=== PATIENT | male | born 1945 | race Caucasian/White ===

== ENCOUNTER 2023-04-19 11:02 | Outpatient (REF) | payer MEDICARE, OTHER, SELFPAY ==
[2023-04-19 14:11] LABS: Basophils Absolute Auto 0.1 X10*3/uL (0.0-0.2); Basophils Percent Auto 1.5 % (0-2); Eosinophils Absolute Auto 0.8 X10*3/uL (0.0-0.4); Eosinophils Percent Auto 12.6 % (0-4); Hematocrit 41.6 % (42.0-52.0); Hemoglobin 14.3 g/dl (14.0-18.0); Imm Gran Abs Auto 0.01 X10*3/uL (0.00-0.03); Imm Gran Pct Auto 0.2 % (0.0-0.4); Lymphocytes Absolute Auto 1.4 X10*3/uL (1.2-4.9); Lymphocytes Percent Auto 22.8 % (20-40); MANUAL DIFF FLAG NO; Mean Corpuscular HGB Conc 34.4 g/dl (31.0-36.0); Mean Corpuscular Hemoglobin 34.5 pg (27.0-33.0); Mean Corpuscular Volume 100.5 fL (80.0-98.0); Mean Platelet Volume 11.2 fL (9.4-12.4); Monocytes Absolute Auto 0.4 X10*3/uL (0.1-1.2); Monocytes Percent Auto 6.4 % (2-11); Neutrophils Absolute Auto 3.4 x10*3/uL (2.0-8.3); Neutrophils Percent Auto 56.5 % (45-73); Platelet Count 175 X10*3/uL (160-400); Red Blood Count 4.14 X10*6/uL (4.60-5.80); Red Cell Distribution Width 11.8 % (11.0-16.0); White Blood Count 6.1 X10*3/uL (4.8-10.8)
[2023-04-19 14:35] LABS: Appearance Urine Clear; Color Urine Dark Yellow; Glucose Urine UA Negative (Negative); Leukocyte Esterase Urine Negative (Negative); Nitrite Urine Negative (Negative); PH 6.5 (5.0-9.0); Specific Gravity - Urine >= 1.030 (1.005-1.025); UMIC TRIGGER UA YES; Urine Blood Negative (Negative); Urine Ketones Trace mg/dL (Negative); Urine Protein 30 (1+) mg/dL (Neg-Trace)
[2023-04-19 14:43] LABS: Bacteria Urine None Seen (None Seen); Hyaline Casts Urine 0-2 /LPF (0-2); RBC Urine 0-2 /HPF (0-2); Squamous Epithelial Cell Urine 0-2 /HPF (0-2); WBC Urine 0-5 /HPF (0-5)
[2023-04-19 14:45] LABS: Rheumatoid Factor < 13.0 IU/mL (<15.0)
[2023-04-19 14:48] LABS: Alanine Aminotransferase 15 U/L (0-40); Albumin Level 4.7 g/dL (3.5-5.0); Alkaline Phosphatase 50 U/L (39-117); Anion Gap 15 (12-20); Aspartate Amino Transferase 18 U/L (5-37); Bilirubin Total 0.5 mg/dL (0.0-1.0); Blood Urea Nitrogen 23 mg/dL (9-16); C Reactive Protein < 0.04 mg/dL (< or = 0.50); Calcium 10.1 mg/dL (8.4-10.2); Carbon Dioxide 24 mmol/L (22-29); Chloride 102 mmol/L (96-108); Estimated Glomerular Filt Rate 59; Gamma Glutamyl Transpeptidase 26 U/L (11-51); Glucose Random 101 mg/dL (60-115); Sodium 137 mmol/L (135-145); Total Protein 7.5 g/dL (6.5-8.0)
[2023-04-19 14:52] LABS: Erythrocyte Sedimentation Rate 7 MM/HR (0-15)
[2023-04-19 15:08] LABS: Protein/Creatinine Ratio, Ur 0.12 (<0.2); Total Protein Urine Random 31 mg/dL (<12)
[2023-04-20 04:05] LABS: HBc Num1 0.06 S/CO (0.00-0.79); Hepatitis A Antibody IgM 0.13 Index (0-0.79); Hepatitis B Core Antibody Nonreactive (Nonreactive); ~Hepatitis A Antibody IgM Nonreactive (Nonreactive)
[2023-04-20 04:29] LABS: HBS Num1 0.32 mIU/mL (0-7.99); HBsAGNum1 0.27 S/CO (0.00-0.99); Hepatitis B Surface Antigen Negative (Negative); ~HepC Num1 0.05 S/CO (0.00-0.79); ~Hepatitis B Surface Antibody NONREACTIVE (Nonreactive); ~Hepatitis C Antibody Nonreactive (Nonreactive)
[2023-04-20 13:44] LABS: Complement C3 145 mg/dL (82-185)
[2023-04-20 15:18] LABS: Cyclic Citrullinated Peptide <16 UNITS
[2023-04-20 18:43] LABS: Anti DNA DS Antibody <1 IU/mL; Antibody to SS-A Antigen >8.0 POS AI (<1.0 NEG); Antibody to SS-B Antigen <1.0 NEG AI (<1.0 NEG); SM/Ribonucleoprotein Ab <1.0 NEG AI (<1.0 NEG); Smith Protein <1.0 NEG AI (<1.0 NEG)
[2023-04-21 11:13] LABS: Prot Elec - Albumin 4.7 g/dL (3.8-4.8); Prot Elec - Alpha1 0.3 g/dL (0.2-0.3); Prot Elec - Beta 1 0.5 g/dL (0.4-0.6); Prot Elec - Beta 2 0.3 g/dL (0.2-0.5); Prot Elec - Gamma 0.6 g/dL (0.8-1.7); Prot Elec - Total Protein 7.4 g/dL (6.1-8.1)
[2023-04-22 08:34] LABS: TS Negative Control Passed; TS Panel A 0; TS Panel B 0; TS Positive Control Passed; TSpotTB Negative (Negative)
[2023-04-25 12:09] LABS: ANA Pattern 2 Nuclear, Homogeneous; ANA Titer 2 1:40 titer; Anti Nuclear Antibody Pattern Nuclear, Speckled; Anti Nuclear Antibody Screen POSITIVE (NEGATIVE)
[2023-04-25 12:39] LABS: IgA 168 mg/dL (70-320); IgG 589 mg/dL (600-1540); IgM 21 mg/dL (50-300)
[2023-04-26 15:33] LABS: DNAds, Crithidia Antibody Negative (Negative)
[2023-05-02 17:00] LABS: Centromere Protein A Ab <11 SI (<11); Centromere Protein B Ab <11 SI (<11); Fibrillarin Ab <11 SI (<11); PM SCL 100 Ab <11 SI (<11); PM SCL 75 Ab <11 SI (<11); RNA Polymerase III RP11 Ab <11 SI (<11); RNA Polymerase III RP155 Ab <11 SI (<11); SCL-70 Extractable Nuclear Ab <11 SI (<11); Th-To Ab <11 SI (<11); U1 SNRNP RNP 70KD <11 SI (<11); U1 SNRNP RNP A <11 SI (<11); U1 SNRNP RNP C <11 SI (<11)
== END 2023-04-19 11:03 | disposition home or self-care (01) ==
LOC: HO.LAB 11:02
PROVIDERS: Visit Provider Student in an Organized Health Care Education/Training Program
DX: M32.9 Systemic lupus erythematosus, unspecified (principal); M06.9 Rheumatoid arthritis, unspecified; M34.9 Systemic sclerosis, unspecified; R74.01 Elevation of levels of liver transaminase levels; Z79.899 Other long term (current) drug therapy; Z11.59 Encounter for screening for other viral diseases; Z11.7 Encounter for testing for latent tuberculosis infection; Z72.89 Other problems related to lifestyle
CPT/HCPCS: 36415; 80053; 81001; 82550; 82570; 82784; 82977; 84156; 84165; 84182; 85025; 85652; 86038; 86039; 86140; 86160; 86200; 86225; 86235; 86255; 86334; 86431; 86481; 86704; 86706; 86709; 86803; 87340

== ENCOUNTER 2023-04-19 11:02 | Outpatient (AMB) | payer MEDICARE, OTHER, SELFPAY ==
--- NOTE | 2023-04-19 11:43 | A.OFFVIS_ITS ---
Intake Vital Signs 04/19/23 11:56 Height 5 ft 10 in Weight 199 lb 1.239 oz BMI 28.6 BP 132/76 Blood Pressure Location Lt brachial Position Sitting Pulse 71 Pulse Source Pulse Oximeter Pulse Oximetry (%) 99 Oxygen Delivery Method Room Air Intake Visit Reasons: Lupus Intake Note: New patient presents today for Lupus consult. [place] Operator Required: No Accompanied by: Self / Same As Patient Allergies No Known Allergies Allergy (Verified 04/19/23 11:57) Medication List - Last Reconciled 04/19/23 by Anne Ritter MD duloxetine 20 mg PO DAILY hydroxychloroquine 200 mg PO BID losartan 100 mg PO DAILY HPI HPI Comments History of Present Illness Details This is a 77-year-old male who presents for evaluation of SLE. He stated that since he has been having episodes of rashes all over his body especially after sun exposure, fatigue, generalized pain and weakness. Eventually around 2018 he was evaluated by Dermatology and a skin biopsy confirmed discoid lupus erythematosus. He was started on hydroxychloroquine with significant improvement of his rashes. He was evaluated by Rheumatology and methotrexate was added in 2020, he was on it for about 9 months and it was discontinued due to GI upset. He continues on hydroxychloroquine 200 mg Twice daily. He states that he continues to have at least 1 or 2 days per week episodes of brain fog, generalized fatigue, pain in upper back, neck, shoulders, lower back. Whenever he does any work outside he gets a butterfly rash on his face. He denies any history of fevers. He states that his hands and feet are always cold. They do change color but he does not have to do anything about it to reverse it. Denies any history of DVT/PE. States that he has had GI symptoms for years and had significant workup by Gastroenterology. Including endoscopy and colonoscopy which were unremarkable per patient. He has intermittent heartburn. Occasionally takes omeprazole. Denies any dysphagia. He states that prednisone always does wonders for all his symptoms. States that his daughter was recently diagnosed with lupus and started on Plaquenil with dramatic improvement. He believes that his mother also had lupus as she also had photosensitivity and sun intolerance. [facility] Medical History Hypertension Surgical History H/O abdominoplasty S/P hernia repair Hx of tonsillectomy History of surgery Family History Daughter Lupus (systemic lupus erythematosus) Other Family history of lupus erythematosus Social History Household Members: Spouse Alcohol intake: current Alcohol intake frequency: holidays/special occasions only Patient Tobacco Use Status: Former Tobacco user Review of Systems Const Reports fatigue Eyes Reports blurry vision ENT Reports dizziness Resp Reports no additional complaints GI Reports bloating, Reports constipation, Reports early satiety and Reports heartburn Musc Reports arthralgias, Denies joint swelling, Reports muscle weakness and Reports stiffness Skin/Breast Reports unusual bruising Neuro Reports dizziness and Reports memory loss Psych Reports memory loss Endo Reports fatigue Physical Exam Vital Signs: Last Vital Signs Pulse 71 04/19/23 11:56 BP 132/76 04/19/23 11:56 Pulse Ox 99 04/19/23 11:56 Oxygen Delivery Method Room Air 04/19/23 11:56 BMI result Body Mass Index 28.6 Const General: cooperative, healthy appearing and comfortable Nutritional Appearance: overweight Orientation/consciousness: patient oriented x3 Limitations: no limitations HEENT Head: Yes normocephalic and Yes atraumatic Mouth: moist mucous membranes Resp Effort & Inspection: normal respiratory effort and able to speak in complete sentences Auscultation: clear to auscultation bilaterally Cardio Rate: regular rate Rhythm: regular rhythm GI Inspection: No distended Palpation (GI): Soft to palpation and nontender Skin General skin exam: no rashes or lesions noted Neuro General: patient oriented x3 Extrem Other: Mild purplish discoloration of hands, cool fingertips, consistent with Raynaud's No active synovitis No myofascial tender points No swollen joints Normal nailfold capillaroscopy Results Reviewed Results Reviewed: Previously diagnosed with cutaneous lupus erythematosus by skin biopsy in 2018 at [facility] in [place] Labs 04/2022? C4 22 normal? C3-130 normal? CBC unremarkable CMP unremarkable? ESR 11? CRP undetectable? CPK 44 Labs 01/2022? CPK 36? DsDNA negative C3 105 normal? C4 18 normal? CBC unremarkable ESR and CRP unremarkable Stopped oral methotrexate due to GI upset after taking it X 9 months in 05/2020 Assessment & Plan Assessment & Plan (1) Lupus: Comment: dx 2018 skin biopsy showing cutaneous lupus, fatigue, arthralgias HCQ approx 2019 effective for skin Code(s): M32.9 - Systemic lupus erythematosus, unspecified Plan: This is a 77-year-old male with SLE who presents as a new patient. Lupus was 1st diagnosed around 2018 after a skin biopsy confirmed discoid lupus. Patient was having other symptoms such as fatigue, generalized fatigue, brain fog. Rashes significantly improved on hydroxychloroquine. Methotrexate was added, patient took it for approximately 9 months and stopped in 05/2020 due to GI issues. His GI issues persistent after discontinuing methotrexate. Will repeat SLE activity labs. Continue hydroxychloroquine 200 mg Twice daily. Will consider injectable methotrexate. 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 Advised patient to attempt to retrieve initial office note and workup by Rheumatology Follow-up in 6-7 weeks Plan I spent 66 minutes reviewing patient's chart, reviewing records from [facility] Rheumatology, evaluating patient, ordering diagnostic workup, counseling patient and documenting in the chart Orders: Orders Complete Blood Count Auto Diff Today M32.9 - Systemic lupus erythematosus, unspecified C Reactive Protein Today M32.9 - Systemic lupus erythematosus, unspecified Hepatitis A,B,C Profile Today Z11.59 - Encounter for screening for other viral diseases Protein Electrophoresis, Serum Today M32.9 - Systemic lupus erythematosus, unspecified T Spot TB Today Z11.7 - Encounter for testing for latent tuberculosis infection Anti DNA DS Antibody Today M32.9 - Systemic lupus erythematosus, unspecified Protein Creatinine Ratio, Ur Today M32.9 - Systemic lupus erythematosus, unspecified Sjogren's Antibodies Today M32.9 - Systemic lupus erythematosus, unspecified UA w Microscopic Today M32.9 - Systemic lupus erythematosus, unspecified Rheumatoid Factor Today M06.9 - Rheumatoid arthritis, unspecified Cyclic Citrullinated Peptide Today M06.9 - Rheumatoid arthritis, unspecified Comprehensive Met. Panel Today M32.9 - Systemic lupus erythematosus, unspecified Erythrocyte Sedimentation Rate Today M32.9 - Systemic lupus erythematosus, unspecified Immunofixation Pnl, Serum Today M32.9 - Systemic lupus erythematosus, unspecified CHARLEEN Reflex Titer and Pattern Today M32.9 - Systemic lupus erythematosus, unspecified Anti Extractable Nuclear Ag Today M32.9 - Systemic lupus erythematosus, unspecified Complement C3 Today M32.9 - Systemic lupus erythematosus, unspecified Complement C4 Today M32.9 - Systemic lupus erythematosus, unspecified DNA Double Stranded-Crithidia Today M32.9 - Systemic lupus erythematosus, unspe cified Scleroderma 12 Panel Today M34.9 - Systemic sclerosis, unspecified Creatine Kinase Total Today R74.01 - Elevation of levels of liver transaminase levels Gamma Glutamyl Transpeptidase Today R74.01 - Elevation of levels of liver transaminase levels Coding Level of Care Code New Pt Level 5 (70193) Diagnoses Lupus M32.9
[2023-04-19 11:56] VITALS: BP 132/76; PULSE 71; O2SAT 99; BMI 28.6
== END 2023-04-19 13:16 | disposition home or self-care (01) ==
PROVIDERS: Visit Provider Student in an Organized Health Care Education/Training Program
DX: M32.9 Systemic lupus erythematosus, unspecified (principal)
CPT/HCPCS: 99205

== ENCOUNTER 2023-05-19 13:00 | Outpatient (AMB) | payer MEDICARE, OTHER, SELFPAY ==
--- NOTE | 2023-05-19 13:09 | A.OFFVIS_ITS ---
Intake Vital Signs 05/19/23 13:15 Height 5 ft 10 in Weight 200 lb 9.93 oz BMI 28.8 BP 122/76 Blood Pressure Location Rt brachial Position Sitting Pulse 44 L Pulse Source Pulse Oximeter Pulse Oximetry (%) 94 Oxygen Delivery Method Room Air Intake Visit Reasons: SLE Intake Note: Patient last seen 04/19/23 presents today for follow up and test results. Public Address Technician Required: No Accompanied by: Self / Same As Patient Allergies No Known Allergies Allergy (Verified 05/19/23 13:26) Medication List - Last Reconciled 05/19/23 by Anne Ritter MD duloxetine 20 mg PO DAILY hydroxychloroquine 200 mg PO BID losartan 100 mg PO DAILY HPI HPI Comments History of Present Illness Details 77-year-old male with lupus returns for follow-up after completion of his diagnostic workup. Continues to have flare-ups of generalized fatigue, butterfly rash, he also states that he gets intermittent muscle cramping, spasm of his quadriceps and calves, usually precipitated by activity or a flare. Continues to have the same GI symptoms. Initial history: This is a 77-year-old male who presents for evaluation of SLE. He stated that since he has been having episodes of rashes all over his body especially after sun exposure, fatigue, generalized pain and weakness. Eventually around 2018 he was evaluated by Dermatology and a skin biopsy confirmed discoid lupus erythematosus. He was started on hydroxychloroquine with significant improvement of his rashes. He was evaluated by Rheumatology and methotrexate was added in 2020, he was on it for about 9 months and it was discontinued due to GI upset. He continues on hydroxychloroquine 200 mg Twice daily. He states that he continues to have at least 1 or 2 days per week episodes of brain fog, generalized fatigue, pain in upper back, neck, shoulders, lower back. Whenever he does any work outside he gets a butterfly rash on his face. He denies any history of fevers. He states that his hands and feet are always cold. They do change color but he does not have to do anything about it to reverse it. Denies any history of DVT/PE. States that he has had GI symptoms for years and had significant workup by Gastroenterology. Including endoscopy and colonoscopy which were unremarkable per patient. He has intermittent heartburn. Occasionally takes omeprazole. Denies any dysphagia. He states that prednisone always does wonders for all his symptoms. States that his daughter was recently diagnosed with lupus and started on Plaquenil with dramatic improvement. He believes that his mother also had lupus as she also had photosensitivity and sun intolerance. [facility] Medical History Hypertension Surgical History H/O abdominoplasty S/P hernia repair Hx of tonsillectomy History of surgery Family History Daughter Lupus (systemic lupus erythematosus) Other Family history of lupus erythematosus Social History Household Members: Spouse Alcohol intake: current Alcohol intake frequency: holidays/special occasions only Patient Tobacco Use Status: Former Tobacco user Review of Systems Const Reports fatigue ENT Reports dizziness Resp Reports no additional complaints GI Reports bloating, Reports constipation, Reports early satiety and Reports heartburn Musc Reports arthralgias, Denies joint swelling, Reports muscle weakness and Reports stiffness Skin/Breast Reports rash and Reports unusual bruising Neuro Reports dizziness and Reports memory loss Psych Reports memory loss Endo Reports fatigue Physical Exam Vital Signs: Last Vital Signs Pulse 44 L 05/19/23 13:15 BP 122/76 05/19/23 13:15 Pulse Ox 94 05/19/23 13:15 Oxygen Delivery Method Room Air 05/19/23 13:15 BMI result Body Mass Index 28.8 Const General: cooperative, healthy appearing and comfortable Nutritional Appearance: overweight Orientation/consciousness: patient oriented x3 Limitations: no limitations HEENT Head: Yes normocephalic and Yes atraumatic Mouth: moist mucous membranes Resp Effort & Inspection: normal respiratory effort and able to speak in complete sentences Auscultation: clear to auscultation bilaterally Cardio Rate: regular rate Rhythm: regular rhythm GI Inspection: No distended Palpation (GI): Soft to palpation and nontender Skin Other: Mild erythema of left cheek General skin exam: no rashes or lesions noted Neuro General: patient oriented x3 Extrem Other: Mild purplish discoloration of hands, cool fingertips, consistent with Raynaud's No active synovitis No myofascial tender points No swollen joints Normal nailfold capillaroscopy Results Reviewed Results Reviewed: Previously diagnosed with cutaneous lupus erythematosus by skin biopsy in 2018 at [facility] in [place] Labs 04/2022? C4 22 normal? C3-130 normal? CBC unremarkable CMP unremarkable? ESR 11? CRP undetectable? CPK 44 Labs 01/2022? CPK 36? DsDNA negative C3 105 normal? C4 18 normal? CBC unremarkable ESR and CRP unremarkable Stopped oral methotrexate due to GI upset after taking it X 9 months in 05/2020 Assessment & Plan Assessment & Plan (1) Lupus: Comment: dx 2018 skin biopsy showing cutaneous lupus, fatigue, arthralgias +CHARLEEN+++SSa +DsDNA HCQ approx 2019 effective for skin Stopped oral methotrexate due to GI upset after taking it X 9 months in 05/2020 Code(s): M32.9 - Systemic lupus erythematosus, unspecified Plan: This is a 77-year-old male with SLE who presents for follow-up. Patient continues to have flare-ups of skin rashes, generalized fatigue, body aches. He has not had any significant organ dysfunction related to lupus. Methotrexate was tried in the past and patient believes that he was symptomatically better, it was discontinued due to GI symptoms, the GI symptoms did not improve despite discontinuing methotrexate. Discussed risks and benefits of methotrexate, we opted to switch to subcutaneous methotrexate. Start methotrexate 15 mg weekly plus folic acid 2 mg day Continue with hydroxychloroquine 200 mg Twice daily Labs before next visit in 10 weeks (2) Muscle spasm: Code(s): M62.838 - Other muscle spasm Plan: Flexeril as needed (3) alf methotrexate user: Code(s): Z79.631 - alf (current) use of antimetabolite agent Plan: Monitor safety labs Plan I spent 25 minutes reviewing patient's chart, reviewing records from [facility] Rheumatology, evaluating patient, ordering diagnostic workup, counseling patient and documenting in the chart Orders: Orders Anti DNA DS Antibody 10 Weeks Z79.631 - alf (current) use of antimetabolite agent C Reactive Protein 10 Weeks Z79.631 - alf (current) use of antimetabolite agent Comprehensive Met. Panel 10 Weeks Z79.631 - equipment operator intermodal yard (current) use of antimetabolite agent Complement C3 10 Weeks Z79.631 - equipment operator intermodal yard (current) use of antimetabolite agent Complement C4 10 Weeks Z79.631 - equipment operator intermodal yard (current) use of antimetabolite agent Erythrocyte Sedimentation Rate 10 Weeks Z79.631 - equipment operator intermodal yard (current) use of antimetabolite agent Complete Blood Count Auto Diff 10 Weeks Z79.631 - alf (current) use of antimetabolite agent Medications: New cyclobenzaprine orally; 1-2 tabs nightly as needed for muscle spasm 15 tabs 1RF muscle spasm methotrexate sodium (PF) 15 mg (0.6 mL) subcut QWEEK 4 mL 2RF folic acid 2 mg (2 x 1 mg) PO DAILY 60 tabs 2RF Coding Level of Care Code Est Pt Level 4 (79429) Diagnoses Lupus M32.9 Muscle spasm M62.838 alf methotrexate user [id number]
[2023-05-19 13:15] VITALS: BP 122/76; PULSE 44; O2SAT 94; BMI 28.8
== END 2023-05-19 13:37 | disposition home or self-care (01) ==
PROVIDERS: PCP Internal Medicine; Visit Provider Student in an Organized Health Care Education/Training Program
DX: M32.9 Systemic lupus erythematosus, unspecified (principal); Z79.631 Long term (current) use of antimetabolite agent
CPT/HCPCS: 99214

== ENCOUNTER → 2023-05-19 13:00 | Outpatient (BNVA) | payer MEDICARE, OTHER, SELFPAY | PROVIDERS: Visit Provider Student in an Organized Health Care Education/Training Program | DX: M32.9 Systemic lupus erythematosus, unspecified (principal); Z79.631 Long term (current) use of antimetabolite agent | CPT/HCPCS: 99212 ==

== ENCOUNTER 2023-07-30 10:17 | Emergency (ER) | payer MEDICARE, OTHER, SELFPAY ==
[2023-07-30] VITALS (9 sets, daily range): BP systolic 120–188; BP diastolic 60–77; PULSE 80–95; RESP 13–22; TEMP 36.4–36.8; O2SAT 97–98; BMI 25.6
--- NOTE | ~2023-07-30 | CT_ITS ---
EXAMINATION: CT HEAD WITHOUT CONTRAST CT ANGIOGRAM HEAD CT ANGIOGRAM NECK CLINICAL INFORMATION: Reason for Exam Foggy, history lupus COMPARISON: None. TECHNIQUE: Initial noncontrast lockstitch front maker imaging of the head and neck was performed. Noncontrast head CT was also performed. Test bolus sequences followed by intravenous administration 85 mL of Omnipaque 350. Helical imaging was performed in the axial plane from the aortic arch to the skull vertex. Delayed postcontrast imaging of the head was also performed. The data was processed at the cardiovascular technologist's workstation for generation of MIP sequences. Angled MIPs and volume rendered reformatted images were also generated at an offline 3D workstation. Stenoses are assessed in accordance with Terrazas et al. Quantification of Carotid Stenosis on CT Angiography. AJR 2006. 27(1):13-19. [address] CT examination was performed using dose optimization techniques as appropriate, variously including the following: *Automated exposure control *Adjustment of mA and/or kV according to patient size (this includes techniques or standardized protocols for targeted exams where dose is matched to indication/reason for exam; i.e. extremities or head) *Use of iterative reconstruction technique DLP: 2270 mGy-cm FINDINGS: CT HEAD: There is no evidence of acute intracranial hemorrhage. No mass-effect or ventricular shift is noted. No acute, territorial loss of dotson-white differentiation. Generalized cerebral volume loss with associated ventricular and sulcal prominence. Periventricular and subcortical white matter hypodensity is nonspecific but likely represents chronic microvascular ischemic change. No abnormal intracranial enhancement is visualized. No depressed calvarial fracture. Trace scattered paranasal sinus polypoid mucosal thickening. The mastoid air cells are essentially clear. Bilateral intraocular lens replacement. Intracranial atherosclerotic calcification is noted. CTA HEAD: Anterior circulation: Right internal carotid artery: Atherosclerosis without flow-limiting stenosis Right middle cerebral artery: No hemodynamically significant stenosis. Right anterior cerebral artery: No hemodynamically significant stenosis. Left internal carotid artery: Atherosclerosis without flow-limiting stenosis. Left middle cerebral artery: No hemodynamically significant stenosis. Left anterior cerebral artery: Hypoplastic A1 segment. Posterior circulation: Right vertebral artery: No hemodynamically significant stenosis. Left vertebral artery: No hemodynamically significant stenosis. Basilar artery: No hemodynamically significant stenosis. Right posterior cerebral artery: No hemodynamically significant stenosis. Left posterior cerebral artery: No hemodynamically significant stenosis. No high flow vascular malformation or significant aneurysmal dilatation is visualized. The left transverse and sigmoid sinus are likely congenitally small in caliber. CTA NECK: Aortic arch: Normal anatomy. Right common carotid artery: No hemodynamically significant stenosis. Right proximal internal carotid artery: Calcified and noncalcified atherosclerotic plaque with less than 50% luminal narrowing. Right mid/distal internal carotid artery: No hemodynamically significant stenosis. Left common carotid artery: No hemodynamically significant stenosis. Left proximal internal carotid artery: Calcified and noncalcified atherosclerosis with less than 50% narrowing. Left mid/distal internal carotid artery: No hemodynamically significant stenosis. Right vertebral artery: No hemodynamically significant stenosis. Left vertebral artery: Dominant. Patent. CT NECK: Mild apical emphysematous changes. Mildly prominent mediastinal lymph nodes are indeterminate and may be reactive. Multilevel degenerative changes of the cervical spine. CT/CT angio head neck IMPRESSION: CT HEAD: No acute intracranial hemorrhage or territorial loss of dotson-white differentiation. CTA NECK: No hemodynamically significant stenosis. CTA HEAD: No proximal vessel occlusion or high-grade stenosis.
--- NOTE | 2023-07-30 10:21 | ECG_ITS ---
Test Reason : DIZZYNESS Blood Pressure : / mmHG Vent. Rate : 085 BPM Atrial Rate : 085 BPM P-R Int : 174 ms QRS Dur : 104 ms QT Int : 392 ms P-R-T Axes : 048 -38 066 degrees QTc Int : 466 ms Sinus rhythm with marked sinus arrhythmia Left axis deviation Abnormal ECG When compared with ECG of 17-MAY-2002 15:24, QT has lengthened Referred By: Perri Covarrubias Electronically Signed By:DREA HU MD
[2023-07-30 10:51] LABS: MANUAL DIFF FLAG NO
[2023-07-30 10:55] LABS: Basophils Absolute Auto 0.1 X10*3/uL (0.0-0.2); Basophils Percent Auto 1.1 % (0-2); Eosinophils Percent Auto 18.2 % (0-4); Hematocrit 37.9 % (42.0-52.0); Hemoglobin 13.2 g/dl (14.0-18.0); Imm Gran Abs Auto 0.01 X10*3/uL (0.00-0.03); Imm Gran Pct Auto 0.2 % (0.0-0.4); Lymphocytes Absolute Auto 0.9 X10*3/uL (1.2-4.9); Lymphocytes Percent Auto 17.3 % (20-40); Mean Corpuscular HGB Conc 34.8 g/dl (31.0-36.0); Mean Corpuscular Hemoglobin 36.5 pg (27.0-33.0); Mean Corpuscular Volume 104.7 fL (80.0-98.0); Mean Platelet Volume 10.7 fL (9.4-12.4); Monocytes Absolute Auto 0.4 X10*3/uL (0.1-1.2); Monocytes Percent Auto 6.9 % (2-11); Neutrophils Percent Auto 56.3 % (45-73); Platelet Count 159 X10*3/uL (160-400); Red Blood Count 3.62 X10*6/uL (4.60-5.80); Red Cell Distribution Width 13.5 % (11.0-16.0); White Blood Count 5.4 X10*3/uL (4.8-10.8)
[2023-07-30 11:12] LABS: Alanine Aminotransferase 23 U/L (0-40); Albumin Level 4.3 g/dL (3.5-5.0); Alkaline Phosphatase 45 U/L (39-117); Anion Gap 16 (12-20); Aspartate Amino Transferase 24 U/L (5-37); Bilirubin Total 0.5 mg/dL (0.0-1.0); Blood Urea Nitrogen 19 mg/dL (9-16); Calcium 9.6 mg/dL (8.4-10.2); Carbon Dioxide 23 mmol/L (22-29); Chloride 104 mmol/L (96-108); Creatinine Clr Calc Pharmacy 68.5; Estimated Glomerular Filt Rate > 60; Glucose Random 98 mg/dL (60-115); Potassium 4.4 mmol/L (3.3-5.1); Sodium 139 mmol/L (135-145); Total Protein 6.8 g/dL (6.5-8.0)
[2023-07-30 11:19] LABS: Troponin-I High Sensitivity 3.9 ng/L (<3.5-35.0)
[2023-07-30 11:26] LABS: Appearance Urine Clear; Color Urine Dark Yellow; Glucose Urine UA Negative (Negative); Leukocyte Esterase Urine Negative (Negative); Nitrite Urine Negative (Negative); Specific Gravity - Urine >= 1.030 (1.005-1.025); UMIC TRIGGER UACC YES; Urine Blood Negative (Negative); Urine Ketones Trace mg/dL (Negative); Urine Protein 30 (1+) mg/dL (Neg-Trace)
[2023-07-30 11:31] LABS: Bacteria Urine None Seen (None Seen); RBC Urine 0-2 /HPF (0-2); Squamous Epithelial Cell Urine 0-2 /HPF (0-2); WBC Urine 0-5 /HPF (0-5)
[2023-07-30 12:25] LABS: Troponin-I High Sensitivity 3.9 ng/L (<3.5-35.0)
--- NOTE | 2023-07-30 12:45 | ED.SYNCOPE ---
HPI - Syncope General Chief Complaint: Syncope Stated Complaint: NEAR SYNCOPE, CC OF FOGGINESS PER EMS Time Seen by Provider: 07/30/23 10:20 Source: patient and family Mode of arrival: EMS History of Present Illness HPI narrative: 77-year-old male with history of lupus who arrives via EMS from [place] where he states that he was walking up to the front of the [employer]az[employer]ism and felt foggy in the head but denies any cool/clammy skin feeling, denies any shortness of breath or palpitations states he has had some epigastric tightness , states that this happened 1 other time within the past week and denies any recent changes in medications or new medications. Patient last saw his physician in June. Related Data Home Medications ?Medication ?Instructions ?Recorded ?Confirmed duloxetine 20 mg capsule,delayed 20 mg PO DAILY 04/19/23 release hydroxychloroquine 200 mg tablet 200 mg PO BID 04/19/23 losartan 100 mg tablet 100 mg PO DAILY 04/19/23 Previous Rx's ?Medication ?Instructions ?Recorded cyclobenzaprine 5 mg tablet See Rx Instructions PO .COMPLEX 05/19/23 muscle spasm #15 tabs folic acid 1 mg tablet 2 mg (2 x 1 mg) PO DAILY #60 tabs 05/19/23 insulin syringe-needle U-100 1 mL #100 ea 05/24/23 27 gauge x 1/2 (BD Insulin Syringe) methotrexate sodium (PF) 25 mg/mL 15 mg (0.6 mL) subcut QWEEK #4 mL 06/05/23 injection solution Allergies Allergy/AdvReac Type Severity Reaction Status Date / Time No Known Allergies Allergy Verified 07/30/23 10:26 Review of Systems Review of Systems: Pertinent positives and negatives as stated in HPI PMFSH Past Medical History Source: nursing notes reviewed Medical History Hypertension Surgical History H/O abdominoplasty S/P hernia repair Hx of tonsillectomy History of surgery Family History Family History Daughter Lupus (systemic lupus erythematosus) Other Family history of lupus erythematosus Social History Social History Household Members: Spouse Alcohol intake: current Alcohol intake frequency: a few times a week Alcohol type: wine Patient Tobacco Use Status: Former Tobacco user Smoked in Last 30 Days: No Use of substances other than those prescribed or required for medical reasons: No Advance Directives: Yes Advance Directives Information Provided: No Advance Directives on File: No Do you have a plan to hurt others: No Plan Physical Exam Vital Signs: Vital Signs: Last Vital Signs Temp 97.6 F 07/30/23 14:57 Pulse 95 07/30/23 15:05 Resp 22 H 07/30/23 14:57 BP 148/72 H 07/30/23 15:05 Pulse Ox 97 07/30/23 14:57 O2 Del Method Room Air 07/30/23 14:57 BMI result Body Mass Index 25.6 VITAL SIGNS: Reviewed. GENERAL: Well developed, well nourished, in no acute distress. HEAD: Normocephalic/atraumatic EYES: PERRLA, EOMI EARS: Ext canals without abnormality NOSE: Nares patent bilateral OROPHARYNX: no oral lesions noted, posterior pharynx clear NECK: Supple, no adenopathy LUNGS: Normal breath sounds. No adventitious sounds or accessory muscle use. SpO2<97> CARDIOVASCULAR: Regular rate and rhythm without noted murmurs ABDOMEN: Soft, non-tender, non-distended with bowel sounds. MUSCULOSKELETAL: No tenderness, deformities, or effusions noted on gross inspection. EXTREMITIES: No cyanosis, clubbing or edema. SKIN: Inspection of the skin reveals no rashes NEUROLOGIC: Alert and oriented x 4. Strength and sensation to light touch were grossly intact x 4, no facial asymmetry, no pronator drift, cranial nerves 2-12 are grossly intact. Medications Administered Discontinued Medications Generic Name Dose Route Start Last Admin Trade Name Freq PRN Reason Stop Dose Admin Sodium Chloride 500 mls @ 999 mls/hr 07/30/23 13:30 07/30/23 14:14 Ns IV 07/30/23 14:00 Infused .Q31M VIVI Infusion Iohexol 85 ml 07/30/23 13:53 07/30/23 13:53 Iohexol 350 Mg/Ml 100 Ml Infus..Btl IV 07/30/23 13:54 85 ml ONCE ONE Administration Medical Decision Making Medical Decision Making MDM Narrative: 77-year-old male with history and clinical presentation, DDX: Still feels foggy and provided collateral information stating that he was noted to be diaphoretic but unsure about skin temperature and patient denied any associated nausea, no chest pain/palpitations but does describe epigastric tightness, no acute changes on EKG noted but orthostatics noted to be mildly positive from sitting to standing. I reviewed all investigations and hematologic indices are negative for leukocytosis or left shift, patient has persistent macrocytic RBCs with stable hemoglobin level and mild thrombocytopenia. Chemistry indices negative for JOSE E/electrolyte or liver enzyme derangements and serial troponins are flat. Urinalysis negative for UTI or hematuria. CT angio head and neck without acute findings. Patient received 500 cc of IV fluid is otherwise stable for discharge and further evaluation by his primary care doctor in the outpatient setting. My interpretation is that patient experienced a vasovagal near syncopal episode. Differential Diagnosis Differential Diagnoses: The differential diagnosis associated with the presentation includes Please see the discussion above Admission/Observation Consideration of admission/observation: Escalation of care including admission/observation considered Please see the discussion above Lab Data MDM Lab Attestation statement: I reviewed the patient's lab results. Please see the discussion above 07/30/23 10:45 07/30/23 10:46 Labs: Lab Results 07/30/23 07/30/23 07/30/23 Range/Units 10:45 10:46 11:20 WBC 5.4 (4.8-10.8) X10*3/uL RBC 3.62 L (4.60-5.80) X10*6/uL Hgb 13.2 L (14.0-18.0) g/dl Hct 37.9 L (42.0-52.0) % MCV 104.7 H (80.0-98.0) fL MCH 36.5 H (27.0-33.0) pg MCHC 34.8 (31.0-36.0) g/dl RDW 13.5 (11.0-16.0) % Plt Count 159 L (160-400) X10*3/uL MPV 10.7 (9.4-12.4) fL Immature Gran % (Auto) 0.2 (0.0-0.4) % Neut % (Auto) 56.3 (45-73) % Lymph % (Auto) 17.3 L (20-40) % [place] % (Auto) 6.9 (2-11) % Eos % (Auto) 18.2 H (0-4) % Baso % (Auto) 1.1 (0-2) % Lymph # (Auto) 0.9 L (1.2-4.9) X10*3/uL [place] # (Auto) 0.4 (0.1-1.2) X10*3/uL Eos # (Auto) 1.0 H (0.0-0.4) X10*3/uL Baso # (Auto) 0.1 (0.0-0.2) X10*3/uL Abs Immat Gran (auto) 0.01 (0.00-0.03) X10*3/uL Absolute Neuts (auto) 3.0 (2.0-8.3) x10*3/uL Absolute Nucleated RBC 0.000 (0.0-0.012) X10*3/uL Nucleated RBC % (auto) 0.0 (0.0-0.2) /100WBC Sodium 139 (135-145) mmol/L Potassium 4.4 (3.3-5.1) mmol/L Chloride 104 (96-108) mmol/L Carbon Dioxide 23 (22-29) mmol/L Anion Gap 16 (12-20) BUN 19 H (9-16) mg/dL Creatinine 0.99 (0.5-1.4) mg/dL Estim Creat Clear Calc 68.5 Estimated GFR > 60 Random Glucose 98 (60-115) mg/dL Calcium 9.6 (8.4-10.2) mg/dL Total Bilirubin 0.5 (0.0-1.0) mg/dL AST 24 (5-37) U/L ALT 23 (0-40) U/L Alkaline Phosphatase 45 (39-117) U/L Troponin I High Sens 3.9 (<3.5-35.0) ng/L Total Protein 6.8 (6.5-8.0) g/dL Albumin 4.3 (3.5-5.0) g/dL Urine Color Dark Yellow Urine Appearance Clear Urine pH 7.0 (5.0-9.0) Ur Specific [place] >= 1.030 H (1.005-1.025) Urine Protein 30 (1+) H (Neg-Trace) mg/dL Urine Glucose (UA) Negative (Negative) mg/dL Urine Ketones Trace (Negative) mg/dL Urine Blood Negative (Negative) Urine Nitrite Negative (Negative) Ur Leukocyte Esterase Negative (Negative) Urine RBC 0-2 (0-2) /HPF Urine WBC 0-5 (0-5) /HPF Ur Squamous Epith Cells 0-2 (0-2) /HPF Urine Bacteria None Seen (None Seen) Hyaline Casts 3-5 (0-2) /LPF 07/30/23 Range/Units 12:00 WBC (4.8-10.8) X10*3/uL RBC (4.60-5.80) X10*6/uL Hgb (14.0-18.0) g/dl Hct (42.0-52.0) % MCV (80.0-98.0) fL MCH (27.0-33.0) pg MCHC (31.0-36.0) g/dl RDW (11.0-16.0) % Plt Count (160-400) X10*3/uL MPV (9.4-12.4) fL Immature Gran % (Auto) (0.0-0.4) % Neut % (Auto) (45-73) % Lymph % (Auto) (20-40) % [place] % (Auto) (2-11) % Eos % (Auto) (0-4) % Baso % (Auto) (0-2) % Lymph # (Auto) (1.2-4.9) X10*3/uL [place] # (Auto) (0.1-1.2) X10*3/uL Eos # (Auto) (0.0-0.4) X10*3/uL Baso # (Auto) (0.0-0.2) X10*3/uL Abs Immat Gran (auto) (0.00-0.03) X10*3/uL Absolute Neuts (auto) (2.0-8.3) x10*3/uL Absolute Nucleated RBC (0.0-0.012) X10*3/uL Nucleated RBC % (auto) (0.0-0.2) /100WBC Sodium (135-145) mmol/L Potassium (3.3-5.1) mmol/L Chloride (96-108) mmol/L Carbon Dioxide (22-29) mmol/L Anion Gap (12-20) BUN (9-16) mg/dL Creatinine (0.5-1.4) mg/dL Estim Creat Clear Calc Estimated GFR Random Glucose (60-115) mg/dL Calcium (8.4-10.2) mg/dL Total Bilirubin (0.0-1.0) mg/dL AST (5-37) U/L ALT (0-40) U/L Alkaline Phosphatase (39-117) U/L Troponin I High Sens 3.9 (<3.5-35.0) ng/L Total Protein (6.5-8.0) g/dL Albumin (3.5-5.0) g/dL Urine Color Urine Appearance Urine pH (5.0-9.0) Ur Specific [place] (1.005-1.025) Urine Protein (Neg-Trace) mg/dL Urine Glucose (UA) (Negative) mg/dL Urine Ketones (Negative) mg/dL Urine Blood (Negative) Urine Nitrite (Negative) Ur Leukocyte Esterase (Negative) Urine RBC (0-2) /HPF Urine WBC (0-5) /HPF Ur Squamous Epith Cells (0-2) /HPF Urine Bacteria (None Seen) Hyaline Casts (0-2) /LPF Independent Interpretation I performed an independent interpretation of an: EKG Interpretation: Sinus rhythm, HR-85, no STEMI, VT/QRS/QTC is within normal limits. Radiology Impression Discussion of test interpretation with radiology: I have reviewed the radiologist's reading. Radiologist Impression: Please see the discussion above External Record Review External record reviewed: Outpatient record and Prior outpatient labs Chronic Conditions SLE Critical Care Time Critical Care Time Critical Care Time: Yes Total Critical Care Time: 45 Attestation: I personally attest to this time spent taking care of the patient. Discharge Plan Discharge Clinical Impression: Vasovagal near-syncope Patient Disposition: Still a Patient Instructions: Near Syncope (ED) Additional Instructions: 1. Resume all home medications as prescribed. 2. Follow-up with primary care doctor as scheduled. Continue to drink plenty of fluids and return to the emergency room if you experience any worsening of symptoms. Prescriptions: No Action (DME) insulin syringe-needle U-100 [BD Insulin Syringe] 1 mL 27 gauge x 1/2 syringe See Rx Instructions .Route Qty: 100 0RF Rx Instructions: use once weekly with methotrexate methotrexate sodium (PF) 25 mg/mL solution 15 mg subcut QWEEK Qty: 4 2RF folic acid 1 mg tablet 2 mg PO DAILY Qty: 60 2RF cyclobenzaprine 5 mg tablet See Rx Instructions PO .COMPLEX Qty: 15 1RF Rx Instructions: orally; 1-2 tabs nightly as needed for muscle spasm duloxetine 20 mg capsule,delayed release(DR/EC) 20 mg PO DAILY losartan 100 mg tablet 100 mg PO DAILY hydroxychloroquine 200 mg tablet 200 mg PO BID Referrals: Gisell Lassiter MD [Primary Care Provider] - Print Language: [place]
[2023-07-30] MEDS: 0.9 % Sodium Chloride 500 ML 999 ML IV (13:40)
[2023-07-30] MEDS: iohexoL 350 MG/ML 100 ML INFUS..BTL 85 ML IV (13:53)
== END 2023-07-30 16:46 | disposition home or self-care (01) ==
PROVIDERS: Emergency Provider Student in an Organized Health Care Education/Training Program; PCP Internal Medicine
DX: R55 Syncope and collapse (principal); R42 Dizziness and giddiness; R94.31 Abnormal electrocardiogram [ECG] [EKG]; M54.2 Cervicalgia; Z79.899 Other long term (current) drug therapy
CPT/HCPCS: 36415; 70496; 70498; 80053; 81001; 84484; 85025; 93005; 96360; 99284; 99285; Q9967

== ENCOUNTER → 2023-07-30 10:21 | Outpatient (BNV) | payer MEDICARE, OTHER, SELFPAY | PROVIDERS: Emergency Provider Student in an Organized Health Care Education/Training Program; PCP Internal Medicine; Visit Provider Internal Medicine Cardiovascular Disease | DX: I49.9 Cardiac arrhythmia, unspecified (principal) | CPT/HCPCS: 93010 ==

== ENCOUNTER 2023-08-07 08:47 | Outpatient (AMB) | payer MEDICARE, OTHER, SELFPAY ==
--- NOTE | 2023-08-07 08:52 | MHC.OFFVIS ---
Vital Signs 08/07/23 09:02 Height 6 ft Weight 201 lb 15.095 oz BMI 27.4 BP 124/70 Blood Pressure Location Rt brachial Position Sitting Pulse 91 Pulse Source Pulse Oximeter Pulse Oximetry (%) 99 Oxygen Delivery Method Room Air Intake Visit Reasons: SLE Intake Note: Patient last seen 05/19/23 presents today for follow up and test results. Reports he was seen in our ED a couple weeks ago for abdominal/diaphragm pain Operations Liaison Required: No Accompanied by: Self / Same As Patient Allergies No Known Allergies Allergy (Verified 08/07/23 09:01) Medication List - Last Reconciled 08/07/23 by Anne Ritter MD cyclobenzaprine orally; 1-2 tabs nightly as needed for muscle spasm duloxetine 20 mg PO DAILY folic acid 2 mg (2 x 1 mg) PO DAILY hydroxychloroquine 200 mg PO BID insulin syringe-needle U-100 (BD Insulin Syringe) use once weekly with methotrexate leucovorin calcium 5 mg PO QWEEK losartan 100 mg PO DAILY methotrexate sodium (PF) 20 mg (0.8 mL) subcut QWEEK HPI Comments Details: 77-year-old male with lupus returns for follow-up after completion of his diagnostic workup. He has been on methotrexate for roughly 2 months now. States that methotrexate takes about a day to work and he has noticed improved brain fog, improved severity and improved generalized fatigue for 2-3 days then it fades away 1 or 2 days before the following dose. He can not attribute any side effects related to methotrexate. A week ago he was in [employer] and he had a spasm in his diaphragm and he was sent to the emergency room. States that he has had those symptoms before. He does not believe they are related to methotrexate. Initial history: This is a 77-year-old male who presents for evaluation of SLE. He stated that since he has been having episodes of rashes all over his body especially after sun exposure, fatigue, generalized pain and weakness. Eventually around 2018 he was evaluated by Dermatology and a skin biopsy confirmed discoid lupus erythematosus. He was started on hydroxychloroquine with significant improvement of his rashes. He was evaluated by Rheumatology and methotrexate was added in 2020, he was on it for about 9 months and it was discontinued due to GI upset. He continues on hydroxychloroquine 200 mg Twice daily. He states that he continues to have at least 1 or 2 days per week episodes of brain fog, generalized fatigue, pain in upper back, neck, shoulders, lower back. Whenever he does any work outside he gets a butterfly rash on his face. He denies any history of fevers. He states that his hands and feet are always cold. They do change color but he does not have to do anything about it to reverse it. Denies any history of DVT/PE. States that he has had GI symptoms for years and had significant workup by Gastroenterology. Including endoscopy and colonoscopy which were unremarkable per patient. He has intermittent heartburn. Occasionally takes omeprazole. Denies any dysphagia. He states that prednisone always does wonders for all his symptoms. States that his daughter was recently diagnosed with lupus and started on Plaquenil with dramatic improvement. He believes that his mother also had lupus as she also had photosensitivity and sun intolerance. [facility] Medical History Hypertension Surgical History H/O abdominoplasty S/P hernia repair Hx of tonsillectomy History of surgery Family History Daughter Lupus (systemic lupus erythematosus) Other Family history of lupus erythematosus Social History Household Members: Spouse Alcohol intake: current Alcohol intake frequency: a few times a week Alcohol type: wine Patient Tobacco Use Status: Former Tobacco user Review of Systems Const Reports fatigue Resp Reports no additional complaints GI Reports bloating, Reports constipation, Reports early satiety and Reports heartburn Musc Reports arthralgias, Denies joint swelling, Reports muscle weakness and Reports stiffness Skin/Breast Reports rash Neuro Reports memory loss Psych Reports memory loss Endo Reports fatigue Physical Exam Vital Signs: Last Vital Signs Pulse 91 08/07/23 09:02 BP 124/70 08/07/23 09:02 Pulse Ox 99 08/07/23 09:02 Oxygen Delivery Method Room Air 08/07/23 09:02 BMI result Body Mass Index 27.4 Const General: cooperative, healthy appearing and comfortable Nutritional Appearance: overweight Orientation/consciousness: patient oriented x3 Limitations: no limitations HEENT Head: Yes normocephalic and Yes atraumatic Mouth: moist mucous membranes Resp Effort & Inspection: normal respiratory effort and able to speak in complete sentences Auscultation: clear to auscultation bilaterally Cardio Rate: regular rate Rhythm: regular rhythm GI Inspection: No distended Palpation (GI): Soft to palpation and nontender Skin General skin exam: no rashes or lesions noted Neuro General: patient oriented x3 Extrem Other: Mild purplish discoloration of hands, cool fingertips, consistent with Raynaud's No active synovitis No myofascial tender points No swollen joints Normal nailfold capillaroscopy Results Reviewed Results Reviewed: Previously diagnosed with cutaneous lupus erythematosus by skin biopsy in 2018 at [facility] in [place] Labs 04/2022? C4 22 normal? C3-130 normal? CBC unremarkable CMP unremarkable? ESR 11? CRP undetectable? CPK 44 Labs 01/2022? CPK 36? DsDNA negative C3 105 normal? C4 18 normal? CBC unremarkable ESR and CRP unremarkable Stopped oral methotrexate due to GI upset after taking it X 9 months in 05/2020 Assessment & Plan Assessment & Plan (1) Lupus: Comment: dx 2018 skin biopsy showing cutaneous lupus, fatigue, arthralgias +CHARLEEN+++SSa +DsDNA HCQ approx 2019 effective for skin Stopped oral methotrexate due to GI upset after taking it X 9 months in 05/2020 SQ MTX 15 mg 05/2023 Code(s): M32.9 - Systemic lupus erythematosus, unspecified Category: Medical Plan: This is a 77-year-old male with SLE who presents for follow-up. Subcu methotrexate 15 mg weekly started 2 months ago with improved brain fog, fatigue and skin rashes but methotrexate works for approximately 4-5 days. Patient has not had any side effects that can be attributed to methotrexate. 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 Category: Medical Plan: Monitor safety labs Plan I spent 24 minutes reviewing patient's chart, evaluating patient, ordering diagnostic workup, counseling patient and documenting in the chart Orders: Orders Complement C3 3 Months M32.9 - Systemic lupus erythematosus, unspecified, Z79.631 - long-term (current) use of antimetabolite agent Complement C4 3 Months M32.9 - Systemic lupus erythematosus, unspecified, Z79.631 - long-term (current) use of antimetabolite agent Erythrocyte Sedimentation Rate 3 Months M32.9 - Systemic lupus erythematosus, unspecified, 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 UA w Microscopic 3 Months M32.9 - Systemic lupus erythematosus, unspecified, Z79.631 - long-term (current) use of antimetabolite agent Complete Blood Count Auto Diff 3 Months M32.9 - Systemic lupus erythematosus, unspecified, 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
[2023-08-07 09:02] VITALS: BP 124/70; PULSE 91; O2SAT 99; BMI 27.4
== END 2023-08-07 09:16 | disposition home or self-care (01) ==
PROVIDERS: PCP Internal Medicine; Visit Provider Student in an Organized Health Care Education/Training Program
DX: M32.9 Systemic lupus erythematosus, unspecified (principal); Z79.631 Long term (current) use of antimetabolite agent
CPT/HCPCS: 99214

== ENCOUNTER → 2023-08-07 08:47 | Outpatient (BNVA) | payer MEDICARE, OTHER, SELFPAY | PROVIDERS: PCP Internal Medicine; Visit Provider Student in an Organized Health Care Education/Training Program | DX: M32.9 Systemic lupus erythematosus, unspecified (principal); Z79.631 Long term (current) use of antimetabolite agent | CPT/HCPCS: 99212 ==

== ENCOUNTER 2023-10-31 14:06 | Outpatient (REF) | payer MEDICARE, OTHER, SELFPAY ==
[2023-10-31 14:40] LABS: MANUAL DIFF FLAG NO
[2023-10-31 15:11] LABS: Basophils Absolute Auto 0.1 X10*3/uL (0.0-0.2); Basophils Percent Auto 0.8 % (0-2); Eosinophils Absolute Auto 0.6 X10*3/uL (0.0-0.4); Hematocrit 36.5 % (42.0-52.0); Hemoglobin 12.6 g/dl (14.0-18.0); Imm Gran Abs Auto 0.03 X10*3/uL (0.00-0.03); Imm Gran Pct Auto 0.5 % (0.0-0.4); Lymphocytes Absolute Auto 1.2 X10*3/uL (1.2-4.9); Lymphocytes Percent Auto 20.1 % (20-40); Mean Corpuscular HGB Conc 34.5 g/dl (31.0-36.0); Mean Corpuscular Hemoglobin 36.5 pg (27.0-33.0); Mean Corpuscular Volume 105.8 fL (80.0-98.0); Mean Platelet Volume 10.8 fL (9.4-12.4); Monocytes Absolute Auto 0.7 X10*3/uL (0.1-1.2); Monocytes Percent Auto 11.1 % (2-11); NRBC Pct Auto 0.3 /100WBC (0.0-0.2); Neutrophils Absolute Auto 3.6 x10*3/uL (2.0-8.3); Neutrophils Percent Auto 58.5 % (45-73); Platelet Count 182 X10*3/uL (160-400); Red Blood Count 3.45 X10*6/uL (4.60-5.80); Red Cell Distribution Width 13.7 % (11.0-16.0); White Blood Count 6.1 X10*3/uL (4.8-10.8)
[2023-10-31 15:29] LABS: Alanine Aminotransferase 15 U/L (0-40); Alkaline Phosphatase 52 U/L (39-117); Anion Gap 11 (12-20); Aspartate Amino Transferase 19 U/L (5-37); Bilirubin Total 0.3 mg/dL (0.0-1.0); Blood Urea Nitrogen 28 mg/dL (9-16); Calcium 9.7 mg/dL (8.4-10.2); Carbon Dioxide 23 mmol/L (22-29); Chloride 107 mmol/L (96-108); Estimated Glomerular Filt Rate > 60; Glucose Random 110 mg/dL (60-115); Potassium 4.3 mmol/L (3.3-5.1); Sodium 137 mmol/L (135-145); Total Protein 6.2 g/dL (6.5-8.0)
[2023-10-31 15:49] LABS: Erythrocyte Sedimentation Rate 11 MM/HR (0-15)
[2023-10-31 16:22] LABS: Appearance Urine Clear; Color Urine Dark Yellow; Glucose Urine UA Negative (Negative); Leukocyte Esterase Urine Negative (Negative); Nitrite Urine Negative (Negative); Specific Gravity - Urine >= 1.030 (1.005-1.025); Urine Blood Negative (Negative); Urine Ketones Trace mg/dL (Negative); Urine Protein Trace mg/dL (Neg-Trace)
[2023-10-31 16:25] LABS: Bacteria Urine None Seen (None Seen); Hyaline Casts Urine 0-2 /LPF (0-2); RBC Urine 0-2 /HPF (0-2); Squamous Epithelial Cell Urine 0-2 /HPF (0-2); WBC Urine 0-5 /HPF (0-5)
[2023-10-31 17:16] LABS: Protein/Creatinine Ratio, Ur 0.05 (<0.2); Total Protein Urine Random 12 mg/dL (<12)
[2023-11-02 07:19] LABS: Anti DNA DS Antibody <1 IU/mL
[2023-11-02 11:02] LABS: Complement C3 130 mg/dL (82-185)
== END 2023-10-31 14:07 | disposition home or self-care (01) ==
LOC: HO.LAB 14:06
PROVIDERS: PCP Family Medicine; Visit Provider Student in an Organized Health Care Education/Training Program
DX: M32.9 Systemic lupus erythematosus, unspecified (principal); Z79.631 Long term (current) use of antimetabolite agent
CPT/HCPCS: 36415; 80053; 81001; 82570; 84156; 85025; 85652; 86140; 86160; 86225

== ENCOUNTER 2023-11-01 09:19 | Outpatient (AMB) | payer MEDICARE, OTHER, SELFPAY ==
[2023-11-01 09:23] VITALS: BP 120/68; PULSE 77; O2SAT 100; BMI 27.1
--- NOTE | 2023-11-01 09:23 | A.OFFVIS_ITS ---
Vital Signs 11/01/23 09:23 Height 6 ft Weight 200 lb 2.876 oz BMI 27.1 BP 120/68 Blood Pressure Location Rt brachial Position Sitting Pulse 77 Pulse Source Pulse Oximeter Pulse Oximetry (%) 100 Oxygen Delivery Method Room Air Intake Visit Reasons: SLE/CM Intake Note: Patient presents today with SLE follow up and labs Allergies No Known Allergies Allergy (Verified 11/01/23 09:28) Medication List - Last Reconciled 11/01/23 by Anne Ritter MD cyclobenzaprine orally; 1-2 tabs nightly as needed for muscle spasm duloxetine 20 mg PO DAILY folic acid 2 mg (2 x 1 mg) PO DAILY hydroxychloroquine 200 mg PO BID insulin syringe-needle U-100 (BD Insulin Syringe) use once weekly with methotrexate leucovorin calcium 5 mg PO QWEEK losartan 100 mg PO DAILY methotrexate sodium (PF) 20 mg (0.8 mL) subcut QWEEK HPI Comments Details: 77-year-old male with lupus returns for follow-up he remains on methotrexate 20 mg weekly plus folic acid 2 mg daily and Leucovorin 5 mg weekly. On interviewing patient. He states that certain things have improved including his brain fog, his fatigue, he continues to have significant low back pain with standing, some pain in the back of his thighs with walking as well as neck pain , blurry vision and discomfort with turning his neck sideways. states that his abdominal symptoms have improved. He has a rash today but it is from poison genaro Initial history: This is a 77-year-old male who presents for evaluation of SLE. He stated that since he has been having episodes of rashes all over his body especially after sun exposure, fatigue, generalized pain and weakness. Eventually around 2018 he was evaluated by Dermatology and a skin biopsy confirmed discoid lupus erythematosus. He was started on hydroxychloroquine with significant improvement of his rashes. He was evaluated by Rheumatology and methotrexate was added in 2020, he was on it for about 9 months and it was discontinued due to GI upset. He continues on hydroxychloroquine 200 mg Twice daily. He states that he continues to have at least 1 or 2 days per week episodes of brain fog, generalized fatigue, pain in upper back, neck, shoulders, lower back. Whenever he does any work outside he gets a butterfly rash on his face. He denies any history of fevers. He states that his hands and feet are always cold. They do change color but he does not have to do anything about it to reverse it. Denies any history of DVT/PE. States that he has had GI symptoms for years and had significant workup by Gastroenterology. Including endoscopy and colonoscopy which were unremarkable per patient. He has intermittent heartburn. Occasionally takes omeprazole. Denies any dysphagia. He states that prednisone always does wonders for all his symptoms. States that his daughter was recently diagnosed with lupus and started on Plaquenil with dramatic improvement. He believes that his mother also had lupus as she also had photosensitivity and sun intolerance. [facility] Medical History Hypertension Surgical History H/O abdominoplasty S/P hernia repair Hx of tonsillectomy History of surgery Family History Daughter Lupus (systemic lupus erythematosus) Other Family history of lupus erythematosus Social History Household Members: Spouse Alcohol intake: current Alcohol intake frequency: a few times a week Alcohol type: wine Patient Tobacco Use Status: Former Tobacco user Review of Systems Const Reports fatigue Resp Reports no additional complaints Musc Reports back pain and Reports radiating pain into limb Skin/Breast Reports rash Neuro Reports memory loss Psych Reports memory loss Endo Reports fatigue Physical Exam Vital Signs: Last Vital Signs Pulse 77 11/01/23 09:23 BP 120/68 11/01/23 09:23 Pulse Ox 100 11/01/23 09:23 Oxygen Delivery Method Room Air 11/01/23 09:23 BMI result Body Mass Index 27.1 Const General: cooperative, healthy appearing and comfortable Nutritional Appearance: overweight Orientation/consciousness: patient oriented x3 Limitations: no limitations HEENT Head: Yes normocephalic and Yes atraumatic Mouth: moist mucous membranes Resp Effort & Inspection: normal respiratory effort and able to speak in complete sentences Auscultation: clear to auscultation bilaterally Cardio Rate: regular rate Rhythm: regular rhythm GI Inspection: No distended Palpation (GI): Soft to palpation and nontender Skin Other: Contact dermatitis like rash on left forearm and neck Neuro General: patient oriented x3 Extrem Other: Mild purplish discoloration of hands, cool fingertips, consistent with Raynaud's No active synovitis No myofascial tender points No swollen joints Normal nailfold capillaroscopy Results Reviewed Results Reviewed: Previously diagnosed with cutaneous lupus erythematosus by skin biopsy in 2018 at [facility] in [place] Labs 04/2022? C4 22 normal? C3-130 normal? CBC unremarkable CMP unremarkable? ESR 11? CRP undetectable? CPK 44 Labs 01/2022? CPK 36? DsDNA negative C3 105 normal? C4 18 normal? CBC unremarkable ESR and CRP unremarkable Stopped oral methotrexate due to GI upset after taking it X 9 months in 05/2020 Assessment & Plan Assessment & Plan (1) Lupus: Comment: dx 2018 skin biopsy showing cutaneous lupus, fatigue, arthralgias +CHARLEEN+++SSa +DsDNA HCQ approx 2019 effective for skin Stopped oral methotrexate due to GI upset after taking it X 9 months in 05/2020 SQ MTX 05/2023 Code(s): M32.9 - Systemic lupus erythematosus, unspecified Category: Medical Plan: This is a 77-year-old male with SLE who presents for follow-up. On methotrexate 20 mg subcutaneously weekly with improved brain fog, fatigue and skin rashes. Per , his GI symptoms have improved Patient has not had any side effects that can be attributed to methotrexate. Patient however continues to have very low threshold for fatigue, continues to have malar rash with activity as well as brain fog. Today we discussed potentially adding Saphnelo. Patient and will think about it His musculoskeletal complaints are likely degenerative and mechanical in nature Continue with methotrexate 20 mg subcutaneously weekly Continue Leucovorin 5 mg weekly the day after methotrexate for macrocytosis Continue folic acid 2 mg daily Continue with hydroxychloroquine 200 mg Twice daily Labs before next visit in 4 months (2) penitentiary methotrexate user: Code(s): Z79.631 - penitentiary (current) use of antimetabolite agent Category: Medical Plan: Monitor safety labs (3) Radiculopathy, lumbar region: Code(s): M54.16 - Radiculopathy, lumbar region Category: Medical Plan: Referred to pain management Plan I spent 24 minutes reviewing patient's chart, evaluating patient, ordering diagnostic workup, counseling patient and documenting in the chart Orders: Referrals Pain Management Referral M54.16 - Radiculopathy, lumbar region Medications: Refilled methotrexate sodium (PF) 20 mg (0.8 mL) subcut QWEEK 4 mL 3RF folic acid 2 mg (2 x 1 mg) PO DAILY 180 tabs 0RF insulin syringe-needle U-100 (BD Insulin Syringe) use once weekly with methotrexate 100 ea 0RF leucovorin calcium 5 mg PO QWEEK 12 tabs 0RF Coding Level of Care Code Est Pt Level 4 (30344) Diagnoses Lupus M32.9 penitentiary methotrexate user Z79.631 Radiculopathy, lumbar region M54.16
== END 2023-11-01 09:51 | disposition home or self-care (01) ==
PROVIDERS: PCP Internal Medicine; Visit Provider Student in an Organized Health Care Education/Training Program
DX: M32.9 Systemic lupus erythematosus, unspecified (principal); Z79.631 Long term (current) use of antimetabolite agent; M54.16 Radiculopathy, lumbar region
CPT/HCPCS: 99214

== ENCOUNTER → 2023-11-01 09:19 | Outpatient (BNVA) | payer MEDICARE, OTHER, SELFPAY | PROVIDERS: PCP Internal Medicine; Visit Provider Student in an Organized Health Care Education/Training Program | DX: M32.9 Systemic lupus erythematosus, unspecified (principal); M54.16 Radiculopathy, lumbar region; R53.83 Other fatigue; Z79.631 Long term (current) use of antimetabolite agent | CPT/HCPCS: 99212 ==

== ENCOUNTER 2023-11-14 10:30 | Outpatient (AMB) | payer MEDICARE, OTHER, SELFPAY ==
[2023-11-14 10:33] VITALS: BP 156/83; PULSE 90; O2SAT 97; BMI 26.9
--- NOTE | 2023-11-14 10:33 | A.OFFVIS_ITS ---
Vital Signs 3 11/14/23 10:33 Height 6 ft Weight 198 lb BMI 26.9 BP 156/83 H Blood Pressure Location Lt brachial Position Sitting Pulse 90 Pulse Source Pulse Oximeter Pulse Oximetry (%) 97 Oxygen Delivery Method Room Air Intake Visit Reasons: Lumbar Radiculopathy Allergies No Known Allergies Allergy (Verified 11/14/23 10:35) Medication List - Last Reconciled 11/14/23 by Martha Du cyclobenzaprine orally; 1-2 tabs nightly as needed for muscle spasm duloxetine 20 mg PO DAILY folic acid 2 mg (2 x 1 mg) PO DAILY hydroxychloroquine 200 mg PO BID insulin syringe-needle U-100 (BD Insulin Syringe) use once weekly with methotrexate insulin syringe-needle U-100 (BD Insulin Syringe Ultra-Fine) Use once weekly with methotrexate leucovorin calcium 5 mg PO QWEEK losartan 100 mg PO DAILY methotrexate sodium (PF) 20 mg (0.8 mL) subcut QWEEK HPI Comments Details: Dandy is a very pleasant 77-year-old male who presents to the office today for evaluation management of his chronic lower back pain Patient has been suffering with this pain for approximately years. He denies inciting injury, fall, trauma, accident Endorses midline lower back pain without radiation down either lower extremity. Pain is worse with moving, twisting. Patient completed physical therapy and has been doing extensive home exercise program without improvement of his symptoms. No improvement with duloxetine or Flexeril. Does find some relief with heat though it is short-lived. Pain today is rated as a 2/10, constant Patient had recent x-ray, results as per below. Denies red flag symptoms including new loss of bowel, bladder or saddle anesthesia. In terms of muscle damage condition is described as stabbing, tiring, piercing, dull, sore, hurting, heavy, aching Pain is negatively impacting patient's enjoyment of life, normal function, ability to perform activities of daily living, recreational activities Denies implantable devices, pacemaker defibrillator Patient denies current use of blood thinners. Denies tobacco, nicotine, illicit substance use. Endorses social alcohol use [facility] Medical History Hypertension Surgical History H/O abdominoplasty S/P hernia repair Hx of tonsillectomy History of surgery Family History Daughter Lupus (systemic lupus erythematosus) Other Family history of lupus erythematosus Social History Household Members: Spouse Alcohol intake: current Alcohol intake frequency: a few times a week Alcohol type: wine Patient Tobacco Use Status: Former Tobacco user Review of Systems Const All systems reviewed & are unremarkable except as noted in HPI and below Physical Exam Vital Signs: Last Vital Signs Pulse 90 11/14/23 10:33 BP 156/83 H 11/14/23 10:33 Pulse Ox 97 11/14/23 10:33 Oxygen Delivery Method Room Air 11/14/23 10:33 BMI result Body Mass Index 26.9 General: awake, alert, oriented. Answers questions appropriately. Fully engaged in examination. Skin: warm, dry, intact HEENT: Normocephalic. Hearing intact. Cardiac: External chest normal in appearance. Respiratory: No cough, audible wheezing or stridor. Abdomen: without gross distension. MS: No obvious swelling or deformities. Able to stand on bilateral tiptoes and bilateral heels.? Able to transition from sit to stand unassisted. Ambulates with bilaterally normal heel strike and toe off SLR negative bilaterally Facet loading positive bilaterally Minimally tender over midline lumbar vertebrae and lumbar paraspinal muscles Nontender over bilateral PSIS Bilateral lower extremity strength 5/5 Lumbar range of motion intact Neurological: Oriented to person, place, time and situation. Thought process intact. No gait abnormalities appreciated. Psychiatric: Appropriate mood and affect. Good judgment and insight. Results Reviewed Results Reviewed: 09/06/2022 Assessment & Plan Assessment & Plan (1) Lumbar spondylosis: Code(s): M47.816 - Spondylosis without myelopathy or radiculopathy, lumbar region Category: Medical Plan Dandy is a very pleasant 77-year-old male who presented to the office today for evaluation and management of his chronic lower back pain History, physical exam and provocative testing consistent with lumbar spondylosis Patient has exhausted conservative therapy including PT, home exercise program, nonsteroidal anti-inflammatory medications, heat, ice and muscle relaxers all without improvement of his symptoms Discussed at length with patient his diagnosis and treatment options including diagnostic interventional testing, epidural steroid injections, peripheral nerve stimulation with Sprint, RFA and more permanent neuromodulation. Will schedule for fluoroscopy guided bilateral diagnostic L3, L4 DR L5 medial branch blocks with local anesthetic. Informational pamphlets provided. All questions and concerns have been answered and patient agrees with the plan. Follow up after injections and sooner if needed. Coding Level of Care Code New Pt Level 4 (40237) Diagnoses Lumbar spondylosis M47.816
== END 2023-11-14 11:09 | disposition home or self-care (01) ==
PROVIDERS: PCP Internal Medicine; Referring Provider Student in an Organized Health Care Education/Training Program; Visit Provider Registered Nurse Emergency
DX: M47.816 Spondylosis without myelopathy or radiculopathy, lumbar region (principal)
CPT/HCPCS: 99204

== ENCOUNTER → 2023-11-14 10:30 | Outpatient (BNVA) | payer MEDICARE, OTHER, SELFPAY | PROVIDERS: PCP Internal Medicine; Referring Provider Student in an Organized Health Care Education/Training Program; Visit Provider Registered Nurse Emergency | DX: M47.816 Spondylosis without myelopathy or radiculopathy, lumbar region (principal) | CPT/HCPCS: 99202 ==

== ENCOUNTER 2023-12-11 13:58 | Outpatient (AMB) | payer MEDICARE, OTHER, SELFPAY ==
--- NOTE | 2023-12-11 14:02 | MHC.OFFVIS ---
Vital Signs 12/11/23 14:07 Height 6 ft Weight 160 lb 7.944 oz BMI 21.8 BP 118/58 L Blood Pressure Location Lt brachial Position Sitting Pulse 69 Pulse Source Pulse Oximeter Pulse Oximetry (%) 100 Oxygen Delivery Method Room Air Intake Visit Reasons: SLE Intake Note: Patient is here for follow up on lupus, still in pain after prednisone. Accompanied by: Spouse Allergies No Known Allergies Allergy (Verified 12/11/23 14:09) Medication List - Last Reconciled 12/11/23 by Anne Ritter MD cyclobenzaprine orally; 1-2 tabs nightly as needed for muscle spasm duloxetine 20 mg PO DAILY folic acid 2 mg (2 x 1 mg) PO DAILY hydroxychloroquine 200 mg PO BID insulin syringe-needle U-100 (BD Insulin Syringe) use once weekly with methotrexate insulin syringe-needle U-100 (BD Insulin Syringe Ultra-Fine) Use once weekly with methotrexate leucovorin calcium 5 mg PO QWEEK losartan 100 mg PO DAILY methotrexate sodium (PF) 15 mg (0.6 mL) subcut QWEEK naproxen sodium (Aleve) 220 mg PO BID PRN HPI Comments Details: 78-year-old male with lupus returns for follow-up he remains on methotrexate 20 mg weekly plus folic acid 2 mg daily and Leucovorin 5 mg weekly. Over the last month he has been slightly worse. Has been having more back pain, pain in his buttocks, the outside of his hips. He has significant back pain and weakness after standing up do dishes for a few minutes. Gets rashes on his face after being in the sun for some time. I had prescribed him a prednisone taper it did not help much. Initial history: This is a 77-year-old male who presents for evaluation of SLE. He stated that since he has been having episodes of rashes all over his body especially after sun exposure, fatigue, generalized pain and weakness. Eventually around 2018 he was evaluated by Dermatology and a skin biopsy confirmed discoid lupus erythematosus. He was started on hydroxychloroquine with significant improvement of his rashes. He was evaluated by Rheumatology and methotrexate was added in 2020, he was on it for about 9 months and it was discontinued due to GI upset. He continues on hydroxychloroquine 200 mg Twice daily. He states that he continues to have at least 1 or 2 days per week episodes of brain fog, generalized fatigue, pain in upper back, neck, shoulders, lower back. Whenever he does any work outside he gets a butterfly rash on his face. He denies any history of fevers. He states that his hands and feet are always cold. They do change color but he does not have to do anything about it to reverse it. Denies any history of DVT/PE. States that he has had GI symptoms for years and had significant workup by Gastroenterology. Including endoscopy and colonoscopy which were unremarkable per patient. He has intermittent heartburn. Occasionally takes omeprazole. Denies any dysphagia. He states that prednisone always does wonders for all his symptoms. States that his daughter was recently diagnosed with lupus and started on Plaquenil with dramatic improvement. He believes that his mother also had lupus as she also had photosensitivity and sun intolerance. [facility] Medical History Hypertension Surgical History H/O abdominoplasty S/P hernia repair Hx of tonsillectomy History of surgery Family History Daughter Lupus (systemic lupus erythematosus) Other Family history of lupus erythematosus Social History Household Members: Spouse Alcohol intake: current Alcohol intake frequency: a few times a week Alcohol type: wine Patient Tobacco Use Status: Former Tobacco user Review of Systems Const Reports fatigue Resp Reports no additional complaints Musc Reports back pain and Reports radiating pain into limb Skin/Breast Reports rash Neuro Reports memory loss Psych Reports memory loss Endo Reports fatigue Physical Exam Vital Signs: Last Vital Signs Pulse 69 12/11/23 14:07 BP 118/58 L 12/11/23 14:07 Pulse Ox 100 12/11/23 14:07 Oxygen Delivery Method Room Air 12/11/23 14:07 BMI result Body Mass Index 21.8 Const General: cooperative, healthy appearing and comfortable Nutritional Appearance: overweight Orientation/consciousness: patient oriented x3 Limitations: no limitations HEENT Head: Yes normocephalic and Yes atraumatic Mouth: moist mucous membranes Resp Effort & Inspection: normal respiratory effort and able to speak in complete sentences Auscultation: clear to auscultation bilaterally Cardio Rhythm: abnormal rhythm GI Inspection: No distended Palpation (GI): Soft to palpation and nontender Skin Other: Contact dermatitis like rash on left forearm and neck Neuro General: patient oriented x3 Extrem Other: Mild purplish discoloration of hands, cool fingertips, consistent with Raynaud's No active synovitis No myofascial tender points No swollen joints Normal nailfold capillaroscopy SLEDAI = 10 (8 points for lupus headaches & 2 points for rash) Results Reviewed Results Reviewed: Previously diagnosed with cutaneous lupus erythematosus by skin biopsy in 2018 at [facility] in [place] Labs 04/2022? C4 22 normal? C3-130 normal? CBC unremarkable CMP unremarkable? ESR 11? CRP undetectable? CPK 44 Labs 01/2022? CPK 36? DsDNA negative C3 105 normal? C4 18 normal? CBC unremarkable ESR and CRP unremarkable Stopped oral methotrexate due to GI upset after taking it X 9 months in 05/2020 Assessment & Plan Assessment & Plan (1) Lupus: Comment: dx 2018 skin biopsy showing cutaneous lupus, fatigue, arthralgias +CHARLEEN+++SSa +DsDNA HCQ approx 2019 effective for skin Stopped oral methotrexate due to GI upset after taking it X 9 months in 05/2020 SQ MTX 05/2023 Code(s): M32.9 - Systemic lupus erythematosus, unspecified Category: Medical Plan: This is a 78-year-old male with SLE who presents for follow-up. On methotrexate 20 mg subcutaneously weekly. He is also on hydroxychloroquine 200 mg Twice daily. He continues to have headaches, skin rashes, diffuse joint pain, brain fog. Feels weak and queasy the day after he takes methotrexate. His SLE remains active. We will need to advance DMARDs. Discussed risks and benefits of Saphnelo. Patient agreed to proceed. Will start prior authorization for Saphnelo. 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 Category: Medical Plan: Monitor safety labs (3) Radiculopathy, lumbar region: Code(s): M54.16 - Radiculopathy, lumbar region Category: Medical Plan: Was evaluated by pain management and injection was suggested, patient has not been scheduled yet however (4) Abnormal heart rhythm: Code(s): I49.9 - Cardiac arrhythmia, unspecified Category: Medical Qualifiers: Arrhythmia type: unspecified cardiac arrhythmia Qualified Code(s): I49.9 - Cardiac arrhythmia, unspecified Plan: Check an EKG Plan I spent 34 minutes reviewing patient's chart, evaluating patient, ordering diagnostic workup, counseling patient and documenting in the chart Orders: Orders ECG 12 lead EKG Today I49.9 - Cardiac arrhythmia, unspecified Medications: Changed From methotrexate sodium (PF) 20 mg (0.8 mL) subcut QWEEK 4 mL 3RF To methotrexate sodium (PF) 15 mg (0.6 mL) subcut QWEEK 4 mL 3RF Coding Level of Care Code Est Pt Level 5 (87414) Diagnoses Lupus M32.9 group home methotrexate user Z79.631 Radiculopathy, lumbar region M54.16 Cardiac arrhythmia, unspecified cardiac arrhythmia type I49.9 Arrhythmia type: unspecified cardiac arrhythmia
[2023-12-11 14:07] VITALS: BP 118/58; PULSE 69; O2SAT 100; BMI 21.8
== END 2023-12-11 14:47 | disposition home or self-care (01) ==
PROVIDERS: PCP Internal Medicine; Visit Provider Student in an Organized Health Care Education/Training Program
DX: M32.9 Systemic lupus erythematosus, unspecified (principal); Z79.631 Long term (current) use of antimetabolite agent; M54.16 Radiculopathy, lumbar region; I49.9 Cardiac arrhythmia, unspecified
CPT/HCPCS: 99214

== ENCOUNTER → 2023-12-11 13:58 | Outpatient (REF) | payer MEDICARE, OTHER, SELFPAY ==
--- NOTE | 2023-12-11 15:03 | ECG_ITS ---
Test Reason : CARDIAC AARHYTHMIA Blood Pressure : / mmHG Vent. Rate : 089 BPM Atrial Rate : 089 BPM P-R Int : 146 ms QRS Dur : 098 ms QT Int : 364 ms P-R-T Axes : 062 -39 064 degrees QTc Int : 442 ms Sinus rhythm with marked sinus arrhythmia Left axis deviation Abnormal ECG When compared with ECG of 30-JUL-2023 10:30, No significant change was found Referred By: Anne Ritter Electronically Signed By:WEN DRAKE
== END ==
LOC: HO.CARD 13:58
PROVIDERS: PCP Internal Medicine; Visit Provider Student in an Organized Health Care Education/Training Program
DX: I49.9 Cardiac arrhythmia, unspecified (principal)
CPT/HCPCS: 93005; 99212

== ENCOUNTER 2024-02-13 06:13 | Outpatient (REF) | payer MEDICARE, OTHER, SELFPAY | END 2024-02-13 06:14 | disposition home or self-care (01) | LOC: CF 06:13 | PROVIDERS: Visit Provider Anesthesiology | DX: M47.816 Spondylosis without myelopathy or radiculopathy, lumbar region (principal) | CPT/HCPCS: 64493; 64494; J2003; J2795; Q9967 ==

== ENCOUNTER 2024-02-13 10:36 | Outpatient (AMB) | payer MEDICARE, OTHER, SELFPAY ==
--- NOTE | 2024-02-13 10:43 | A.OFFVIS_ITS ---
Vital Signs 02/13/24 11:49 02/13/24 11:50 02/13/24 11:52 Height 6 ft 6 ft Weight 160 lb 160 lb BMI 21.7 21.7 BP 146/88 H 170/95 H 150/70 H Blood Pressure Location Lt brachial Lt brachial Lt brachial Position Sitting Sitting Sitting Respiration 16 16 Pulse 81 82 Pulse Source Pulse Oximeter Pulse Oximeter Pulse Oximetry (%) 100 98 Oxygen Delivery Method Room Air Room Air Comment pre-op post-op Intake Visit Reasons: BILATERAL DIAGNOSTIC L3, L4, DRL5 MBB Allergies No Known Allergies Allergy (Verified 02/13/24 11:52) PFSH Medical History Hypertension Surgical History H/O abdominoplasty S/P hernia repair Hx of tonsillectomy History of surgery Family History Daughter Lupus (systemic lupus erythematosus) Other Family history of lupus erythematosus Social History Household Members: Spouse Alcohol intake: current Alcohol intake frequency: a few times a week Alcohol type: wine Patient Tobacco Use Status: Former Tobacco user Physical Exam Vital Signs: Last Vital Signs Pulse 82 02/13/24 11:50 Resp 16 02/13/24 11:50 BP 150/70 H 02/13/24 11:52 Pulse Ox 98 02/13/24 11:50 Oxygen Delivery Method Room Air 02/13/24 11:50 BMI result Body Mass Index 21.7 Assessment & Plan Assessment & Plan (1) Lumbar spondylosis: Code(s): M47.816 - Spondylosis without myelopathy or radiculopathy, lumbar region Category: Medical Plan Diagnostic medial branch block L3,L4 dorsal ramus L5 bilateral.? ? ?Informed consent was explained to the patient. All questions were explained and? answered.? The patient was taken inside the operating room where he was positioned prone on the operating table. Time-out was performed delineating correct site, side, the nature of the procedure, patient's allergy, . All operating room staff was participating in OR time-out procedure. ? ? The lower back was prepped with ChloraPrep and draped with sterile towels.? C- arm was brought over the operating field and sq picture of L4-, L5 vertebra and S1 AREA were delineated on the screen.? Point of interest were delineated as confluence of superior articular process of L4 and L5 vertebra bilaterally with corresponding transverse processes as well as confluence of the sacral alae bilaterally with superior articular process of S1.? The projection of the point of interest to the skin were injected with the small amount of local anesthetic lidocaine 2% mixed with ropivacaine 0.5% 1-1 approcimately 1 cc.? After that 22 gauge 3.5 inch spinal needle was driven sequentially to the points of interest in tunnel vision fashion. After needles gently contacted the bone at the point of interests the needle was injected with small amount of the contrast.? The injection of the contrast did not demonstrate any intravascular or intrathecal spread of the contrast.? After that injection of the? ropivacaine 0.5%-1cc was performed at each needle location.??after that the needles were removed and Bandaids were applied. ? Upon completion of the injections? needle was? removed and sterile Band-Aids were applied.? The patient tolerated procedure very well. Orders: Orders FL guidance in treatment room Today M47.816 - Spondylosis without myelopathy or radiculopathy, lumbar region Coding Level of Care Code Procedure Only Diagnoses Lumbar spondylosis M47.816
[2024-02-13 11:49] VITALS: BP 146/88; PULSE 81; RESP 16; O2SAT 100; BMI 21.7
[2024-02-13 11:50] VITALS: BP 170/95; PULSE 82; RESP 16; O2SAT 98; BMI 21.7
[2024-02-13 11:52] VITALS: BP 150/70
== END 2024-02-13 11:42 | disposition home or self-care (01) ==
LOC: HO.PMCPRC 10:36
PROVIDERS: PCP Internal Medicine; Visit Provider Anesthesiology
DX: M47.816 Spondylosis without myelopathy or radiculopathy, lumbar region (principal)
CPT/HCPCS: 64493; 64494

== ENCOUNTER 2024-02-21 11:19 | Outpatient (AMB) | payer MEDICARE, OTHER, SELFPAY ==
--- NOTE | 2024-02-21 11:45 | A.OFFVIS_ITS ---
Vital Signs 02/21/24 11:51 Height 6 ft Weight 195 lb BMI 26.4 BP 144/86 H Blood Pressure Location Lt brachial Position Sitting Pulse 94 Pulse Source Pulse Oximeter Pulse Oximetry (%) 98 Oxygen Delivery Method Room Air Intake Visit Reasons: BILATERAL DIAGNOSTIC L3, L4, DRL5 MBB Intake Note: Pain today 0/10 Cdl Driver Required: No Accompanied by: Self / Same As Patient Allergies No Known Allergies Allergy (Verified 02/13/24 11:52) HPI Comments Details: Patient presents back to the office today for follow-up, 1 week status post bilateral diagnostic L3-L4 DR L5 medial branch blocks with local anesthetic Initially patient stated that he found no relief in the hours after the injection, however he reports no pain to the area of the injections. Now he endorses pain at bottom of thoracic, upper lumbar area. This is worse with bending, standing with a forward flexed position and doing overhead work with his arms. He has also recently started a new injectable medication with rheumatology for his SLE. States he has been feeling significant improvement since starting this medication. He is due for his next dose in a couple weeks. He is hoping that this will improve his overall pain. Prior: Dandy is a very pleasant 77-year-old male who presents to the office today for evaluation management of his chronic lower back pain Patient has been suffering with this pain for approximately years. He denies inciting injury, fall, trauma, accident Endorses midline lower back pain without radiation down either lower extremity. Pain is worse with moving, twisting. Patient completed physical therapy and has been doing extensive home exercise program without improvement of his symptoms. No improvement with duloxetine or Flexeril. Does find some relief with heat though it is short-lived. Pain today is rated as a 2/10, constant Patient had recent x-ray, results as per below. Denies red flag symptoms including new loss of bowel, bladder or saddle anesthesia. In terms of muscle damage condition is described as stabbing, tiring, piercing, dull, sore, hurting, heavy, aching Pain is negatively impacting patient's enjoyment of life, normal function, ability to perform activities of daily living, recreational activities Denies implantable devices, pacemaker defibrillator Patient denies current use of blood thinners. Denies tobacco, nicotine, illicit substance use. Endorses social alcohol use [facility] Medical History Hypertension Surgical History H/O abdominoplasty S/P hernia repair Hx of tonsillectomy History of surgery Family History Daughter Lupus (systemic lupus erythematosus) Other Family history of lupus erythematosus Social History Household Members: Spouse Alcohol intake: current Alcohol intake frequency: a few times a week Alcohol type: wine Patient Tobacco Use Status: Former Tobacco user Review of Systems Const All systems reviewed & are unremarkable except as noted in HPI and below Physical Exam Vital Signs: Last Vital Signs Pulse 94 02/21/24 11:51 BP 144/86 H 02/21/24 11:51 Pulse Ox 98 02/21/24 11:51 Oxygen Delivery Method Room Air 02/21/24 11:51 BMI result Body Mass Index 26.4 General: awake, alert, oriented. Answers questions appropriately. Fully engaged in examination. Skin: warm, dry, intact HEENT: Normocephalic. Hearing intact. Cardiac: External chest normal in appearance. Respiratory: No cough, audible wheezing or stridor. Abdomen: without gross distension. MS: No obvious swelling or deformities. Neurological: Oriented to person, place, time and situation. Thought process intact. No gait abnormalities appreciated. Psychiatric: Appropriate mood and affect. Good judgment and insight. Assessment & Plan Assessment & Plan (1) Lumbar spondylosis: Code(s): M47.816 - Spondylosis without myelopathy or radiculopathy, lumbar region Category: Medical (2) Radiculopathy, lumbar region: Code(s): M54.16 - Radiculopathy, lumbar region Category: Medical Plan Patient presents back to the office today for follow-up, 1 week status post bilateral diagnostic L3-L4 DR L5 medial branch blocks Patient's pain is now above the area of the injections. He reports no pain to the lower lumbar area. Continue with plan for next Saphelo injection at the end of the month. New prescription for methocarbamol 500 mg p.o. 3 times daily as needed. Patient advised on cautions for use All questions and concerns were answered, patient agrees with the plan. Follow- up in the office in 1 month, sooner if needed . Medications: New methocarbamol No driving while taking this medication. Do no take with alcohol or other SLEEVER Depressants 500 mg PO TID PRN 90 tabs 1RF muscle spasm Discontinued cyclobenzaprine Discontinued Reason: Doctor's Order orally; 1-2 tabs nightly as needed for muscle spasm 15 tabs 1RF muscle spasm Coding Level of Care Code Est Pt Level 3 (23068) Complex EM visit Add On G2211 Diagnoses Lumbar spondylosis M47.816 Radiculopathy, lumbar region M54.16
[2024-02-21 11:51] VITALS: BP 144/86; PULSE 94; O2SAT 98; BMI 26.4
== END 2024-02-21 12:21 | disposition home or self-care (01) ==
PROVIDERS: PCP Internal Medicine; Visit Provider Registered Nurse Emergency
DX: M47.816 Spondylosis without myelopathy or radiculopathy, lumbar region (principal); M54.16 Radiculopathy, lumbar region
CPT/HCPCS: 99213; G2211

== ENCOUNTER → 2024-02-21 11:19 | Outpatient (BNVA) | payer MEDICARE, OTHER, SELFPAY | PROVIDERS: PCP Internal Medicine; Visit Provider Registered Nurse Emergency | DX: M47.816 Spondylosis without myelopathy or radiculopathy, lumbar region (principal); M54.16 Radiculopathy, lumbar region | CPT/HCPCS: 99212 ==

== ENCOUNTER 2024-03-04 10:17 | Outpatient (AMB) | payer MEDICARE, OTHER, SELFPAY ==
--- NOTE | 2024-03-04 10:22 | A.OFFVIS_ITS ---
Vital Signs 03/04/24 10:25 Height 6 ft Weight 200 lb 13.458 oz BMI 27.2 BP 142/84 H Blood Pressure Location Rt brachial Position Sitting Pulse 48 L Pulse Source Pulse Oximeter Pulse Oximetry (%) 98 Oxygen Delivery Method Room Air Intake Visit Reasons: SLE Intake Note: Patient presents for SLE. Allergies No Known Allergies Allergy (Verified 03/04/24 10:25) Medication List - Last Reconciled 03/04/24 by Anne Ritter MD dextromethorphan-guaifenesin 30-600 mg Take 1 tablet once weekly with methotrexate and another tablet the following day duloxetine 20 mg PO DAILY folic acid 2 mg (2 x 1 mg) PO DAILY hydroxychloroquine 200 mg PO BID insulin syringe-needle U-100 (BD Insulin Syringe) use once weekly with methotrexate insulin syringe-needle U-100 (BD Insulin Syringe Ultra-Fine) Use once weekly with methotrexate leucovorin calcium 10 mg (2 x 5 mg) PO QWEEK losartan 100 mg PO DAILY methocarbamol 500 mg PO TID PRN methotrexate sodium (PF) 12.5 mg (0.5 mL) subcut QWEEK naproxen sodium (Aleve) 220 mg PO BID PRN HPI Comments Details: 78-year-old male with lupus returns for follow-up he remains on methotrexate 15 mg weekly plus folic acid 2 mg daily and Leucovorin 5 mg weekly. He started the Saphnelo infusions. He received 2 infusions so far. He believes that his brain fog and fatigue have improved. He continues to have episodes of brain fog, generally triggered by cognitive activity but overall feels better. Has not had any side effects related to Saphnelo Initial history: This is a 77-year-old male who presents for evaluation of SLE. He stated that since he has been having episodes of rashes all over his body especially after sun exposure, fatigue, generalized pain and weakness. Eventually around 2018 he was evaluated by Dermatology and a skin biopsy confirmed discoid lupus erythematosus. He was started on hydroxychloroquine with significant improvement of his rashes. He was evaluated by Rheumatology and methotrexate was added in 2020, he was on it for about 9 months and it was discontinued due to GI upset. He continues on hydroxychloroquine 200 mg Twice daily. He states that he continues to have at least 1 or 2 days per week episodes of brain fog, generalized fatigue, pain in upper back, neck, shoulders, lower back. Whenever he does any work outside he gets a butterfly rash on his face. He denies any history of fevers. He states that his hands and feet are always cold. They do change color but he does not have to do anything about it to reverse it. Denies any history of DVT/PE. States that he has had GI symptoms for years and had significant workup by Gastroenterology. Including endoscopy and colonoscopy which were unremarkable per patient. He has intermittent heartburn. Occ asionally takes omeprazole. Denies any dysphagia. He states that prednisone always does wonders for all his symptoms. States that his daughter was recently diagnosed with lupus and started on Plaquenil with dramatic improvement. He believes that his mother also had lupus as she also had photosensitivity and sun intolerance. [facility] Medical History Hypertension Surgical History H/O abdominoplasty S/P hernia repair Hx of tonsillectomy History of surgery Family History Daughter Lupus (systemic lupus erythematosus) Other Family history of lupus erythematosus Social History Household Members: Spouse Alcohol intake: current Alcohol intake frequency: a few times a week Alcohol type: wine Patient Tobacco Use Status: Former Tobacco user Review of Systems Const Reports fatigue Musc Reports radiating pain into limb Endo Reports fatigue Physical Exam Vital Signs: Last Vital Signs Pulse 48 L 03/04/24 10:25 BP 142/84 H 03/04/24 10:25 Pulse Ox 98 03/04/24 10:25 Oxygen Delivery Method Room Air 03/04/24 10:25 BMI result Body Mass Index 27.2 Const General: cooperative, healthy appearing and comfortable Nutritional Appearance: overweight Orientation/consciousness: patient oriented x3 Limitations: no limitations HEENT Head: Yes normocephalic and Yes atraumatic Mouth: moist mucous membranes Resp Effort & Inspection: normal respiratory effort and able to speak in complete sentences Auscultation: clear to auscultation bilaterally GI Inspection: No distended Palpation (GI): Soft to palpation and nontender Neuro General: patient oriented x3 Extrem Other: Mild purplish discoloration of hands, cool fingertips, consistent with Raynaud's No active synovitis No myofascial tender points No swollen joints Normal nailfold capillaroscopy Assessment & Plan Assessment & Plan (1) Lupus: Comment: dx 2018 skin biopsy showing cutaneous lupus, fatigue, arthralgias +CHARLEEN+++SSa +DsDNA HCQ approx 2019 effective for skin Stopped oral methotrexate due to GI upset after taking it X 9 months in 05/2020 SQ MTX 05/2023 Code(s): M32.9 - Systemic lupus erythematosus, unspecified Category: Medical Plan: This is a 78-year-old male with SLE who presents for follow-up. On methotrexate 15 mg subcutaneously weekly & hydroxychloroquine 200 mg Twice daily. He started Saphnelo infusions. He received 2 infusions so far. Feels significant improvement especially in terms of fatigue and brain fog. Continue with Saphnelo infusions. Advised patient to continue for a total of 6 infusions and reassess Mild anemia with macrocytosis, Reduce methotrexate to 12.5 mg subcutaneously weekly Increase leucovorin to 10 mg weekly mg weekly the day after methotrexate Continue folic acid 2 mg daily Continue with hydroxychloroquine 200 mg Twice daily Labs before next visit in 4 months (2) group home methotrexate user: Code(s): Z79.631 - group home (current) use of antimetabolite agent Category: Medical Plan: Monitor safety labs Plan I spent 25 minutes reviewing patient's chart, evaluating patient, ordering diagnostic workup, counseling patient and documenting in the chart Orders: Orders Anti DNA DS Antibody 4 Months M32.9 - Systemic lupus erythematosus, unspecified, Z79.631 - technician terminal and repeater (current) use of antimetabolite agent C Reactive Protein 4 Months M32.9 - Systemic lupus erythematosus, unspecified, Z79.631 - group home (current) use of antimetabolite agent Protein Creatinine Ratio, Ur 4 Months M32.9 - Systemic lupus erythematosus, unspecified, Z79.631 - technician terminal and repeater (current) use of antimetabolite agent UA w Microscopic 4 Months M32.9 - Systemic lupus erythematosus, unspecified, Z79.631 - technician terminal and repeater (current) use of antimetabolite agent Complement C3 4 Months M32.9 - Systemic lupus erythematosus, unspecified, Z79.631 - technician terminal and repeater (current) use of antimetabolite agent Complement C4 4 Months M32.9 - Systemic lupus erythematosus, unspecified, Z79.631 - group home (current) use of antimetabolite agent Erythrocyte Sedimentation Rate 4 Months M32.9 - Systemic lupus erythematosus, unspecified, Z79.631 - group home (current) use of antimetabolite agent Complete Blood Count Auto Diff 4 Months M32.9 - Systemic lupus erythematosus, unspecified, Z79.631 - group home (current) use of antimetabolite agent Comprehensive Met. Panel 4 Months M32.9 - Systemic lupus erythematosus, unspecified, Z79.631 - group home (current) use of antimetabolite agent Medications: New hydroxychloroquine 200 mg PO BID 180 tabs 1RF Changed From leucovorin calcium 5 mg PO QWEEK 12 tabs 0RF To leucovorin calcium take the day after methotrexate 10 mg (2 x 5 mg) PO QWEEK 24 tabs 0RF From methotrexate sodium (PF) 15 mg (0.6 mL) subcut QWEEK 4 mL 3RF To methotrexate sodium (PF) 12.5 mg (0.5 mL) subcut QWEEK 4 mL 3RF Coding Level of Care Code Est Pt Level 4 (95367) Diagnoses Lupus M32.9 technician terminal and repeater methotrexate user Z79.631
[2024-03-04 10:25] VITALS: BP 142/84; PULSE 48; O2SAT 98; BMI 27.2
== END 2024-03-04 11:00 | disposition home or self-care (01) ==
PROVIDERS: PCP Internal Medicine; Visit Provider Student in an Organized Health Care Education/Training Program
DX: M32.9 Systemic lupus erythematosus, unspecified (principal); Z79.631 Long term (current) use of antimetabolite agent
CPT/HCPCS: 99214

== ENCOUNTER → 2024-03-04 10:17 | Outpatient (BNVA) | payer MEDICARE, OTHER, SELFPAY | PROVIDERS: PCP Internal Medicine; Visit Provider Student in an Organized Health Care Education/Training Program | DX: M32.9 Systemic lupus erythematosus, unspecified (principal); Z79.631 Long term (current) use of antimetabolite agent | CPT/HCPCS: 99212 ==

== ENCOUNTER 2024-06-17 14:35 | Outpatient (REF) | payer MEDICARE, OTHER, SELFPAY ==
[2024-06-17 15:03] LABS: MANUAL DIFF FLAG NO
[2024-06-17 15:25] LABS: Basophils Absolute Auto 0.1 X10*3/uL (0.0-0.2); Basophils Percent Auto 1.5 % (0-2); Eosinophils Absolute Auto 0.7 X10*3/uL (0.0-0.4); Eosinophils Percent Auto 13.5 % (0-4); Hematocrit 36.9 % (42.0-52.0); Hemoglobin 12.7 g/dl (14.0-18.0); Imm Gran Abs Auto 0.01 X10*3/uL (0.00-0.03); Imm Gran Pct Auto 0.2 % (0.0-0.4); Lymphocytes Absolute Auto 1.5 X10*3/uL (1.2-4.9); Lymphocytes Percent Auto 30.4 % (20-40); Mean Corpuscular HGB Conc 34.4 g/dl (31.0-36.0); Mean Corpuscular Hemoglobin 36.1 pg (27.0-33.0); Mean Corpuscular Volume 104.8 fL (80.0-98.0); Mean Platelet Volume 9.9 fL (9.4-12.4); Monocytes Absolute Auto 0.6 X10*3/uL (0.1-1.2); Monocytes Percent Auto 11.5 % (2-11); Neutrophils Absolute Auto 2.1 x10*3/uL (2.0-8.3); Neutrophils Percent Auto 42.9 % (45-73); Platelet Count 209 X10*3/uL (160-400); Red Blood Count 3.52 X10*6/uL (4.60-5.80); White Blood Count 4.8 X10*3/uL (4.8-10.8)
[2024-06-17 15:49] LABS: Appearance Urine Clear; Color Urine Yellow; Glucose Urine UA Negative (Negative); Leukocyte Esterase Urine Negative (Negative); Nitrite Urine Negative (Negative); Urine Blood Negative (Negative); Urine Ketones Trace mg/dL (Negative); Urine Protein Negative (Neg-Trace)
[2024-06-17 15:53] LABS: Bacteria Urine None Seen (None Seen); Hyaline Casts Urine 0-2 /LPF (0-2); RBC Urine 0-2 /HPF (0-2); Squamous Epithelial Cell Urine 0-2 /HPF (0-2); WBC Urine 0-5 /HPF (0-5)
[2024-06-17 16:05] LABS: Erythrocyte Sedimentation Rate 7 MM/HR (0-15)
--- OUTSIDE RECORDS SUMMARY | 2024-06-17 16:30 | XMS_ITS | Continuity of Care Document ---
Author Organization [facility], , [facility], OFFICE Address [address] [place] [address] [place] [address] Care Team Providers Care Airplane Pilot Name Role Phone GEORGIANA LU Urologist KAT LIANG Inking Machine Tender BRIAN COELHO Senior Mechanical Development Engineer [facility] Printing Assistant [phone] [facility] Inking Machine Tender [facility] PAIN MANAGEMENT Pain Management KECIA ALVARADO Primary Care Provider Assessment Encounter Date Assessment Date Assessment LastModified by Organization Details LastModified Time 06/14/2024 06/14/2024 Attestation: Greater than 30 minutes was dedicated to the preparation of this clinical note, including review of medical records, patient interaction, and analysis of relevant data After a discussion of treatment options, which included consideration of best practices and patient preferences, the following treatment plan and objectives were adopted Case reviewed w/ supervising Dr Lemus. [email or web address] Not available 06/14/2024 15:15:11 Plan of Treatment Reminders Order Date Submit Date Provider Last Modified By Organization Details Last Modified Time Details Appointments None recorded. Lab None recorded. Referral None recorded. Procedures None recorded. Surgeries None recorded. Imaging None recorded. Medication Orders triamcinolo ne acetonide 0.5 % topical ointment 2024 025 [id number], [address] [facility], [place], [address], 14:00:35 Patient TargetsNo targets recorded. Patient InstructionsNo instructions recorded. Reason for Referral None Reported. Problems Name Problem SNOMED Code Status Onset Date Resolution Date Notes Provider Name and Address Organization Details Recorded Time Mixed hyperlipi demia 108111267 Completed 200712/16/2014 [place], [address], [facility] 6 12:43:41 Atopic dermatiti s 23113900 Completed 12/16/2014 [place], [address], [facility] 6 12:43:41 Candidias is of skin and nails Completed 05/07/2014 [place], [address], [facility] 6 12:43:41 Hyperplas ia of prostate 807865624 Completed 05/07/2014 Kiara Cobos MD [facility] [place], [address], [facility] 6 12:43:41 Ingrowing nail 128955153 Completed 02/06/2013 Kiara Cobos MD [address] [place] [address] [place], [address], [facility] 6 12:43:41 Anemia 708028766 Completed 200705/07/2014 Kiara Cobos MD [address] [place], [place] [address], [address], [facility] 6 12:43:41 Benign essential hypertens ion 3159883 Active 2007 Kiara Cobos MD [address] [place] [address] [place], [address], [facility] 6 12:43:41 Diverticu losis of colon without diverticu litis 063627285 Completed 200612/16/2014 Kiara Cobos MD [address] [place] [address] [place], [address], [facility] 6 12:43:41 Benign prostatic hyperplas ia 053870221 Completed 200705/07/2014 [place], [address], [facility] 6 12:43:41 Psoriasis 7951345 Completed 201707/07/2020 Gisell brown MD [address] [place] [address] [place], [address], [facility] 1 12:04:13 Gluten sensitivi ty 063327904 Completed 201907/07/2020 Gisell brown MD [address] [place], [place] [address], [address], [facility] 1 12:03:46 ECG: sinus arrhythmi a 435066330 Completed 201906/03/2019 Chino Bishop MD [address] [place], [place] [address], [address], [facility] 0 14:16:49 Multiple atrial premature complexes 241437647 Active 2019 Chino Bishop MD [address] [place], [place] [address], [address], [facility] 0 14:16:44 Lupus erythemat osus 966880270 Active 2019 Chino Bishop MD [address] [place], [place] [address], [address], [facility] 0 14:49:25 History of malignant neoplasm of prostate 787782431 Active 2020 Gisell brown MD [address] [place] [address] [place], [address], [facility] 1 12:08:09 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 Procedures Surgical History Date Name Laterality Status Provider Name and Address Organization Details Recorded Time 10/12/19 24 Medicare Wellness Visit completed NilmariLUCY [place] [facility] 10/10/2023 08:12:29 10/12/19 24 Cardiovascular disease risk reduction counseling completed Carlene LUCY Anderson [place] [facility] 10/10/2023 08:12:40 10/12/19 24 prevention-annual alcohol misuse screening completed Carlene LUCY Anderson MA [facility] 10/10/2023 08:12:41 10/11/19 23 Medicare Wellness Visit completed Carlene LUCY Anderson [facility] 10/06/2022 16:22:23 10/11/19 23 Cardiovascular disease risk reduction counseling completed Carlene LUCY Anderson MA [facility] 10/06/2022 16:22:54 10/11/19 23 prevention-annual alcohol misuse screening completed Carlene LUCY Anderson [facility] 10/06/2022 16:22:57 08/10/19 22 Medicare Wellness Visit completed Carlene LUCY Anderson [facility] 08/09/2021 07:49:24 08/10/19 22 Alcohol use screening completed Carlene LUCY Anderson [facility] 08/09/2021 07:49:24 08/10/19 22 Cardiovascular disease risk reduction counseling completed Carlene LUCY Anderson [facility] 08/09/2021 07:49:24 02/26/20 21 colonoscopy completed [place], [address], [facility] 03/01/2021 12:57:18 07/08/19 21 Medicare Wellness Visit completed Telma Villar MA [facility] 06/29/2020 16:05:10 07/08/19 21 prevention-cardiov ascular risk reduction counseling completed Telma Villar MA [facility] 06/29/2020 16:05:10 07/08/19 21 prevention-annual alcohol misuse screening completed Telma Villar MA [facility] 06/29/2020 16:05:10 07/08/19 21 Advanced Care Planning completed [place], [address], [facility] 07/07/2020 11:53:43 06/03/19 20 Medicare Wellness Visit completed Belkis Mendez LPN [facility] 06/03/2019 13:48:44 06/03/19 20 prevention-cardiov ascular risk reduction counseling completed Belkis Mendez LPN [facility] 06/03/2019 13:48:44 06/03/19 20 prevention-annual alcohol misuse screening completed Belkis Mendez ELECTRICAL TECHNOLOGY INSTRUCTOR [facility] 06/03/2019 13:48:44 05/31/19 19 Medicare Wellness Visit completed Belkis Mendez LPN [facility] 05/30/2018 10:27:16 05/23/19 18 Medicare Wellness Visit completed Belkis Mendez ELECTRICAL TECHNOLOGY INSTRUCTOR [facility] 05/22/2017 13:44:47 05/08/19 18 Oly - Colonoscopy completed Jeffrey Aldridge [address] [place] [address], [address], [facility] 05/08/2017 11:36:34 03/06/20 17 Suture/staple Removal completed Chino Bishop MD [address] [place] [address], [address], [facility] 03/06/2017 15:56:42 01/19/20 17 Physical Activity Counselling completed Chitra Cowan [address] [place] [address], [address], [facility] 01/18/2017 19:24:47 01/19/20 17 80113: PT Eval Low Complexity completed Chitra Cowan [address] [place] [address], [address], [facility] 01/18/2017 19:24:47 12/08/19 17 Refraction completed Nadeem Blanchard [facility] 12/07/2016 09:10:56 05/19/19 17 Medicare Wellness Visit completed Belkis Mendez ELECTRICAL TECHNOLOGY INSTRUCTOR [facility] 05/18/2016 09:12:11 05/15/19 16 Medicare Wellness Visit completed Belkis Mendez LPN [facility] 05/15/2015 11:06:32 05/07/19 15 Medicare Wellness Visit completed Mariana Jason [facility] 05/07/2014 09:24:19 05/06/19 15 Oly - Colonoscopy completed Jeffrey Aldridge [address] [place], [address], [facility] 05/06/2014 13:09:21 04/30/19 14 Medicare Wellness Visit completed Katina Win MA [facility] 04/30/2013 10:43:22 04/26/19 13 Medicare Wellness Visit completed Wanda Faustin CMA [facility] 04/26/2012 10:58:01 06/07/19 09 Toenail Avulsion completed Silvestre Patel PA-C [address] [place], [address], [facility] 06/06/2008 10:06:19 Imaging Results None recorded. Procedure Notes None recorded. Medical Equipment None Reported. Allergies Allergen ID Allergen Name Allergen Category Reaction Reaction Severity Criticality Documentation Date Start Date Code Code System Note Provider Name and Address Organization Details Recorded Time [id number] amlodipin e medicatio n other moderate Not available 11/07/2018 85908 RxNorm Chino Bishop MD [address] [facility], [place], [address], [facility] 9 11:18:43 Medications Name Sig Start Date Stop Date Status Note LastModified by Organization Details LastModified Time losartan 50 mg tablet TAKE 1 TABLET BY MOUTH EVERY DAY 02/07 completed Not Available Not Available Not Available methocarb pilo 500 mg tablet PLEASE SEE ATTACHED FOR DETAILED DIRECTIO NS active Not Available Not Available No t Available prednison e 10 mg tablet TAKE 3 TABS DAILY 5 DAYS, 2 TABS DAILY FOR 5 DAYS, 1 TAB DAILY FOR 5 DAYS THEN STOP 06/14 completed Not Available Not Available Not Available azithromy trish 250 mg tablet TWO TABLETS BY MOUTH TODAY, THEN ONE TABLET BY MOUTH EVERY DAY AFTER TODAY UNTIL DONE 05/10 completed Not Available Not Available Not Available atenolol 100 mg tablet Take 1 tablet every day by oral route. 04/19 completed 150 daily Not Available Not Available Not Available hydrochlo rothiazid e 50 mg tablet TAKE 1 TABLET BY MOUTH EVERY DAY active Not Available Not Available No t Available hydrocodo ne 5 mg-acetam inophen 325 mg tablet TAKE 1 TABLET BY MOUTH EVERY 4 TO 6 HOURS IF PAIN, MAY CAUSE DROWSINE SS 10/10 completed Not Available Not Available Not Available senna 8.6 mg tablet TAKE 1 OR 2 TABLETS BY MOUTH AT BEDTIME NEEDED 30 03/09 completed Not Available Not Available Not Available lisinopri l 20 mg tablet TAKE 1 TABLET BY MOUTH EVERY DAY active Not Available Not Available No t Available clobetaso l 0.05 % topical cream APPLY A THIN LAYER TO THE AFFECTED AREA(S) BY TOPICAL ROUTE 2 TIMES PER DAY 11/10 completed Not Available Not Available Not Available triamcino lone acetonide 0.5 % topical ointment APPLY A THIN LAYER TO THE AFFECTED AREA(S) BY TOPICAL ROUTE 2 TIMES PER DAY 2024 active Not Available Not Available Not Avai lable acetamino phen 300 mg-codein e 30 mg tablet TAKE 1 TABLET BY MOUTH EVERY 6 HOURS NEEDED FOR PAIN WILL CAUSE DROWSINE SS 10/10 completed Not Available Not Available Not Available chlorthal idone 25 mg tablet TAKE 1 TABLET BY MOUTH EVERY DAY active Not Available Not Available No t Available amlodipin e 5 mg tablet TAKE 1 TABLET BY MOUTH EVERY DAY IN THE MORNING 11/07 completed 08/02/18 not taking Not Available Not Available Not Available triamcino lone acetonide 0.1 % topical cream APPLY TWICE DAILY TO ECZEMA UP TO 2 WEEKS/MO NTH NEEDED. 07/17 completed Not Available Not Available Not Available amoxicill in 500 mg tablet TAKE 1 TABLET BY MOUTH 3 TIMES A DAY UNTIL FINISHED 03/09 completed Not Available Not Available Not Available ketorolac 0.5 % eye drops 06/02 completed Not Available Not Available Not Available Aleve 220 mg tablet Take 1 tablet every 12 hours by oral route. active Not Available Not Available No t Available BD Tuberculi n Syringe 1 mL 27 x 1/2 USE ONCE WEEKLY WITH METHOTRE XATE active Not Available Not Available No t Available oxycodone -acetamin ophen 5 mg-325 mg tablet TAKE 1 TABLET EVERY 6 HOURS NEEDED FOR PAIN WILL CAUSE DROWSINE SS active Not Available Not Available No t Available amoxicill in 875 mg tablet TAKE 1 TABLET BY MOUTH TWICE A DAY UNTIL FINISHED 07/24 /2024 completed Not Available Not Available Not Available nifedipin e ER 60 mg tablet,ex tended release 24 hr TAKE 1 TABLET BY MOUTH EVERY DAY 2008 active Not Available Not Available Not Avai lable methotrex ate sodium 2.5 mg tablet TAKE 4 TABLETS BY MOUTH ONCE WEEKLY ON THE SAME DAY EACH WEEK 07/07 completed Not Available Not Available Not Available dicyclomi ne 20 mg tablet TAKE 1 TABLET BY MOUTH EVERY DAY NEEDED FOR LOWER ABDOMINA L CRAMPS 10/10 completed Not Available Not Available Not Available dexametha sone 1 mg tablet Take 3 tablets every day by oral route for 10 days. 03/01 completed Not Available Not Available Not Available meclizine 25 mg tablet Take 1 tablet 3 times a day by oral route for 10 days. 01/04 completed Not Available Not Available Not Available cephalexi n 500 mg capsule 07/17 completed Not Available Not Available Not Available triamcino lone acetonide 0.1 % topical ointment 06/02 completed Not Available Not Available Not Available clotrimaz ole-betam ethasone 1 %-0.05 % topical cream PLEASE SEE ATTACHED FOR DETAILED DIRECTIO NS active Not Available Not Available No t Available lisinopri l 10 mg tablet Take 1 tablet every day by oral route. 2012 active Last PHA 04/26 Not Available Not Available Not Available hyoscyami ne 0.125 mg sublingua l tablet PLEASE SEE ATTACHED FOR DETAILED DIRECTIO NS 10/11 completed Not Available Not Available Not Available losartan 25 mg tablet TAKE 1 TABLET BY MOUTH EVERY DAY 12/17 completed Not Available Not Available Not Available hydrochlo rothiazid e 12.5 mg capsule TAKE ONE CAPSULE BY MOUTH EVERY DAY 11/10 completed LAST PHA 05/15/15 Not Available Not Available Not Available nystatin- triamcino lone 100,000 unit/g-0. 1 % topical cream 03/09 completed PRN Not Available Not Available Not Available dexametha sone 0.75 mg tablet Take 3 tablets every day by oral route in the morning for 7 days. 11/10 completed Not Available Not Available Not Available betametha sone dipropion ate 0.05 % topical cream 07/17 completed Not Available Not Available Not Available omeprazol e 20 mg capsule,d elayed release TAKE 1 CAPSULE BY MOUTH EVERY DAY 12/08 completed Not Available Not Available Not Available leucovori n calcium 5 mg tablet TAKE 2 TABLETS BY MOUTH ONCE WEEKLY AFTER TAKING METHOTRE XATE active Not Available Not Available No t Available folic acid 1 mg tablet TAKE 2 TABLETS BY MOUTH EVERY DAY active Not Available Not Available No t Available hydrochlo rothiazid e 25 mg tablet TAKE 1 TABLET BY MOUTH EVERY DAY 07/07 completed Not Available Not Available Not Available hydroxych loroquine 200 mg tablet TAKE 1 TABLET BY MOUTH TWICE A DAY active Not Available Not Available No t Available megestrol 20 mg tablet ONce daily. 06/02 completed 11/22/18 not currentl y using but may need again when/if Lupron restarts Not Available Not Available Not Available lisinopri l 40 mg tablet TAKE 1 TABLET BY MOUTH EVERY DAY active Not Available Not Available No t Available losartan 100 mg tablet TAKE 1 TABLET BY MOUTH EVERY DAY active Not Available Not Available No t Available atenolol 50 mg tablet Take 1 tablet every day by oral route. 04/19 completed 3 tablets daily Not Available Not Available Not Available amoxicill in 875 mg-potass ium clavulana te 125 mg tablet 1 TABLET TWICE A DAY UNTIL FINISHED 05/10 completed Not Available Not Available Not Available valsartan 160 mg tablet TAKE 1 TABLET BY MOUTH EVERY DAY 08/09 completed Not Available Not Available Not Available TobraDex 0.3 %-0.1 % eye drops,karol pension Instill 1 drop into affected eye(s) by ophthalm ic route every 6 hours 05/26 completed Not Available Not Available Not Available methotrex ate sodium (PF) 25 mg/mL injection solution 12.5 MG (0.5 ML) SUBCUTAN EOUSLY EVERY WEEK active Not Available Not Available No t Available cyclobenz aprine 5 mg tablet TAKE 1-2 TABLETS BY MOUTH NIGHTLY NEEDED FOR MUSCLE SPASMS active Not Available Not Available No t Available oxymetazo line 0.05 % nasal spray [place] 2 sprays twice a day by intranas al route for 7 days. 11/10 completed Not Available Not Available Not Available Lupron Depot 22.5 mg (3 month) intramusc ular syringe kit 06/02 completed 11/22/18 on hold Not Available Not Available Not Available duloxetin e 20 mg capsule,d elayed release TAKE 1 CAPSULE BY MOUTH EVERY DAY active Not Available Not Available No t Available [employer] Allergy 25 mg tablet TK 1/2 T PO EVERY 6 HOURS NEEDED FOR SYMPTOMS 07/17 completed Not Available Not Available Not Available fluocinon mayelin 0.1 % topical cream APPLY A THIN LAYER TO THE AFFECTED AREA(S) BY TOPICAL ROUTE ONCE DAILY 2014 active Not Available Not Available Not Avai lable magnesium daily 11/07 completed Not Available Not Available Not Available acetamino phen 500 mg, 2 tabs 3 x day 10/11 completed Not Available Not Available Not Available methotrex ate 20 mg weekly per Rheum 10/10 completed Not Available Not Available Not Available Vitamin D OTC Daily 11/07 completed Not Available Not Available Not Available Zoladex 05/22 completed Not Available Not Available Not Available multivita min 1 daily active Not Available Not Available Not Available BD Insulin Syringe Ultra-Fin e 1 mL 30 gauge x 1/2 USE ONCE WEEKLY WITH METHOTRE XATE active Not Available Not Available No t Available GaviLyte- G 236 gram-22.7 4 gram-6.74 gram-5.86 gram oral solution 07/17 completed Not Available Not Available Not Available Probiotic daily 06/02 completed PRN Not Available Not Available Not Available Lupron Depot (6 Month) 05/22 completed Not Available Not Available Not Available Saphnelo active Not Available Not Avai lable Not Available Paxlovid 300 mg (150 mg x 2)-100 mg tablets in a dose pack TAKE 3 TABLETS TWICE A DAY X 5 DAYS 02/06 completed Not Available Not Available Not Available Vitals Date Recorded Body height Body mass index (BMI) Body weight Heart rate Oxygen saturation Oxygen saturation in Arterial blood by Pulse oximetry Body temperature Systolic blood pressure Diastolic blood pressure Systolic blood pressure Diastolic blood pressure Provider Name and Address Organization Details Last Updated DateTime 5 174.63 cm 30.3 kg/m2 54500.8 4 g 86 /min 99 % 99 % 97.5 [degF] 130 mm[Hg] 88 mm[Hg] 158 mm[Hg] 98 mm[Hg] Kim Montano MA [facility] 5 13:40:29 Social History Question Answer Notes LastModified by Organizat ion Details LastModified Time Tobacco Smoking Status Former Smoker quit '95 after 20 yrs 1ppd, cigar rarely; [facility]09[facility] 11:54:55 Do You Have An Advance Directive? Yes Information not available 10/12/2023 What Is Your Level Of Alcohol Consumption? Occasional A Glass Wine 3-4x/week. No Hx Abuse. [email or web address] Information not available 08/09/2021 Do You Wear A Helmet When Biking? No Information not available 02/03/2015 What Is Your Level Of Caffeine Consumption? Moderate 2 Cups Coffee Daily [email or web address] Information not available 08/09/2021 How Much Tobacco Do You Chew? None [email or web address] Information not available 12/16/2014 Are You Currently Employed? No Information not available 08/09/2021 What Type Of Diet Are You Following? REGULAR Information not available 02/03/2015 Which Illicit Or Recreational Drugs Have You Used? None [email or web address] Information not available 08/09/2021 Do You Or Have You Ever Used E-cigarettes Or Vape? Never Used Electronic Cigarettes [email or web address] Information not available 08/09/2021 Education Post Graduate [employer] In[employer]io n not available 10/12/2023 What Is The Highest Grade Or Level Of School You Have Completed Or The Highest Degree You Have Received? 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 Information not available 07/07/2020 Have There Been Any Changes To Your Family Or Social Situation? No [email or web address] Information not available 08/09/2021 When Did You Quit Smoking? 16+yearssince lastcigarette Information not available 12/16/2014 How Many Days In The Past Year Have You Had A Heavy Drinking Consumption (4+ Female, 5+ Male)? 1 07/07/20 JI [email or web address] Information not available 04/26/2012 Are There Any Guns Present In Your Home? No [email or web address] Information not available 08/09/2021 Do You Use Insect Repellent Routinely? Yes [email or web address] Information not available 08/09/2021 Live Alone Or With Others? With Others Information not available 12/16/2014 Patient Has Health Care Proxy Signed And In Chart Yes [email or web address] Information not available 10/11/2022 CCM Consent Discussion 05/30/2018 Information not available 05/30/2018 Marital Status Informatio n not available 05/07/2014 Mosquito Repellent Used Routinely Yes Information not available 02/03/2015 What Was The Date Of Your Most Recent Tobacco Screening? 03/09/2023 [email or web address] Information not available 03/09/2023 How Many Children Do You Have? 1 Daughter In [place] [email or web address] Information not available 08/09/2021 What Is Your Current Pack Years? -packyear s Information not available 12/16/2014 What Is Your Relationship Status? Female Spouse Information not available 08/09/2021 Do You Use Your Seat Belt Or Car Seat Routinely? Yes [email or web address] Information not available 08/09/2021 Seat Belts Used Routinely Yes Information not available 02/03/2015 Are You Sexually Active? Yes Information not available 05/07/2014 Smoke Alarm In Home Yes Information not available 02/03/2015 Do You Have Smoke And Carbon Monoxide Detectors In Your Home? Yes [email or web address] Information not available 08/09/2021 Are You Passively Exposed To Smoke? No [email or web address] Information not available 08/09/2021 Do You Or Have You Ever Used Smokeless Tobacco? Never Used Smokeless Tobacco [email or web address] Information not available 08/09/2021 How Much Tobacco Do You Smoke? No [email or web address] Information not available 08/09/2021 General Stress Level Low Information not available 02/03/2015 Do You Use Any Illicit Or Recreational Drugs? No [email or web address] Information not available 08/09/2021 Do You Use Sunscreen Routinely? Yes Information not available 02/03/2015 Sex: Male Functional Status Question Answer Note LastModified by Organizat ion Details LastModified Time What is your exercise level? Moderate treadmill, stretching routine, upper body weights, core exercises. 5 days a week. also yard work. Information not available 08/09/2021 Mental Status None recorded. Family History Relationship Description Onset Age of this Age Resolved Age Notes LastModified by Organization Details LastModified Time Father Coronary arterioscler osis 76 [email or web address] Not available 06/19 11:44:13 Mother Malignant tumor of breast 72 [email or web address] Not available 06/19 11:44:25 Mother Disorder of thyroid gland [email or web address] Not available 06/19 11:48:27 Medical History No medical history recorded. Immunizations Vaccine Type Date Status Note Provider Nam e and Address Organization Details Recorded Time Influenza, split virus, trivalent, preservative 1 completed Not Available [facility] 04/06/2019 02:18:30 pneumococcal polysaccharide PPV23 1 completed Not Available [facility] 04/06/2019 02:14:54 Influenza, split virus, trivalent, preservative 1 completed Not Available [facility] 04/06/2019 02:29:24 Tdap 8 completed Not Available [facility] 02/02/2011 05:21:55 Influenza, split virus, trivalent, PF 2 completed Not Available [facility] 04/06/2019 02:29:56 Influenza, split virus, trivalent, PF 3 completed Not Available [facility] 04/06/2019 02:26:42 Influenza, high-dose, trivalent, PF 5 completed Not Available [facility] 04/06/2019 02:34:15 Pneumococcal conjugate PCV 13 5 completed Not Available [facility] 04/06/2019 02:34:59 Influenza, high-dose, trivalent, PF 6 completed Not Available [facility] 04/06/2019 02:21:08 Influenza, high-dose, trivalent, PF 7 completed Not Available [facility] 04/06/2019 02:22:01 Hep A-Hep B 5 completed Angela Grewal LPN null, [facility] 10/28/2014 10:57:12 Hep A-Hep B 5 completed Angela Grewal LPN null, [facility] 10/28/2014 10:57:12 typhoid, unspecified formulation 5 completed Angela Grewal LPN null, [facility] 10/28/2014 10:57:12 Td (adult), 2 Lf tetanus toxoid, preservative free, adsorbed 8 completed Not Available [facility] 04/06/2019 02:34:17 Influenza, high-dose, trivalent, PF 8 completed Not Available [facility] 04/06/2019 02:23:31 Influenza, high-dose, trivalent, PF 9 completed Not Available [facility] 04/06/2019 02:24:03 Influenza, high-dose, quadrivalent, PF 0 completed Aydee Carvalho RN null, [facility] 12/26/2019 09:08:25 Influenza, high-dose, quadrivalent, PF 2 completed Anuradha Jain CMA null, [facility] 01/06/2022 10:20:11 COVID-19, mRNA, LNP-S, PF, 30 mcg/0.3 mL dose 1 [facility] 11:27:00 COVID-19, mRNA, LNP-S, PF, 30 mcg/0.3 mL dose 1 completed Telma Villar MA null, [facility] 07/07/2020 11:27:36 zoster recombinant 1 [facility] 10:00:50 zoster recombinant 2 [facility] 11:58:12 COVID-19, mRNA, LNP-S, PF, 100 mcg/0.5mL dose or 50 mcg/0.25mL dose 1 completed Nilmari, RMA Anderson null, [facility] 08/09/2021 11:58:38 Influenza, split virus, quadrivalent, preservative 1 completed Gisell Lassiter. [address] [place] [address], [phone], [facility] 08/09/2021 12:32:57 COVID-19, mRNA, LNP-S, PF, 100 mcg/0.5mL dose or 50 mcg/0.25mL dose 2 completed Nilmari, RMA Anderson null, [facility] 02/03/2022 15:57:36 Influenza, high-dose, quadrivalent, PF 3 completed Nilmari, RMA Anderson null, [facility] 03/09/2023 08:27:43 COVID-19, mRNA, LNP-S, bivalent, PF, 50 mcg/0.5 mL or 25mcg/0.25 mL dose 2 completed Nilmari, RMA Anderson null, [facility] 03/09/2023 08:28:07 COVID-19, mRNA, LNP-S, PF, 50 mcg/0.5 mL 3 completed Nilmari, RMA Anderson null, [facility] 03/09/2023 08:28:24 Past Encounters Encounter ID Performer Location Encounter Start Date Encounter Closed Date Diagnosis/Indication Diagnosis SNOMED-CT Code Diagnosis ICD10 Code Diagnosis Note [id number] FRANCISCO STOUT DNP , [facility], OFFICE [address] [place] [id number] 06/14/2024 13:31:09 06/14/2024 15:51:41 Localized eruption of skin 967314892 R21 Patients presents for evaluation of rash consistent with: Lupus. DDx fungal rash, sunburn. Treated with: topical steroids. Follow up if rash is not improving or with other concerns. Consider use of PO steroids or more potent topical steroids I have contacted pt's rheumatolo gy practice ([facility] rheumatolo gy) and made them aware of patient's current signs and symptoms alongside the planned treatment. They plan on seeing him next week. Copy of today's encounter note will be faxed over. 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 Managed with methotrexa te 15 mg sub cut weekly, hydroxychl oroquine 200 mg BID and Saphnelo infusions. Rash possibly connected to lupus dx, will treat with topical steroid as above. No increased fatigue, low-grade fever, worsening joint pain and or swelling at this time which is reassuring . Consider systemic steroids in setting of worsening s/s Health Concerns Section Related Observation LastModified by Organization Detai ls LastModified Time None Recorded Concern Status LastModified by Organization Details LastModified Time None Recorded Payers Encounter Date Sequence Insurance Name Policy Number Policy Navas Covered Member ID Navas Member ID Guarantor Name 06/14/2024 1 MEDICARE B-[place]: [employer] Dandy Carcamo [id number] Dandy Carcamo 06/14/2024 2 [facility] - [facility] [id number] Dandy Carcamo [id number] Dandy Carcamo Notes Date Note Type Note Provider Name and Address Organization Details Recorded Time 06/14/2024 text/html 78 year old male with hx of lupus now with a rash on the back of his neckRash developed a day or two ago, reports he has not had a flare in over a yearRash was more pronounced yesterday. It is described as itchy and stingy, and is less bumpy today. No excessive sweating or recent sun exposure.He is currently on methotrexate 15 mg sub cut weekly, folic acid, Saphnelo (once a month infusion, pt reports he has completed six doses), and hydroxychloroquine 200 mg BID.No current joint pain, arthralgias, or systemic symptoms.Followed by [facility] rheumatology. Reports his established rheum provider has left the practice and now he is waiting an appointment with a new provider FRANCISCO STOUT DNP [address] [place] [address], [phone], [facility] 06/14/2024 15:21:55
--- OUTSIDE RECORDS SUMMARY | 2024-06-17 16:31 | XMS_ITS | Data Portability ---
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 [email or web address] Not available 03/09/2023 11:49:37 10/12/2023 10/12/2023 We completed your Medicare Wellness exam today. This was an opportunity to assess your overall well being including your ability to care for yourself, your mobility, memory, mental health, as well as your safety. With advancing age, it is important to assign someone in your life as your Health Care Proxy (HCP). This person should know what is important to you and what your wishes are for medical procedures if you cannot communicate your wishes yourself (severe illness, unconsciousness) . We discussed having a completed Health Care Proxy form today. This is in place. Vision and Hearing are senses that are critically important as we age. When impaired, they can contribute to memory loss, falls, and make it harder to drive, talk to family and friends, and engage in the world. Please get your vision checked yearly and your hearing checked when you start to notice hearing loss. We discussed approaches to lowering your risk of heart disease and stroke . Your blood pressure is at goal. Your cholesterol is at goal. We discussed cancer screening you may need as well as vaccines to prevent infections. Colon Cancer : Your risk of colon cancer is higher than average due to personal history of colon polyps. Due for colorectal screening:not needed due to age. If you are not planning to have a colonoscopy please screen with stool cards yearly. Prostate Cancer : PSA testing for ages 55-69 risks and benefits discussed check yearly with hx of cancer. Influenza Vaccine : Flu shot yearly. Tetanus Vaccine : Every 10 years. Due: 2027. The following vaccines are available from your pharmacy: Pneumonia Vaccine : PCV20/13: once after age 65. Shingles Vaccine : 2 shots after age 50. Covid Vaccine : Make sure you have received the most up to date covid vaccine. Your personal health goal for the year is: Continue with regular exercise, follow a healthy diet,. modest weight loss. [email or web address] Not available 10/12/2023 09:26:09 05/10/2024 05/10/2024 We reviewed your chronic medical conditions and updated your plan for management. Please review instructions below. We have discussed your personal goals and discussed how to reach your goals. Please reach out to us via the Portal or phone if you have questions about your chronic conditions or if you or your caregivers require assistance in meeting your goals. Please visit our website [email or web address] for more patient resources. As part of your care plan, we will help coordinate your ongoing medical needs, arrange for durable medical equipment, renew prescriptions and necessary prior authorizations, facilitate getting referrals and collaborating with specialist, referrals for VNA services. [email or web address] Not available 05/10/2024 14:16:50 06/14/2024 06/14/2024 Attestation: Greater than 30 minutes [...] Modified Time Details Appointments None recorded. Lab PSA, serum or plasma - start early January 20242023 024 [facility], [address] [place], [address], 4 14:08:10 PSA, serum or plasma - start early January 20242023 025 [facility], [address] [place], [address], 4 14:08:10 Referral pelvic floor therapy referral 2022 023 [email or web address] [facility], [address] , [place], [address], 3 12:47:33 rheumatolo gist referral - Pt's Nicole (on Hippa) called Referrals Dept @ [facility] she stated she spoke to Dr Ritter about seeing her Dandy for 2nd opinion. 2022 023 [facility], [address] [place] [address] Dr Carrie [facility] [address], [place], [address], 4 12:54:24 Procedures None recorded. Surgeries None recorded. Imaging None recorded. Medication Orders triamcinol one acetonide 0.5 % topical ointment 2024 025 [id number], [address] [place], [address], 5 14:00:35 clotrimazo le-betamet hasone 1 %-0.05 % topical cream 2024 025 [id number], [address] [place], [address], 5 17:05:39 azithromyc in 250 mg tablet 2023 025 [id number], [address] [place], [address], 5 16:38:24 Patient TargetsNo targets recorded. 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 Referring Physician: [facility], Encounter Date: 03/09/2023 Pelvic Floor Therapy Referra l for Abnormal defecation Referring Physician: Gisell Lassiter [facility], Encounter Date: 03/09/2023 Results Created Date Observation Date Name Description Value Unit Range Abnormal Flag Note LastModifiedBy Organization Detail LastModifiedTime 08/01/19 24 08/01/2023 CBC WBC 6.19 K/??L 4.23-9 .07 Not Available [address], [address], 08/01/2023 12:15:05 08/01/19 24 08/01/2023 CBC RBC 3.59 M/??L 4.63-6 .08 low Not Available [address], [address], 08/01/2023 12:15:05 08/01/19 24 08/01/2023 CBC HGB 12.9 g/dL 13.7-1 7.5 low Not Available [address], [address], 08/01/2023 12:15:05 08/01/19 24 08/01/2023 CBC HCT 37.7 % 40.1-5 1.0 low Not Available [address], [address], 08/01/2023 12:15:05 08/01/19 24 08/01/2023 CBC MCV 105.0 fL 79.0-9 2.2 high Not Available [address], [address], 08/01/2023 12:15:05 08/01/19 24 08/01/2023 CBC MCH 35.9 pg 25.7-3 2.2 high Not Available [address], [address], 08/01/2023 12:15:05 08/01/19 24 08/01/2023 CBC MCHC 34.2 g/dL 32.3-3 6.5 Not Available [address], [address], 08/01/2023 12:15:05 08/01/19 24 08/01/2023 CBC plt 215 K/??L 163-33 7 Not Available [address], [address], 08/01/2023 12:15:05 08/01/19 24 08/01/2023 CBC MPV 10.7 fL 9.4-12 .4 Not Available [address], [address], 08/01/2023 12:15:05 08/01/19 24 08/01/2023 CBC neut% 62.4 % 34.0-6 7.9 Not Available [address], [address], 08/01/2023 12:15:05 08/01/19 24 08/01/2023 CBC neut# 3.87 1.78-5 .38 Not Available [address], [address], 08/01/2023 12:15:05 08/01/19 24 08/01/2023 CBC lymph % 18.1 % 21.8-5 3.1 low Not Available [address], [address], 08/01/2023 12:15:05 08/01/19 24 08/01/2023 CBC lymph # 1.12 K/??L 1.32-3 .57 low Not Available [address], [address], 08/01/2023 12:15:05 08/01/19 24 08/01/2023 CBC mono% 6.0 % 5.3-12 .2 Not Available [address], [address], 08/01/2023 12:15:05 08/01/19 24 08/01/2023 CBC mono# 0.37 0.30-0 .82 Not Available [address], [address], 08/01/2023 12:15:05 08/01/19 24 08/01/2023 CBC eo% 12.0 % 0.8-7. 0 high Not Available [address], [address], 08/01/2023 12:15:05 08/01/19 24 08/01/2023 CBC eo# 0.74 0.04-0 .54 high Not Available [address], [address], 08/01/2023 12:15:05 08/01/19 24 08/01/2023 CBC baso% 1.3 % 0.2-1. 2 high Not Available [address], [address], 08/01/2023 12:15:05 08/01/19 24 08/01/2023 CBC baso# 0.08 0.00-0 .08 Not Available [address], [address], 08/01/2023 12:15:05 08/01/19 24 08/01/2023 CBC RDW-CV 13.2 % 11.6-1 4.4 Not Available [address], [address], 08/01/2023 12:15:05 08/01/19 24 08/01/2023 CBC Ig% 0.200 % 0.000- 1.500 Ig % >0.5 Indic ates possi ble Left Shift Not Available [address], [address], 08/01/2023 12:15:05 08/01/19 24 08/01/2023 CBC Ig# 0.010 0.000- 0.093 Not Available [address], [address], 08/01/2023 12:15:05 08/01/19 24 08/01/2023 CBC NRBC% 0.0 % 0.0-0. 2 Not Available [address], [address], 08/01/2023 12:15:05 08/01/19 24 08/01/2023 CBC NRBC# 0.000 0.000- 0.012 Not Available [address], [address], 08/01/2023 12:15:05 08/01/19 24 08/01/2023 ESR sed rate 10.0 0.0-20 .0 Not Available [address], [address], 08/01/2023 14:39:49 08/01/19 24 08/02/2023 COMP. METAB OLIC PANEL glucose 109 mg/dL 70-100 high Not Available [address], [address], 08/02/2023 11:55:30 08/01/19 24 08/02/2023 COMP. METAB OLIC PANEL BUN 19 mg/dL 7-18 high Not Available [address], [address], 08/02/2023 11:55:30 08/01/19 24 08/02/2023 COMP. METAB OLIC PANEL creatinine 1.2 mg/dL 0.8-1. 3 Not Available [address], [address], 08/02/2023 11:55:30 08/01/19 24 08/02/2023 COMP. METAB OLIC PANEL B/C 15.8 ratio Not Available [address], [address], 08/02/2023 11:55:30 08/01/19 24 08/02/2023 COMP. METAB OLIC PANEL GFR >=60ML /MIN mL/mi n normal >=60m L/min - Joyce l or midly reduc ed <60mL /min- Decre ased kidne y funct ion <15mL /min - Kidne y failu re [facility] calcu lates estim ated Glome rular Filtr ation Rate (eGFR ) using the Chron ic Kidne y Disea se Epide miolo gy Colla borat ion (CKD- EPI) Equat ion (Chung r et. al 2020) as recom giuliana d by the Natio nal Kidne y Found ation . eGFR is based on age, serum creat inine , and sex. CKD-E PI does not calcu late eGFR by race, does not apply to child joseph (age <18 years ), and shoul d not be used in pregn daija. Not Available [address], [address], 08/02/2023 11:55:30 08/01/19 24 08/02/2023 COMP. METAB OLIC PANEL sodium 139 mmol/ L 136-14 5 Not Available [address], [address], 08/02/2023 11:55:30 08/01/19 24 08/02/2023 COMP. METAB OLIC PANEL potassium 5.1 mmol/ L 3.5-5. 1 Not Available [address], [address], 08/02/2023 11:55:30 08/01/19 24 08/02/2023 COMP. METAB OLIC PANEL chloride 102 mmol/ L 96-107 Not Available [address], [address], 08/02/2023 11:55:30 08/01/19 24 08/02/2023 COMP. METAB OLIC PANEL anion gap 12.0 5.0-15 .0 Not Available [address], [address], 08/02/2023 11:55:30 08/01/19 24 08/02/2023 COMP. METAB OLIC PANEL CO2 25 mmol/ L 21-32 Not Available [address], [address], 08/02/2023 11:55:30 08/01/19 24 08/02/2023 COMP. METAB OLIC PANEL calcium 9.2 mg/dL 8.5-10 .3 Not Available [address], [address], 08/02/2023 11:55:30 08/01/19 24 08/02/2023 COMP. METAB OLIC PANEL total protein 6.6 g/dL 6.4-8. 2 Not Available [address], [address], 08/02/2023 11:55:30 08/01/19 24 08/02/2023 COMP. METAB OLIC PANEL albumin 3.8 g/dL 3.4-5. 0 Not Available [address], [address], 08/02/2023 11:55:30 08/01/19 24 08/02/2023 COMP. METAB OLIC PANEL globulin 2.8 g/dL Not Available [address], [address], 08/02/2023 11:55:30 08/01/19 24 08/02/2023 COMP. METAB OLIC PANEL A/G 1.4 ratio 0.8-2. 0 Not Available [address], [address], 08/02/2023 11:55:30 08/01/19 24 08/02/2023 COMP. METAB OLIC PANEL total bilirubin 0.40 mg/dL 0.00-1 .00 Not Available [address], [address], 08/02/2023 11:55:30 08/01/19 24 08/02/2023 COMP. METAB OLIC PANEL AST 21 U/L 0-37 Not Available [address], [address], 08/02/2023 11:55:30 08/01/19 24 08/02/2023 COMP. METAB OLIC PANEL ALT 29 U/L 6-63 Not Available [address], [address], 08/02/2023 11:55:30 08/01/19 24 08/02/2023 COMP. METAB OLIC PANEL alk. phos. 56 U/L 50-136 Not Available [address], [address], 08/02/2023 11:55:30 08/01/19 24 08/02/2023 COMPL EMENT C3 complement C3 126 mg/dL 90-207 Not Available [address], [address], 08/02/2023 11:55:32 08/01/19 24 08/02/2023 COMPL EMENT C4 complement C4 18.1 mg/dL 17.4-5 2.2 Not Available [address], [address], 08/02/2023 11:55:33 08/01/19 24 08/02/2023 C-SEBASTIEN CTIVE PROTE IN (RCRP ) C-reactive protein (rcrp) 0.6 mg/dL 0.5-9. 0 Not Available [address], [address], 08/02/2023 12:27:50 08/01/19 24 08/03/2023 DNA (DS) ANTIB JAMAL DNA (ds) antibody <1 IU/mL normal IU/mL Inter preta tion < or = 4 Negat neha 5-9 Indet ermin ate > or = 10 Posit neha Not Available [facility] [address], [place], [address], 08/03/2023 08:13:10 10/06/19 24 10/10/2023 LIPID PANEL cholesterol 166 mg/dL <200 mg/dl Giles able 200-2 39 mg/dl Borde rline High >240 mg/dl High Not Available [address], [address], 10/10/2023 14:22:22 10/06/19 24 10/10/2023 LIPID PANEL triglyceride s 122 mg/dL <150 mg/dL Joyce l 150-1 99 mg/dL Borde rline High 200-4 99 mg/dL High >500 mg/dL Very High Not Available [address], [address], 10/10/2023 14:22:22 10/06/19 24 10/10/2023 LIPID PANEL direct HDL 69 mg/dL <40 mg/dl - Major Risk for CHD >60 mg/dl - Negat neha Risk for CHD Not Available [address], [address], 10/10/2023 14:22:22 10/06/19 24 10/10/2023 LDL - CALCU LATED LDL - calculated 72.6 RISK CATEG ORY LDL GOAL _ CHD or CHD Risk Equiv alent s <100 mg/dl (10-y ear risk >20%) 2+ Risk Facto rs <130 mg/dl (10-y ear risk <= 20%) 0-1 Risk Facto r??? <160 mg/dl ??? Almos t all peopl e with 0-1 risk facto r have a 10 year risk <10%, thus 10 year risk asses ment in peopl e with 0-1 risk facto r is not chastity eldridge. Not Available [address], [address], 10/10/2023 14:22:23 11/17/19 24 11/17/2023 PSA PSA <0.05 NG/mL 0.00-4 .00 < Verif ied by godwin frazier elan sis,d gc. Not Available [address], [address], 11/17/2023 14:08:10 11/17/19 24 11/17/2023 BASIC METAB OLIC PANEL glucose 86 mg/dL 70-100 Not Available [address], [address], 11/17/2023 15:00:51 11/17/19 24 11/17/2023 BASIC METAB OLIC PANEL BUN 26 mg/dL 7-18 high Not Available [address], [address], 11/17/2023 15:00:51 11/17/19 24 11/17/2023 BASIC METAB OLIC PANEL creatinine 1.0 mg/dL 0.8-1. 3 Not Available [address], [address], 11/17/2023 15:00:51 11/17/19 24 11/17/2023 BASIC METAB OLIC PANEL B/C 26.0 ratio Not Available [address], [address], 11/17/2023 15:00:51 11/17/19 24 11/17/2023 BASIC METAB OLIC PANEL GFR >=60ML /MIN mL/mi n normal >=60m L/min - Joyce l or midly reduc ed <60mL /min- Decre ased kidne y funct ion <15mL /min - Kidne y failu re [facility] calcu lates estim ated Glome rular Filtr ation Rate (eGFR ) using the Chron ic Kidne y Disea se Epide miolo gy Colla borat ion (CKD- EPI) Equat ion (Chung skelton et. al 2020) as recom giuliana d by the Natio nal Kidne y Found ation . eGFR is based on age, serum creat inine , and sex. CKD-E PI does not calcu late eGFR by race, does not apply to child joseph (age <18 years ), and shoul d not be used in pregn daija. Not Available [address], [address], 11/17/2023 15:00:51 11/17/19 24 11/17/2023 BASIC METAB OLIC PANEL sodium 142 mmol/ L 136-14 5 Not Available [address], [address], 11/17/2023 15:00:51 11/17/19 24 11/17/2023 BASIC METAB OLIC PANEL potassium 4.9 mmol/ L 3.5-5. 1 Not Available [address], [address], 11/17/2023 15:00:51 11/17/19 24 11/17/2023 BASIC METAB OLIC PANEL chloride 105 mmol/ L 96-107 Not Available [address], [address], 11/17/2023 15:00:51 11/17/19 24 11/17/2023 BASIC METAB OLIC PANEL anion gap 10.6 5.0-15 .0 Not Available [address], [address], 11/17/2023 15:00:51 11/17/19 24 11/17/2023 BASIC METAB OLIC PANEL CO2 26 mmol/ L 21-32 Not Available [address], [address], 11/17/2023 15:00:51 11/17/19 24 11/17/2023 BASIC METAB OLIC PANEL calcium 8.6 mg/dL 8.5-10 .3 Not Available [address], [address], 11/17/2023 15:00:51 02/28/20 24 02/28/2024 CBC WBC 7.30 K/??L 4.23-9 .07 Not Available [address], [address], 02/28/2024 12:19:10 02/28/20 24 02/28/2024 CBC RBC 3.57 M/??L 4.63-6 .08 low Not Available [address], [address], 02/28/2024 12:19:10 02/28/20 24 02/28/2024 CBC HGB 12.7 g/dL 13.7-1 7.5 low Not Available [address], [address], 02/28/2024 12:19:10 02/28/20 24 02/28/2024 CBC HCT 37.5 % 40.1-5 1.0 low Not Available [address], [address], 02/28/2024 12:19:10 02/28/20 24 02/28/2024 CBC MCV 105.0 fL 79.0-9 2.2 high Not Available [address], [address], 02/28/2024 12:19:10 02/28/20 24 02/28/2024 CBC MCH 35.6 pg 25.7-3 2.2 high Not Available [address], [address], 02/28/2024 12:19:10 02/28/20 24 02/28/2024 CBC MCHC 33.9 g/dL 32.3-3 6.5 Not Available [address], [address], 02/28/2024 12:19:10 02/28/20 24 02/28/2024 CBC plt 210 K/??L 163-33 7 Not Available [address], [address], 02/28/2024 12:19:10 02/28/20 24 02/28/2024 CBC MPV 11.3 fL 9.4-12 .4 Not Available [address], [address], 02/28/2024 12:19:10 02/28/20 24 02/28/2024 CBC neut% 61.7 % 34.0-6 7.9 Not Available [address], [address], 02/28/2024 12:19:10 02/28/20 24 02/28/2024 CBC neut# 4.50 1.78-5 .38 Not Available [address], [address], 02/28/2024 12:19:10 02/28/20 24 02/28/2024 CBC lymph % 23.7 % 21.8-5 3.1 Not Available [address], [address], 02/28/2024 12:19:10 02/28/20 24 02/28/2024 CBC lymph # 1.73 K/??L 1.32-3 .57 Not Available [address], [address], 02/28/2024 12:19:10 02/28/20 24 02/28/2024 CBC mono% 8.9 % 5.3-12 .2 Not Available [address], [address], 02/28/2024 12:19:10 02/28/20 24 02/28/2024 CBC mono# 0.65 0.30-0 .82 Not Available [address], [address], 02/28/2024 12:19:10 02/28/20 24 02/28/2024 CBC eo% 4.5 % 0.8-7. 0 Not Available [address], [address], 02/28/2024 12:19:10 02/28/20 24 02/28/2024 CBC eo# 0.33 0.04-0 .54 Not Available [address], [address], 02/28/2024 12:19:10 02/28/20 24 02/28/2024 CBC baso% 0.8 % 0.2-1. 2 Not Available [address], [address], 02/28/2024 12:19:10 02/28/20 24 02/28/2024 CBC baso# 0.06 0.00-0 .08 Not Available [address], [address], 02/28/2024 12:19:10 02/28/20 24 02/28/2024 CBC RDW-CV 12.8 % 11.6-1 4.4 Not Available [address], [address], 02/28/2024 12:19:10 02/28/20 24 02/28/2024 CBC Ig% 0.400 % 0.000- 1.500 Ig % >0.5 Indic ates possi ble Left Shift Not Available [address], [address], 02/28/2024 12:19:10 02/28/20 24 02/28/2024 CBC Ig# 0.030 0.000- 0.093 Not Available [address], [address], 02/28/2024 12:19:10 02/28/20 24 02/28/2024 CBC NRBC% 0.0 % 0.0-0. 2 Not Available [address], [address], 02/28/2024 12:19:10 02/28/20 24 02/28/2024 CBC NRBC# 0.000 0.000- 0.012 Not Available [address], [address], 02/28/2024 12:19:10 02/28/20 24 02/28/2024 ESR sed rate 8.0 0.0-20 .0 Not Available [address], [address], 02/28/2024 15:02:44 02/28/20 24 02/28/2024 URINA LYSIS color YELLOW yellow Not Available [address], [address], 02/28/2024 15:22:30 02/28/20 24 02/28/2024 URINA LYSIS clarity CLEAR clear Not Available [address], [address], 02/28/2024 15:22:30 02/28/20 24 02/28/2024 URINA LYSIS glucose NEGATI VE negati ve Not Available [address], [address], 02/28/2024 15:22:30 02/28/20 24 02/28/2024 URINA LYSIS bilirubin NEGATI VE negati ve Not Available [address], [address], 02/28/2024 15:22:30 02/28/20 24 02/28/2024 URINA LYSIS ketones NEGATI VE negati ve Not Available [address], [address], 02/28/2024 15:22:30 02/28/20 24 02/28/2024 URINA LYSIS specific gravity 1.020 1.001- 1.035 Not Available [address], [address], 02/28/2024 15:22:30 02/28/20 24 02/28/2024 URINA LYSIS pH 6.0 5.0-8. 0 Not Available [address], [address], 02/28/2024 15:22:30 02/28/20 24 02/28/2024 URINA LYSIS protein NEGATI VE negati ve Not Available [address], [address], 02/28/2024 15:22:30 02/28/20 24 02/28/2024 URINA LYSIS urobilinogen 0.2 E.U./D L <1.0 Not Available [address], [address], 02/28/2024 15:22:30 02/28/20 24 02/28/2024 URINA LYSIS nitrates NEGATI VE negati ve Not Available [address], [address], 02/28/2024 15:22:30 02/28/20 24 02/28/2024 URINA LYSIS blood NEGATI VE negati ve Not Available [address], [address], 02/28/2024 15:22:30 02/28/20 24 02/28/2024 URINA LYSIS leukocytes NEGATI VE negati ve Not Available [address], [address], 02/28/2024 15:22:30 02/28/20 24 02/28/2024 URINE , MICRO SCOPI C WBC 0-2 hpf 0-4/hp f Not Available [address], [address], 02/28/2024 15:32:50 02/28/20 24 02/28/2024 URINE , MICRO SCOPI C RBC 0-2 hpf 0-2/hp f Not Available [address], [address], 02/28/2024 15:32:50 02/28/20 24 02/28/2024 URINE , MICRO SCOPI C bacteria NONE SEEN none seen Not Available [address], [address], 02/28/2024 15:32:50 02/28/20 24 02/28/2024 URINE , MICRO SCOPI C yeast NONE SEEN none seen Not Available [address], [address], 02/28/2024 15:32:50 02/28/20 24 02/28/2024 URINE , MICRO SCOPI C squamous epithelial cells 2 hpf 0-5 Not Available [address], [address], 02/28/2024 15:32:50 02/28/20 24 02/28/2024 URINE , MICRO SCOPI C mucous NONE SEEN none seen Not Available [address], [address], 02/28/2024 15:32:50 02/28/20 24 02/29/2024 COMP. METAB OLIC PANEL glucose 88 mg/dL 70-100 Not Available [address], [address], 02/29/2024 12:17:16 02/28/20 24 02/29/2024 COMP. METAB OLIC PANEL BUN 25 mg/dL 7-18 high Not Available [address], [address], 02/29/2024 12:17:16 02/28/20 24 02/29/2024 COMP. METAB OLIC PANEL creatinine 1.1 mg/dL 0.8-1. 3 Not Available [address], [address], 02/29/2024 12:17:16 02/28/20 24 02/29/2024 COMP. METAB OLIC PANEL B/C 22.7 ratio Not Available [address], [address], 02/29/2024 12:17:16 02/28/20 24 02/29/2024 COMP. METAB OLIC PANEL GFR >=60ML /MIN mL/mi n normal >=60m L/min - Joyce l or midly reduc ed <60mL /min- Decre ased kidne y funct ion <15mL /min - Kidne y failu re [facility] calcu lates estim ated Glome rular Filtr ation Rate (eGFR ) using the Chron ic Kidne y Disea se Epide miolo gy Colla borat ion (CKD- EPI) Equat ion (Chung skelton et. al 2020) as recom giuliana d by the Natio nal Kidne y Found ation . eGFR is based on age, serum creat inine , and sex. CKD-E PI does not calcu late eGFR by race, does not apply to child joseph (age <18 years ), and shoul d not be used in pregn daija. Not Available [address], [address], 02/29/2024 12:17:16 02/28/20 24 02/29/2024 COMP. METAB OLIC PANEL sodium 144 mmol/ L 136-14 5 Not Available [address], [address], 02/29/2024 12:17:16 02/28/20 24 02/29/2024 COMP. METAB OLIC PANEL potassium 4.4 mmol/ L 3.5-5. 1 Not Available [address], [address], 02/29/2024 12:17:16 02/28/20 24 02/29/2024 COMP. METAB OLIC PANEL chloride 104 mmol/ L 96-107 Not Available [address], [address], 02/29/2024 12:17:16 02/28/20 24 02/29/2024 COMP. METAB OLIC PANEL anion gap 12.6 5.0-15 .0 Not Available [address], [address], 02/29/2024 12:17:16 02/28/20 24 02/29/2024 COMP. METAB OLIC PANEL CO2 27 mmol/ L 21-32 Not Available [address], [address], 02/29/2024 12:17:16 02/28/20 24 02/29/2024 COMP. METAB OLIC PANEL calcium 9.7 mg/dL 8.5-10 .3 Not Available [address], [id number], 02/29/2024 12:17:16 02/28/20 24 02/29/2024 COMP. METAB OLIC PANEL total protein 6.7 g/dL 6.4-8. 2 Not Available [address], [id number], 02/29/2024 12:17:16 02/28/20 24 02/29/2024 COMP. METAB OLIC PANEL albumin 3.9 g/dL 3.4-5. 0 Not Available [address], [id number], 02/29/2024 12:17:16 02/28/20 24 02/29/2024 COMP. METAB OLIC PANEL globulin 2.8 g/dL Not Available [address], [id number], 02/29/2024 12:17:16 02/28/20 24 02/29/2024 COMP. METAB OLIC PANEL A/G 1.4 ratio 0.8-2. 0 Not Available [address], [address], 02/29/2024 12:17:16 02/28/20 24 02/29/2024 COMP. METAB OLIC PANEL total bilirubin 0.60 mg/dL 0.00-1 .00 Not Available [address], [address], 02/29/2024 12:17:16 02/28/20 24 02/29/2024 COMP. METAB OLIC PANEL AST 17 U/L 0-37 Not Available [address], [address], 02/29/2024 12:17:16 02/28/20 24 02/29/2024 COMP. METAB OLIC PANEL ALT 22 U/L 6-63 Not Available [address], [address], 02/29/2024 12:17:16 02/28/20 24 02/29/2024 COMP. METAB OLIC PANEL alk. phos. 39 U/L 50-136 low Not Available [address], [address], 02/29/2024 12:17:16 02/28/20 24 02/29/2024 COMPL EMENT C3 complement C3 121 mg/dL 90-207 Not Available [address], [address], 02/29/2024 12:17:17 02/28/20 24 02/29/2024 COMPL EMENT C4 complement C4 18.9 mg/dL 17.4-5 2.2 Not Available [address], [address], 02/29/2024 12:17:17 02/28/20 24 02/29/2024 C-SEBASTIEN CTIVE PROTE IN (RCRP ) C-reactive protein (rcrp) <0.5 mg/dL 0.5-9. 0 < Verif ied by repea t - SUJATA Not Available [address], [address], 02/29/2024 12:38:40 02/28/20 24 02/29/2024 PROTE IN, TOTAL W/CRE AT, RANDO M URINE creatinine, random urine 233 mg/dL 20-320 normal Not Available [facility] [address], [place], [address], 02/29/2024 18:47:55 02/28/20 24 02/29/2024 PROTE IN, TOTAL W/CRE AT, RANDO M URINE protein/crea tinine ratio 64 mg/g_ creat 25-148 normal Not Available [facility] [address] [place] [address], [place], [address], 02/29/2024 18:47:55 02/28/20 24 02/29/2024 PROTE IN, TOTAL W/CRE AT, RANDO M URINE protein/crea tinine ratio 0.064 mg/mg _crea t 0.025- 0.148 normal Not Available [facility] [address] [place] [address], [place], [address], 02/29/2024 18:47:55 02/28/20 24 02/29/2024 PROTE IN, TOTAL W/CRE AT, RANDO M URINE protein, total, random ur 15 mg/dL 5-25 normal Not Available [address], [place], [address], 02/29/2024 18:47:55 02/28/20 24 03/04/2024 DNA (DS) ANTIB JAMAL, CRITH IDIA, IFA W/REF L DNA Ab (ds) crithidia,if a NEGATI VE negati ve Not Available [facility] [address] [place] [address], [place], [address], 03/04/2024 15:12:25 07/30/19 24 07/30/2023 CT, head, w/o contr ast No observ ation record ed. [facility] [address], [place], [address], 08/02/2023 09:06:01 Result Notes None recorded. Problems Name Problem SNOMED Code Status Onset Date Resolution Date Notes Provider Name and Address Organization Details Recorded Time Mixed hyperlipi demia 173852762 Completed 200712/16/2014 [place], [address], [facility] 6 12:43:41 Atopic dermatiti s 46853456 Completed 12/16/2014 [place], [address], [facility] 6 12:43:41 Candidias is of skin and nails Completed 05/07/2014 [place], [address], [facility] 6 12:43:41 Hyperplas ia of prostate 292705220 Completed 05/07/2014 [place], [address], [facility] 6 12:43:41 Ingrowing nail 267077145 Completed 02/06/2013 [place], [address], [facility] 6 12:43:41 Anemia 685833921 Completed 200705/07/2014 [place], [address], [facility] 6 12:43:41 Benign essential hypertens ion 2461184 Active 2007 [place], [address], [facility] 6 12:43:41 Diverticu losis of colon without diverticu litis 436342288 Completed 200612/16/2014 [place], [address], [facility] 6 12:43:41 Benign prostatic hyperplas ia 695336835 Completed 200705/07/2014 Kiara Cobos MD [address] [place], [place] [address], [address], [facility] 6 12:43:41 Psoriasis 1585291 Completed 201707/07/2020 Gisell brown MD [facility] [place], [address], [facility] 1 12:04:13 Gluten sensitivi ty 586647835 Completed 201907/07/2020 Gisell brown MD [facility] [place], [address], [facility] 1 12:03:46 ECG: sinus arrhythmi a 960919452 Completed 201906/03/2019 Chino Bishop MD [facility] [place], [address], [facility] 0 14:16:49 Multiple atrial premature complexes 409884619 Active 2019 Chino Bishop MD [address] [place], [place] [address], [address], [facility] 0 14:16:44 Lupus erythemat osus 700846487 Active 2019 Chino Bishop MD [facility] [place], [address], [facility] 0 14:49:25 History of malignant neoplasm of prostate 219632258 Active 2020 Gisell brown MD [facility] [place], [address], [facility] 1 12:08:09 Mild neurocogn itive disorder 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 Procedures Surgical History Date Name Laterality Status Provider Name and Address Organization Details Recorded Time 10/12/19 Medicare Wellness Visit completed LUCY Concepcion Anderson [facility] 10/10/2023 08:12:29 10/12/19 Cardiovascular disease risk reduction counseling completed LUCY Concepcion [facility] 10/10/2023 08:12:40 10/12/19 prevention-annual alcohol misuse screening completed LUCY Concepcion [facility] 10/10/2023 08:12:41 10/11/19 Medicare Wellness Visit completed LUCY Concepcion Anderson [facility] 10/06/2022 16:22:23 10/11/19 23 Cardiovascular disease risk reduction counseling completed LUCY Concepcion Anderson [facility] 10/06/2022 16:22:54 10/11/19 23 prevention-annual alcohol misuse screening completed LUCY Concepcion Andreson [facility] 10/06/2022 16:22:57 08/10/19 Medicare Wellness Visit completed LUCY Concepcion Anderson [facility] 08/09/2021 07:49:24 08/10/19 22 Alcohol use screening completed Carlene CHRISTIANOYara Justin [facility] 08/09/2021 07:49:24 08/10/19 22 Cardiovascular disease risk reduction counseling completed LUCY Concepcion Anderson [facility] 08/09/2021 07:49:24 02/26/20 21 colonoscopy completed Gisell Nobles MD [address] [place] [address], [address], [facility] 03/01/2021 12:57:18 07/08/19 21 Medicare Wellness Visit completed Telma Villar MA [facility] 06/29/2020 16:05:10 07/08/19 21 prevention-cardiov ascular risk reduction counseling completed Telma Villar MA [facility] 06/29/2020 16:05:10 07/08/19 21 prevention-annual alcohol misuse screening completed Telma Villar MA [facility] 06/29/2020 16:05:10 07/08/19 21 Advanced Care Planning completed Gisell Nobles MD [address] [place] [address], [address], [facility] 07/07/2020 11:53:43 06/03/19 20 Medicare Wellness Visit completed Belkis Mendez LPN [facility] 06/03/2019 13:48:44 06/03/19 20 prevention-cardiov ascular risk reduction counseling completed Belkis Mendez LPN [facility] 06/03/2019 13:48:44 06/03/19 20 prevention-annual alcohol misuse screening completed Belkis Mendez LPN [facility] 06/03/2019 13:48:44 05/31/19 19 Medicare Wellness Visit completed Belkis Mendez LPN [facility] 05/30/2018 10:27:16 05/23/19 18 Medicare Wellness Visit completed Belkis Mendez LPN [facility] 05/22/2017 13:44:47 05/08/19 18 Oly - Colonoscopy completed Jeffrey Aldridge [address] [place] [address], [address], [facility] 05/08/2017 11:36:34 03/06/20 17 Suture/staple Removal completed Chino Bishop MD [address] [place] [address], [address], [facility] 03/06/2017 15:56:42 01/19/20 17 Physical Activity Counselling completed Chitra Cowan [address] [place] [address], [address], [facility] 01/18/2017 19:24:47 01/19/20 17 42802: PT Eval Low Complexity completed Chitra Cowan [address] [place] [address], [address], [facility] 01/18/2017 19:24:47 12/08/19 17 Refraction completed Nadeem Blanchard [facility] 12/07/2016 09:10:56 05/19/19 17 Medicare Wellness Visit completed Belkis Mendez LPN [facility] 05/18/2016 09:12:11 02/26/20 16 Medicare Wellness Visit completed Belkis Mendez LPN [facility] 05/15/2015 11:06:32 05/07/19 15 Medicare Wellness Visit completed Mariana Jason [facility] 05/07/2014 09:24:19 05/06/19 15 Oly - Colonoscopy completed Jeffrey Aldridge [address] [place], [address], [facility] 05/06/2014 13:09:21 04/30/19 14 Medicare Wellness Visit completed Katina Win [facility] 04/30/2013 10:43:22 04/26/19 13 Medicare Wellness Visit completed Wanda Faustin [facility] 04/26/2012 10:58:01 06/07/19 09 Toenail Avulsion completed Silvestre Patel PA-C [address] [place], [address], [facility] 06/06/2008 10:06:19 Imaging Results Imaging Date Name Status LastModified by Organiz ation Details LastModified Time 07/30/2023 CT, head, w/o contrast completed [facility] [address], [place], [address], 08/02/2023 09:06:01 Procedure Notes None recorded. Medical Equipment None Reported. Allergies Allergen ID Allergen Name Allergen Category Reaction Reaction Severity Criticality Documentation Date Start Date Code Code System Note Provider Name and Address Organization Details Recorded Time 885429 amlodipin e medicatio n other moderate Not available 11/07/2018 47876 RxNorm Chino Bishop MD [address] [facility] [place], [address], [facility] 9 11:18:43 Medications Name Sig Start Date [...] BY MOUTH TWICE A DAY UNTIL FINISHED 10/10 completed Not Available Not Available Not [...] Available oxymetazo line 0.05 % nasal spray [place] 2 sprays twice a day by intranas [...] saturation in Arterial blood by Pulse oximetry Systolic blood pressure Diastolic blood pressure Provider Name and Address Organization Details Last Updated DateTime 3 174.63 cm 30.6 kg/m2 93296.0 3 g 98 /min 100 % 100 % 140 mm[Hg] 100 mm[Hg] LUCY Concepcion [facility] 3 11:11:31 Date Recorded Body height Body mass index (BMI) Body weight Oxygen saturation Oxygen saturation in Arterial blood by Pulse oximetry Heart rate Systolic blood pressure Diastolic blood pressure Provider Name and Address Organization Details Last Updated DateTime 4 174.63 cm 30.2 kg/m2 02541.9 5 g 96 % 96 % 92 /min 126 mm[Hg] 78 mm[Hg] Anuradha Jain [facility] 4 09:01:33 Date Recorded Body height Body mass index (BMI) Body weight Heart rate Oxygen saturation Oxygen saturation in Arterial blood by Pulse oximetry Systolic blood pressure Diastolic blood pressure Provider Name and Address Organization Details Last Updated DateTime 4 174.63 cm 30.1 kg/m2 80419.4 6 g 77 /min 100 % 100 % 124 mm[Hg] 76 mm[Hg] Anuradha Jain [facility] 4 11:15:55 Date Recorded Body height Body mass index (BMI) Body weight Oxygen saturation Oxygen saturation in Arterial blood by Pulse oximetry Heart rate Systolic blood pressure Diastolic blood pressure Provider Name and Address Organization Details Last Updated DateTime 5 174.63 cm 30.2 kg/m2 62498.2 5 g 99 % 99 % 95 /min 122 mm[Hg] 78 mm[Hg] Lanre ortiz [facility] 5 16:41:12 Date Recorded Body height Body mass index (BMI) Body weight Heart rate Oxygen saturation Oxygen saturation in Arterial blood by Pulse oximetry Body temperature Systolic blood pressure Diastolic blood pressure Systolic blood pressure Diastolic blood pressure Provider Name and Address Organization Details Last Updated DateTime 5 174.63 cm 30.3 kg/m2 99116.8 4 g 86 /min 99 % 99 % 97.5 [degF] 130 mm[Hg] 88 mm[Hg] 158 mm[Hg] 98 mm[Hg] Kim Montano MA [facility] 5 13:40:29 Date Recorded Systolic blood pressure Diastolic blood pressure Provider Name and Address Organization Details Last Updated DateTime 03/27/2023 126 mm[Hg] 79 mm[Hg] LUCY Concepcion [facility] 03/27/2023 11:46:55 Social History Question Answer Notes LastModified by Organizat ion Details LastModified Time Tobacco Smoking Status Former Smoker quit '95 after 20 yrs 1ppd, cigar rarely; LUCY Concepcion [facility] 08/09/2021 11:54:55 Do You Have An Advance Directive? Yes Information not available 10/12/2023 What Is Your Level Of Alcohol Consumption? Occasional A Glass Wine 3-4x/week. No Hx Abuse. [email or web address] Information not available 08/09/2021 Do You Wear A Helmet When Biking? No Information not available 02/03/2015 What Is Your Level Of Caffeine Consumption? Moderate 2 Cups Coffee Daily [email or web address] Information not available 08/09/2021 How Much Tobacco Do You Chew? None [email or web address] Information not available 12/16/2014 Are You Currently Employed? No Information not available 08/09/2021 What Type Of Diet Are You Following? REGULAR Information not available 02/03/2015 Which Illicit Or Recreational Drugs Have You Used? None Information not available 08/09/2021 Do You Or Have You Ever Used E-cigarettes Or Vape? Never Used Electronic Cigarettes [email or web address] Information not available 08/09/2021 Education Post Graduate [employer] [facility] Informatio n not available 10/12/2023 What Is The Highest Grade Or Level Of School You Have Completed Or The Highest Degree You Have Received? 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 [employer] [facility] Information not available 07/07/2020 Have There Been Any Changes To Your Family Or Social Situation? No [email or web address] Information not available 08/09/2021 When Did You Quit Smoking? 16+yearssince krystal Information not available 12/16/2014 How Many Days In The Past Year Have You Had A Heavy Drinking Consumption (4+ Female, 5+ Male)? 1 07/07/20 JI [email or web address] Information not available 04/26/2012 Are There Any Guns Present In Your Home? No [email or web address] Information not available 08/09/2021 Do You Use Insect Repellent Routinely? Yes [email or web address] Information not available 08/09/2021 Live Alone Or With Others? With Others Information not available 12/16/2014 Patient Has Health Care Proxy Signed And In Chart Yes [email or web address] Information not available 10/11/2022 CCM Consent Discussion 05/30/2018 [email or web address] Information not available 05/30/2018 Marital Status Informatio n not available 05/07/2014 Mosquito Repellent Used Routinely Yes Information not available 02/03/2015 What Was The Date Of Your Most Recent Tobacco Screening? 03/09/2023 [email or web address] Information not available 03/09/2023 How Many Children Do You Have? 1 [place] [facility] Information not available 08/09/2021 What Is Your Current Pack Years? 20-29packyear s Information not available 12/16/2014 What Is Your Relationship Status? Female Spouse [facility] Information not available 08/09/2021 Do You Use Your Seat Belt Or Car Seat Routinely? Yes [email or web address] Information not available 08/09/2021 Seat Belts Used Routinely Yes Information not available 02/03/2015 Are You Sexually Active? Yes Information not available 05/07/2014 Smoke Alarm In Home Yes Information not available 02/03/2015 Do You Have Smoke And Carbon Monoxide Detectors In Your Home? Yes Information not available 08/09/2021 Are You Passively Exposed To Smoke? No [email or web address] Information not available 08/09/2021 Do You Or Have You Ever Used Smokeless Tobacco? Never Used Smokeless Tobacco Information not available 08/09/2021 How Much Tobacco Do You Smoke? No [email or web address] Information not available 08/09/2021 General Stress Level Low Information not available 02/03/2015 Do You Use Any Illicit Or Recreational Drugs? No Information not available 08/09/2021 Do You Use [...] virus, trivalent, preservative 1 completed Not Available [facility] 04/06/2019 02:18:30 pneumococcal polysaccharide PPV23 1 completed Not Available [facility] 04/06/2019 02:14:54 Influenza, split virus, trivalent, preservative 1 completed Not Available [facility] 04/06/2019 02:29:24 Tdap 8 completed Not Available [facility] 02/02/2011 05:21:55 Influenza, split virus, trivalent, PF 2 completed Not Available [facility] 04/06/2019 02:29:56 Influenza, split virus, trivalent, PF 3 completed Not Available [facility] 04/06/2019 02:26:42 Influenza, high-dose, trivalent, PF 5 completed Not Available [facility] 04/06/2019 02:34:15 Pneumococcal conjugate PCV 13 5 completed Not Available [facility] 04/06/2019 02:34:59 Influenza, high-dose, trivalent, PF 6 completed Not Available [facility] 04/06/2019 02:21:08 Influenza, high-dose, trivalent, PF 7 completed Not Available [facility] 04/06/2019 02:22:01 Hep A-Hep B 5 completed Angela Grewal LPN null, [facility] 10/28/2014 10:57:12 Hep A-Hep B 5 completed TODD Josue, [facility] 10/28/2014 10:57:12 typhoid, unspecified formulation 5 completed TODD Josue, [facility] 10/28/2014 10:57:12 Td (adult), 2 Lf tetanus toxoid, preservative free, adsorbed 8 completed Not Available [facility] 04/06/2019 02:34:17 Influenza, high-dose, trivalent, PF 8 completed Not Available [facility] 04/06/2019 02:23:31 Influenza, high-dose, trivalent, PF 9 completed Not Available [facility] 04/06/2019 02:24:03 Influenza, high-dose, quadrivalent, PF 0 completed Aydee Carvalho RN null, [facility] 12/26/2019 09:08:25 Influenza, high-dose, quadrivalent, PF 2 completed Anuradha Jain CMA null, [facility] 01/06/2022 10:20:11 COVID-19, mRNA, LNP-S, PF, 30 mcg/0.3 mL dose 1 completed Telma Villar MA [facility] 07/07/2020 11:27:00 COVID-19, mRNA, LNP-S, PF, 30 mcg/0.3 mL dose 1 completed [facility] 11:27:36 zoster recombinant 1 completed Yoon Green MA null, [facility] 03/30/2021 10:00:50 zoster recombinant 2 completed Nilmari, RMA Anderson null, [facility] 08/09/2021 11:58:12 COVID-19, mRNA, LNP-S, PF, 100 mcg/0.5mL dose or 50 mcg/0.25mL dose 1 completed Nilmari, RMA Anderson null, [facility] 08/09/2021 11:58:38 Influenza, split virus, quadrivalent, preservative 1 completed Gisell Lassiter. [address] [place] [address], [address], [facility] 08/09/2021 12:32:57 COVID-19, mRNA, LNP-S, PF, 100 mcg/0.5mL dose or 50 mcg/0.25mL dose 2 completed Nilmari, RMA Anderson null, [facility] 02/03/2022 15:57:36 Influenza, high-dose, quadrivalent, PF 3 completed Nilmari, RMA Anderson null, [facility] 03/09/2023 08:27:43 COVID-19, mRNA, LNP-S, bivalent, PF, 50 mcg/0.5 mL or 25mcg/0.25 mL dose 2 completed Nilmari, RMA Anderson null, [facility] 03/09/2023 08:28:07 COVID-19, mRNA, LNP-S, PF, 50 mcg/0.5 mL 3 completed Nilmari, RMA Anderson null, [facility] 03/09/2023 08:28:24 Past Encounters Encounter ID Performer Location Encounter Start Date Encounter Closed Date Diagnosis/Indication Diagnosis SNOMED-CT Code Diagnosis ICD10 Code Diagnosis Note [id number] [facility], [address] [address] 03/16/2007 08:58:46 03/21/2007 11:16:05 [id number] [facility], OFFICE [address] [place] [place] [address] 07/09/2007 08:56:16 04/09/2008 02:02:29 [id number] [facility] [address] [place] [address] 09/04/2007 15:42:40 09/04/2007 15:42:47 [id number] , [facility], OFFICE [address] [place] [place] [address] 09/11/2007 10:45:51 04/09/2008 02:02:29 [id number] , [facility], OFFICE [address] [place] [address] [place] [address] 06/06/2008 09:13:40 06/09/2008 08:32:15 [id number] MICHAEL Ontiveros, [facility], OFFICE [address] [place] [address] [place] [address] 09/18/2008 07:59:52 09/23/2008 08:23:57 [id number] LAN [facility], OFFICE [address] [place] [address] [place] [address] 10/08/2008 15:13:31 10/09/2008 08:16:00 [id number] LAN [facility], [place] [place] [address] 04/15/2009 09:18:37 04/15/2009 15:26:06 [id number] MICHAEL Ontiveros, [facility], OFFICE [address] [place] [address] [place] [address] 06/11/2009 08:46:44 06/11/2009 09:37:38 [id number] LAN [facility], OFFICE [address] [place] [address] DR [place], [place] [address] 12/09/2009 15:46:25 12/09/2009 17:14:34 [id number] FP, [facility], [place] [address] 02/15/2010 16:10:54 02/16/2010 10:10:06 [id number] FP, [facility], [place] [address] 04/08/2010 14:20:29 04/09/2010 09:00:24 [id number] , [facility], OFFICE [address] [place] [address] [place] [address] 02/04/2011 15:36:00 02/04/2011 16:07:00 [id number] Radiology , [facility] [address] [place] [address] 06/09/2011 09:01:10 06/10/2011 12:05:05 [id number] [facility] OFFICE [address] [place] [address] [place] [address] 08/05/2011 10:25:01 08/05/2011 10:44:[id number] [place] [address] [place] [address] 10/07/2011 10:23:33 10/07/2011 10:45:33 [id number] [facility]. KACY MONTENEGRO [facility] [address] [place] [address] [place] [address] 03/09/2012 11:03:40 03/09/2012 11:27:46 [id number] Khoa Siddiqui III, MD [address] [place] [address] [place] [address] 04/06/2012 10:19:23 04/06/2012 10:35:48 [id number] Khoa Siddiqui III, MD [address] [place] [address] [place] [address] 04/26/2012 10:53:54 04/26/2012 11:20:40 [id number] Jerrica Glaser LPN [address] [place] [address] [place] [address] 1 10/11/2012 10:23:49 10/11/2012 10:47:08 [id number] [facility]. KACY MONTENEGRO [address] [place] [address] [address] [place] [address] 11/29/2012 09:01:06 11/29/2012 10:27:00 Influenza vaccine needed [id number] 047 [id number] VIOLETA Terry, [facility] [address] [place] [address] [place] [address] 01/22/2013 08:54:13 01/22/2013 09:13:34 Benign essential hypertension 4883109 Blood pressure at goal. CONTINUE CURRENT MEDS Varicella vaccination 74068982 [id number] VIOLETA Lagunas, [facility] [address] [place] [address] [place] [address] 04/30/2013 10:35:26 04/30/2013 10:57:14 Adult health examination [id number] see Risk Assessment and Lifestyle Change Counseling section above Counseling [id number] Essential hypertension 35188376 Primary ma lignant neoplasm of prostate 76411435 S/P surgery and IMRT [id number] Katina Win MA , [facility], OFFICE [address] [place] [address] 11/05/2013 07:56:44 11/05/2013 08:08:27 Mixed hyperlipidemia 374303030 Cholestero l is at goal Continue to work on diet and exercise as discussed Benign ess ential hypertension 4584593 Blood pressure at goal [id number] Maggi Post , [facility], OFFICE [address] [place] [address] [place] [address] 12/31/2013 09:30:22 01/01/2014 08:25:11 Pain in scrotum 29898063 REAASSURE NO PATHOLOGY DETECTED. [id number] Khoa Siddiqui III, MD [facility], [facility] [address] [place] [address] 05/06/2014 10:29:00 05/06/2014 13:36:15 [id number] Mariana Jason [facility], OFFICE [address] [place] [address] [place] [address] 05/07/2014 09:17:55 05/07/2014 09:46:49 Benign essential hypertension 5302038 Blood pressure at goal Adult heal th examination [id number] see Risk Assessment and Lifestyle Change Counseling section above Counseling [id number] Neoplasm of prostate 758730890 PSA low on every 6 months hormone therapy [id number] Zara Lee MA , [facility], OFFICE [address] [place] [address] 12/16/2014 10:21:10 12/16/2014 11:00:53 Primary malignant neoplasm of prostate 01698088 followed by uro Benign ess ential hypertension [id number] Mildly elev. Though ok at home 130/80. Just finished exercise today. Atopic dermatitis 07154795 dishydroti c eczema. trial high potency steroid Influenza vaccine needed [id number] 106 Active or passive immunization 436888060 Lifestyle [id number] [id number] Robin Lemus MD , [facility], OFFICE [address] [place] [address] 02/03/2015 08:20:24 02/03/2015 09:26:10 Atopic dermatitis 68440934 L20.9 partually responded to a low potency steroidal cream, will try high potency Papular eruption 9839017 01 R21 on his arms, upper chest suspect infecion (MRSA?) [id number] Kiara Cobos MD , [facility], OFFICE [address] [place] [address] 1 02/17/2015 13:50:45 02/17/2015 14:17:41 Atopic dermatitis 89648676 L20.9 much better on his all areas of eruption, cont clobetazol , counseled about this kind of dermatitis and preventati ve measures for the future [id number] Romana Brown , [facility], OFFICE [address] [place] [address] 1 05/15/2015 10:50:45 05/15/2015 11:29:49 Adult health examination 031585789 Z00.00 see Risk Assessment and Lifestyle Change Counseling section above Counseling 652375838 Z71 .9 Primary ma lignant neoplasm of prostate 35144070 C61 [id number] Chino Bishop MD , [facility], OFFICE [address] [place] [address] 1 05/20/2015 13:42:43 05/20/2015 14:01:07 Conjunctivitis 8790971 H10.9 Otitis media 38510383 H6 6.954 [id number] Chino Bishop MD , [facility], OFFICE [address] [place] [address] 1 05/27/2015 15:41:05 05/27/2015 16:19:16 Acute upper respiratory infection 34437402 J06.9 Educated patient that URI is a viral illness of the upper airways. It is not bacterial and does not benefit from antibiotic s. Average duration of URI is 7-10 days but in a recent trial, treatment at 7-10 days of illness with antibiotic s, intranasal steroids, or placebo did not alter natural history at 3 weeks. Recommende d symptomati c treatments including NSAIDS, semi-uprig ht sleep position, antihistam erwin at HS, limited course of nasal sympathomi metics and/or cough syrups, and nasal saline rinses with soft squeeze bottle or Neti pot. Return for fevers > 101 for 3 days, worsening sinus pain, or failure to resolve in 2-4 weeks. Eustachian tube disorder 15600182 H69.93 Impacted cerumen 3456372 6 H61.21 [id number] Belkis Mendez LPN , [facility], OFFICE [address] [place] [address] 1 11/11/2015 07:59:15 11/11/2015 08:41:09 Benign essential hypertension 9098278 I10 Blood pressure at goal Blood pressure Vertigo 740762844 R42 Cardiac arrhythmia 08666 7007 I49.9 [id number] Chino Bishop MD , [facility], OFFICE [address] [place] [address] 1 01/21/2016 13:52:10 01/21/2016 14:18:38 Active or passive immunization 166718770 Z23 Primary ma lignant neoplasm of prostate 47783812 C61 Benign ess ential hypertension 3519138 I10 Pre-surger y evaluation 343251606 Z01.420 [id number] Chino Bishop MD , [facility], OFFICE [address] [place] [address] [place] [address] 1 05/18/2016 09:09:03 05/18/2016 09:39:51 Adult health examination 595511518 Z00.00 see Risk Assessment and Lifestyle Change Counseling section above Counseling 827818546 Z71 .9 Benign ess ential hypertension 3601787 I10 Blood pressure at goal Blood pressure NOT at goal. Primary ma lignant neoplasm of prostate 40878565 C61 [id number] Mily Brizuela, OD [facility], [facility] [address] [facility] [address] [place] [address] 12/07/2016 08:54:22 12/07/2016 09:44:41 Astigmatism 31405900 H52.223 Presbyopia 69386284 H52. 4 Bilateral cataracts 9572 2004 H26.9 Hypermetropia 59019852 H 52.03 [id number] Chino Bishop MD , [facility], OFFICE [address] [place] [address] 1 12/22/2016 09:04:24 12/22/2016 09:29:02 Active or passive immunization 933860379 Z23 Benign par oxysmal positional vertigo 201591183 H81.12 [id number] Chino Bishop MD , [facility], OFFICE [address] [place] [address] 1 01/04/2017 07:53:05 01/04/2017 08:16:30 Benign paroxysmal positional vertigo 488231460 H81.12 [id number] [facility], [address] [place] [address] 01/18/2017 16:49:12 01/18/2017 20:24:35 Benign paroxysmal positional vertigo 429454960 H81.11 [id number] Chitra Cowan [facility], [address] [place] [address] 01/26/2017 10:45:33 01/28/2017 14:37:34 Benign paroxysmal positional vertigo 742953783 H81.11 [id number] Chino Bishop MD , [facility], OFFICE [address] [place] [address] 1 03/01/2017 15:23:05 03/01/2017 16:33:38 Tachycardia 2750584 R00.0 Benign ess ential hypertension 6768629 I10 Blood pressure at goal Blood pressure NOT at goal. Primary ma lignant neoplasm of prostate 32492683 C61 [id number] Chino Bishop MD , [facility], OFFICE [address] [place] [address] 03/06/2017 15:24:11 03/06/2017 15:56:14 Scalp laceration 396289382 S01.01XD Benign ess ential hypertension 2323802 I10 Blood pressure NOT at goal. Primary ma lignant neoplasm of prostate 96780759 C61 [id number] Chino Bishop MD , [facility], OFFICE [address] [place] [address] 1 04/12/2017 09:58:59 04/12/2017 10:49:58 Screening for malignant neoplasm of colon 413573240 Z12.11 Referral for a DIRECT booked colonoscop y. This patient is a healthy ASA Class 1 or 2 patient (only mild systemic disease), or a STABLE, well controlled insulin dependent diabetic. They do not have serious cardiac disease ie AK/angiopl asty within 1 year, symptomati c CHF; renal failure with CKD 4 or 5; take Coumadin, Plavix, Aggrenox, etc. Benign ess ential hypertension 7102271 I10 Blood pressure NOT at goal. [id number] Chino Bishop MD , [facility], OFFICE [address] [place] [address] 1 04/19/2017 11:49:17 04/19/2017 12:24:39 Benign essential hypertension 9996711 I10 Blood pressure NOT at goal. [id number] Jeffrey Aldridge [facility], [facility] [address] [place] [address] 05/08/2017 10:26:03 05/08/2017 12:37:20 [id number] Chino Bishop MD , [facility], OFFICE [address] [place] [address] [place] [address] 1 05/17/2017 10:16:16 05/17/2017 11:02:45 Benign essential hypertension 4792869 I10 Blood pressure NOT at goal. Dizziness 142092604 R42 [id number] Chino Bishop MD , [facility], OFFICE [address] [place] [address] [place] [address] 1 05/22/2017 13:31:43 05/22/2017 14:49:54 Adult health examination 657653469 Z00.00 see Risk Assessment and Lifestyle Change Counseling section above Counseling 888261090 Z71 .9 Depression screening 171 937640 Z13.89 depression screening tool administer ed, entered into emr, scored and discussed, time greater than 7.5 minutes Tachycardia 6655151 R00. 0 Abdominal mass 709087927 R19.00 [id number] Jerrica Glaser LPN , [facility], OFFICE [address] [place] [address] [place] [address] 1 05/23/2017 14:35:39 05/23/2017 14:52:56 Tachycardia 1539818 R00.0 [id number] Chino Bishop MD , [facility], OFFICE [address] [place] [address] [place] [address] 1 05/31/2017 16:07:33 05/31/2017 16:38:56 Benign essential hypertension 5767507 I10 Blood pressure NOT at goal. [id number] Chino Bishop MD , [facility], OFFICE [address] [place] [address] [address] [place] [address] 06/14/2017 16:19:58 06/14/2017 16:45:48 Pre-surgery evaluation 703621997 Z01.818 Benign ess ential hypertension 6187994 I10 Blood pressure NOT at goal. [id number] Chino Bishop MD , [facility], OFFICE [address] [place] [address] 1 07/17/2017 13:22:24 07/20/2017 12:16:03 Benign essential hypertension 2653256 I10 Blood pressureat goal. Primary ma lignant neoplasm of prostate 16556264 C61 [id number] Chino Bishop MD , [facility], OFFICE [address] [place] [address] 1 10/05/2017 10:41:42 10/05/2017 11:11:28 Active or passive immunization 643355452 Z23 Dizziness and giddiness 223448469 R42 [id number] Chino Bishop MD , [facility], OFFICE [address] [place] [address] [place] [address] 1 11/22/2017 09:53:26 11/22/2017 11:22:25 Benign essential hypertension 6189776 I10 Blood pressure NOT at goal. Primary ma lignant neoplasm of prostate 11391363 C61 [id number] Chino Bishop MD , [facility], OFFICE [address] [place] [address] [place] [address] 1 02/28/2018 09:45:47 02/28/2018 10:22:37 Active or passive immunization 243049325 Z23 Benign ess ential hypertension 7694686 I10 Blood pressure NOT at goal. Primary ma lignant neoplasm of prostate 81661887 C61 [id number] Chino Bishop MD , [facility], OFFICE [address] [place] [address] 1 03/28/2018 10:11:27 03/28/2018 10:32:07 Benign essential hypertension 2507970 I10 Blood pressure NOT at goal. Ingrowing toenail 177308 009 L60.0 [id number] Brian Martínez DPM Podiatry, [facility] [address] [place] [address] 04/16/2018 14:19:50 04/16/2018 15:52:23 Ingrowing toenail 130636384 L60.0 [id number] Chino Bishop MD , [facility], OFFICE [address] [place] [address] 1 05/30/2018 10:22:39 05/30/2018 11:04:13 Adult health examination 363365506 Z00.00 see Risk Assessment and Lifestyle Change Counseling section above Counseling 772143301 Z71 .9 Depression screening 171 752794 Z13.89 depression screening tool administer ed, entered into emr, scored and discussed, time greater than 7.5 minutes Benign ess ential hypertension 4109702 I10 Blood pressure NOT at goal. [id number] aMlly Velasco D.O. , [facility], OFFICE [address] [place] [address] 1 07/17/2018 11:40:37 07/17/2018 12:19:04 Screening for disorder 691859433 Z11.59 Right uppe r quadrant pain 262569485 R10.11 right abdominal pain and back pain- is beginning to improv on it's own.?if pulled muscle. will r/o GB dysfuction or kidney stone with abd u/sfairly benign exam, no s/s of shingles(d oes have resolving diffuse drug rash) [id number] Mally Velasco D.O. , [facility], OFFICE [address] [place] [address] 1 07/23/2018 11:37:09 07/23/2018 12:41:38 Diarrhea 18893949 R19.7 already following a fairly gluten free diet- has celiacprev CRP was 60- unclear if from rash or from GI process? Eruption c aused by drug 03667744 L27.0 ? if celiac. 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 Primary ma lignant neoplasm of prostate 21414027 C61 Psoriasis 2434882 L40.9 [id number] Chino Bishop MD , [facility], OFFICE [address] [place] [address] 1 11/22/2018 10:49:21 11/22/2018 11:23:04 Benign essential hypertension 4188344 I10 Blood pressure NOT at goal. [id number] Blessing Deng LPN , [facility], OFFICE [address] [place] [address] 1 01/22/2019 14:26:55 01/22/2019 14:57:54 Active or passive immunization 261299756 Z23 [id number] Chino Bishop MD , [facility], OFFICE [address] [place] [address] 1 06/03/2019 13:45:05 06/03/2019 14:16:56 Adult health examination 335079238 Z00.00 see Risk Assessment and Lifestyle Change Counseling section above Counseling 660852194 Z71 .9 including cardiovasc ular risk reduction counseling Depression screening 171 358124 Z13.89 depression screening tool administer ed, entered into emr, scored and discussed, time greater than 7.5 minutes Screening for alcohol abuse 729041467 Z13.39 Essential hypertension 21888107 I10 [id number] Chino Bishop MD , [facility], OFFICE [address] [place] [address] 1 12/09/2019 14:05:57 12/11/2019 15:06:02 Essential hypertension 79592918 I10 Lupus erythematosus 2008 89982 L93.0 [id number] Aydee Caravlho RN , [facility], OFFICE [address] [place] [address] 1 12/26/2019 09:05:10 01/01/2020 16:10:55 Active or passive immunization 610838956 Z23 [id number] Gisell Lassiter . , [facility], OFFICE [address] [place] [address] 1 07/07/2020 11:19:13 07/07/2020 12:22:25 Adult health examination 949676699 Z00.00 USPSTF guidelines reviewed and discussed with patient. colonoscop y 2017, redo 5 Y. to inquire from [facility] about Shingrix vaccine. Has health care proxy in place, to mail us a copy of it. Counseling 751296557 Z71 .9 including cardiovasc ular risk reduction counseling , LDl below 100, at 68, no statin or asa indicated. Depression screening 171 013112 Z13.31 depression screening tool administer ed, entered into emr, scored and discussed, time greater than 7.5 minutes, negative screen. Screening for alcohol abuse 824935586 Z13.39 negative screen. Advance di rective discussed with patient 269397481 Z71.[address], to send us copy. Essential hypertension 25171639 I10 untreated since BP went very low with HCTZ so taken off BP med. June 02 it was 100/62 at rheumatolo gy office. He will monitor his BP at home and send us his BP numbers. Lupus erythematosus 2008 69295 L93.0 on plaquenil, sees rhuematolo gist. Multiple a trial premature complexes 488288036 I49.1 denies palpitatio ns, very active, no cardiac sx. History of malignant neoplasm of prostate 500840432 Z85.46 He stopped Lupron injections and PSA remains untraceabl e. Follows up with urology on a regular basis. In remission currently. [id number] Belkis Mendez LPN , [facility], OFFICE [address] [place] [address] [place] [address] 1 02/04/2021 14:31:23 02/04/2021 20:31:57 [id number] Belkis Mendez LPN , [facility], OFFICE [address] [place] [address] [place] [address] 1 02/19/2021 09:41:21 02/19/2021 09:54:25 [id number] Alicia Lindsey RN , [facility], OFFICE [address] [place] [address] [place] [address] 1 02/22/2021 13:56:18 02/23/2021 05:42:26 [id number] Fanta Perera LPN , [facility], OFFICE [address] [place] [address] [place] [address] 1 03/02/2021 13:58:35 03/04/2021 07:18:01 [id number] Brian Martínez DPM Podiatry, [facility] [address] [facility] [place] [address] 06/14/2021 11:57:05 06/16/2021 12:54:29 Ingrowing toenail 439161869 L60.0 [id number] Gisell Lassiter . , [facility], OFFICE [address] [place] [address] 1 08/09/2021 11:48:24 08/09/2021 12:49:00 Adult health examination 875277885 Z00.00 USPSTF guidelines reviewed and discussed with patient. colonoscop y 2020, redo 5 Y.health care proxy form given to fill out.Vaccin ations UTD. Counseling 064867186 Z71 .9 including cardiovasc ular risk reduction counseling , LDL 70s without statin, no asa or statin indicated. Depression screening 171 099431 Z13.31 depression screening tool administer ed, entered into emr, scored and discussed, time greater than 7.5 minutes, negative screening. Screening for alcohol abuse 859105955 Z13.39 negative screen. Essential hypertension 85780417 I10 BP at target, when it goes up with lupus flare he takes extra losartan. Lupus erythematosus 2008 80718 L93.0 on plaquenil, sees rhuematolo gist. Multiple a trial premature complexes 386130603 I49.1 denies palpitatio ns, very active, no cardiac sx. History of malignant neoplasm of prostate 188365252 Z85.46 He stopped Lupron injections and PSA remains untraceabl e. No longer follows up with urology on a regular basis. In remission currently. Last PSA 02-03-21. needs yearly PSA. 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 no med changes indicated [id number] JUNE BRANNON COTTRELL DNP , [facility], OFFICE [address] [place] [address] 11/05/2021 14:51:13 2021 12:39:42 Eruption 710034660 R21 rupture vesicles to b/l hands and right side of torso/groi n following [employer] 1-2 weeks ago-improv ing- all lesions scabbed over, no active lesions to culture-dawn s lupus with skin manifestat ions, has f/u with Rheum coming up- ? no URI symptoms prior to rash onset- advised if he should develop new lesions to notify PCP so viral culture can be obtained-s anaid partner x 50 years but discussed RPR testing today Benign ess ential hypertension 1623875 I10 BP not at goal [id number] Gisell Lassiter . 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 They seem to be drying up in response to topical steroid that he is using but he gets new ones. He is leaving for a [employer] in 10 days. I am giving him an 8 day taper of prednisone hoping to stop this cycle of immune hyperactiv ity and new lesions. Call with any concerns. [id number] Robin Lemus MD , [facility], OFFICE [address] [place] [address] 12/17/2021 15:31:24 01/19/2022 09:11:23 COVID-19 293913483 U07.1 qualifies for paxlovid based on age 76 and lupus (even thogu is inactive)h e should take it , just based on the Dx of lupuscours e of covid, reviewedPo ss SE's discussed5 days isolation, 5 masked [id number] Anuradha Jain CMA , [facility], OFFICE [address] [place] [address] 1 01/06/2022 10:13:43 01/11/2022 14:16:05 Active or passive immunization 857342220 Z23 [id number] Gisell Lassiter . MD [place], [facility], OFFICE [address] [place] [address] 1 02/07/2022 10:37:07 02/07/2022 12:13:15 Essential hypertension 19264793 I10 BP not at target, will increase losartan to 100 mg daily. will get home BP numbers next week. Mild neuro cognitive disorder 329345704 G31.84 not affecting daily function and is improving, was related to lupus flare. Lupus erythematosus 2008 12372 L93.0 on plaquenil, sees rhuematolo gist. Multiple a trial premature complexes 042541546 I49.1 denies palpitatio ns, very active, no cardiac sx. History of malignant neoplasm of prostate 809540851 Z85.46 PSA remains untraceabl e. No longer follows up with urology on a regular basis. In remission currently. needs yearly PSA. [id number] Gisell Pearson MD , [facility], OFFICE [address] [place] [address] 10/10/2022 11:19:43 10/10/2022 14:00:21 Adult health examination 369055203 Z00.00 USPSTF guidelines reviewed and discussed with patient. colonoscop y 2020, redo 5 Y.health care proxy form given to fill out.Vaccin ations UTD.CV counseling done. Depression screening 171 219104 Z13.31 depression screening tool administer ed, negative Screening for alcohol abuse 955486163 Z13.39 Alcohol use screening tool administer ed, negative Screening for malignant neoplasm of prostate 234852543 Z12.5 PSA testing for ages 55-69 risks and benefits discussed {{patient declines testing te st ordered*}} . Mild neuro cognitive disorder 195360847 G31.84 not affecting daily function and is improving, was related to lupus flare. Benign ess ential hypertension 4084301 I10 has been at target, elevated today, he will check his bP at home daily, low salt diet, our staff with contact him in a couple of weeks to get BP records. Lupus erythematosus 2008 79580 L93.0 on plaquenil, sees rhuematolo gist. having some brain fog currently. Multiple a trial premature complexes 249203535 I49.1 denies palpitatio ns, very active, no cardiac sx. History of malignant neoplasm of prostate 309046735 Z85.46 PSA remains untraceabl e. No longer follows up with urology on a regular basis. In remission currently. needs yearly PSA. [id number] Gisell Lassiter . , [facility], OFFICE [address] [place] [address] 1 03/09/2023 10:54:54 03/09/2023 12:12:33 Mild neurocognitive disorder 689630604 G31.84 brain fog related to lupus flare and affects him being able to read a book for example. Benign ess ential hypertension 3536997 I10 has been at target, elevated today, he will check his bP at home daily, low salt diet, our staff with contact him in a couple of weeks to get BP records. Lupus erythematosus 2008 64580 L93.0 on plaquenil, sees rhuematolo gist. having more sx, wants to see another rheumatolo gist. states did better on MTX, also frustrated with back pain. Multiple a trial premature complexes 865950140 I49.1 denies palpitatio ns, very active, no cardiac sx. History of malignant neoplasm of prostate 811562453 Z85.46 PSA remains untraceabl e. No longer follows up with urology on a regular basis. In remission currently. needs yearly PSA. Abnormal defecation 1799 63042 R19.8 he has loose stools but pushing it out is difficult for him, he has tried various things, fiber, senna and it caused incontinen ce, will refer to pelvic floor therapy. [id number] Gisell Lassiter . , [facility], OFFICE [address] [place] [address] [place] [address] 10/12/2023 08:51:44 10/12/2023 13:01:47 Lupus erythematosus 312708394 L93.0 on plaquenil and injectable MTX .sees rheumatolo gist, Dr. Anne Ritter in [place]. They check labs frequently . Multiple a trial premature complexes 551767693 I49.1 denies palpitatio ns, very active, no cardiac sx. Benign ess ential hypertension 4691279 I10 at target below 130/80. continue same. History of malignant neoplasm of prostate 790005429 Z85.46 PSA remains untraceabl e. No longer follows up with urology on a regular basis. In remission currently. NEEDS YEARLY PSA. due January 2024. Mild neuro cognitive disorder 205091359 G31.84 brain fog related to lupus flare and improved with MTX. Adult heal th examination 300222643 Z00.00 USPSTF guidelines reviewed and discussed with patient. colonoscop y 2020, no further screening. health care proxy form inn place.Vacc inations UTD.PSA yearly with prostate ca hx. Depression screening 171 518371 Z13.31 depression screening tool administer ed, negative Screening for alcohol abuse 454405539 Z13.39 Alcohol use screening tool administer ed, negative [id number] Robin Lemus MD , [facility], OFFICE [address] [place] [address] 12/01/2023 10:49:49 12/11/2023 12:50:40 Acute sinusitis 49391222 J01.90 normal examdiagno sis by hx Lupus erythematosus 2008 99848 L93.0 already on pred for a flare (brain fog) [id number] Robin Lemus MD , [facility], OFFICE [address] [place] [address] 1 05/10/2024 16:21:34 05/20/2024 09:36:51 Genitocrural intertrigo 171050586 L30.4 usual rashtx discussed Lupus erythematosus 2008 19363 L93.0 already on pred for a flare (brain fog)hydrox ychloroqui neMTXpredn isonesaphn eio injections per [facility] rheumatolo gy DR Ritter or Edi ROSAS in past stable dx based on sunsensiti ve rash biopsied Mild neuro cognitive disorder 945400433 G31.84 Multiple a trial premature complexes [id number] I49.1 History of malignant neoplasm of prostate [id number] Z85.46 Benign ess ential hypertension [id number] I10 [id number] FRANCISCO STOUT DNP , [facility] [place], OFFICE [address] [place] [phone] 06/14/2024 13:31:09 06/14/2024 15:51:41 Localized eruption of skin [id number] R21 Patients presents for evaluation of rash consistent with: Lupus. DDx fungal rash, sunburn. Treated with: topical steroids. Follow up if rash is not improving or with other concerns. Consider use of PO steroids or more potent topical steroids I have contacted pt's rheumatolo gy practice ([facility]) and made them aware of patient's current signs and symptoms alongside the planned treatment. They plan on seeing him next week. Copy of today's encounter note will be faxed over. 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 Managed with methotrexa te 15 mg [...] by Organization Details LastModified Time None Recorded Advance Directives Directive Y: Payers Encounter Date Sequence Insurance Name Policy Number Policy Navas Covered Member ID Navas Member ID Guarantor Name 03/09/2023 1 [place]ARE [place]: [employer] Dandy P Pueschel [id number] Dandy P Pueschel 03/09/2023 2 [facility] [id number] Dandy P Pueschel [id number] Dandy P Pueschel 10/12/2023 1 MED[place]ARE [place]: [employer] Dandy P Pueschel [id number] Dandy P Pueschel 10/12/2023 2 [facility] [id number] Dandy P Pueschel [id number] Dandy P Pueschel 12/01/2023 1 MED[place]: [employer] Dandy P Pueschel [id number] Dandy P Pueschel 12/01/2023 2 [facility] [id number] Dandy P Pueschel [id number] Dandy P Pueschel 05/10/2024 1 MEDICARE [place]: [employer] Dandy P Pueschel [id number] Dandy Cintron Pueschel 05/10/2024 2 [facility] [id number] Dandy Cintron Pueschel [id number] Dandy Cintron Pueschel 06/14/2024 1 MEDICARE B-[place]: [facility] Dandy Cintron Pulashonchel [id number] Dandy Cintron Pueschel 06/14/2024 2 [facility] [id number] Dandy Cintron Pueschel [id number] Dandy Cintron Pueschel Notes Date Note Type Note Provider Name and Address Organization Details Recorded Time 3 text/html Patient, with history of hypertension, lupus, history of PACs, mild cognitive disorder, and history of prostate cancer presents for follow up.His , Radha is with him. Has lupus brain fog and was once a wee.. States it is becoming more persistent. Constitutional; no feverENT; no DAWN, no dizzinessCardiac; no CP, no MALONE, no palpitations, no orthopneaPulmonary; no shortness of breath, no cough, no wheezingsUrinary; No hematuria, no dysuria GI, no abdominal pain, but gets lower abdomen pain when trying to push out soft stools, states he gags and sweats and is in the bathroom for a couple of hours trying to push things out through a constricted area . [facility] gave him senna but that caused fecal incontinence. Colonoscopy [id number] and endoscopy was normal. Taking dicyclomine and hyoscyamine, some times both, hyoscyamine helps with cramps. Musculoskeletal; no myalgia, no joint pain, on plaquenil. 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 States has muscle aches, back and lower back hurt.Saw [facility] and they sent him to PT. States when he turns to look over his shoulder he gets double vision. He cannot walk long or stand for long due to pain. He took Tylenol 3 x day, did not help much. Not taking Aleve. states he was on MTX before but when he developed his colon issues he was taken off it. States did better on MTX. Gisell Shoushtari. MD [address] [place] [address], [phone], [facility] 03/09/2023 11:49:52 4 text/html Risk Assessment and Lifestyle Change Counseling (Medicare)Reported bypatient.Coronary Artery Disease Risk Assessment:Family History of Coronary Artery Disease; No personal history of diabetes; No history of peripheral vascular disease, AAA, or carotid disease; No personal history of coronary artery disease Breast Cancer Risk Assessment:Family history of breast cancer one first degree relative; No history of breast cancer or dcis Lung Cancer Risk Assessment:Has used cigarettes less than 30 pack years;Former smoker quit more than 15 years ago Fracture Risk Assessment:No unexplained fracture; balance is normal Cognitive/Behavioral Risk Assessment:No personal history of mental illness; No family history of mental illness; Do you or anyone else have concerns about your memory? no; BMI reviewed obese ; Reviewed depression screening less than 7.5 minutes; no cognitive impairment. Safety Risk Assessment:Has grab bars in bathroom;No rails on steps; No falls; No evidence of abuse/neglect; Do you feel safe in your current relationship?YES; Have you ever been a victim of physical/emotional/sexual abuse?NO Functional Status:Patient does not have trouble hearing the television or radio when others do not.; Patient does not have to strain or struggle to hear/understand conversations; Patient does not need help with preparing meals, transportation, shopping, taking medicine, managing finances, or other activities of daily living.; Patient does not have visual loss that interferes with daily activities; Does not live alone; Patient was not unsteady and did not take longer than 30 seconds during the timed get up and go test.; Patient reports no falls in the past 6 months. Diet:Counseled about appropriate portion size; Counseled about eating a diet low in trans and saturated fats and high in fiber, fruits and vegetables Exercise counseling:Discussed the importance of daily physical activity; Discussed the importance of weight bearing exercise Safety:Counseled about protecting skin from the sun and lowering the risk of skin cancer; Counseled about home safety including use of smoke detectors, CO detectors, keeping home water temperature less than 120; Counseled about use of seat belts; Counseled about fall risk from throw rugs and the need for hand rails on steps and in bathSocial DeterminantsReported bypatient.Living situationsteady place to live Living situation...do you have problems with the following:none of the above In the past 12 months, have you worried your food would run out before you had money to buy more?never true Within the past 12 months, the food just didn't last and you didn't have money to get more.never true Has lack of transportation kept you from medical appointments, meetings, work, etc?no In the past 12 months has the [employer], gas, [employer] or [employer] threatened to shut off services?no How hard is it for you to pay the very basics like food, house, medical care and housing?not hard at allVMG HypertensionReported bypatient.Context:No ischemic heart disease; No kidney disease; No history of CVA; No congestive heart failure; No history of transient ischemic attacks; No peripheral vascular disease; No history of diabetes Self Care:Using home BP monitor weekly home BPs range 120-130/80-85 Associated Symptoms:No chest pain; No shortness of breath; No edema; No fatigue; No palpitations; No decline in exercise capacity Patient, with history of hypertension, lupus, history of PACs, and history of prostate cancer presents for wellness exam. Recent labs LDL 72.6, cr 1.2, GFR >60.Has mild anemia with lupus.States was having lupus flare up with mental fog, much better since MTX added. Constitutional; no feverENT; no DAWN, no dizzinessCardiac; no CP, no MALONE, no palpitations, no orthopneaPulmonary; no shortness of breath, no cough, no wheezingGI; no abdominal pain, No N/V, no bloody stoolsUrinary; No hematuria, no dysuriaMusculoskeletal; no myalgia, joint pain is better, on plaquenil and MTX. 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 Gisell Lassiter. [address] [place] [address], [phone], [facility] 10/12/2023 09:32:44 5 text/html 78 year old male with hx [...] joint pain, arthralgias, or systemic symptoms.Followed by [facility]. Reports his established rheum provider has left the practice and now he is waiting an appointment with a new provider FRANCISCO STOUT DNP [address] [place] [address], [phone], [facility] 06/14/2024 15:21:55
[2024-06-17 16:35] LABS: Creatinine Urine 107.62 mg/dL; Total Protein Urine Random < 7 mg/dL (<12)
[2024-06-17 17:24] LABS: Alanine Aminotransferase 21 U/L (0-40); Albumin Level 4.1 g/dL (3.5-5.0); Alkaline Phosphatase 46 U/L (39-117); Anion Gap 12 (12-20); Aspartate Amino Transferase 22 U/L (5-37); Bilirubin Total 0.4 mg/dL (0.0-1.0); Blood Urea Nitrogen 24 mg/dL (9-16); C Reactive Protein < 0.04 mg/dL (< or = 0.50); Calcium 9.5 mg/dL (8.4-10.2); Carbon Dioxide 27 mmol/L (22-29); Chloride 104 mmol/L (96-108); Estimated Glomerular Filt Rate > 60; Glucose Random 93 mg/dL (60-115); Potassium 4.5 mmol/L (3.3-5.1); Sodium 138 mmol/L (135-145); Total Protein 6.5 g/dL (6.5-8.0)
[2024-06-19 13:53] LABS: Anti DNA DS Antibody <1 IU/mL
[2024-06-19 21:02] LABS: Complement C3 151 mg/dL (82-185)
[2024-06-21 19:09] LABS: DNAds, Crithidia Antibody Negative (Negative)
== END 2024-06-17 14:36 | disposition home or self-care (01) ==
LOC: HO.LAB 14:35
PROVIDERS: Visit Provider Student in an Organized Health Care Education/Training Program
DX: M32.9 Systemic lupus erythematosus, unspecified (principal); Z79.631 Long term (current) use of antimetabolite agent
CPT/HCPCS: 36415; 80053; 81001; 82570; 84156; 85025; 85652; 86140; 86160; 86225; 86255

== ENCOUNTER 2024-06-18 14:36 | Outpatient (REF) | payer MEDICARE, OTHER, SELFPAY ==
--- NOTE | ~2024-06-18 | XR_ITS ---
CLINICAL HISTORY: M32.9 - Systemic lupus erythematosus, unspecified Radiographs of the right shoulder, 3 views Comparison: None Findings: No fracture or dislocation. Normal acromiohumeral interval. No degenerative change. Bone mineralization is decreased. No soft tissue swelling. Impression: No acute findings or degenerative change. This document has been electronically signed by: Nicki Slater MD on 06/19/2024 21:10:10
--- NOTE | ~2024-06-18 | XR_ITS ---
CLINICAL HISTORY: M32.9 - Systemic lupus erythematosus, unspecified Radiographs of the thoracic spine, 3 views Comparison: None Findings: Mild kyphosis. No acute fracture. Minimal multilevel vertebral body height loss, chronic/degenerative. There is moderate multilevel intervertebral disc space narrowing with mild endplate osteophytosis. The soft tissues are normal. Impression: No acute findings. [id number] degenerative change. This document has been electronically signed by: Nicki Slater MD on 06/19/2024 21:08:54
--- NOTE | ~2024-06-18 | XR_ITS ---
CLINICAL HISTORY: M32.9 - Systemic lupus erythematosus, unspecified Radiographs of the lumbar spine, 5 views, 6 images Comparison: None Findings: 4 mm anterolisthesis of L4 on L5, degenerative. No fracture. Decreased bone mineralization. The vertebral body heights and intervertebral disc spaces are preserved. No endplate osteophytosis or sclerosis. Mild lower lumbar facet hypertrophy. Vascular calcifications. Impression: No acute findings. Mild degenerative change. This document has been electronically signed by: Nicki Slater MD on 06/19/2024 21:09:58
--- NOTE | ~2024-06-18 | XR_ITS ---
CLINICAL HISTORY: M32.9 - Systemic lupus erythematosus, unspecified Radiographs of the left shoulder, 3 views Comparison: None Findings: No fracture or dislocation. Normal acromiohumeral interval. No degenerative change. Bone mineralization is decreased. No soft tissue swelling. Impression: No acute findings or degenerative change. This document has been electronically signed by: Nicki Slater MD on 06/19/2024 21:09:40
--- NOTE | ~2024-06-18 | XR_ITS ---
CLINICAL HISTORY: M32.9 - Systemic lupus erythematosus, unspecified Radiographs of the sacroiliac joints, 3 views Comparison: None Findings: No fracture or dislocation. No joint space narrowing, osteophytosis, sclerosis or erosions of the sacroiliac joints. Bone mineralization is decreased. No soft tissue swelling. Impression: No acute findings. Normal sacroiliac joints. This document has been electronically signed by: Nicki Slater MD on 06/19/2024 21:09:16
--- NOTE | ~2024-06-18 | XR_ITS ---
CLINICAL HISTORY: M32.9 - Systemic lupus erythematosus, unspecified Radiographs of the right knee, 4 views Comparison: None Findings: There is no fracture or dislocation. Mild medial tibiofemoral compartment joint space narrowing. No osteophytosis. Bone mineralization is decreased. Trace joint effusion. No soft tissue swelling. Vascular calcifications. Impression: Trace joint effusion. Mild degenerative change. Radiographs of the left knee, 4 views Comparison: None Findings: There is no fracture or dislocation. Mild medial tibiofemoral compartment joint space narrowing. Trace patellofemoral compartment osteophytosis. Bone mineralization is decreased. No joint effusion. No soft tissue swelling. Vascular calcifications. Impression: No acute findings. Mild degenerative change. This document has been electronically signed by: Nicki Slater MD on 06/19/2024 21:13:28
== END 2024-06-18 14:37 | disposition home or self-care (01) ==
LOC: HO.XRAY 14:36
PROVIDERS: Visit Provider Student in an Organized Health Care Education/Training Program
DX: M32.9 Systemic lupus erythematosus, unspecified (principal); M15.9 Polyosteoarthritis, unspecified; Z51.81 Encounter for therapeutic drug level monitoring; Z79.69 Long term (current) use of other immunomodulators and immunosuppressants
CPT/HCPCS: 72072; 72110; 72202; 73030; 73562; 99212

== ENCOUNTER 2024-06-18 14:36 | Outpatient (AMB) | payer MEDICARE, OTHER, SELFPAY ==
--- NOTE | 2024-06-18 14:43 | A.OFFVIS_ITS ---
Vital Signs 06/18/24 14:50 Height 5 ft 10 in Weight 202 lb 2.622 oz BMI 29.0 BP 130/72 Blood Pressure Location Lt brachial Pulse 73 Pulse Source Pulse Oximeter Pulse Oximetry (%) 96 Oxygen Delivery Method Room Air Intake Visit Reasons: rash on neck/ per MD req urgent appt Intake Note: Patient presents today for rash on neck/per MD required urgent appointment. Allergies No Known Allergies Allergy (Verified 06/18/24 14:48) Medication List - Last Reconciled 06/18/24 by Nanette Bergman MD anifrolumab-fnia (Saphnelo) 300 mg IV Q4W dextromethorphan-guaifenesin 30-600 mg Take 1 tablet once weekly with methotrexate and another tablet the following day duloxetine 20 mg PO DAILY folic acid 2 mg (2 x 1 mg) PO DAILY hydroxychloroquine 200 mg PO BID insulin syringe-needle U-100 (BD Insulin Syringe) use once weekly with methotrexate insulin syringe-needle U-100 (BD Insulin Syringe Ultra-Fine) Use once weekly with methotrexate leucovorin calcium 10 mg (2 x 5 mg) PO QWEEK losartan 100 mg PO DAILY methocarbamol 500 mg PO TID PRN methotrexate sodium (PF) 12.5 mg (0.5 mL) subcut QWEEK naproxen sodium (Aleve) 220 mg PO BID PRN HPI Comments Details: Patient is a 78-year-old male with hypertension, and systemic lupus erythematosus here today for urgent visit Interval History: Patient last seen 03/04/[address] Ritter. At that time he was on methotrexate 15 mg weekly and folic acid 2 mg daily as well as leucovorin 5 mg weekly. He had started saphenelo infusions and in reported improvement in his fatigue and brain fog. He had macrocytosis with anemia on his last blood check and so his methotrexate was reduced and is leucovorin was increased Today he is here for an urgent visit for rash to his neck. He saw his primary and was given triamcinolone topical for this with improvement. Also complains of methotrexate flu as well as GI symptoms related to the methotrexate about 1-2 days after taking it Also complains of muscle spasms involving his back and his knees after use or prolonged walking Rheumatologic History: dx 2018 skin biopsy showing cutaneous lupus, fatigue, arthralgias +CHARLEEN+++SSa +DsDNA HCQ approx 2019 effective for skin Stopped oral methotrexate due to GI upset after taking it X 9 months in 05/2020 SQ MTX 05/2023 Saphnelo infusions added 11/2023 Initial history: This is a 77-year-old male who presents for evaluation of SLE. He stated that since he has been having episodes of rashes all over his body especially after sun exposure, fatigue, generalized pain and weakness. Eventually around 2018 he was evaluated by Dermatology and a skin biopsy confirmed discoid lupus erythematosus. He was started on hydroxychloroquine with significant improvement of his rashes. He was evaluated by Rheumatology and methotrexate was added in 2020, he was on it for about 9 months and it was discontinued due to GI upset. He continues on hydroxychloroquine 200 mg Twice daily. He states that he continues to have at least 1 or 2 days per week episodes of brain fog, generalized fatigue, pain in upper back, neck, shoulders, lower back. Whenever he does any work outside he gets a butterfly rash on his face. He denies any history of fevers. He states that his hands and feet are always cold. They do change color but he does not have to do anything about it to reverse it. Denies any history of DVT/PE. States that he has had GI symptoms for years and had significant workup by Gastroenterology. Including endoscopy and colonoscopy which were unremarkable per patient. He has intermittent heartburn. Occasionally takes omeprazole. Denies any dysphagia. He states that prednisone always does wonders for all his symptoms. States that his daughter was recently diagnosed with lupus and started on Plaquenil with dramatic improvement. He believes that his mother also had lupus as she also had photosensitivity and sun intolerance. Current Rheumatology Medication(s): Saphnelo 300mg IV every 4 weeks Methotrextae 12.5mg SC weekly Folic acid 2mg daily Leucovorin 10mg weekly HCQ 200mg bid PFSH Medical History Hypertension Surgical History H/O abdominoplasty S/P hernia repair Hx of tonsillectomy History of surgery Family History Daughter Lupus (systemic lupus erythematosus) Other Family history of lupus erythematosus Social History Household Members: Spouse Alcohol intake: current Alcohol intake frequency: a few times a week Alcohol type: wine Patient Tobacco Use Status: Former Tobacco user Review of Systems Const Details: Review of Systems Constitutional: Denies fever, chills, weight loss ENT: Denies vision changes, eye pain or eye redness, dental caries, dry mouth GI: Denies nausea, vomiting, diarrhea, abdominal pain, change in BM Pulm: Denies SOB, MALONE, hemoptysis, wheezing Cards: Denies chest pain, palpitations Skin: Denies nail changes, photosensitivity, MED SPECIALIST: Denies headaches, weakness, paresthesias, recurrent falls MSK: as per HPI All other systems reviewed and are unremarkable except noted above Physical Exam Vital Signs: Last Vital Signs Pulse 73 06/18/24 14:50 BP 130/72 06/18/24 14:50 Pulse Ox 96 06/18/24 14:50 Oxygen Delivery Method Room Air 06/18/24 14:50 BMI result Body Mass Index 29.0 Vital signs reviewed Physical Examination CONSTITUITIONAL Patient alert and cooperative. Well appearing and in no apparent painful distr ess HEENT Conjunctiva and sclera clear. ?Pupils equal round and reactive to light. ?No lymphadenopathy. ? CHEST/RESPIRATORY SYSTEM Normal respiratory effort and able to speak in complete sentences. ?Clear to auscultation bilaterally. ?No crackles, rales, rhonchi, wheezes heard. CARDIAC SYSTEM Regular rate and rhythm. ?S1 and S2 heard no murmurs. 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 No deformities noted. ?No synovitis noted to the MCPs, PIPs or DIPs. ?No tenderness to palpation of these joints. Wrists: ?Full range of motion at the wrists without pain. ?No tenderness to palpation or synovitis noted to the wrists. Elbows: Full range of motion without pain. No tenderness, weakness, swelling, increased warmth or erythema. Shoulders: Full range of motion without pain. No tenderness, weakness, swelling, increased warmth or erythema. Hips: Full range of motion without pain. Hip bursa: No tenderness to palpation Knees: ?Full range of motion. ?No tenderness, swelling, increased warmth or erythema.?No effusion or crepitations Ankles: Full range of motion. ?No tenderness, swelling, increased warmth or erythema.? Feet: ?Negative squeeze test. ?No tenderness to palpation or swelling of the MTPs. Tender points:?No tenderness to palpation of the bilateral trapezius, supraspinatus, greater trochanters, anterior costochondral junctions, bilateral gluteal areas, bilateral suboccipital muscle insertions SKIN Resolving erythematous rash involving the entire neck including upper chest and upper back Results Reviewed Results Reviewed: Laboratory Tests 06/17/24 15:00 WBC 4.8 RBC 3.52 L Hgb 12.7 L Hct 36.9 L Plt Count 209 ESR 7 Sodium 138 Potassium 4.5 Chloride 104 Carbon Dioxide 27 BUN 24 H Creatinine 1.01 AST 22 ALT 21 Alkaline Phosphatase 46 C-Reactive Protein < 0.04 Total Protein 6.5 Laboratory Tests 10/31/23 06/17/24 14:38 15:00 Double Strand DNA Ab <1 Pending Anti-ds DNA Titer (Crith) Pending Anti-ds DNA (Crithidia) Pending Complement C3 130 Pending Complement C4 20 Pending CHARLEEN 1:80 SSA >5 Laboratory Tests 04/19/23 13:15 Hepatitis A IgM Ab Nonreactive Hep Bs Antigen Negative Hep Bs Antibody NONREACTIVE Hep B Core Total Ab Nonreactive Hepatitis C Ab (EIA) Nonreactive TB Test (T-Spot) Com Negative Assessment & Plan Assessment & Plan (1) Lupus: Comment: dx 2018 skin biopsy showing cutaneous lupus, fatigue, arthralgias +CHARLEEN+++SSa +DsDNA HCQ approx 2019 effective for skin Stopped oral methotrexate due to GI upset after taking it X 9 months in 05/2020 SQ MTX 05/2023. Still complain about methotrexate flu and so was discontinued Code(s): M32.9 - Systemic lupus erythematosus, unspecified Category: Medical Plan: #Lupus Patient is a 78 y.o. male with lupus here today for follow up. Had a rash on his neck and received triamcinolone topical for this with improvement Also complaining of back and knee pain which sounds mechanical in nature and associated muscle spasms. Will check XRs Otherwise lab work looks good. Need to follow up on complement and dsDNA. Had complaints about methotrexate flu and GI upset. We will change to leflunomide Plan - Stop methotrexate - Stop folic acid - Stop leucovorin - Start leflunomide 10mg daily - Continue saphnelo infusions 300mg every 4 weeks - Continue plaquenil 200mg bid - Continue topical tacrolimus - Check XR knees, T spine/L spine and shoulders - Tylenol 500 mg 2 tablets twice a day - Follow up C3, C4, dsDNA - RTC 3 months - Labs before visit: CBC, CMP, ESR, CRP, C3, C4, dsDNA, UA, UPC (2) Encounter for monitoring leflunomide therapy: Code(s): Z51.81 - Encounter for therapeutic drug level monitoring; Z79.69 - terminal superintendent (current) use of other immunomodulators and immunosuppressants Plan: #Long-term leflunomide Discussed with patient the benefits and risks of leflunomide for managing the rheumatic condition Benefits include: - Reduced pain, maintenance of remission and reduction of flares Risks include: - GI upset especially diarrhea, skin rash, cytopenias, hepatotoxicity, weight loss, neuropathy Leflunomide is highly teratogenic. ?Has a very long half-life. ?Needs cholestyramine washout if there is desire for Initiation: ?CBC, BMP, LFTs, hepatitis-B and C serologies every 2-4 weeks for 3 months Monitoring: ?CBC, BMP, LFTs, hepatitis B and C serologies (3) Encounter for monitoring of hydroxychloroquine therapy: Code(s): Z51.81 - Encounter for therapeutic drug level monitoring; Z79.899 - Other prison (current) drug therapy Plan: #Long-term Use of Hydroxychloroquine Discussed with patient the risks and benefits of hydroxychloroquine in managing the rheumatic condition Benefits include: - Reduced pain, reduce mortality, maintenance of remission and reduction of flares Risks include: - GI upset, skin hyperpigmentation, retinal toxicity (especially after more than 5 years of use), myopathy Advised yearly ophthalmology visits (4) detention (current) use of immunosuppressive biologic: Code(s): Z79.620 - terminal superintendent (current) use of immunosuppressive biologic Plan: #Long-term use Anifrolumab Discussed with patient the risks and benefits of hydroxychloroquine in managing the rheumatic condition Benefits include: - Reduced pain, reduce mortality, maintenance of remission and reduction of flares Risks include: - Increased susceptibility to serious infections particularly viral infections like herpes zoster (shingles), respiratory tract infections and infusion related reactions Plan I spent 42 minutes reviewing the record and labs, taking a history, examining the patient, discussing the treatment plan, ordering diagnostic work up and documenting in the medical record Orders: Orders XR thoracic spine 3V Today M15.9 - Polyosteoarthritis, unspecified, M32.9 - Systemic lupus erythematosus, unspecified XR sacroiliac joint min 3V Today M15.9 - Polyosteoarthritis, unspecified, M32.9 - Systemic lupus erythematosus, unspecified XR knee LT 3V Today M15.9 - Polyosteoarthritis, unspecified, M32.9 - Systemic lupus erythematosus, unspecified XR shoulder LT min 2V Today M15.9 - Polyosteoarthritis, unspecified, M32.9 - Systemic lupus erythematosus, unspecified Anti DNA DS Antibody 3 Months M32.9 - Systemic lupus erythematosus, unspecified Hepatitis A,B,C Profile 3 Months M32.9 - Systemic lupus erythematosus, unspecified XR lumbar spine 4V min Today M15.9 - Polyosteoarthritis, unspecified, M32.9 - Systemic lupus erythematosus, unspecified XR shoulder RT min 2V Today M15.9 - Polyosteoarthritis, unspecified, M32.9 - Systemic lupus erythematosus, unspecified Complement C3 3 Months M32.9 - Systemic lupus erythematosus, unspecified Complement C4 3 Months M32.9 - Systemic lupus erythematosus, unspecified Complete Blood Count Auto Diff 3 Months M32.9 - Systemic lupus erythematosus, unspecified Comprehensive Met. Panel 3 Months M32.9 - Systemic lupus erythematosus, unspecified C Reactive Protein 3 Months M32.9 - Systemic lupus erythematosus, unspecified Erythrocyte Sedimentation Rate 3 Months M32.9 - Systemic lupus erythematosus, unspecified UA w Microscopic 3 Months M32.9 - Systemic lupus erythematosus, unspecified Protein Creatinine Ratio, Ur 3 Months M32.9 - Systemic lupus erythematosus, unspecified T Spot TB 3 Months M32.9 - Systemic lupus erythematosus, unspecified Medications: New leflunomide 10 mg PO DAILY 90 tabs 1RF M32.9 - Systemic lupus erythematosus, unspecified Discontinued leucovorin calcium Discontinued Reason: Doctor's Order 10 mg (2 x 5 mg) PO QWEEK 24 tabs 0RF M32.9 - Systemic lupus erythematosus, unspecified, Z79.631 - terminal superintendent (current) use of antimetabolite agent methotrexate sodium (PF) Discontinued Reason: Doctor's Order 12.5 mg (0.5 mL) subcut QWEEK 4 mL 3RF folic acid Discontinued Reason: Doctor's Order 2 mg (2 x 1 mg) PO DAILY 180 tabs 0RF M32.9 - Systemic lupus erythematosus, unspecified Coding Level of Care Code Est Pt Level 5 (01097) Complex EM visit Add On G2211 Diagnoses Lupus M32.9 Encounter for monitoring leflunomide therapy Z51.81; Z79.69 Encounter for monitoring of hydroxychloroquine therapy Z51.81; Z79.899 terminal superintendent (current) use of immunosuppressive biologic Z79.620
[2024-06-18 14:50] VITALS: BP 130/72; PULSE 73; O2SAT 96; BMI 29.0
--- OUTSIDE RECORDS SUMMARY | 2024-06-18 17:29 | XMS_ITS | Data Portability ---
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 [email or web address] Not [...] meeting your goals. Please visit our website [employer] for more patient resources. As part of your care plan, we will help coordinate your ongoing medical needs, arrange for durable medical equipment, renew prescriptions and necessary prior authorizations, facilitate getting referrals and collaborating with specialist, referrals for VNA services. Not available 05/10/2024 14:16:50 06/14/2024 06/14/2024 Attestation: [...] plasma - start early January 20242023 024 [facility], [address] [place], [address], 4 14:08:10 PSA, serum or plasma - start early January 20242023 025 [facility], [address] [place], [address], 4 14:08:10 Referral pelvic floor therapy referral 2022 023 [email or web address] [facility], [address] , [place], [address], 3 12:47:33 rheumatolo gist referral - Pt's Nicole (on Hippa) called Referrals Dept @ [facility] she stated she spoke to Dr Ritter about seeing her Dandy for 2nd opinion. 2022 023 [facility], [address] [place] [address] Dr [facility] [address], [place], [address], 4 12:54:24 Procedures None recorded. Surgeries None recorded. Imaging None recorded. Medication Orders triamcinol one acetonide 0.5 % topical ointment 2024 025 [id number], [address] [place], [address], 5 14:00:35 clotrimazo le-betamet hasone 1 %-0.05 % topical cream 2024 025 [id number], [address] [place], [address], 5 17:05:39 azithromyc in 250 mg tablet 2023 025 [id number], [address] [place], [address], 5 16:38:24 Patient TargetsNo targets recorded. 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 Referring Physician: [facility], Encounter Date: 03/09/2023 Pelvic Floor Therapy Referra l for Abnormal defecation Referring Physician: Gisell Lass[facility], Encounter Date: 03/09/2023 Results Created Date Observation Date Name Description Value Unit Range Abnormal Flag Note LastModifiedBy Organization Detail LastModifiedTime 08/01/19 24 08/01/2023 CBC WBC 6.19 K/??L 4.23-9 .07 Not Available [address], [address], 08/01/2023 12:15:05 08/01/19 24 08/01/2023 CBC RBC 3.59 M/??L 4.63-6 .08 low Not Available [address], [address], 08/01/2023 12:15:05 08/01/19 24 08/01/2023 CBC HGB 12.9 g/dL 13.7-1 7.5 low Not Available [address], [address], 08/01/2023 12:15:05 08/01/19 24 08/01/2023 CBC HCT 37.7 % 40.1-5 1.0 low Not Available [address], [address], 08/01/2023 12:15:05 08/01/19 24 08/01/2023 CBC MCV 105.0 fL 79.0-9 2.2 high Not Available [address], [address], 08/01/2023 12:15:05 08/01/19 24 08/01/2023 CBC MCH 35.9 pg 25.7-3 2.2 high Not Available [address], [address], 08/01/2023 12:15:05 08/01/19 24 08/01/2023 CBC MCHC 34.2 g/dL 32.3-3 6.5 Not Available [address], [address], 08/01/2023 12:15:05 08/01/19 24 08/01/2023 CBC plt 215 K/??L 163-33 7 Not Available [address], [address], 08/01/2023 12:15:05 08/01/19 24 08/01/2023 CBC MPV 10.7 fL 9.4-12 .4 Not Available [address], [address], 08/01/2023 12:15:05 08/01/19 24 08/01/2023 CBC neut% 62.4 % 34.0-6 7.9 Not Available [address], [address], 08/01/2023 12:15:05 08/01/19 24 08/01/2023 CBC neut# 3.87 1.78-5 .38 Not Available [address], [address], 08/01/2023 12:15:05 08/01/19 24 08/01/2023 CBC lymph % 18.1 % 21.8-5 3.1 low Not Available [address], [address], 08/01/2023 12:15:05 08/01/19 24 08/01/2023 CBC lymph # 1.12 K/??L 1.32-3 .57 low Not Available [address], [address], 08/01/2023 12:15:05 08/01/19 24 08/01/2023 CBC mono% 6.0 % 5.3-12 .2 Not Available [address], [address], 08/01/2023 12:15:05 08/01/19 24 08/01/2023 CBC mono# 0.37 0.30-0 .82 Not Available [address], [address], 08/01/2023 12:15:05 08/01/19 24 08/01/2023 CBC eo% 12.0 % 0.8-7. 0 high Not Available [address], [address], 08/01/2023 12:15:05 08/01/19 24 08/01/2023 CBC eo# 0.74 0.04-0 .54 high Not Available [address], [address], 08/01/2023 12:15:05 08/01/19 24 08/01/2023 CBC baso% 1.3 % 0.2-1. 2 high Not Available [address], [address], 08/01/2023 12:15:05 08/01/19 24 08/01/2023 CBC baso# 0.08 0.00-0 .08 Not Available [address], [address], 08/01/2023 12:15:05 08/01/19 24 08/01/2023 CBC RDW-CV 13.2 % 11.6-1 4.4 Not Available [address], [address], 08/01/2023 12:15:05 08/01/19 24 08/01/2023 CBC Ig% 0.200 % 0.000- 1.500 Ig % >0.5 Indic ates possi ble Left Shift Not Available [address], [address], 08/01/2023 12:15:05 08/01/19 24 08/01/2023 CBC Ig# 0.010 0.000- 0.093 Not Available [address], [address], 08/01/2023 12:15:05 08/01/19 24 08/01/2023 CBC NRBC% 0.0 % 0.0-0. 2 Not Available [address], [address], 08/01/2023 12:15:05 08/01/19 24 08/01/2023 CBC NRBC# 0.000 0.000- 0.012 Not Available [address], [address], 08/01/2023 12:15:05 08/01/19 24 08/01/2023 ESR sed rate 10.0 0.0-20 .0 Not Available [address], [address], 08/01/2023 14:39:49 08/01/19 24 08/02/2023 COMP. METAB OLIC PANEL glucose 109 mg/dL 70-100 high Not Available [address], [address], 08/02/2023 11:55:30 08/01/19 24 08/02/2023 COMP. METAB OLIC PANEL BUN 19 mg/dL 7-18 high Not Available [address], [address], 08/02/2023 11:55:30 08/01/19 24 08/02/2023 COMP. METAB OLIC PANEL creatinine 1.2 mg/dL 0.8-1. 3 Not Available [address], [address], 08/02/2023 11:55:30 08/01/19 24 08/02/2023 COMP. METAB OLIC PANEL B/C 15.8 ratio Not Available [address], [address], 08/02/2023 11:55:30 08/01/19 24 08/02/2023 COMP. METAB [...] be used in pregn daija. Not Available [address], [address], 08/02/2023 11:55:30 08/01/19 24 08/02/2023 COMP. METAB OLIC PANEL sodium 139 mmol/ L 136-14 5 Not Available [address], [address], 08/02/2023 11:55:30 08/01/19 24 08/02/2023 COMP. METAB OLIC PANEL potassium 5.1 mmol/ L 3.5-5. 1 Not Available [address], [address], 08/02/2023 11:55:30 08/01/19 24 08/02/2023 COMP. METAB OLIC PANEL chloride 102 mmol/ L 96-107 Not Available [address], [address], 08/02/2023 11:55:30 08/01/19 24 08/02/2023 COMP. METAB OLIC PANEL anion gap 12.0 5.0-15 .0 Not Available [address], [address], 08/02/2023 11:55:30 08/01/19 24 08/02/2023 COMP. METAB OLIC PANEL CO2 25 mmol/ L 21-32 Not Available [address], [address], 08/02/2023 11:55:30 08/01/19 24 08/02/2023 COMP. METAB OLIC PANEL calcium 9.2 mg/dL 8.5-10 .3 Not Available [address], [address], 08/02/2023 11:55:30 08/01/19 24 08/02/2023 COMP. METAB OLIC PANEL total protein 6.6 g/dL 6.4-8. 2 Not Available [address], [address], 08/02/2023 11:55:30 08/01/19 24 08/02/2023 COMP. METAB OLIC PANEL albumin 3.8 g/dL 3.4-5. 0 Not Available [address], [address], 08/02/2023 11:55:30 08/01/19 24 08/02/2023 COMP. METAB OLIC PANEL globulin 2.8 g/dL Not Available [address], [address], 08/02/2023 11:55:30 08/01/19 24 08/02/2023 COMP. METAB OLIC PANEL A/G 1.4 ratio 0.8-2. 0 Not Available [address], [address], 08/02/2023 11:55:30 08/01/19 24 08/02/2023 COMP. METAB OLIC PANEL total bilirubin 0.40 mg/dL 0.00-1 .00 Not Available [address], [address], 08/02/2023 11:55:30 08/01/19 24 08/02/2023 COMP. METAB OLIC PANEL AST 21 U/L 0-37 Not Available [address], [address], 08/02/2023 11:55:30 08/01/19 24 08/02/2023 COMP. METAB OLIC PANEL ALT 29 U/L 6-63 Not Available [address], [address], 08/02/2023 11:55:30 08/01/19 24 08/02/2023 COMP. METAB OLIC PANEL alk. phos. 56 U/L 50-136 Not Available [address], [address], 08/02/2023 11:55:30 08/01/19 24 08/02/2023 COMPL EMENT C3 complement C3 126 mg/dL 90-207 Not Available [address], [address], 08/02/2023 11:55:32 08/01/19 24 08/02/2023 COMPL EMENT C4 complement C4 18.1 mg/dL 17.4-5 2.2 Not Available [address], [address], 08/02/2023 11:55:33 08/01/19 24 08/02/2023 C-SEBASTIEN CTIVE PROTE IN (RCRP ) C-reactive protein (rcrp) 0.6 mg/dL 0.5-9. 0 Not Available [address], [address], 08/02/2023 12:27:50 08/01/19 24 08/03/2023 DNA (DS) ANTIB JAMAL DNA (ds) antibody <1 IU/mL normal IU/mL Inter preta tion < or = 4 Negat neha 5-9 Indet ermin ate > or = 10 Posit neha Not Available [facility] [address], [place], [address], 08/03/2023 08:13:10 10/06/19 24 10/10/2023 LIPID PANEL cholesterol 166 mg/dL <200 mg/dl Giles able 200-2 39 mg/dl Borde rline High >240 mg/dl High Not Available [address], [address], 10/10/2023 14:22:22 10/06/19 24 10/10/2023 LIPID PANEL triglyceride s 122 mg/dL <150 mg/dL Joyce l 150-1 99 mg/dL Borde rline High 200-4 99 mg/dL High >500 mg/dL Very High Not Available [address], [address], 10/10/2023 14:22:22 10/06/19 24 10/10/2023 LIPID PANEL direct HDL 69 mg/dL <40 mg/dl - Major Risk for CHD >60 mg/dl - Negat neha Risk for CHD Not Available [address], [address], 10/10/2023 14:22:22 10/06/19 24 10/10/2023 LDL - [...] r is not chastity eldridge. Not Available [address], [address], 10/10/2023 14:22:23 11/17/19 24 11/17/2023 PSA PSA <0.05 NG/mL 0.00-4 .00 < Verif ied by godwin frazier elan sis,d gc. Not Available [address], [address], 11/17/2023 14:08:10 11/17/19 24 11/17/2023 BASIC METAB OLIC PANEL glucose 86 mg/dL 70-100 Not Available [address], [address], 11/17/2023 15:00:51 11/17/19 24 11/17/2023 BASIC METAB OLIC PANEL BUN 26 mg/dL 7-18 high Not Available [address], [address], 11/17/2023 15:00:51 11/17/19 24 11/17/2023 BASIC METAB OLIC PANEL creatinine 1.0 mg/dL 0.8-1. 3 Not Available [address], [address], 11/17/2023 15:00:51 11/17/19 24 11/17/2023 BASIC METAB OLIC PANEL B/C 26.0 ratio Not Available [address], [address], 11/17/2023 15:00:51 11/17/19 24 11/17/2023 BASIC METAB [...] be used in pregn daija. Not Available [address], [address], 11/17/2023 15:00:51 11/17/19 24 11/17/2023 BASIC METAB OLIC PANEL sodium 142 mmol/ L 136-14 5 Not Available [address], [address], 11/17/2023 15:00:51 11/17/19 24 11/17/2023 BASIC METAB OLIC PANEL potassium 4.9 mmol/ L 3.5-5. 1 Not Available [address], [address], 11/17/2023 15:00:51 11/17/19 24 11/17/2023 BASIC METAB OLIC PANEL chloride 105 mmol/ L 96-107 Not Available [address], [address], 11/17/2023 15:00:51 11/17/19 24 11/17/2023 BASIC METAB OLIC PANEL anion gap 10.6 5.0-15 .0 Not Available [address], [address], 11/17/2023 15:00:51 11/17/19 24 11/17/2023 BASIC METAB OLIC PANEL CO2 26 mmol/ L 21-32 Not Available [address], [address], 11/17/2023 15:00:51 11/17/19 24 11/17/2023 BASIC METAB OLIC PANEL calcium 8.6 mg/dL 8.5-10 .3 Not Available [address], [address], 11/17/2023 15:00:51 02/28/20 24 02/28/2024 CBC WBC 7.30 K/??L 4.23-9 .07 Not Available [address], [address], 02/28/2024 12:19:10 02/28/20 24 02/28/2024 CBC RBC 3.57 M/??L 4.63-6 .08 low Not Available [address], [address], 02/28/2024 12:19:10 02/28/20 24 02/28/2024 CBC HGB 12.7 g/dL 13.7-1 7.5 low Not Available [address], [address], 02/28/2024 12:19:10 02/28/20 24 02/28/2024 CBC HCT 37.5 % 40.1-5 1.0 low Not Available [address], [address], 02/28/2024 12:19:10 02/28/20 24 02/28/2024 CBC MCV 105.0 fL 79.0-9 2.2 high Not Available [address], [address], 02/28/2024 12:19:10 02/28/20 24 02/28/2024 CBC MCH 35.6 pg 25.7-3 2.2 high Not Available [address], [address], 02/28/2024 12:19:10 02/28/20 24 02/28/2024 CBC MCHC 33.9 g/dL 32.3-3 6.5 Not Available [address], [address], 02/28/2024 12:19:10 02/28/20 24 02/28/2024 CBC plt 210 K/??L 163-33 7 Not Available [address], [address], 02/28/2024 12:19:10 02/28/20 24 02/28/2024 CBC MPV 11.3 fL 9.4-12 .4 Not Available [address], [address], 02/28/2024 12:19:10 02/28/20 24 02/28/2024 CBC neut% 61.7 % 34.0-6 7.9 Not Available [address], [address], 02/28/2024 12:19:10 02/28/20 24 02/28/2024 CBC neut# 4.50 1.78-5 .38 Not Available [address], [address], 02/28/2024 12:19:10 02/28/20 24 02/28/2024 CBC lymph % 23.7 % 21.8-5 3.1 Not Available [address], [address], 02/28/2024 12:19:10 02/28/20 24 02/28/2024 CBC lymph # 1.73 K/??L 1.32-3 .57 Not Available [address], [address], 02/28/2024 12:19:10 02/28/20 24 02/28/2024 CBC mono% 8.9 % 5.3-12 .2 Not Available [address], [address], 02/28/2024 12:19:10 02/28/20 24 02/28/2024 CBC mono# 0.65 0.30-0 .82 Not Available [address], [address], 02/28/2024 12:19:10 02/28/20 24 02/28/2024 CBC eo% 4.5 % 0.8-7. 0 Not Available [address], [address], 02/28/2024 12:19:10 02/28/20 24 02/28/2024 CBC eo# 0.33 0.04-0 .54 Not Available [address], [address], 02/28/2024 12:19:10 02/28/20 24 02/28/2024 CBC baso% 0.8 % 0.2-1. 2 Not Available [address], [address], 02/28/2024 12:19:10 02/28/20 24 02/28/2024 CBC baso# 0.06 0.00-0 .08 Not Available [address], [address], 02/28/2024 12:19:10 02/28/20 24 02/28/2024 CBC RDW-CV 12.8 % 11.6-1 4.4 Not Available [address], [address], 02/28/2024 12:19:10 02/28/20 24 02/28/2024 CBC Ig% 0.400 % 0.000- 1.500 Ig % >0.5 Indic ates possi ble Left Shift Not Available [address], [address], 02/28/2024 12:19:10 02/28/20 24 02/28/2024 CBC Ig# 0.030 0.000- 0.093 Not Available [address], [address], 02/28/2024 12:19:10 02/28/20 24 02/28/2024 CBC NRBC% 0.0 % 0.0-0. 2 Not Available [address], [address], 02/28/2024 12:19:10 02/28/20 24 02/28/2024 CBC NRBC# 0.000 0.000- 0.012 Not Available [address], [address], 02/28/2024 12:19:10 02/28/20 24 02/28/2024 ESR sed rate 8.0 0.0-20 .0 Not Available [address], [address], 02/28/2024 15:02:44 02/28/20 24 02/28/2024 URINA LYSIS color YELLOW yellow Not Available [address], [address], 02/28/2024 15:22:30 02/28/20 24 02/28/2024 URINA LYSIS clarity CLEAR clear Not Available [address], [address], 02/28/2024 15:22:30 02/28/20 24 02/28/2024 URINA LYSIS glucose NEGATI VE negati ve Not Available [address], [address], 02/28/2024 15:22:30 02/28/20 24 02/28/2024 URINA LYSIS bilirubin NEGATI VE negati ve Not Available [address], [address], 02/28/2024 15:22:30 02/28/20 24 02/28/2024 URINA LYSIS ketones NEGATI VE negati ve Not Available [address], [address], 02/28/2024 15:22:30 02/28/20 24 02/28/2024 URINA LYSIS specific gravity 1.020 1.001- 1.035 Not Available [address], [address], 02/28/2024 15:22:30 02/28/20 24 02/28/2024 URINA LYSIS pH 6.0 5.0-8. 0 Not Available [address], [address], 02/28/2024 15:22:30 02/28/20 24 02/28/2024 URINA LYSIS protein NEGATI VE negati ve Not Available [address], [address], 02/28/2024 15:22:30 02/28/20 24 02/28/2024 URINA LYSIS urobilinogen 0.2 E.U./D L <1.0 Not Available [address], [address], 02/28/2024 15:22:30 02/28/20 24 02/28/2024 URINA LYSIS nitrates NEGATI VE negati ve Not Available [address], [address], 02/28/2024 15:22:30 02/28/20 24 02/28/2024 URINA LYSIS blood NEGATI VE negati ve Not Available [address], [address], 02/28/2024 15:22:30 02/28/20 24 02/28/2024 URINA LYSIS leukocytes NEGATI VE negati ve Not Available [address], [address], 02/28/2024 15:22:30 02/28/20 24 02/28/2024 URINE , MICRO SCOPI C WBC 0-2 hpf 0-4/hp f Not Available [address], [address], 02/28/2024 15:32:50 02/28/20 24 02/28/2024 URINE , MICRO SCOPI C RBC 0-2 hpf 0-2/hp f Not Available [address], [address], 02/28/2024 15:32:50 02/28/20 24 02/28/2024 URINE , MICRO SCOPI C bacteria NONE SEEN none seen Not Available [address], [address], 02/28/2024 15:32:50 02/28/20 24 02/28/2024 URINE , MICRO SCOPI C yeast NONE SEEN none seen Not Available [address], [address], 02/28/2024 15:32:50 02/28/20 24 02/28/2024 URINE , MICRO SCOPI C squamous epithelial cells 2 hpf 0-5 Not Available [address], [address], 02/28/2024 15:32:50 02/28/20 24 02/28/2024 URINE , MICRO SCOPI C mucous NONE SEEN none seen Not Available [address], [address], 02/28/2024 15:32:50 02/28/20 24 02/29/2024 COMP. METAB OLIC PANEL glucose 88 mg/dL 70-100 Not Available [address], [address], 02/29/2024 12:17:16 02/28/20 24 02/29/2024 COMP. METAB OLIC PANEL BUN 25 mg/dL 7-18 high Not Available [address], [address], 02/29/2024 12:17:16 02/28/20 24 02/29/2024 COMP. METAB OLIC PANEL creatinine 1.1 mg/dL 0.8-1. 3 Not Available [address], [address], 02/29/2024 12:17:16 02/28/20 24 02/29/2024 COMP. METAB OLIC PANEL B/C 22.7 ratio Not Available [address], [address], 02/29/2024 12:17:16 02/28/20 24 02/29/2024 COMP. METAB [...] be used in pregn daija. Not Available [address], [address], 02/29/2024 12:17:16 02/28/20 24 02/29/2024 COMP. METAB OLIC PANEL sodium 144 mmol/ L 136-14 5 Not Available [address], [address], 02/29/2024 12:17:16 02/28/20 24 02/29/2024 COMP. METAB OLIC PANEL potassium 4.4 mmol/ L 3.5-5. 1 Not Available [address], [address], 02/29/2024 12:17:16 02/28/20 24 02/29/2024 COMP. METAB OLIC PANEL chloride 104 mmol/ L 96-107 Not Available [address], [address], 02/29/2024 12:17:16 02/28/20 24 02/29/2024 COMP. METAB OLIC PANEL anion gap 12.6 5.0-15 .0 Not Available [address], [address], 02/29/2024 12:17:16 02/28/20 24 02/29/2024 COMP. METAB OLIC PANEL CO2 27 mmol/ L 21-32 Not Available [address], [address], 02/29/2024 12:17:16 02/28/20 24 02/29/2024 COMP. METAB OLIC PANEL calcium 9.7 mg/dL 8.5-10 .3 Not Available [address], [address], 02/29/2024 12:17:16 02/28/20 24 02/29/2024 COMP. METAB OLIC PANEL total protein 6.7 g/dL 6.4-8. 2 Not Available [address], [address], 02/29/2024 12:17:16 02/28/20 24 02/29/2024 COMP. METAB OLIC PANEL albumin 3.9 g/dL 3.4-5. 0 Not Available [address], [address], 02/29/2024 12:17:16 02/28/20 24 02/29/2024 COMP. METAB OLIC PANEL globulin 2.8 g/dL Not Available [address], [address], 02/29/2024 12:17:16 02/28/20 24 02/29/2024 COMP. METAB OLIC PANEL A/G 1.4 ratio 0.8-2. 0 Not Available [address], [address], 02/29/2024 12:17:16 02/28/20 24 02/29/2024 COMP. METAB OLIC PANEL total bilirubin 0.60 mg/dL 0.00-1 .00 Not Available [address], [address], 02/29/2024 12:17:16 02/28/20 24 02/29/2024 COMP. METAB OLIC PANEL AST 17 U/L 0-37 Not Available [address], [address], 02/29/2024 12:17:16 02/28/20 24 02/29/2024 COMP. METAB OLIC PANEL ALT 22 U/L 6-63 Not Available [address], [address], 02/29/2024 12:17:16 02/28/20 24 02/29/2024 COMP. METAB OLIC PANEL alk. phos. 39 U/L 50-136 low Not Available [address], [address], 02/29/2024 12:17:16 02/28/20 24 02/29/2024 COMPL EMENT C3 complement C3 121 mg/dL 90-207 Not Available [address], [address], 02/29/2024 12:17:17 02/28/20 24 02/29/2024 COMPL EMENT C4 complement C4 18.9 mg/dL 17.4-5 2.2 Not Available [address], [address], 02/29/2024 12:17:17 02/28/20 24 02/29/2024 C-SEBASTIEN CTIVE PROTE IN (RCRP ) C-reactive protein (rcrp) <0.5 mg/dL 0.5-9. 0 < Verif ied by repea t - SUJATA Not Available [address], [address], 02/29/2024 12:38:40 02/28/20 24 02/29/2024 PROTE IN, TOTAL W/CRE AT, RANDO M URINE creatinine, random urine 233 mg/dL 20-320 normal Not Available [facility] [address], [place], [address], 02/29/2024 18:47:55 02/28/20 24 02/29/2024 PROTE IN, TOTAL W/CRE AT, RANDO M URINE protein/crea tinine ratio 64 mg/g_ creat 25-148 normal Not Available [facility] [address] [place] [address], [place], [address], 02/29/2024 18:47:55 02/28/20 24 02/29/2024 PROTE IN, TOTAL W/CRE AT, RANDO M URINE protein/crea tinine ratio 0.064 mg/mg _crea t 0.025- 0.148 normal Not Available [facility] [address] [place] [address], [place], [address], 02/29/2024 18:47:55 02/28/20 24 02/29/2024 PROTE IN, TOTAL W/CRE AT, RANDO M URINE protein, total, random ur 15 mg/dL 5-25 normal Not Available [address], [place], [address], 02/29/2024 18:47:55 02/28/20 24 03/04/2024 DNA (DS) ANTIB JAMAL, CRITH IDIA, IFA W/REF L DNA Ab (ds) crithidia,if a NEGATI VE negati ve Not Available [facility] [address] [place] [address], [place], [address], 03/04/2024 15:12:25 07/30/19 24 07/30/2023 CT, head, w/o contr ast No observ ation record ed. [facility] [address], [place], [address], 08/02/2023 09:06:01 Result Notes None recorded. Problems Name Problem SNOMED Code Status Onset Date Resolution Date Notes Provider Name and Address Organization Details Recorded Time Mixed hyperlipi demia 546722493 Completed 200712/16/2014 [place], [address], [facility] 6 12:43:41 Atopic dermatiti s 77839996 Completed 12/16/2014 [place], [address], [facility] 12:43:41 Candidias is of skin and nails Completed 05/07/2014 [place], [address], [facility] 6 12:43:41 Hyperplas ia of prostate 563598154 Completed 05/07/2014 [place], [address], [facility] 6 12:43:41 Ingrowing nail 872843306 Completed 02/06/2013 [place], [address], [facility] 6 12:43:41 Anemia 098670281 Completed 200705/07/2014 [place], [address], [facility] 6 12:43:41 Benign essential hypertens ion 4977380 Active 2007 [place], [address], [facility] 6 12:43:41 Diverticu losis of colon without diverticu litis 078414453 Completed 200612/16/2014 [place], [address], [facility] 6 12:43:41 Benign prostatic hyperplas ia 827346068 Completed 200705/07/2014 Kiara Cobos MD [address] [place], [place] [address], [address], [facility] 6 12:43:41 Psoriasis 9758578 Completed 201707/07/2020 Gisell brown MD [facility] [place], [address], [facility] 1 12:04:13 Gluten sensitivi ty 326966522 Completed 201907/07/2020 Gisell brown MD [facility] [place], [address], [facility] 1 12:03:46 ECG: sinus arrhythmi a 066922748 Completed 201906/03/2019 Chino Bishop MD [facility] [place], [address], [facility] 0 14:16:49 Multiple atrial premature complexes 151038116 Active 2019 Chino Bishop MD [address] [place], [place] [address], [address], [facility] 0 14:16:44 Lupus erythemat osus 357632718 Active 2019 Chino Bishop MD [facility] [place], [address], [facility] 0 14:49:25 History of malignant neoplasm of prostate 514797766 Active 2020 Gisell brown MD [facility] [place], [address], [facility] 1 12:08:09 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 Procedures Surgical History Date Name Laterality Status Provider Name and Address Organization Details Recorded Time 10/12/19 Medicare Wellness Visit completed LUCY Concepcion [facility] 10/10/2023 08:12:29 10/12/19 Cardiovascular disease risk reduction counseling completed LUCY [facility] 10/10/2023 08:12:40 10/12/19 prevention-annual alcohol misuse screening completed LUCY [facility] 10/10/2023 08:12:41 10/11/19 Medicare Wellness Visit completed LUCY Concepcion Anderson [facility] 10/06/2022 16:22:23 10/11/19 23 Cardiovascular disease risk reduction counseling completed LUCY Concepcion Anderson [facility] 10/06/2022 16:22:54 10/11/19 23 prevention-annual alcohol misuse screening completed LUCY Concepcion Anderson [facility] 10/06/2022 16:22:57 08/10/19 Medicare Wellness Visit completed LUCY Concepcion Anderson [facility] 08/09/2021 07:49:24 08/10/19 22 Alcohol use screening completed Carlene CHRISTIANOYara Justin [facility] 08/09/2021 07:49:24 08/10/19 22 Cardiovascular disease risk reduction counseling completed LUCY Concepcion [facility] 08/09/2021 07:49:24 02/26/20 21 colonoscopy completed Gisell Nobles MD [address] [place] [address], [phone], [facility] 03/01/2021 12:57:18 07/08/19 21 Medicare Wellness Visit completed Telma Villar MA [facility] 06/29/2020 16:05:10 07/08/19 21 prevention-cardiov ascular risk reduction counseling completed Telma Villar MA [facility] 06/29/2020 16:05:10 07/08/19 21 prevention-annual alcohol misuse screening completed Telma Villar MA [facility] 06/29/2020 16:05:10 07/08/19 21 Advanced Care Planning completed Gisell Nobles MD [address] [place] [address], [phone], [facility] 07/07/2020 11:53:43 06/03/19 20 Medicare Wellness Visit completed Belkis Mendez LPN [facility] 06/03/2019 13:48:44 06/03/19 20 prevention-cardiov ascular risk reduction counseling completed Belkis Mendez LPN [facility] 06/03/2019 13:48:44 06/03/19 20 prevention-annual alcohol misuse screening completed Belkis Mendez LPN [facility] 06/03/2019 13:48:44 05/31/19 19 Medicare Wellness Visit completed Belkis Mendez LPN [facility] 05/30/2018 10:27:16 05/23/19 18 Medicare Wellness Visit completed Belkis Mendez LPN [facility] 05/22/2017 13:44:47 05/08/19 18 Oly - Colonoscopy completed Jeffrey Aldridge [address] [place] [address], [phone], [facility] 05/08/2017 11:36:34 03/06/20 17 Suture/staple Removal completed Chino Bishop MD [address] [place] [address], [phone], [facility] 03/06/2017 15:56:42 01/19/20 17 Physical Activity Counselling completed Chitra Cowan [address] [place] [address], [address], [facility] 01/18/2017 19:24:47 01/19/20 17 85153: PT Eval Low Complexity completed Chitra Cowan [address] [place] [address], [phone], [facility] 01/18/2017 19:24:47 12/08/19 17 Refraction completed Nadeem Blanchard [facility] 12/07/2016 09:10:56 05/19/19 17 Medicare Wellness Visit completed Belkis Mendez LPN [facility] 05/18/2016 09:12:11 02/26/20 16 Medicare Wellness Visit completed Belkis Mendez LPN [facility] 05/15/2015 11:06:32 05/07/19 15 Medicare Wellness Visit completed Mariana Jason [facility] 05/07/2014 09:24:19 05/06/19 15 Oly - Colonoscopy completed Jeffrey Aldridge [address] [place], [address], [facility] 05/06/2014 13:09:21 04/30/19 14 Medicare Wellness Visit completed Katina Win [facility] 04/30/2013 10:43:22 04/26/19 13 Medicare Wellness Visit completed Wanda Faustin [facility] 04/26/2012 10:58:01 06/07/19 09 Toenail Avulsion completed Silvestre Patel PA-C [address] [place], [address], [facility] 06/06/2008 10:06:19 Imaging Results Imaging Date Name Status LastModified by Organiz ation Details LastModified Time 07/30/2023 CT, head, w/o contrast completed [facility] [address] [facility], [place], [address], 08/02/2023 09:06:01 Procedure Notes None recorded. Medical Equipment None Reported. Allergies Allergen ID Allergen Name Allergen Category Reaction Reaction Severity Criticality Documentation Date Start Date Code Code System Note Provider Name and Address Organization Details Recorded Time 156220 amlodipin e medicatio n other moderate Not available 11/07/2018 88794 RxNorm Chino Bishop MD [address] [facility], [facility] [place], [address], [facility] 9 11:18:43 Medications Name Sig Start Date [...] Available oxymetazo line 0.05 % nasal spray [place] 2 sprays twice a day by intranas [...] Updated DateTime 3 174.63 cm 30.6 kg/m2 07980.0 3 g 98 /min 100 % 100 % 140 mm[Hg] 100 mm[Hg] LUCY [facility] 3 11:11:31 Date Recorded Body height Body mass index (BMI) Body weight Oxygen saturation Oxygen saturation in Arterial blood by Pulse oximetry Heart rate Systolic blood pressure Diastolic blood pressure Provider Name and Address Organization Details Last Updated DateTime 4 174.63 cm 30.2 kg/m2 05485.9 5 g 96 % 96 % 92 /min 126 mm[Hg] 78 mm[Hg] Anuradha Jain [facility] 4 09:01:33 Date Recorded Body height Body mass index (BMI) Body weight Heart rate Oxygen saturation Oxygen saturation in Arterial blood by Pulse oximetry Systolic blood pressure Diastolic blood pressure Provider Name and Address Organization Details Last Updated DateTime 4 174.63 cm 30.1 kg/m2 64967.4 6 g 77 /min 100 % 100 % 124 mm[Hg] 76 mm[Hg] Anuradha Jain [facility] 4 11:15:55 Date Recorded Body height Body mass index (BMI) Body weight Oxygen saturation Oxygen saturation in Arterial blood by Pulse oximetry Heart rate Systolic blood pressure Diastolic blood pressure Provider Name and Address Organization Details Last Updated DateTime 5 174.63 cm 30.2 kg/m2 22089.2 5 g 99 % 99 % 95 /min 122 mm[Hg] 78 mm[Hg] Lanre ortiz [facility] 5 16:41:12 Date Recorded Body height Body mass index (BMI) Body weight Heart rate Oxygen saturation Oxygen saturation in Arterial blood by Pulse oximetry Body temperature Systolic blood pressure Diastolic blood pressure Systolic blood pressure Diastolic blood pressure Provider Name and Address Organization Details Last Updated DateTime 5 174.63 cm 30.3 kg/m2 57373.8 4 g 86 /min 99 % 99 % 97.5 [degF] 130 mm[Hg] 88 mm[Hg] 158 mm[Hg] 98 mm[Hg] Kim Montano MA [facility] 5 13:40:29 Date Recorded Systolic blood pressure Diastolic blood pressure Provider Name and Address Organization Details Last Updated DateTime 03/27/2023 126 mm[Hg] 79 mm[Hg] LUCY [facility] 03/27/2023 11:46:55 Social History Question Answer Notes LastModified by Organizat ion Details LastModified Time Tobacco Smoking Status Former Smoker quit '95 after 20 yrs 1ppd, cigar rarely; LUCY [facility] 08/09/2021 11:54:55 Do You Have An Advance Directive? Yes Information not available 10/12/2023 What Is Your Level Of Alcohol Consumption? Occasional A Glass Wine 3-4x/week. No Hx Abuse. [email or web address] Information not available 08/09/2021 Do You Wear A Helmet When Biking? No Information not available 02/03/2015 What Is Your Level Of Caffeine Consumption? Moderate 2 Cups Coffee Daily [email or web address] Information not available 08/09/2021 How Much Tobacco Do You Chew? None [email or web address] Information not available 12/16/2014 Are You Currently Employed? No Information not available 08/09/2021 What Type Of Diet Are You Following? REGULAR Information not available 02/03/2015 Which Illicit Or Recreational Drugs Have You Used? None [email or web address] Information not available 08/09/2021 Do You Or Have You Ever Used E-cigarettes Or Vape? Never Used Electronic Cigarettes [email or web address] Information not available 08/09/2021 Education Post Graduate [employer] Informatio n not available 10/12/2023 What Is The Highest Grade Or Level Of School You Have Completed Or The Highest Degree You Have Received? 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 [employer] Information not available 07/07/2020 Have There Been Any Changes To Your Family Or Social Situation? No [email or web address] Information not available 08/09/2021 When Did You Quit Smoking? 16+yearssince krystal Information not available 12/16/2014 How Many Days In The Past Year Have You Had A Heavy Drinking Consumption (4+ Female, 5+ Male)? 1 07/07/20 JI [email or web address] Information not available 04/26/2012 Are There Any Guns Present In Your Home? No [email or web address] Information not available 08/09/2021 Do You Use Insect Repellent Routinely? Yes [email or web address] Information not available 08/09/2021 Live Alone Or With Others? With Others Information not available 12/16/2014 Patient Has Health Care Proxy Signed And In Chart Yes [email or web address] Information not available 10/11/2022 CCM Consent Discussion 05/30/2018 [email or web address] Information not available 05/30/2018 Marital Status Informatio n not available 05/07/2014 Mosquito Repellent Used Routinely Yes Information not available 02/03/2015 What Was The Date Of Your Most Recent Tobacco Screening? 03/09/2023 Information not available 03/09/2023 How Many Children Do You Have? 1 Daughter In [place] [email or web address] Information not available 08/09/2021 What Is Your Current Pack Years? 20-29packyear s Information not available 12/16/2014 What Is Your Relationship Status? Female Spouse [employer] Information not available 08/09/2021 Do You Use Your Seat Belt Or Car Seat Routinely? Yes [email or web address] Information not available 08/09/2021 Seat Belts Used Routinely Yes Information not available 02/03/2015 Are You Sexually Active? Yes Information not available 05/07/2014 Smoke Alarm In Home Yes Information not available 02/03/2015 Do You Have Smoke And Carbon Monoxide Detectors In Your Home? Yes [email or web address] Information not available 08/09/2021 Are You Passively Exposed To Smoke? No [email or web address] Information not available 08/09/2021 Do You Or Have You Ever Used Smokeless Tobacco? Never Used Smokeless Tobacco Information not available 08/09/2021 How Much Tobacco Do You Smoke? No [email or web address] Information not available 08/09/2021 General Stress Level Low Information not available 02/03/2015 Do You Use Any Illicit Or Recreational Drugs? No [email or web address] Information not available 08/09/2021 Do You Use [...] virus, trivalent, preservative 1 completed Not Available [facility] 04/06/2019 02:18:30 pneumococcal polysaccharide PPV23 1 completed Not Available [facility] 04/06/2019 02:14:54 Influenza, split virus, trivalent, preservative 1 completed Not Available [facility] 04/06/2019 02:29:24 Tdap 8 completed Not Available [facility] 02/02/2011 05:21:55 Influenza, split virus, trivalent, PF 2 completed Not Available [facility] 04/06/2019 02:29:56 Influenza, split virus, trivalent, PF 3 completed Not Available [facility] 04/06/2019 02:26:42 Influenza, high-dose, trivalent, PF 5 completed Not Available [facility] 04/06/2019 02:34:15 Pneumococcal conjugate PCV 13 5 completed Not Available [facility] 04/06/2019 02:34:59 Influenza, high-dose, trivalent, PF 6 completed Not Available [facility] 04/06/2019 02:21:08 Influenza, high-dose, trivalent, PF 7 completed Not Available [facility] 04/06/2019 02:22:01 Hep A-Hep B 5 completed Angela Grewal LPN null, [facility] 10/28/2014 10:57:12 Hep A-Hep B 5 completed TODD Josue, [facility] 10/28/2014 10:57:12 typhoid, unspecified formulation 5 completed TODD Josue, [facility] 10/28/2014 10:57:12 Td (adult), 2 Lf tetanus toxoid, preservative free, adsorbed 8 completed Not Available [facility] 04/06/2019 02:34:17 Influenza, high-dose, trivalent, PF 8 completed Not Available [facility] 04/06/2019 02:23:31 Influenza, high-dose, trivalent, PF 9 completed Not Available [facility] 04/06/2019 02:24:03 Influenza, high-dose, quadrivalent, PF 0 completed Aydee Carvalho RN null, [facility] 12/26/2019 09:08:25 Influenza, high-dose, quadrivalent, PF 2 completed Anuradha Jain CMA null, [facility] 01/06/2022 10:20:11 COVID-19, mRNA, LNP-S, PF, 30 mcg/0.3 mL dose 1 completed Telma Villar MA [facility] 07/07/2020 11:27:00 COVID-19, mRNA, LNP-S, PF, 30 mcg/0.3 mL dose 1 [facility] 11:27:36 zoster recombinant 1 completed Yoon Green MA null, [facility] 03/30/2021 10:00:50 zoster recombinant 2 completed Nilmari, RMA Anderson null, [facility] 08/09/2021 11:58:12 COVID-19, mRNA, LNP-S, PF, 100 mcg/0.5mL dose or 50 mcg/0.25mL dose 1 completed Nilmari, RMA Anderson null, [facility] 08/09/2021 11:58:38 Influenza, split virus, quadrivalent, preservative 1 completed Gisell Lassiter. [address] [place] [address], [phone], [facility] 08/09/2021 12:32:57 COVID-19, mRNA, LNP-S, PF, 100 mcg/0.5mL dose or 50 mcg/0.25mL dose 2 completed Nilmari, RMA Anderson null, [facility] 02/03/2022 15:57:36 Influenza, high-dose, quadrivalent, PF 3 completed Nilmari, RMA Anderson null, [facility] 03/09/2023 08:27:43 COVID-19, mRNA, LNP-S, bivalent, PF, 50 mcg/0.5 mL or 25mcg/0.25 mL dose 2 completed Nilmari, RMA Anderson null, [facility] 03/09/2023 08:28:07 COVID-19, mRNA, LNP-S, PF, 50 mcg/0.5 mL 3 completed Nilmari, RMA Anderson null, [facility] 03/09/2023 08:28:24 Past Encounters Encounter ID Performer Location Encounter Start Date Encounter Closed Date Diagnosis/Indication Diagnosis SNOMED-CT Code Diagnosis ICD10 Code Diagnosis Note [id number] [facility], [address] [address] 03/16/2007 08:58:46 03/21/2007 11:16:[id number] [facility], OFFICE [address] [place] [place] [address] 07/09/2007 08:56:16 04/09/2008 02:02:29 [id number] [facility] [address] [place] [address] 09/04/2007 15:42:40 09/04/2007 15:42:47 [id number] , [facility], OFFICE [address] [place] [address] [place] [address] 09/11/2007 10:45:51 04/09/2008 02:02:29 [id number] , [facility], OFFICE [address] [place] [address] [place] [address] 06/06/2008 09:13:40 06/09/2008 08:32:15 [id number] MICHAEL Ontiveros, [facility], OFFICE [address] [place] [address] [address] [place] [address] 09/18/2008 07:59:52 09/23/2008 08:23:57 [id number] LAN [facility], OFFICE [address] [place] [address] [address] [place] [address] 10/08/2008 15:13:31 10/09/2008 08:16:00 [id number] LAN [facility], [place] [address] [place] [address] 04/15/2009 09:18:37 04/15/2009 15:26:06 [id number] MICHAEL Ontiveros, [facility], OFFICE [address] [place] [address] [place] [address] 06/11/2009 08:46:44 06/11/2009 09:37:38 [id number] LAN [facility], OFFICE [address] [place] [address] DR [place], [place] [address] 12/09/2009 15:46:25 12/09/2009 17:14:34 [id number] FP, [facility], [place] [address] 02/15/2010 16:10:54 02/16/2010 10:10:06 [id number] FP, [facility], [place] [address] 04/08/2010 14:20:29 04/09/2010 09:00:24 [id number] , [facility], OFFICE [address] [place] [address] [place] [address] 02/04/2011 15:36:00 02/04/2011 16:07:00 [id number] Radiology , [facility] [address] [place] [address] 06/09/2011 09:01:10 06/10/2011 12:05:05 [id number] [facility] OFFICE [address] [place] [address] [place] [address] 08/05/2011 10:25:01 08/05/2011 10:44:[id number] [place] [address] [place] [address] 10/07/2011 10:23:33 10/07/2011 10:45:33 [id number] [facility]. KACY MONTENEGRO [facility] OFFICE [address] [place] [address] [place] [id number] 03/09/2012 11:03:40 03/09/2012 11:27:46 [id number] Khoa Siddiqui III, MD [address] [place] [address] [place] [address] 04/06/2012 10:19:23 04/06/2012 10:35:48 [id number] Khoa Siddiqui III, MD [address] [place] [address] [place] [address] 04/26/2012 10:53:54 04/26/2012 11:20:40 [id number] Jerrica Glaser LPN [address] [place] [address] [place] [address] 10/11/2012 10:23:49 10/11/2012 10:47:08 [id number] [facility]. KACY MONTENEGRO [address] [place] [address] [place] [address] 11/29/2012 09:01:06 11/29/2012 10:27:00 Influenza vaccine needed [id number] VIOLETA Terry, [facility] OFFICE [address] [place] [address] [place] [address] 01/22/2013 08:54:13 01/22/2013 09:13:34 Benign essential hypertension 4081097 Blood pressure at goal. CONTINUE CURRENT MEDS Varicella vaccination 25689955 [id number] VIOLETA Lagunas, [facility] OFFICE [address] [place] [address] [place] [address] 04/30/2013 10:35:26 04/30/2013 10:57:14 Adult health examination [id number] see Risk Assessment and Lifestyle Change Counseling section above Counseling [id number] Essential hypertension 48670025 Primary ma lignant neoplasm of prostate 37689598 S/P surgery and IMRT [id number] Katina Win MA , [facility], OFFICE [address] [place] [address] [place] [address] 11/05/2013 07:56:44 11/05/2013 08:08:27 Mixed hyperlipidemia 730580900 Cholestero l is at goal Continue to work on diet and exercise as discussed Benign ess ential hypertension 9306785 Blood pressure at goal [id number] Maggi Post , [facility], OFFICE [address] [place] [address] [place] [address] 12/31/2013 09:30:22 01/01/2014 08:25:11 Pain in scrotum 00731640 REAASSURE NO PATHOLOGY DETECTED. [id number] Khoa Siddiqui III, MD [facility], [facility] [address] [place] [id number] 05/06/2014 10:29:00 05/06/2014 13:36:[id number] [facility], OFFICE [address] [place] [address] [place] [address] 05/07/2014 09:17:55 05/07/2014 09:46:49 Benign essential hypertension 2732975 Blood pressure at goal Adult heal th examination [id number] see Risk Assessment and Lifestyle Change Counseling section above Counseling [id number] Neoplasm of prostate 520932896 PSA low on every 6 months hormone therapy [id number] Zara Lee MA , [facility], OFFICE [address] [place] [address] [place] [address] 12/16/2014 10:21:10 12/16/2014 11:00:53 Primary malignant neoplasm of prostate 91171282 followed by uro Benign ess ential hypertension 8178406 Mildly elev. Though ok at home 130/80. Just finished exercise today. Atopic dermatitis 42409732 dishydroti c eczema. trial high potency steroid Influenza vaccine needed 6615707160 106 Active or passive immunization 722142647 Lifestyle 791463071 [id number] Robin Lemus MD , [facility], OFFICE [address] [place] [place] [address] 02/03/2015 08:20:24 02/03/2015 09:26:10 Atopic dermatitis 40473305 L20.9 partually responded to a low potency steroidal cream, will try high potency Papular eruption 1378386 01 R21 on his arms, upper chest suspect infecion (MRSA?) [id number] Kiara Cobos MD , [facility], OFFICE [address] [place] [place] [address] 02/17/2015 13:50:45 02/17/2015 14:17:41 Atopic dermatitis 86434885 L20.9 much better on his all areas of eruption, cont clobetazol , counseled about this kind of dermatitis and preventati ve measures for the future [id number] Romana Brown , [facility], OFFICE [address] [place] [place] [address] 05/15/2015 10:50:45 05/15/2015 11:29:49 Adult health examination 996928883 Z00.00 see Risk Assessment and Lifestyle Change Counseling section above Counseling 795408413 Z71 .9 Primary ma lignant neoplasm of prostate 21383866 C61 [id number] Chino Bishop MD , [facility], OFFICE [address] [place] [address] [place] [address] 05/20/2015 13:42:43 05/20/2015 14:01:07 Conjunctivitis 9734234 H10.9 Otitis media 85465171 H6 6.249 [id number] Chino Bishop MD , [facility], OFFICE [address] [place] [place] [address] 05/27/2015 15:41:05 05/27/2015 16:19:16 Acute upper respiratory infection 54871770 J06.9 Educated patient that URI is a [...] resolve in 2-4 weeks. Eustachian tube disorder 37144619 H69.93 Impacted cerumen 6330900 6 H61.21 [id number] Belkis Mendez LPN , [facility], OFFICE [address] [place] [address] [place] [address] 11/11/2015 07:59:15 11/11/2015 08:41:09 Benign essential hypertension 6017155 I10 Blood pressure at goal Blood pressure Vertigo 825638869 R42 Cardiac arrhythmia 66221 7007 I49.9 [id number] Chino Bishop MD , [facility], OFFICE [address] [place] [address] [place] [address] 01/21/2016 13:52:10 01/21/2016 14:18:38 Active or passive immunization 024746848 Z23 Primary ma lignant neoplasm of prostate 74127317 C61 Benign ess ential hypertension 9248739 I10 Pre-surger y evaluation 266723559 Z01.505 [id number] Chino Bishop MD , [facility], OFFICE [address] [place] [address] [place] [address] 05/18/2016 09:09:03 05/18/2016 09:39:51 Adult health examination 107184084 Z00.00 see Risk Assessment and Lifestyle Change Counseling section above Counseling 496724370 Z71 .9 Benign ess ential hypertension 7441434 I10 Blood pressure at goal Blood pressure NOT at goal. Primary ma lignant neoplasm of prostate 86728628 C61 [id number] Mily Brizuela, OD [facility], [facility] [address] [facility] [place] [address] 12/07/2016 08:54:22 12/07/2016 09:44:41 Astigmatism 76024394 H52.223 Presbyopia 52033224 H52. 4 Bilateral cataracts 9572 2004 H26.9 Hypermetropia 46591417 H 52.03 [id number] Chino Bishop MD , [facility], OFFICE [address] [place] [address] [place] [address] 12/22/2016 09:04:24 12/22/2016 09:29:02 Active or passive immunization 239529512 Z23 Benign par oxysmal positional vertigo 874530040 H81.12 [id number] Chino Bishop MD , [facility], OFFICE [address] [place] [address] [place] [address] 01/04/2017 07:53:05 01/04/2017 08:16:30 Benign paroxysmal positional vertigo 453237179 H81.12 [id number] [facility], [address] [place] [address] 01/18/2017 16:49:12 01/18/2017 20:24:35 Benign paroxysmal positional vertigo 124034180 H81.11 [id number] Chitra Cowan Physical [facility], [address] [place] [address] 01/26/2017 10:45:33 01/28/2017 14:37:34 Benign paroxysmal positional vertigo 388779884 H81.11 [id number] Chino Bishop MD , [facility], OFFICE [address] [place] [address] 03/01/2017 15:23:05 03/01/2017 16:33:38 Tachycardia 1200612 R00.0 Benign ess ential hypertension 2152870 I10 Blood pressure at goal Blood pressure NOT at goal. Primary ma lignant neoplasm of prostate 81095961 C61 [id number] Chino Bishop MD , [facility], OFFICE [address] [place] [address] [place] [address] 03/06/2017 15:24:11 03/06/2017 15:56:14 Scalp laceration 237886882 S01.01XD Benign ess ential hypertension 7682424 I10 Blood pressure NOT at goal. Primary ma lignant neoplasm of prostate 81143653 C61 [id number] Chino Bishop MD , [facility], OFFICE [address] [place] [place] [address] 04/12/2017 09:58:59 04/12/2017 10:49:58 Screening for malignant neoplasm of colon 233872226 Z12.11 Referral for a DIRECT booked colonoscop y. This patient is a healthy ASA Class 1 or 2 patient (only mild systemic disease), or a STABLE, well controlled insulin dependent diabetic. They do not have serious cardiac disease ie CO/angiopl asty within 1 year, symptomati c CHF; renal failure with CKD 4 or 5; take Coumadin, Plavix, Aggrenox, etc. Benign ess ential hypertension 0126322 I10 Blood pressure NOT at goal. [id number] Chino Bishop MD , [facility], OFFICE [address] [address] [place] [address] 1 04/19/2017 11:49:17 04/19/2017 12:24:39 Benign essential hypertension 7747137 I10 Blood pressure NOT at goal. [id number] Jeffrey Aldridge [facility], [facility] [address] [place] [address] 1 05/08/2017 10:26:03 05/08/2017 12:37:20 [id number] Chino Bishop MD , [facility], OFFICE [address] [place] [address] [address] [place] [address] 1 05/17/2017 10:16:16 05/17/2017 11:02:45 Benign essential hypertension 3401484 I10 Blood pressure NOT at goal. Dizziness 913878201 R42 [id number] Chino Bishop MD , [facility], OFFICE [address] [place] [address] [address] [place] [address] 1 05/22/2017 13:31:43 05/22/2017 14:49:54 Adult health examination 935967340 Z00.00 see Risk Assessment and Lifestyle Change Counseling section above Counseling 762846785 Z71 .9 Depression screening 171 054361 Z13.89 depression screening tool administer ed, entered into emr, scored and discussed, time greater than 7.5 minutes Tachycardia 4818348 R00. 0 Abdominal mass 649968085 R19.00 [id number] Jerrica Glaser LPN , [facility], OFFICE [address] [place] [address] [place] [address] 1 05/23/2017 14:35:39 05/23/2017 14:52:56 Tachycardia 4382376 R00.0 [id number] Chino Bishop MD , [facility], OFFICE [address] [place] [address] Y[place]VIOLE[place] [address] 1 05/31/2017 16:07:33 05/31/2017 16:38:56 Benign essential hypertension 9618269 I10 Blood pressure NOT at goal. [id number] Chino Bishop MD , [facility], OFFICE [address] [place] [address] DR [place]OSTEGUI VIOLETA [address] 1 06/14/2017 16:19:58 06/14/2017 16:45:48 Pre-surgery evaluation 850664061 Z01.818 Benign ess ential hypertension 3686906 I10 Blood pressure NOT at goal. [id number] Chino Bishop MD , [facility], OFFICE [address] [place] [address] [place] [address] 1 07/17/2017 13:22:24 07/20/2017 12:16:03 Benign essential hypertension 9571148 I10 Blood pressureat goal. Primary ma lignant neoplasm of prostate 71622008 C61 [id number] Chino Bishop MD , [facility], OFFICE [address] [place] [address] [place] [address] 1 10/05/2017 10:41:42 10/05/2017 11:11:28 Active or passive immunization 196817012 Z23 Dizziness and giddiness 151075469 R42 [id number] Chino Bishop MD , [facility], OFFICE [address] [place] [address] [place] [address] 1 11/22/2017 09:53:26 11/22/2017 11:22:25 Benign essential hypertension 4619506 I10 Blood pressure NOT at goal. Primary ma lignant neoplasm of prostate 11089235 C61 [id number] Chino Bishop MD , [facility], OFFICE [address] [place] [address] [place] [address] 1 02/28/2018 09:45:47 02/28/2018 10:22:37 Active or passive immunization 350704732 Z23 Benign ess ential hypertension 4347211 I10 Blood pressure NOT at goal. Primary ma lignant neoplasm of prostate 19858194 C61 [id number] Chino Bishop MD , [facility], OFFICE [address] [place] [address] 1 03/28/2018 10:11:27 03/28/2018 10:32:07 Benign essential hypertension 0707513 I10 Blood pressure NOT at goal. Ingrowing toenail 383424 009 L60.0 [id number] Brian Martínez DPM Podiatry, [facility] [address] [place] [address] 1 04/16/2018 14:19:50 04/16/2018 15:52:23 Ingrowing toenail 320289432 L60.0 [id number] Chino Bishop MD , [facility], OFFICE [address] [place] [place] [address] 1 05/30/2018 10:22:39 05/30/2018 11:04:13 Adult health examination 478919047 Z00.00 see Risk Assessment and Lifestyle Change Counseling section above Counseling 720295227 Z71 .9 Depression screening 171 384542 Z13.89 depression screening tool administer ed, entered into emr, scored and discussed, time greater than 7.5 minutes Benign ess ential hypertension 1176631 I10 Blood pressure NOT at goal. [id number] Mally Velasco D.O. , [facility], OFFICE [address] [place] [address] [place] [address] 1 07/17/2018 11:40:37 07/17/2018 12:19:04 Screening for disorder 731718275 Z11.59 Right uppe r quadrant pain 115378517 R10.11 right abdominal pain and back pain- is beginning to improv on it's own.?if pulled muscle. will r/o GB dysfuction or kidney stone with abd u/sfairly benign exam, no s/s of shingles(d oes have resolving diffuse drug rash) [id number] Mally Velasco D.O. , [facility], OFFICE [address] [place] [address] [place] [address] 1 07/23/2018 11:37:09 07/23/2018 12:41:38 Diarrhea 55604282 R19.7 already following a fairly gluten free diet- has celiacprev CRP was 60- unclear if from rash or from GI process? Eruption c aused by drug 25376048 L27.0 ? if celiac. 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 Primary ma lignant neoplasm of prostate 40765026 C61 Psoriasis 6510266 L40.9 [id number] Chino Bishop MD , [facility], OFFICE [address] [place] [address] [place] [address] 1 11/22/2018 10:49:21 11/22/2018 11:23:04 Benign essential hypertension 4362305 I10 Blood pressure NOT at goal. [id number] Blessing Deng LPN , [facility], OFFICE [address] [place] [address] [place] [address] 1 01/22/2019 14:26:55 01/22/2019 14:57:54 Active or passive immunization 915174703 Z23 [id number] Chino Bishop MD , [facility], OFFICE [address] [place] [address] [place] [address] 1 06/03/2019 13:45:05 06/03/2019 14:16:56 Adult health examination 615976473 Z00.00 see Risk Assessment and Lifestyle Change Counseling section above Counseling 888576843 Z71 .9 including cardiovasc ular risk reduction counseling Depression screening 171 498654 Z13.89 depression screening tool administer ed, entered into emr, scored and discussed, time greater than 7.5 minutes Screening for alcohol abuse 905997713 Z13.39 Essential hypertension 55486314 I10 [id number] Chino Bishop MD , [facility], OFFICE [address] [place] [address] [place] [address] 1 12/09/2019 14:05:57 12/11/2019 15:06:02 Essential hypertension 34183547 I10 Lupus erythematosus 2008 25908 L93.0 [id number] Aydee Carvalho RN , [facility], OFFICE [address] [place] [address] [place] [address] 1 12/26/2019 09:05:10 01/01/2020 16:10:55 Active or passive immunization 081024601 Z23 [id number] Gisell Lassiter . , [facility], OFFICE [address] [place] [address] [place] [address] 1 07/07/2020 11:19:13 07/07/2020 12:22:25 Adult health examination 422075510 Z00.00 USPSTF guidelines reviewed and discussed with patient. colonoscop y 2017, redo 5 Y. to inquire from [facility] about Shingrix vaccine. Has health care proxy in place, to mail us a copy of it. Counseling 949515039 Z71 .9 including cardiovasc ular risk reduction counseling , LDl below 100, at 68, no statin or asa indicated. Depression screening 171 748930 Z13.31 depression screening tool administer ed, entered into emr, scored and discussed, time greater than 7.5 minutes, negative screen. Screening for alcohol abuse 244785878 Z13.39 negative screen. Advance di rective discussed with patient 273400240 Z71.[address], to send us copy. Essential hypertension 68364742 I10 untreated since BP went very low with HCTZ so taken off BP med. June 02 it was 100/62 at rheumatolo gy office. He will monitor his BP at home and send us his BP numbers. Lupus erythematosus 2008 03739 L93.0 on plaquenil, sees rhuematolo gist. Multiple a trial premature complexes 491664377 I49.1 denies palpitatio ns, very active, no cardiac sx. History of malignant neoplasm of prostate 117882500 Z85.46 He stopped Lupron injections and PSA remains untraceabl e. Follows up with urology on a regular basis. In remission currently. [id number] Belkis Mendez LPN , [facility], OFFICE [address] [place] [address] [place] [address] 1 02/04/2021 14:31:23 02/04/2021 20:31:57 [id number] Belkis Mendez LPN , [facility], OFFICE [address] [place] [address] [place] [address] 1 02/19/2021 09:41:21 02/19/2021 09:54:25 [id number] Alicia Lindsey RN , [facility], OFFICE [address] [place] [address] [place] [address] 1 02/22/2021 13:56:18 02/23/2021 05:42:26 [id number] Fanta Perera LPN , [facility], OFFICE [address] [place] [address] [place] [address] 1 03/02/2021 13:58:35 03/04/2021 07:18:01 [id number] Brian Martínez DPM Podiatry, [facility] 31 [facility] [place]ui [address] 1 06/14/2021 11:57:05 06/16/2021 12:54:29 Ingrowing toenail 169639582 L60.0 [id number] Gisell Lassiter . , [facility], OFFICE [address] [place] [address] [place] [address] 1 08/09/2021 11:48:24 08/09/2021 12:49:00 Adult health examination 492935980 Z00.00 USPSTF guidelines reviewed and discussed with patient. colonoscop y 2020, redo 5 Y.health care proxy form given to fill out.Vaccin ations UTD. Counseling 726980891 Z71 .9 including cardiovasc ular risk reduction counseling , LDL 70s without statin, no asa or statin indicated. Depression screening 171 370566 Z13.31 depression screening tool administer ed, entered into emr, scored and discussed, time greater than 7.5 minutes, negative screening. Screening for alcohol abuse 387042199 Z13.39 negative screen. Essential hypertension 67379208 I10 BP at target, when it goes up with lupus flare he takes extra losartan. Lupus erythematosus 2008 99672 L93.0 on plaquenil, sees rhuematolo gist. Multiple a trial premature complexes 379274360 I49.1 denies palpitatio ns, very active, no cardiac sx. History of malignant neoplasm of prostate 501168003 Z85.46 He stopped Lupron injections and PSA remains untraceabl e. No longer follows up with urology on a regular basis. In remission currently. Last PSA 02-03-21. needs yearly PSA. 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 no med changes indicated [id number] JUNE BRANNON COTTRELL DNP , [facility], OFFICE [address] [place] [address] [place] [address] 1 11/05/2021 14:51:13 2021 12:39:42 Eruption 279594648 R21 rupture vesicles to b/l hands and [...] RPR testing today Benign ess ential hypertension 5856280 I10 BP not at goal [id number] Gisell Lassiter . 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 They seem to be drying up in response to topical steroid that he is using but he gets new ones. He is leaving for a [employer] in 10 days. I am giving him an 8 day taper of prednisone hoping to stop this cycle of immune hyperactiv ity and new lesions. Call with any concerns. [id number] Robin Lemus MD , [facility], OFFICE [address] [place] [address] [place] [address] 1 12/17/2021 15:31:24 01/19/2022 09:11:23 COVID-19 540687382 U07.1 qualifies for paxlovid based on age 76 and lupus (even thogu is inactive)h e should take it , just based on the Dx of lupuscours e of covid, reviewedPo ss SE's discussed5 days isolation, 5 masked [id number] Anuradha Jain CMA , [facility], OFFICE [address] [place] [address] [place] [address] 1 01/06/2022 10:13:43 01/11/2022 14:16:05 Active or passive immunization 536182542 Z23 [id number] Gisell Lassiter . MD [place], [facility], OFFICE [address] [place] [address] [place] [address] 1 02/07/2022 10:37:07 02/07/2022 12:13:15 Essential hypertension 01632560 I10 BP not at target, will increase losartan to 100 mg daily. will get home BP numbers next week. Mild neuro cognitive disorder 500966238 G31.84 not affecting daily function and is improving, was related to lupus flare. Lupus erythematosus 2008 95167 L93.0 on plaquenil, sees rhuematolo gist. Multiple a trial premature complexes 665870302 I49.1 denies palpitatio ns, very active, no cardiac sx. History of malignant neoplasm of prostate 642828362 Z85.46 PSA remains untraceabl e. No longer follows up with urology on a regular basis. In remission currently. needs yearly PSA. [id number] Gisell Pearson MD , [facility], OFFICE [address] [place] [address] 1 10/10/2022 11:19:43 10/10/2022 14:00:21 Adult health examination 274841134 Z00.00 USPSTF guidelines reviewed and discussed with patient. colonoscop y 2020, redo 5 Y.health care proxy form given to fill out.Vaccin ations UTD.CV counseling done. Depression screening 171 647179 Z13.31 depression screening tool administer ed, negative Screening for alcohol abuse 578172477 Z13.39 Alcohol use screening tool administer ed, negative Screening for malignant neoplasm of prostate 801316933 Z12.5 PSA testing for ages 55-69 risks and benefits discussed {{patient declines testing te st ordered*}} . Mild neuro cognitive disorder 421774463 G31.84 not affecting daily function and is improving, was related to lupus flare. Benign ess ential hypertension 2528822 I10 has been at target, elevated today, he will check his bP at home daily, low salt diet, our staff with contact him in a couple of weeks to get BP records. Lupus erythematosus 2008 08555 L93.0 on plaquenil, sees rhuematolo gist. having some brain fog currently. Multiple a trial premature complexes 131078327 I49.1 denies palpitatio ns, very active, no cardiac sx. History of malignant neoplasm of prostate 932758179 Z85.46 PSA remains untraceabl e. No longer follows up with urology on a regular basis. In remission currently. needs yearly PSA. [id number] Gisell Lassiter . , [facility], OFFICE [address] [place] [place] [address] 1 03/09/2023 10:54:54 03/09/2023 12:12:33 Mild neurocognitive disorder 367791925 G31.84 brain fog related to lupus flare and affects him being able to read a book for example. Benign ess ential hypertension 9682578 I10 has been at target, elevated today, he will check his bP at home daily, low salt diet, our staff with contact him in a couple of weeks to get BP records. Lupus erythematosus 2008 91240 L93.0 on plaquenil, sees rhuematolo gist. having more sx, wants to see another rheumatolo gist. states did better on MTX, also frustrated with back pain. Multiple a trial premature complexes 664330825 I49.1 denies palpitatio ns, very active, no cardiac sx. History of malignant neoplasm of prostate 310107756 Z85.46 PSA remains untraceabl e. No longer follows up with urology on a regular basis. In remission currently. needs yearly PSA. Abnormal defecation 1799 77797 R19.8 he has loose stools but pushing it out is difficult for him, he has tried various things, fiber, senna and it caused incontinen ce, will refer to pelvic floor therapy. [id number] Gisell Lassiter . , [facility], OFFICE [address] [place] [address] [place] [address] 1 10/12/2023 08:51:44 10/12/2023 13:01:47 Lupus erythematosus 585644061 L93.0 on plaquenil and injectable MTX .sees rheumatolo gist, Dr. Anne Ritter in [place]. They check labs frequently . Multiple a trial premature complexes 430709266 I49.1 denies palpitatio ns, very active, no cardiac sx. Benign ess ential hypertension 3763313 I10 at target below 130/80. continue same. History of malignant neoplasm of prostate 366119112 Z85.46 PSA remains untraceabl e. No longer follows up with urology on a regular basis. In remission currently. NEEDS YEARLY PSA. due January 2024. Mild neuro cognitive disorder 484264762 G31.84 brain fog related to lupus flare and improved with MTX. Adult heal th examination 854541982 Z00.00 USPSTF guidelines reviewed and discussed with patient. colonoscop y 2020, no further screening. health care proxy form inn place.Vacc inations UTD.PSA yearly with prostate ca hx. Depression screening 171 969755 Z13.31 depression screening tool administer ed, negative Screening for alcohol abuse 804872771 Z13.39 Alcohol use screening tool administer ed, negative [id number] Robin Lemus MD , [facility], OFFICE [address] [address] [place] [address] 1 12/01/2023 10:49:49 12/11/2023 12:50:40 Acute sinusitis 51121140 J01.90 normal examdiagno sis by hx Lupus erythematosus 2008 10371 L93.0 already on pred for a flare (brain fog) [id number] Robin Lemus MD , [facility], OFFICE [address] [place] [address] [place] [address] 1 05/10/2024 16:21:34 05/20/2024 09:36:51 Genitocrural intertrigo 075238357 L30.4 usual rashtx discussed Lupus erythematosus 2008 90327 L93.0 already on pred for a flare (brain fog)hydrox ychloroqui neMTXpredn isonesaphn eio injections per [facility] rheumatolo gy DR Ritter or Edi ROSAS in past stable dx based on sunsensiti ve rash biopsied Mild neuro cognitive disorder 372884105 G31.84 Multiple a trial premature complexes 555448918 I49.1 History of malignant neoplasm of prostate 903937212 Z85.46 Benign ess ential hypertension 4078577 I10 [id number] FRANCISCO STOUT DNP , [facility], OFFICE [address] [place] [address] [place] [address] 1 06/14/2024 13:31:09 06/14/2024 15:51:41 Localized eruption of skin 431403496 R21 Patients presents for evaluation of rash consistent with: Lupus. DDx fungal rash, sunburn. Treated with: topical steroids. Follow up if rash is not improving or with other concerns. Consider use of PO steroids or more potent topical steroids I have contacted pt's rheumatolo gy practice ([facility] rheumat[facility]) and made them aware of patient's current signs and symptoms alongside the planned treatment. They plan on seeing him next week. Copy of today's encounter note will be faxed over. 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 Managed with methotrexa te 15 [...] B-[place]: [employer] Dandy P Pueschel [id number] [id number] Dandy P Pueschel 03/09/2023 2 [facility] [id number] Dandy P Pueschel [id number] Dandy P Pueschel 10/12/2023 1 MEDICARE [place]: [employer] Dandy P Pueschel [id number] [id number] Dandy P Pueschel 10/12/2023 2 [facility] [id number] Dandy P Pueschel [id number] Dandy P Pueschel 12/01/2023 1 MEDICARE B-[place]: [employer] Dandy P Pueschel [id number] [id number] Dandy P Pueschel 12/01/2023 2 [facility] [id number] Dandy P Pueschel [id number] Dandy P Pueschel 05/10/2024 1 MEDICARE B-[place]: [employer] Dandy P Pueschel [id number] E79 Dandy Cintron Pueschel 05/10/2024 2 [facility] [id number] Dandy Cintron Pueschel [id number] Dandy Cintron Pueschel 06/14/2024 1 MEDICARE [place]: [facility] Dandy Cintron Pulashonchel [id number] E79 Dandy Cintron Pueschel 06/14/2024 2 [facility] [id number] Dandy Cintron Pueschel [id number] Dandy Cintron Pueschel Notes Date Note [...] things out through a constricted area . [facility] gave him senna but that caused fecal incontinence. Colonoscopy 2462659 and endoscopy was normal. Taking dicyclomine and hyoscyamine, some times both, hyoscyamine helps with cramps. Musculoskeletal; no myalgia, no joint pain, on plaquenil. Duloxetine was added by transmission calibration engineer. States has muscle aches, back and lower [...] did better on MTX. Gisell Shoushtari. MD [address] [place] [address], [phone], [facility] 03/09/2023 11:49:52 4 text/html Risk Assessment and [...] In the past 12 months has the [employer], [employer], [employer] or [employer] threatened to shut off services?no How hard [...] plaquenil and MTX. Duloxetine was added by transmission calibration engineer. Gisell Lassiter. [address] [place] [address], [phone], [facility] 10/12/2023 09:32:44 5 text/html 78 year old [...] joint pain, arthralgias, or systemic symptoms.Followed by [facility] rheumatology. Reports his established rheum provider has left the practice and now he is waiting an appointment with a new provider FRANCISCO STOUT DNP [address] [place] [address], [phone], [facility] 06/14/2024 15:21:55
--- OUTSIDE RECORDS SUMMARY | 2024-06-18 17:29 | XMS_ITS | Continuity of Care Document ---
Author Organization [facility], , [facility] [place] Address [address] [place] [address] [place] [address] Care Team Providers Care Patent Lawyer Name Role Phone GEORGIANA LU Urologist KAT LIANG Porcelain Mixer BRIAN COELHO Swimming Pool Attendant [facility] Carousel Operator [phone] [facility] Porcelain Mixer [facility] PAIN [facility]NAG[facility] Pain Management KECIA ALVARADO Primary [...] acetonide 0.5 % topical ointment 2024 025 [id number], [address] [facility], [place], [address], 14:00:35 Patient TargetsNo targets recorded. Patient InstructionsNo instructions recorded. Reason for Referral None Reported. Problems Name Problem SNOMED Code Status Onset Date Resolution Date Notes Provider Name and Address Organization Details Recorded Time Mixed hyperlipi demia 599450911 Completed 200712/16/2014 [place], [address], [facility] 6 12:43:41 Atopic dermatiti s 96318682 Completed 12/16/2014 [place], [address], [facility] 6 12:43:41 Candidias is of skin and nails Completed 05/07/2014 [place], [address], [facility] 6 12:43:41 Hyperplas ia of prostate 577259795 Completed 05/07/2014 Kiara Cobos MD [facility]ly [facility] [place], [address], [facility] 6 12:43:41 Ingrowing nail 320017319 Completed 02/06/2013 Kiaar Cobos MD [address] [place] [address] [place], [address], [facility] 6 12:43:41 Anemia 008514364 Completed 200705/07/2014 Kiara Cobos MD [address] [place], [place] [address], [address], [facility] 6 12:43:41 Benign essential hypertens ion 0040221 Active 2007 Kiara Cobos MD [address] [place] [address] [place], [address], [facility] 6 12:43:41 Diverticu losis of colon without diverticu litis 668380781 Completed 200612/16/2014 Kiara Cobos MD [address] [place] [address] [place], [address], [facility] 6 12:43:41 Benign prostatic hyperplas ia 878736580 Completed 200705/07/2014 [place], [address], [facility] 6 12:43:41 Psoriasis 5924396 Completed 201707/07/2020 Gisell brown MD [address] [place] [address] [place], [address], [facility] 1 12:04:13 Gluten sensitivi ty 562673317 Completed 201907/07/2020 Gisell brown MD [address] [place], [place] [address], [address], [facility] 1 12:03:46 ECG: sinus arrhythmi a 408591232 Completed 201906/03/2019 Chino Bishop MD [address] [place], [place] [address], [address], [facility] 0 14:16:49 Multiple atrial premature complexes 434786345 Active 2019 Chino Bishop MD [address] [place], [place] [address], [address], [facility] 0 14:16:44 Lupus erythemat osus 088385362 Active 2019 Chino Bishop MD [address] [place], [place] [address], [address], [facility] 0 14:49:25 History of malignant neoplasm of prostate 633796630 Active 2020 Gisell brown MD [address] [place] [address] [place], [address], [facility] 1 12:08:09 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 Procedures Surgical History Date Name Laterality Status Provider Name and Address Organization Details Recorded Time 10/12/19 24 Medicare Wellness Visit completed NilmariLUCY MA [facility] 10/10/2023 08:12:29 10/12/19 24 Cardiovascular disease risk reduction counseling completed Carlene LUCY Anderson MA [facility] 10/10/2023 08:12:40 10/12/19 24 prevention-annual alcohol misuse screening completed Carlene LUCY Anderson MA [facility] 10/10/2023 08:12:41 10/11/19 23 Medicare Wellness Visit completed Carlene LUCY Anderson [facility] 10/06/2022 16:22:23 10/11/19 23 Cardiovascular disease risk reduction counseling completed Carlene LUCY Anderson MA [facility] 10/06/2022 16:22:54 10/11/19 23 prevention-annual alcohol misuse screening completed Carlene LUCY Anderson [facility] 10/06/2022 16:22:57 08/10/19 22 Medicare Wellness Visit completed Carlene LUCY Anderson [facility] 08/09/2021 07:49:24 08/10/19 22 Alcohol use screening completed Carlene LUCY Anderson [facility] 08/09/2021 07:49:24 08/10/19 22 Cardiovascular disease risk reduction counseling completed Carlene LUCY Anderson [facility] 08/09/2021 07:49:24 02/26/20 21 colonoscopy completed Gisell [place], [address], [facility] 03/01/2021 12:57:18 07/08/19 21 Medicare Wellness Visit completed Telma Villar MA [facility] 06/29/2020 16:05:10 07/08/19 21 prevention-cardiov ascular risk reduction counseling completed Telma Villar MA [facility] 06/29/2020 16:05:10 07/08/19 21 prevention-annual alcohol misuse screening completed Telma Villar MA [facility] 06/29/2020 16:05:10 07/08/19 21 Advanced Care Planning completed Gisell [place], [address], [facility] 07/07/2020 11:53:43 06/03/19 20 Medicare Wellness Visit completed Belkis Mendez LPN [facility] 06/03/2019 13:48:44 06/03/19 20 prevention-cardiov ascular risk reduction counseling completed Belkis Mendez LPN [facility] 06/03/2019 13:48:44 06/03/19 20 prevention-annual alcohol misuse screening completed Belkis Mendez CURRICULUM SPECIALIST [facility] 06/03/2019 13:48:44 05/31/19 19 Medicare Wellness Visit completed Belkis Mendez LPN [facility] 05/30/2018 10:27:16 05/23/19 18 Medicare Wellness Visit completed Belkis Mendez CURRICULUM SPECIALIST [facility] 05/22/2017 13:44:47 05/08/19 18 Oly - Colonoscopy completed Jeffrey Aldridge [address] [place] [address], [address], [facility] 05/08/2017 11:36:34 03/06/20 17 Suture/staple Removal completed Chino Bishop MD [address] [place] [address], [address], [facility] 03/06/2017 15:56:42 01/19/20 17 Physical Activity Counselling completed Chitra Cowan [address] [place] [address], [address], [facility] 01/18/2017 19:24:47 01/19/20 17 55921: PT Eval Low Complexity completed Chitra Cowan [address] [place] [address], [address], [facility] 01/18/2017 19:24:47 12/08/19 17 Refraction completed Nadeem Blanchard [facility] 12/07/2016 09:10:56 05/19/19 17 Medicare Wellness Visit completed Belkis Mendez CURRICULUM SPECIALIST [facility] 05/18/2016 09:12:11 05/15/19 16 Medicare Wellness Visit completed Belkis Mendez LPN [facility] 05/15/2015 11:06:32 05/07/19 15 Medicare Wellness Visit completed Mariana Jason [facility] 05/07/2014 09:24:19 05/06/19 15 Oly - Colonoscopy completed Jeffrey Aldridge [address] [place], [address], [facility] 05/06/2014 13:09:21 04/30/19 14 Medicare Wellness Visit completed Katina Win MA [facility] 04/30/2013 10:43:22 04/26/19 13 Medicare Wellness Visit completed Wanda Faustin CMA [facility] 04/26/2012 10:58:01 06/07/19 09 Toenail Avulsion completed Silvestre Patel PA-C [address] [place], [address], [facility] 06/06/2008 10:06:19 Imaging Results None recorded. Procedure Notes None recorded. Medical Equipment None Reported. Allergies Allergen ID Allergen Name Allergen Category Reaction Reaction Severity Criticality Documentation Date Start Date Code Code System Note Provider Name and Address Organization Details Recorded Time 804352 amlodipin e medicatio n other moderate Not available 11/07/2018 33487 RxNorm Chino Bishop MD [address] [facility], [place], [address], [facility] 9 11:18:43 Medications Name Sig Start Date [...] Available oxymetazo line 0.05 % nasal spray [place] 2 sprays twice a day by intranas [...] Updated DateTime 5 174.63 cm 30.3 kg/m2 99469.8 4 g 86 /min 99 % 99 % 97.5 [degF] 130 mm[Hg] 88 mm[Hg] 158 mm[Hg] 98 mm[Hg] Kim Montano MA [facility] 5 13:40:29 Social History Question Answer Notes LastModified by Organizat ion Details LastModified Time Tobacco Smoking Status Former Smoker quit '95 after 20 yrs 1ppd, cigar rarely; [facility] 11:54:55 Do You Have An Advance Directive? Yes Information not available 10/12/2023 What Is Your Level Of Alcohol Consumption? Occasional A Glass Wine 3-4x/week. No Hx Abuse. [email or web address] Information not available 08/09/2021 Do You Wear A Helmet When Biking? No Information not available 02/03/2015 What Is Your Level Of Caffeine Consumption? Moderate 2 Cups Coffee Daily Information not available 08/09/2021 How Much Tobacco Do You Chew? None [email or web address] Information not available 12/16/2014 Are You Currently Employed? No Information not available 08/09/2021 What Type Of Diet Are You Following? REGULAR Information not available 02/03/2015 Which Illicit Or Recreational Drugs Have You Used? None [email or web address] Information not available 08/09/2021 Do You Or Have You Ever Used E-cigarettes Or Vape? Never Used Electronic Cigarettes [email or web address] Information not available 08/09/2021 Education Post Graduate [facility] Informatio n not available 10/12/2023 What Is The Highest Grade Or Level Of School You Have Completed Or The Highest Degree You Have Received? 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 Information not available 07/07/2020 Have There Been Any Changes To Your Family Or Social Situation? No [email or web address] Information not available 08/09/2021 When Did You Quit Smoking? 16+yearssince lastcigarette Information not available 12/16/2014 How Many Days In The Past Year Have You Had A Heavy Drinking Consumption (4+ Female, 5+ Male)? 1 07/07/20 JI [email or web address] Information not available 04/26/2012 Are There Any Guns Present In Your Home? No [email or web address] Information not available 08/09/2021 Do You Use Insect Repellent Routinely? Yes Information not available 08/09/2021 Live Alone Or With Others? With Others Information not available 12/16/2014 Patient Has Health Care Proxy Signed And In Chart Yes [email or web address] Information not available 10/11/2022 CCM Consent Discussion 05/30/2018 [email or web address] Information not available 05/30/2018 Marital Status Informatio n not available 05/07/2014 Mosquito Repellent Used Routinely Yes Information not available 02/03/2015 What Was The Date Of Your Most Recent Tobacco Screening? 03/09/2023 [email or web address] Information not available 03/09/2023 How Many Children Do You Have? 1 Daughter In Jbphh [email or web address] Information not available 08/09/2021 What Is Your Current Pack Years? -packyear s Information not available 12/16/2014 What Is Your Relationship Status? Female Spouse Information not available 08/09/2021 Do You Use Your Seat Belt Or Car Seat Routinely? Yes [email or web address] Information not available 08/09/2021 Seat Belts Used Routinely Yes Information not available 02/03/2015 Are You Sexually Active? Yes Information not available 05/07/2014 Smoke Alarm In Home Yes Information not available 02/03/2015 Do You Have Smoke And Carbon Monoxide Detectors In Your Home? Yes [email or web address] Information not available 08/09/2021 Are You Passively Exposed To Smoke? No Information not available 08/09/2021 Do You Or Have You Ever Used Smokeless Tobacco? Never Used Smokeless Tobacco [email or web address] Information not available 08/09/2021 How Much Tobacco Do You Smoke? No [email or web address] Information not available 08/09/2021 General Stress Level Low Information not available 02/03/2015 Do You Use Any Illicit Or Recreational Drugs? No [email or web address] Information not available 08/09/2021 Do You Use [...] virus, trivalent, preservative 1 completed Not Available [facility] 04/06/2019 02:18:30 pneumococcal polysaccharide PPV23 1 completed Not Available [facility] 04/06/2019 02:14:54 Influenza, split virus, trivalent, preservative 1 completed Not Available [facility] 04/06/2019 02:29:24 Tdap 8 completed Not Available [facility] 02/02/2011 05:21:55 Influenza, split virus, trivalent, PF 2 completed Not Available [facility] 04/06/2019 02:29:56 Influenza, split virus, trivalent, PF 3 completed Not Available [facility] 04/06/2019 02:26:42 Influenza, high-dose, trivalent, PF 5 completed Not Available [facility] 04/06/2019 02:34:15 Pneumococcal conjugate PCV 13 5 completed Not Available [facility] 04/06/2019 02:34:59 Influenza, high-dose, trivalent, PF 6 completed Not Available [facility] 04/06/2019 02:21:08 Influenza, high-dose, trivalent, PF 7 completed Not Available [facility] 04/06/2019 02:22:01 Hep A-Hep B 5 completed Angela Grewal LPN null, [facility] 10/28/2014 10:57:12 Hep A-Hep B 5 completed Angela Grewal LPN null, [facility] 10/28/2014 10:57:12 typhoid, unspecified formulation 5 completed Angela Grewal LPN null, [facility] 10/28/2014 10:57:12 Td (adult), 2 Lf tetanus toxoid, preservative free, adsorbed 8 completed Not Available [facility] 04/06/2019 02:34:17 Influenza, high-dose, trivalent, PF 8 completed Not Available [facility] 04/06/2019 02:23:31 Influenza, high-dose, trivalent, PF 9 completed Not Available [facility] 04/06/2019 02:24:03 Influenza, high-dose, quadrivalent, PF 0 completed Aydee Carvalho RN null, [facility] 12/26/2019 09:08:25 Influenza, high-dose, quadrivalent, PF 2 completed Anuradha Jain CMA null, [facility] 01/06/2022 10:20:11 COVID-19, mRNA, LNP-S, PF, 30 mcg/0.3 mL dose 1 completed [facility] 11:27:00 COVID-19, mRNA, LNP-S, PF, 30 mcg/0.3 mL dose 1 completed Telma Villar MA null, [facility] 07/07/2020 11:27:36 zoster recombinant 1 completed [facility]oon Green [facility] 03/30/2021 10:00:50 zoster recombinant 2 completed [facility] 08/09/2021 11:58:12 COVID-19, mRNA, LNP-S, PF, 100 mcg/0.5mL dose or 50 mcg/0.25mL dose 1 completed Nilmari, RMA Anderson null, [facility] 08/09/2021 11:58:38 Influenza, split virus, quadrivalent, preservative 1 completed Gisell Lassiter. [address] [place] [address], [address], [facility] 08/09/2021 12:32:57 COVID-19, mRNA, LNP-S, PF, 100 mcg/0.5mL dose or 50 mcg/0.25mL dose 2 completed Nilmari, RMA Anderson null, [facility] 02/03/2022 15:57:36 Influenza, high-dose, quadrivalent, PF 3 completed Nilmari, RMA Anderson null, [facility] 03/09/2023 08:27:43 COVID-19, mRNA, LNP-S, bivalent, PF, 50 mcg/0.5 mL or 25mcg/0.25 mL dose 2 completed Nilmari, RMA Anderson null, [facility] 03/09/2023 08:28:07 COVID-19, mRNA, LNP-S, PF, 50 mcg/0.5 mL 3 completed Nilmari, RMA Anderson null, [facility] 03/09/2023 08:28:24 Past Encounters Encounter ID Performer Location Encounter Start Date Encounter Closed Date Diagnosis/Indication Diagnosis SNOMED-CT Code Diagnosis ICD10 Code Diagnosis Note [id number] FRANCISCO STOUT DNP , [facility] [place] [address] [place] [address] 06/14/2024 13:31:09 06/14/2024 15:51:41 Localized eruption of skin 774138017 R21 Patients presents for evaluation of rash consistent with: Lupus. DDx fungal rash, sunburn. Treated with: topical steroids. Follow up if rash is not improving or with other concerns. Consider use of PO steroids or more potent topical steroids I have contacted pt's rheumatolo gy practice ([facility]) and made them aware of patient's current signs and symptoms alongside the planned treatment. They plan on seeing him next week. Copy of today's encounter note will be faxed over. 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 Managed with methotrexa te 15 [...] ID Guarantor Name 06/14/2024 1 MEDICARE B-MA: [employer] Dandy Carcamo [id number] Dandy Carcamo 06/14/2024 2 [facility] [id number] Dandy Carcamo [id number] Dandy Carcamo Notes Date Note Type [...] joint pain, arthralgias, or systemic symptoms.Followed by [facility]ology. Reports his established rheum provider has left the practice and now he is waiting an appointment with a new provider FRANCISCO STOUT DNP [address] [place] [address], [phone], [facility] 06/14/2024 15:21:55
== END 2024-06-18 15:32 | disposition home or self-care (01) ==
LOC: HO.RHE 14:37
PROVIDERS: Visit Provider Student in an Organized Health Care Education/Training Program
DX: M32.9 Systemic lupus erythematosus, unspecified (principal); Z51.81 Encounter for therapeutic drug level monitoring; Z79.69 Long term (current) use of other immunomodulators and immunosuppressants; Z79.899 Other long term (current) drug therapy; Z79.620 Long term (current) use of immunosuppressive biologic
CPT/HCPCS: 99215; G2211

== ENCOUNTER → 2024-06-18 15:47 | Outpatient (BNV) | payer MEDICARE, OTHER, SELFPAY | PROVIDERS: Visit Provider Radiology Diagnostic Radiology | DX: M32.9 Systemic lupus erythematosus, unspecified (principal) | CPT/HCPCS: 72072; 72110; 72202; 73030; 73562 ==

== ENCOUNTER 2024-07-12 15:28 | Outpatient (AMB) | payer MEDICARE, OTHER, SELFPAY ==
--- NOTE | 2024-07-12 15:30 | A.OFFVIS_ITS ---
Vital Signs 07/12/24 15:31 Height 5 ft 10 in Weight 199 lb 4.766 oz BMI 28.6 BP 132/78 Blood Pressure Location Lt brachial Position Sitting Pulse 70 Pulse Source Pulse Oximeter Pulse Oximetry (%) 98 Oxygen Delivery Method Room Air Intake Visit Reasons: follow up/ MD dawkins appt Intake Note: Patient presents for follow up on SLE and lab review. She was last seen in the office on 05/08/[address] Bergman. Patient complains of fogginess, and low back pain. Allergies No Known Allergies Allergy (Verified 07/12/24 15:35) Medication List - Last Reconciled 07/12/24 by Nanette Bergman MD anifrolumab-fnia (Saphnelo) 300 mg IV Q4W dextromethorphan-guaifenesin 30-600 mg Take 1 tablet once weekly with methotrexate and another tablet the following day duloxetine 20 mg PO DAILY folic acid 2 mg (2 x 1 mg) PO DAILY 90 days hydroxychloroquine 200 mg PO BID insulin syringe-needle U-100 (BD Insulin Syringe) use once weekly with methotrexate insulin syringe-needle U-100 Use once weekly with methotrexate leucovorin calcium 10 mg PO QWEEK 90 days losartan 100 mg PO DAILY methocarbamol 500 mg PO TID PRN methotrexate sodium (PF) 12.5 mg (0.5 mL) subcut QWEEK 30 days naproxen sodium (Aleve) 220 mg PO BID PRN HPI Comments Details: Patient is a 78-year-old male with hypertension, and systemic lupus erythematosus here today for urgent visit Interval History: Patient last seen 06/18/2024 with me. At that time he was complaining of GI issues with methotrexate and so we attempted to change his methotrexate to leflu nomide. The change was met with recurrence of brain fog and joint pain and so he was restarted on the methotrexate. Today he is here for urgent visit for back pain Patient states when he walks any distance he starts to get muscle spasms in his back which lead to cramping of his buttocks going down to his posterior legs which makes it difficult for him to continue walking. This concerns him because he has a plan to go to [place] in August and he wants to be able to enjoy the trip Rheumatologic History: dx 2018 skin biopsy showing cutaneous lupus, fatigue, arthralgias +CHARLEEN+++SSa +DsDNA HCQ approx 2019 effective for skin Stopped oral methotrexate due to GI upset after taking it X 9 months in 05/2020 SQ MTX 05/2023 Saphnelo infusions added 11/2023 Switched Mtx to leflunomide but this was not efficacious and so we restarted Mtx Initial history: This is a 77-year-old male who presents for evaluation of SLE. He stated that since he has been having episodes of rashes all over his body especially after sun exposure, fatigue, generalized pain and weakness. Eventually around 2018 he was evaluated by Dermatology and a skin biopsy confirmed discoid lupus erythematosus. He was started on hydroxychloroquine with significant improvement of his rashes. He was evaluated by Rheumatology and methotrexate was added in 2020, he was on it for about 9 months and it was discontinued due to GI upset. He continues on hydroxychloroquine 200 mg Twice daily. He states that he continues to have at least 1 or 2 days per week episodes of brain fog, genera lized fatigue, pain in upper back, neck, shoulders, lower back. Whenever he does any work outside he gets a butterfly rash on his face. He denies any history of fevers. He states that his hands and feet are always cold. They do change color but he does not have to do anything about it to reverse it. Denies any history of DVT/PE. States that he has had GI symptoms for years and had significant workup by Gastroenterology. Including endoscopy and colonoscopy which were unremarkable per patient. He has intermittent heartburn. Occasionally takes omeprazole. Denies any dysphagia. He states that prednisone always does wonders for all his symptoms. States that his daughter was recently diagnosed with lupus and started on Plaquenil with dramatic improvement. He believes that his mother also had lupus as she also had photosensitivity and sun intolerance. Current Rheumatology Medication(s): Saphnelo 300mg IV every 4 weeks Methotrextae 12.5mg SC weekly Folic acid 2mg daily Leucovorin 10mg weekly HCQ 200mg bid PFSH Medical History Hypertension Surgical History H/O abdominoplasty S/P hernia repair Hx of tonsillectomy History of surgery Family History Daughter Lupus (systemic lupus erythematosus) Other Family history of lupus erythematosus Social History Household Members: Spouse Alcohol intake: current Alcohol intake frequency: a few times a week Alcohol type: wine Patient Tobacco Use Status: Former Tobacco user Review of Systems Const Details: Review of Systems Constitutional: Denies fever, chills, weight loss ENT: Denies vision changes, eye pain or eye redness, dental caries, dry mouth GI: Denies nausea, vomiting, diarrhea, abdominal pain, change in BM Pulm: Denies SOB, MALONE, hemoptysis, wheezing Cards: Denies chest pain, palpitations Skin: Denies Raynaud's, rash, nail changes, photosensitivity, IT INTEGRATION ARCHITECT: Denies headaches, weakness, paresthesias, recurrent falls MSK: as per HPI All other systems reviewed and are unremarkable except noted above Physical Exam Vital Signs: Last Vital Signs Pulse 70 07/12/24 15:31 BP 132/78 07/12/24 15:31 Pulse Ox 98 07/12/24 15:31 Oxygen Delivery Method Room Air 07/12/24 15:31 BMI result Body Mass Index 28.6 Vital signs reviewed Physical Examination CONSTITUITIONAL Patient alert and cooperative. Well appearing and in no apparent painful distress HEENT Conjunctiva and sclera clear. ?Pupils equal round and reactive to light. ?No lymphadenopathy. ? CHEST/RESPIRATORY SYSTEM Normal respiratory effort and able to speak in complete sentences. ?Clear to auscultation bilaterally. ?No crackles, rales, rhonchi, wheezes heard. CARDIAC SYSTEM Regular rate and rhythm. ?S1 and S2 heard no murmurs. ?Radial pulses intact bilaterally MSK Hands: ?Able to make a fist. No synovitis noted to the MCPs, PIPs or DIPs. ?No tenderness to palpation of these joints. No deformities noted. ? Wrists: ?Full range of motion at the wrists without pain. ?No tenderness to palpation or synovitis noted to the wrists. Elbows: Full range of motion without pain. No tenderness, weakness, swelling, increased warmth or erythema. Shoulders: Full range of active range of motion without pain. No tenderness, weakness, swelling, increased warmth or erythema. Hips: Full range of motion without pain. Hip bursa: No tenderness to palpation Knees: ?Full range of motion. ?No tenderness, swelling, increased warmth or erythema.?No effusion or crepitations Ankles: Full range of motion. ?No tenderness, swelling, increased warmth or erythema.? Feet: ?Negative squeeze test. ?No tenderness to palpation or swelling of the MTPs. Tender points:?No tenderness to palpation of the bilateral trapezius, supraspinatus, greater trochanters, anterior costochondral junctions, bilateral gluteal areas, bilateral suboccipital muscle insertions SKIN Skin intact without rashes. Results Reviewed Results Reviewed: Laboratory Tests 06/17/24 15:00 WBC 4.8 RBC 3.52 L Hgb 12.7 L Hct 36.9 L Plt Count 209 ESR 7 Sodium 138 Potassium 4.5 Chloride 104 Carbon Dioxide 27 BUN 24 H Creatinine 1.01 AST 22 ALT 21 Alkaline Phosphatase 46 C-Reactive Protein < 0.04 Total Protein 6.5 Laboratory Tests 10/31/23 06/17/24 14:38 15:00 Double Strand DNA Ab <1 Pending Anti-ds DNA Titer (Crith) Pending Anti-ds DNA (Crithidia) Pending Complement C3 130 Pending Complement C4 20 Pending CHARLEEN 1:80 SSA >5 Laboratory Tests 04/19/23 13:15 Hepatitis A IgM Ab Nonreactive Hep Bs Antigen Negative Hep Bs Antibody NONREACTIVE Hep B Core Total Ab Nonreactive Hepatitis C Ab (EIA) Nonreactive TB Test (T-Spot) Com Negative Assessment & Plan Assessment & Plan (1) Muscle spasm: Code(s): M62.838 - Other muscle spasm Category: Medical Plan: #Muscle spasm Patient is a 78-year-old male with lupus here today for urgent visit for back pain. 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 Currently on methocarbamol 500 mg 3 times a day which provides some relief we will try to optimize this and increase it to 1000 mg 3 times a day. Also recommended Salonpas capsaicin patches as well Plan - Increase methocarbamol to 1000mg tid - Salonpas capsacin patches to area of muscle spasm and pain - Continue lupus meds as prescribed - Keep follow up previous made Plan I spent 25 minutes reviewing the record and labs, taking a history, examining the patient, discussing the treatment plan, ordering diagnostic work up and documenting in the medical record Medications: Changed From methocarbamol No driving while taking this medication. Do no take with alcohol or other IT INTEGRATION ARCHITECT Depressants 500 mg PO TID PRN 90 tabs 1RF muscle spasm M62.838 - Other muscle spasm To methocarbamol No driving while taking this medication. Do no take with alcohol or other IT INTEGRATION ARCHITECT Depressants 1,000 mg (2 x 500 mg) PO TID 90 days 540 tabs 1RF muscle spasm M62.838 - Other muscle spasm Coding Level of Care Code Est Pt Level 3 (18831) Diagnoses Muscle spasm M62.838
[2024-07-12 15:31] VITALS: BP 132/78; PULSE 70; O2SAT 98; BMI 28.6
--- OUTSIDE RECORDS SUMMARY | 2024-07-12 15:57 | XMS_ITS | Data Portability ---
Author Organization [facility], [facility] Address [address] [place] [address] Care Team Providers Care Client Representative Name Role Phone GEORGIANA LU Urologist AKT LIANG Civil Designer BRIAN MARTÍNEZ Silk Spreader [facility] [employer] [facility] Civil Designer [facility] Pain Management [phone] KECIA ALVARADO Primary Care Provider [phone] Assessment Encounter Date Assessment Date Assessment LastModified by Organization Details LastModified Time 03/09/2023 03/09/2023 Chart review, [id number] visit and documentation 40 minutes. [email or web address] Not [...] meeting your goals. Please visit our website [facility] for more patient resources. As part of your care plan, we will help coordinate your ongoing medical needs, arrange for durable medical equipment, renew prescriptions and necessary prior authorizations, facilitate getting referrals and collaborating with specialist, referrals for VNA services. [email or web address] Not available 05/10/2024 14:16:50 06/14/2024 06/14/2024 Attestation: [...] plasma - start early January 20242023 024 [facility], [address] [place], [address], 4 14:08:10 PSA, serum or plasma - start early January 20242023 025 [facility], [address] [place], [address], 4 14:08:10 Referral pelvic floor therapy referral 2022 023 [email or web address] [facility], [address] , [place], [address], 3 12:47:33 rheumatolo gist referral - Pt's Nicole (on Hippa) called Referrals Dept @ [facility] she stated she spoke to Dr Ritter about seeing her Dandy for 2nd opinion. 2022 023 [facility], [address] [place] [address] Dr [facility], [place], [address], 4 12:54:24 Procedures None recorded. Surgeries None recorded. Imaging None recorded. Medication Orders triamcinol one acetonide 0.5 % topical ointment 2024 025 [id number], [address] [place], [address], 5 14:00:35 clotrimazo le-betamet hasone 1 %-0.05 % topical cream 2024 025 [id number], [address] [place], [address], 5 17:05:39 azithromyc in 250 mg tablet 2023 025 [id number], [address] [place], [address], 5 16:38:24 Patient TargetsNo targets recorded. Patient Instructions Encounter Date Encounter Id Patient Instructions Last Modified By Organization Details Last Modified Time 05/10/2024 [id number] high blood pressure: care instructions [email or web address] Not available 05/18/2024 12:38:20 learning about high blood pressure [email or web address] Not available 05/18/2024 12:38:21 Reason for Referral Civil Designer Referral for Lupus erythematosus Pt's Nicole (on Hippa) called Referrals Dept @ [facility] she stated she spoke to Dr Ritter about seeing her Dandy for 2nd opinion. Referring Physician: [facility], Encounter Date: 03/09/2023 Pelvic Floor Therapy Referra l for Abnormal defecation Referring Physician: Gisell Lassiter [facility], Encounter Date: 03/09/2023 Results Created Date Observation Date Name Description Value Unit Range Abnormal Flag Note LastModifiedBy Organization Detail LastModifiedTime 08/01/19 24 08/01/2023 CBC WBC 6.19 K/? ? ?L 4.23-9 .07 Not Available [address], [address], 08/01/2023 12:15:05 08/01/19 24 08/01/2023 CBC RBC 3.59 M/? ? ?L 4.63-6 .08 low Not Available [address], [address], 08/01/2023 12:15:05 08/01/19 24 08/01/2023 CBC HGB 12.9 g/dL 13.7-1 7.5 low Not Available [address], [address], 08/01/2023 12:15:05 08/01/19 24 08/01/2023 CBC HCT 37.7 % 40.1-5 1.0 low Not Available [address], [address], 08/01/2023 12:15:05 08/01/19 24 08/01/2023 CBC MCV 105.0 fL 79.0-9 2.2 high Not Available [address], [address], 08/01/2023 12:15:05 08/01/19 24 08/01/2023 CBC MCH 35.9 pg 25.7-3 2.2 high Not Available [address], [address], 08/01/2023 12:15:05 08/01/19 24 08/01/2023 CBC MCHC 34.2 g/dL 32.3-3 6.5 Not Available [address], [address], 08/01/2023 12:15:05 08/01/19 24 08/01/2023 CBC plt 215 K/? ? ?L 163-33 7 Not Available [address], [address], 08/01/2023 12:15:05 08/01/19 24 08/01/2023 CBC MPV 10.7 fL 9.4-12 .4 Not Available [address], [address], 08/01/2023 12:15:05 08/01/19 24 08/01/2023 CBC neut% 62.4 % 34.0-6 7.9 Not Available [address], [address], 08/01/2023 12:15:05 08/01/19 24 08/01/2023 CBC neut# 3.87 1.78-5 .38 Not Available [address], [address], 08/01/2023 12:15:05 08/01/19 24 08/01/2023 CBC lymph % 18.1 % 21.8-5 3.1 low Not Available [address], [address], 08/01/2023 12:15:05 08/01/19 24 08/01/2023 CBC lymph # 1.12 K/? ? ?L 1.32-3 .57 low Not Available [address], [address], 08/01/2023 12:15:05 08/01/19 24 08/01/2023 CBC mono% 6.0 % 5.3-12 .2 Not Available [address], [address], 08/01/2023 12:15:05 08/01/19 24 08/01/2023 CBC mono# 0.37 0.30-0 .82 Not Available [address], [address], 08/01/2023 12:15:05 08/01/19 24 08/01/2023 CBC eo% 12.0 % 0.8-7. 0 high Not Available [address], [address], 08/01/2023 12:15:05 08/01/19 24 08/01/2023 CBC eo# 0.74 0.04-0 .54 high Not Available [address], [address], 08/01/2023 12:15:05 08/01/19 24 08/01/2023 CBC baso% 1.3 % 0.2-1. 2 high Not Available [address], [address], 08/01/2023 12:15:05 08/01/19 24 08/01/2023 CBC baso# 0.08 0.00-0 .08 Not Available [address], [address], 08/01/2023 12:15:05 08/01/19 24 08/01/2023 CBC RDW-CV 13.2 % 11.6-1 4.4 Not Available [address], [address], 08/01/2023 12:15:05 08/01/19 24 08/01/2023 CBC Ig% 0.200 % 0.000- 1.500 Ig % >0.5 Indic ates possi ble Left Shift Not Available [address], [address], 08/01/2023 12:15:05 08/01/19 24 08/01/2023 CBC Ig# 0.010 0.000- 0.093 Not Available [address], [address], 08/01/2023 12:15:05 08/01/19 24 08/01/2023 CBC NRBC% 0.0 % 0.0-0. 2 Not Available [address], [address], 08/01/2023 12:15:05 08/01/19 24 08/01/2023 CBC NRBC# 0.000 0.000- 0.012 Not Available [address], [address], 08/01/2023 12:15:05 08/01/19 24 08/01/2023 ESR sed rate 10.0 0.0-20 .0 Not Available [address], [address], 08/01/2023 14:39:49 08/01/19 24 08/02/2023 COMP. METAB OLIC PANEL glucose 109 mg/dL 70-100 high Not Available [address], [address], 08/02/2023 11:55:30 08/01/19 24 08/02/2023 COMP. METAB OLIC PANEL BUN 19 mg/dL 7-18 high Not Available [address], [address], 08/02/2023 11:55:30 08/01/19 24 08/02/2023 COMP. METAB OLIC PANEL creatinine 1.2 mg/dL 0.8-1. 3 Not Available [address], [address], 08/02/2023 11:55:30 08/01/19 24 08/02/2023 COMP. METAB OLIC PANEL B/C 15.8 ratio Not Available [address], [address], 08/02/2023 11:55:30 08/01/19 24 08/02/2023 COMP. METAB [...] be used in pregn daija. Not Available [address], [address], 08/02/2023 11:55:30 08/01/19 24 08/02/2023 COMP. METAB OLIC PANEL sodium 139 mmol/ L 136-14 5 Not Available [address], [address], 08/02/2023 11:55:30 08/01/19 24 08/02/2023 COMP. METAB OLIC PANEL potassium 5.1 mmol/ L 3.5-5. 1 Not Available [address], [address], 08/02/2023 11:55:30 08/01/19 24 08/02/2023 COMP. METAB OLIC PANEL chloride 102 mmol/ L 96-107 Not Available [address], [address], 08/02/2023 11:55:30 08/01/19 24 08/02/2023 COMP. METAB OLIC PANEL anion gap 12.0 5.0-15 .0 Not Available [address], [address], 08/02/2023 11:55:30 08/01/19 24 08/02/2023 COMP. METAB OLIC PANEL CO2 25 mmol/ L 21-32 Not Available [address], [address], 08/02/2023 11:55:30 08/01/19 24 08/02/2023 COMP. METAB OLIC PANEL calcium 9.2 mg/dL 8.5-10 .3 Not Available [address], [address], 08/02/2023 11:55:30 08/01/19 24 08/02/2023 COMP. METAB OLIC PANEL total protein 6.6 g/dL 6.4-8. 2 Not Available [address], [address], 08/02/2023 11:55:30 08/01/19 24 08/02/2023 COMP. METAB OLIC PANEL albumin 3.8 g/dL 3.4-5. 0 Not Available [address], [address], 08/02/2023 11:55:30 08/01/19 24 08/02/2023 COMP. METAB OLIC PANEL globulin 2.8 g/dL Not Available [address], [address], 08/02/2023 11:55:30 08/01/19 24 08/02/2023 COMP. METAB OLIC PANEL A/G 1.4 ratio 0.8-2. 0 Not Available [address], [address], 08/02/2023 11:55:30 08/01/19 24 08/02/2023 COMP. METAB OLIC PANEL total bilirubin 0.40 mg/dL 0.00-1 .00 Not Available [address], [address], 08/02/2023 11:55:30 08/01/19 24 08/02/2023 COMP. METAB OLIC PANEL AST 21 U/L 0-37 Not Available [address], [address], 08/02/2023 11:55:30 08/01/19 24 08/02/2023 COMP. METAB OLIC PANEL ALT 29 U/L 6-63 Not Available [address], [address], 08/02/2023 11:55:30 08/01/19 24 08/02/2023 COMP. METAB OLIC PANEL alk. phos. 56 U/L 50-136 Not Available [address], [address], 08/02/2023 11:55:30 08/01/19 24 08/02/2023 COMPL EMENT C3 complement C3 126 mg/dL 90-207 Not Available [address], [address], 08/02/2023 11:55:32 08/01/19 24 08/02/2023 COMPL EMENT C4 complement C4 18.1 mg/dL 17.4-5 2.2 Not Available [address], [address], 08/02/2023 11:55:33 08/01/19 24 08/02/2023 C-SEBASTIEN CTIVE PROTE IN (RCRP ) C-reactive protein (rcrp) 0.6 mg/dL 0.5-9. 0 Not Available [address], [address], 08/02/2023 12:27:50 08/01/19 24 08/03/2023 DNA (DS) ANTIB JAMAL DNA (ds) antibody <1 IU/mL normal IU/mL Inter preta tion < or = 4 Negat neha 5-9 Indet ermin ate > or = 10 Posit neha Not Available [facility] [address], [place], [address], 08/03/2023 08:13:10 10/06/19 24 10/10/2023 LIPID PANEL cholesterol 166 mg/dL <200 mg/dl Giles able 200-2 39 mg/dl Borde rline High >240 mg/dl High Not Available [address], [address], 10/10/2023 14:22:22 10/06/19 24 10/10/2023 LIPID PANEL triglyceride s 122 mg/dL <150 mg/dL Joyce l 150-1 99 mg/dL Borde rline High 200-4 99 mg/dL High >500 mg/dL Very High Not Available [address], [address], 10/10/2023 14:22:22 10/06/19 24 10/10/2023 LIPID PANEL direct HDL 69 mg/dL <40 mg/dl - Major Risk for CHD >60 mg/dl - Negat neha Risk for CHD Not Available [address], [address], 10/10/2023 14:22:22 10/06/19 24 10/10/2023 LDL - CALCU LATED LDL - calculated 72.6 RISK CATEG ORY LDL GOAL _ CHD or CHD Risk Equiv alent s <100 mg/dl (10-y ear risk >20%) 2+ Risk Facto rs <130 mg/dl (10-y ear risk <= 20%) 0-1 Risk Facto r? <160 mg/dl ? Almos t all peopl e with 0-1 risk facto r have a 10 year risk <10%, thus 10 year risk asses ment in peopl e with 0-1 risk facto r is not chastity eldridge. Not Available [address], [address], 10/10/2023 14:22:23 11/17/19 24 11/17/2023 PSA PSA <0.05 NG/mL 0.00-4 .00 < Verif ied by godwin frank,jorge gc. Not Available [address], [address], 11/17/2023 14:08:10 11/17/19 24 11/17/2023 BASIC METAB OLIC PANEL glucose 86 mg/dL 70-100 Not Available [address], [address], 11/17/2023 15:00:51 11/17/19 24 11/17/2023 BASIC METAB OLIC PANEL BUN 26 mg/dL 7-18 high Not Available [address], [address], 11/17/2023 15:00:51 11/17/19 24 11/17/2023 BASIC METAB OLIC PANEL creatinine 1.0 mg/dL 0.8-1. 3 Not Available [address], [address], 11/17/2023 15:00:51 11/17/19 24 11/17/2023 BASIC METAB OLIC PANEL B/C 26.0 ratio Not Available [address], [address], 11/17/2023 15:00:51 11/17/19 24 11/17/2023 BASIC METAB [...] be used in pregn daija. Not Available [address], [address], 11/17/2023 15:00:51 11/17/19 24 11/17/2023 BASIC METAB OLIC PANEL sodium 142 mmol/ L 136-14 5 Not Available [address], [address], 11/17/2023 15:00:51 11/17/19 24 11/17/2023 BASIC METAB OLIC PANEL potassium 4.9 mmol/ L 3.5-5. 1 Not Available [address], [address], 11/17/2023 15:00:51 11/17/19 24 11/17/2023 BASIC METAB OLIC PANEL chloride 105 mmol/ L 96-107 Not Available [address], [address], 11/17/2023 15:00:51 11/17/19 24 11/17/2023 BASIC METAB OLIC PANEL anion gap 10.6 5.0-15 .0 Not Available [address], [address], 11/17/2023 15:00:51 11/17/19 24 11/17/2023 BASIC METAB OLIC PANEL CO2 26 mmol/ L 21-32 Not Available [address], [address], 11/17/2023 15:00:51 11/17/19 24 11/17/2023 BASIC METAB OLIC PANEL calcium 8.6 mg/dL 8.5-10 .3 Not Available [address], [address], 11/17/2023 15:00:51 02/28/20 24 02/28/2024 CBC WBC 7.30 K/? ? ?L 4.23-9 .07 Not Available [address], [address], 02/28/2024 12:19:10 02/28/20 24 02/28/2024 CBC RBC 3.57 M/? ? ?L 4.63-6 .08 low Not Available [address], [address], 02/28/2024 12:19:10 02/28/20 24 02/28/2024 CBC HGB 12.7 g/dL 13.7-1 7.5 low Not Available [address], [address], 02/28/2024 12:19:10 02/28/20 24 02/28/2024 CBC HCT 37.5 % 40.1-5 1.0 low Not Available [address], [address], 02/28/2024 12:19:10 02/28/20 24 02/28/2024 CBC MCV 105.0 fL 79.0-9 2.2 high Not Available [address], [address], 02/28/2024 12:19:10 02/28/20 24 02/28/2024 CBC MCH 35.6 pg 25.7-3 2.2 high Not Available [address], [address], 02/28/2024 12:19:10 02/28/20 24 02/28/2024 CBC MCHC 33.9 g/dL 32.3-3 6.5 Not Available [address], [address], 02/28/2024 12:19:10 02/28/20 24 02/28/2024 CBC plt 210 K/? ? ?L 163-33 7 Not Available [address], [address], 02/28/2024 12:19:10 02/28/20 24 02/28/2024 CBC MPV 11.3 fL 9.4-12 .4 Not Available [address], [address], 02/28/2024 12:19:10 02/28/20 24 02/28/2024 CBC neut% 61.7 % 34.0-6 7.9 Not Available [address], [address], 02/28/2024 12:19:10 02/28/20 24 02/28/2024 CBC neut# 4.50 1.78-5 .38 Not Available [address], [address], 02/28/2024 12:19:10 02/28/20 24 02/28/2024 CBC lymph % 23.7 % 21.8-5 3.1 Not Available [address], [address], 02/28/2024 12:19:10 02/28/20 24 02/28/2024 CBC lymph # 1.73 K/? ? ?L 1.32-3 .57 Not Available [address], [address], 02/28/2024 12:19:10 02/28/20 24 02/28/2024 CBC mono% 8.9 % 5.3-12 .2 Not Available [address], [address], 02/28/2024 12:19:10 02/28/20 24 02/28/2024 CBC mono# 0.65 0.30-0 .82 Not Available [address], [address], 02/28/2024 12:19:10 02/28/20 24 02/28/2024 CBC eo% 4.5 % 0.8-7. 0 Not Available [address], [address], 02/28/2024 12:19:10 02/28/20 24 02/28/2024 CBC eo# 0.33 0.04-0 .54 Not Available [address], [address], 02/28/2024 12:19:10 02/28/20 24 02/28/2024 CBC baso% 0.8 % 0.2-1. 2 Not Available [address], [address], 02/28/2024 12:19:10 02/28/20 24 02/28/2024 CBC baso# 0.06 0.00-0 .08 Not Available [address], [address], 02/28/2024 12:19:10 02/28/20 24 02/28/2024 CBC RDW-CV 12.8 % 11.6-1 4.4 Not Available [address], [address], 02/28/2024 12:19:10 02/28/20 24 02/28/2024 CBC Ig% 0.400 % 0.000- 1.500 Ig % >0.5 Indic ates possi ble Left Shift Not Available [address], [address], 02/28/2024 12:19:10 02/28/20 24 02/28/2024 CBC Ig# 0.030 0.000- 0.093 Not Available [address], [address], 02/28/2024 12:19:10 02/28/20 24 02/28/2024 CBC NRBC% 0.0 % 0.0-0. 2 Not Available [address], [address], 02/28/2024 12:19:10 02/28/20 24 02/28/2024 CBC NRBC# 0.000 0.000- 0.012 Not Available [address], [address], 02/28/2024 12:19:10 02/28/20 24 02/28/2024 ESR sed rate 8.0 0.0-20 .0 Not Available [address], [address], 02/28/2024 15:02:44 02/28/20 24 02/28/2024 URINA LYSIS color YELLOW yellow Not Available [address], [address], 02/28/2024 15:22:30 02/28/20 24 02/28/2024 URINA LYSIS clarity CLEAR clear Not Available [address], [address], 02/28/2024 15:22:30 02/28/20 24 02/28/2024 URINA LYSIS glucose NEGATI VE negati ve Not Available [address], [address], 02/28/2024 15:22:30 02/28/20 24 02/28/2024 URINA LYSIS bilirubin NEGATI VE negati ve Not Available [address], [address], 02/28/2024 15:22:30 02/28/20 24 02/28/2024 URINA LYSIS ketones NEGATI VE negati ve Not Available [address], [address], 02/28/2024 15:22:30 02/28/20 24 02/28/2024 URINA LYSIS specific gravity 1.020 1.001- 1.035 Not Available [address], [address], 02/28/2024 15:22:30 02/28/20 24 02/28/2024 URINA LYSIS pH 6.0 5.0-8. 0 Not Available [address], [address], 02/28/2024 15:22:30 02/28/20 24 02/28/2024 URINA LYSIS protein NEGATI VE negati ve Not Available [address], [address], 02/28/2024 15:22:30 02/28/20 24 02/28/2024 URINA LYSIS urobilinogen 0.2 E.U./D L <1.0 Not Available [address], [address], 02/28/2024 15:22:30 02/28/20 24 02/28/2024 URINA LYSIS nitrates NEGATI VE negati ve Not Available [address], [address], 02/28/2024 15:22:30 02/28/20 24 02/28/2024 URINA LYSIS blood NEGATI VE negati ve Not Available [address], [address], 02/28/2024 15:22:30 02/28/20 24 02/28/2024 URINA LYSIS leukocytes NEGATI VE negati ve Not Available [address], [address], 02/28/2024 15:22:30 02/28/20 24 02/28/2024 URINE , MICRO SCOPI C WBC 0-2 hpf 0-4/hp f Not Available [address], [address], 02/28/2024 15:32:50 02/28/20 24 02/28/2024 URINE , MICRO SCOPI C RBC 0-2 hpf 0-2/hp f Not Available [address], [address], 02/28/2024 15:32:50 02/28/20 24 02/28/2024 URINE , MICRO SCOPI C bacteria NONE SEEN none seen Not Available [address], [address], 02/28/2024 15:32:50 02/28/20 24 02/28/2024 URINE , MICRO SCOPI C yeast NONE SEEN none seen Not Available [address], [address], 02/28/2024 15:32:50 02/28/20 24 02/28/2024 URINE , MICRO SCOPI C squamous epithelial cells 2 hpf 0-5 Not Available [address], [address], 02/28/2024 15:32:50 02/28/20 24 02/28/2024 URINE , MICRO SCOPI C mucous NONE SEEN none seen Not Available [address], [address], 02/28/2024 15:32:50 02/28/20 24 02/29/2024 COMP. METAB OLIC PANEL glucose 88 mg/dL 70-100 Not Available [address], [address], 02/29/2024 12:17:16 02/28/20 24 02/29/2024 COMP. METAB OLIC PANEL BUN 25 mg/dL 7-18 high Not Available [address], [address], 02/29/2024 12:17:16 02/28/20 24 02/29/2024 COMP. METAB OLIC PANEL creatinine 1.1 mg/dL 0.8-1. 3 Not Available [address], [address], 02/29/2024 12:17:16 02/28/20 24 02/29/2024 COMP. METAB OLIC PANEL B/C 22.7 ratio Not Available [address], [address], 02/29/2024 12:17:16 02/28/20 24 02/29/2024 COMP. METAB [...] be used in pregn daija. Not Available [address], [address], 02/29/2024 12:17:16 02/28/20 24 02/29/2024 COMP. METAB OLIC PANEL sodium 144 mmol/ L 136-14 5 Not Available [address], [address], 02/29/2024 12:17:16 02/28/20 24 02/29/2024 COMP. METAB OLIC PANEL potassium 4.4 mmol/ L 3.5-5. 1 Not Available [address], [address], 02/29/2024 12:17:16 02/28/20 24 02/29/2024 COMP. METAB OLIC PANEL chloride 104 mmol/ L 96-107 Not Available [address], [address], 02/29/2024 12:17:16 02/28/20 24 02/29/2024 COMP. METAB OLIC PANEL anion gap 12.6 5.0-15 .0 Not Available [address], [address], 02/29/2024 12:17:16 02/28/20 24 02/29/2024 COMP. METAB OLIC PANEL CO2 27 mmol/ L 21-32 Not Available [address], [address], 02/29/2024 12:17:16 02/28/20 24 02/29/2024 COMP. METAB OLIC PANEL calcium 9.7 mg/dL 8.5-10 .3 Not Available [address], [address], 02/29/2024 12:17:16 02/28/20 24 02/29/2024 COMP. METAB OLIC PANEL total protein 6.7 g/dL 6.4-8. 2 Not Available [address], [address], 02/29/2024 12:17:16 02/28/20 24 02/29/2024 COMP. METAB OLIC PANEL albumin 3.9 g/dL 3.4-5. 0 Not Available [address], [address], 02/29/2024 12:17:16 02/28/20 24 02/29/2024 COMP. METAB OLIC PANEL globulin 2.8 g/dL Not Available [address], [address], 02/29/2024 12:17:16 02/28/20 24 02/29/2024 COMP. METAB OLIC PANEL A/G 1.4 ratio 0.8-2. 0 Not Available [address], [address], 02/29/2024 12:17:16 02/28/20 24 02/29/2024 COMP. METAB OLIC PANEL total bilirubin 0.60 mg/dL 0.00-1 .00 Not Available [address], [address], 02/29/2024 12:17:16 02/28/20 24 02/29/2024 COMP. METAB OLIC PANEL AST 17 U/L 0-37 Not Available [address], [address], 02/29/2024 12:17:16 02/28/20 24 02/29/2024 COMP. METAB OLIC PANEL ALT 22 U/L 6-63 Not Available [address], [address], 02/29/2024 12:17:16 02/28/20 24 02/29/2024 COMP. METAB OLIC PANEL alk. phos. 39 U/L 50-136 low Not Available [address], [address], 02/29/2024 12:17:16 02/28/20 24 02/29/2024 COMPL EMENT C3 complement C3 121 mg/dL 90-207 Not Available [address], [address], 02/29/2024 12:17:17 02/28/20 24 02/29/2024 COMPL EMENT C4 complement C4 18.9 mg/dL 17.4-5 2.2 Not Available [address], [address], 02/29/2024 12:17:17 02/28/20 24 02/29/2024 C-SEBASTIEN CTIVE PROTE IN (RCRP ) C-reactive protein (rcrp) <0.5 mg/dL 0.5-9. 0 < Verif ied by godwin ERNST Not Available [address], [address], 02/29/2024 12:38:40 02/28/20 24 02/29/2024 PROTE IN, TOTAL W/CRE AT, RANDO M URINE creatinine, random urine 233 mg/dL 20-320 normal Not Available [facility] [address], [place], [address], 02/29/2024 18:47:55 02/28/20 24 02/29/2024 PROTE IN, TOTAL W/CRE AT, RANDO M URINE protein/crea tinine ratio 64 mg/g_ creat 25-148 normal Not Available [facility] [address] [place] [address], [place], [address], 02/29/2024 18:47:55 02/28/20 24 02/29/2024 PROTE IN, TOTAL W/CRE AT, RANDO M URINE protein/crea tinine ratio 0.064 mg/mg _crea t 0.025- 0.148 normal Not Available [address], [place], [address], 02/29/2024 18:47:55 02/28/20 24 02/29/2024 PROTE IN, TOTAL W/CRE AT, RANDO M URINE protein, total, random ur 15 mg/dL 5-25 normal Not Available [address], [place], [address], 02/29/2024 18:47:55 02/28/20 24 03/04/2024 DNA (DS) ANTIB JAMAL, CRITH IDIA, IFA W/REF L DNA Ab (ds) crithidia,if a NEGATI VE negati ve Not Available [address], [place], [address], 03/04/2024 15:12:25 07/30/19 24 07/30/2023 CT, head, w/o contr ast No observ ation record ed. [place] [id number] [facility], [place], [address], 08/02/2023 09:06:01 Result Notes None recorded. Problems Name Problem SNOMED Code Status Onset Date Resolution Date Notes Provider Name and Address Organization Details Recorded Time Mixed hyperlipi demia 571249244 Completed 200712/16/2014 [place], [address], [facility] [place] 6 12:43:41 Atopic dermatiti s 82186419 Completed 12/16/2014 [place], [address], [facility] [place] 6 12:43:41 Candidias is of skin and nails Completed 05/07/2014 [place], [address], [facility] [place] 6 12:43:41 Hyperplas ia of prostate 886241951 Completed 05/07/2014 [place], [address], [facility] [place] 6 12:43:41 Ingrowing nail 716749433 Completed 02/06/2013 [place], [address], [facility] [place] 6 12:43:41 Anemia 582320084 Completed 200705/07/2014 [place], [address], [facility] [place] 6 12:43:41 Benign essential hypertens ion 5269645 Active 2007 [place], [address], [facility] [place] 6 12:43:41 Diverticu losis of colon without diverticu litis 597013671 Completed 200612/16/2014 Kiara Cobos MD [address] [place] [address] [place], [address], [facility] [place] 6 12:43:41 Benign prostatic hyperplas ia 777518903 Completed 200705/07/2014 Kiara Cobos MD [address] [place] [address] [place], [address], [facility] [place] 6 12:43:41 Psoriasis 2509855 Completed 201707/07/2020 Gisell brown MD [address] [place], [place] [address], [address], [facility] [place] 1 12:04:13 Gluten sensitivi ty 457251931 Completed 201907/07/2020 Gisell brown MD [address] [place] [address] [place], [address], [facility] [place] 1 12:03:46 ECG: sinus arrhythmi a 604413997 Completed 201906/03/2019 Chino Bishop MD [address] [place] [address] [place], [address], [facility] [place] 0 14:16:49 Multiple atrial premature complexes 164828334 Active 2019 Chino Bishop MD [address] [place], [place] [address], [address], [facility] [place] 0 14:16:44 Lupus erythemat osus 099140228 Active 2019 Chino Bishop MD [address] [place] [address] [place], [address], [facility] [place] 0 14:49:25 History of malignant neoplasm of prostate [id number] Active 2020 Gisell brown MD [address] [place], [place] [address], [address], [facility] 1 12:08:09 Mild neurocogn itive disorder 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 Procedures Surgical History Date Name Laterality Status Provider Name and Address Organization Details Recorded Time 10/12/19 Medicare Wellness Visit completed LUCY Concepcion [facility] 10/10/2023 08:12:29 10/12/19 Cardiovascular disease risk reduction counseling completed LUCY Concepcion [facility] 10/10/2023 08:12:40 10/12/19 prevention-annual alcohol misuse screening completed LUCY Concepcion [facility] 10/10/2023 08:12:41 10/11/19 Medicare Wellness Visit completed ULCY Concepcion Anderson [facility] 10/06/2022 16:22:23 10/11/19 23 Cardiovascular disease risk reduction counseling completed LUCY Concepcion [facility] 10/06/2022 16:22:54 10/11/19 prevention-annual alcohol misuse screening completed LUCY Concepcion [facility] 10/06/2022 16:22:57 08/10/19 Medicare Wellness Visit completed LUCY Concepcion Anderson [facility] 08/09/2021 07:49:24 08/10/19 22 Alcohol use screening completed LUCY Concepcion Anderson [facility] 08/09/2021 07:49:24 08/10/19 22 Cardiovascular disease risk reduction counseling completed LUCY Concepcion [facility] 08/09/2021 07:49:24 02/26/20 21 colonoscopy [place], [address], [facility] 03/01/2021 12:57:18 07/08/19 21 Medicare Wellness Visit completed Telma Villar MA [facility] 06/29/2020 16:05:10 07/08/19 21 prevention-cardiov ascular risk reduction counseling completed Telma Villar MA [facility] 06/29/2020 16:05:10 07/08/19 21 prevention-annual alcohol misuse screening completed Telma Villar MA [facility] 06/29/2020 16:05:10 07/08/19 21 Advanced Care Planning completed Gisell Nobles MD [address] [place] [address], [phone], [facility] 07/07/2020 11:53:43 06/03/19 20 Medicare Wellness Visit completed Belkis Mendez LPN [facility] 06/03/2019 13:48:44 06/03/19 20 prevention-cardiov ascular risk reduction counseling completed Belkis Mendez LPN [facility] 06/03/2019 13:48:44 06/03/19 20 prevention-annual alcohol misuse screening completed Belkis Mendez LPN [facility] 06/03/2019 13:48:44 05/31/19 19 Medicare Wellness Visit completed Belkis Mendez LPN [facility] 05/30/2018 10:27:16 05/23/19 18 Medicare Wellness Visit completed Belkis Mendez LPN [facility] 05/22/2017 13:44:47 05/08/19 18 Oly - Colonoscopy completed Jeffrey Aldridge [address] [place] [address], [phone], [facility] 05/08/2017 11:36:34 03/06/20 17 Suture/staple Removal completed Chino Bishop MD [address] [place] [address], [phone], [facility] 03/06/2017 15:56:42 01/19/20 17 Physical Activity Counselling completed Chitra Cowan [address] [place] [address], [phone], [facility] 01/18/2017 19:24:47 01/19/20 17 98611: PT Eval Low Complexity completed Chitra Cowan [address] [place] [address], [address], [facility] 01/18/2017 19:24:47 12/08/19 17 Refraction completed Nadeem Blanchard [facility] 12/07/2016 09:10:56 05/19/19 17 Medicare Wellness Visit completed Belkis Mendez LPN [facility] 05/18/2016 09:12:11 05/15/19 16 Medicare Wellness Visit completed Belkis Mendez LPN [facility] 05/15/2015 11:06:32 05/07/19 15 Medicare Wellness Visit completed Marianagianna Jason [facility] 05/07/2014 09:24:19 05/06/19 15 Oly - Colonoscopy completed Jeffrey Aldridge [address] [place], [address], [facility] 05/06/2014 13:09:21 04/30/19 14 Medicare Wellness Visit completed Katina Win [facility] 04/30/2013 10:43:22 04/26/19 13 Medicare Wellness Visit completed Wanda Faustin, [facility] 04/26/2012 10:58:01 06/07/19 09 Toenail Avulsion completed Silvestre Patel PA-C [address] [place], [address], [facility] 06/06/2008 10:06:19 Imaging Results Imaging Date Name Status LastModified by Organiz ation Details LastModified Time 07/30/2023 CT, head, w/o contrast completed [place] [id number] [place], [address], 08/02/2023 09:06:01 Procedure Notes None recorded. Medical Equipment None Reported. Allergies Allergen ID Allergen Name Allergen Category Reaction Reaction Severity Criticality Documentation Date Start Date Code Code System Note Provider Name and Address Organization Details Recorded Time 653679 amlodipin e medicatio n other moderate Not available 11/07/2018 40846 RxNorm Chino Bishop MD [address] [facility] [place], [address], [facility] completed Not Available Not Available Not Available leflunomi de 10 mg tablet TAKE 1 TABLET BY MOUTH EVERY DAY active Not Available Not Available No t Available triamcino lone acetonide 0.5 % topical ointment APPLY THIN COAT TO AFFECTED AREA TWICE A DAY active Not Available Not Available No t Available acetamino phen 300 mg-codein e 30 mg tablet TAKE 1 TABLET BY MOUTH EVERY 6 HOURS NEEDED FOR PAIN WILL CAUSE DROWSINE 10/10 completed Not Available Not Available Not [...] Available oxymetazo line 0.05 % nasal spray [place] 2 sprays twice a day by intranas [...] Updated DateTime 3 174.63 cm 30.6 kg/m2 41591.0 3 g 98 /min 100 % 100 % 140 mm[Hg] 100 mm[Hg] LUCY Concepcion [facility] 3 11:11:31 Date Recorded Body height Body mass index (BMI) Body weight Oxygen saturation Oxygen saturation in Arterial blood by Pulse oximetry Heart rate Systolic blood pressure Diastolic blood pressure Provider Name and Address Organization Details Last Updated DateTime 4 174.63 cm 30.2 kg/m2 27489.9 5 g 96 % 96 % 92 /min 126 mm[Hg] 78 mm[Hg] Anuradha Jain [facility] 4 09:01:33 Date Recorded Body height Body mass index (BMI) Body weight Heart rate Oxygen saturation Oxygen saturation in Arterial blood by Pulse oximetry Systolic blood pressure Diastolic blood pressure Provider Name and Address Organization Details Last Updated DateTime 4 174.63 cm 30.1 kg/m2 19891.4 6 g 77 /min 100 % 100 % 124 mm[Hg] 76 mm[Hg] Anuradha Jain [facility] 4 11:15:55 Date Recorded Body height Body mass index (BMI) Body weight Oxygen saturation Oxygen saturation in Arterial blood by Pulse oximetry Heart rate Systolic blood pressure Diastolic blood pressure Provider Name and Address Organization Details Last Updated DateTime 5 174.63 cm 30.2 kg/m2 11086.2 5 g 99 % 99 % 95 /min 122 mm[Hg] 78 mm[Hg] Lanre ortiz [facility] 5 16:41:12 Date Recorded Body height Body mass index (BMI) Body weight Heart rate Oxygen saturation Oxygen saturation in Arterial blood by Pulse oximetry Body temperature Systolic blood pressure Diastolic blood pressure Systolic blood pressure Diastolic blood pressure Provider Name and Address Organization Details Last Updated DateTime 5 174.63 cm 30.3 kg/m2 75663.8 4 g 86 /min 99 % 99 % 97.5 [degF] 130 mm[Hg] 88 mm[Hg] 158 mm[Hg] 98 mm[Hg] Kim Montano [facility] 5 13:40:29 Date Recorded Systolic blood pressure Diastolic blood pressure Provider Name and Address Organization Details Last Updated DateTime 03/27/2023 126 mm[Hg] 79 mm[Hg] LUCY Concepcion [facility] 03/27/2023 11:46:55 Social History Question Answer Notes LastModified by Organizat ion Details LastModified Time Tobacco Smoking Status Former Smoker quit '95 after 20 yrs 1ppd, cigar rarely; LUCY Concepcion [facility] 08/09/2021 11:54:55 Do You Have An Advance Directive? Yes [facility] Information not available 10/12/2023 What Is Your Level Of Alcohol Consumption? Occasional A Glass Wine 3-4x/week. No Hx Abuse. [email or web address] Information not available 08/09/2021 Do You Wear A Helmet When Biking? No Information not available 02/03/2015 What Is Your Level Of Caffeine Consumption? Moderate 2 Cups Coffee Daily Information not available 08/09/2021 How Much Tobacco Do You Chew? None Information not available 12/16/2014 Are You Currently Employed? No Information not available 08/09/2021 What Type Of Diet Are You Following? REGULAR Information not available 02/03/2015 Which Illicit Or Recreational Drugs Have You Used? None [email or web address] Information not available 08/09/2021 Do You Or Have You Ever Used E-cigarettes Or Vape? Never Used Electronic Cigarettes [email or web address] Information not available 08/09/2021 Education Post Graduate [employer] Informatio n not available 10/12/2023 What Is The Highest Grade Or Level Of School You Have Completed Or The Highest Degree You Have Received? 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 [email or web address] hospitals[facility]ari Information not available 07/07/2020 Have There Been Any Changes To Your Family Or Social Situation? No [email or web address] Information not available 08/09/2021 When Did You Quit Smoking? 16+yearssince lastciandreea Information not available 12/16/2014 How Many Days In The Past Year Have You Had A Heavy Drinking Consumption (4+ Female, 5+ Male)? 1 07/07/20 JI [email or web address] Information not available 04/26/2012 Are There Any Guns Present In Your Home? No [email or web address] Information not available 08/09/2021 Do You Use Insect Repellent Routinely? Yes [email or web address] Information not available 08/09/2021 Live Alone Or With Others? With Others Information not available 12/16/2014 Patient Has Health Care Proxy Signed And In Chart Yes [email or web address] Information not available 10/11/2022 CCM Consent Discussion 05/30/2018 [email or web address] Information not available 05/30/2018 Marital Status Informatio n not available 05/07/2014 Mosquito Repellent Used Routinely Yes Information not available 02/03/2015 What Was The Date Of Your Most Recent Tobacco Screening? 03/09/2023 [email or web address] Information not available 03/09/2023 How Many Children Do You Have? 1 Daughter In [place] Information not available 08/09/2021 What Is Your Current Pack Years? 20-packyear s Information not available 12/16/2014 What Is Your Relationship Status? Female Spouse Information not available 08/09/2021 Do You Use Your Seat Belt Or Car Seat Routinely? Yes [email or web address] Information not available 08/09/2021 Seat Belts Used Routinely Yes Information not available 02/03/2015 Are You Sexually Active? Yes Information not available 05/07/2014 Smoke Alarm In Home Yes Information not available 02/03/2015 Do You Have Smoke And Carbon Monoxide Detectors In Your Home? Yes [email or web address] Information not available 08/09/2021 Are You Passively Exposed To Smoke? No [email or web address] Information not available 08/09/2021 Do You Or Have You Ever Used Smokeless Tobacco? Never Used Smokeless Tobacco Information not available 08/09/2021 How Much Tobacco Do You Smoke? No [email or web address] Information not available 08/09/2021 General Stress Level Low Information not available 02/03/2015 Do You Use Any Illicit Or Recreational Drugs? No [email or web address] Information not available 08/09/2021 Do You Use [...] virus, trivalent, preservative 1 completed Not Available [facility] 04/06/2019 02:18:30 pneumococcal polysaccharide PPV23 1 completed Not Available [facility] 04/06/2019 02:14:54 Influenza, split virus, trivalent, preservative 1 completed Not Available [facility] 04/06/2019 02:29:24 Tdap 8 completed Not Available [facility] 02/02/2011 05:21:55 Influenza, split virus, trivalent, PF 2 completed Not Available [facility] 04/06/2019 02:29:56 Influenza, split virus, trivalent, PF 3 completed Not Available [facility] 04/06/2019 02:26:42 Influenza, high-dose, trivalent, PF 5 completed Not Available [facility] 04/06/2019 02:34:15 Pneumococcal conjugate PCV 13 5 completed Not Available [facility] 04/06/2019 02:34:59 Influenza, high-dose, trivalent, PF 6 completed Not Available [facility] 04/06/2019 02:21:08 Influenza, high-dose, trivalent, PF 7 completed Not Available [facility] 04/06/2019 02:22:01 Hep A-Hep B 5 completed Angela Grewal LPN null, [facility] 10/28/2014 10:57:12 Hep A-Hep B 5 completed TODD Josue, [facility] 10/28/2014 10:57:12 typhoid, unspecified formulation 5 completed TODD Josue, [facility] 10/28/2014 10:57:12 Td (adult), 2 Lf tetanus toxoid, preservative free, adsorbed 8 completed Not Available [facility] 04/06/2019 02:34:17 Influenza, high-dose, trivalent, PF 8 completed Not Available [facility] 04/06/2019 02:23:31 Influenza, high-dose, trivalent, PF 9 completed Not Available [facility] 04/06/2019 02:24:03 Influenza, high-dose, quadrivalent, PF 0 completed Aydee Carvalho RN null, [facility] 12/26/2019 09:08:25 Influenza, high-dose, quadrivalent, PF 2 completed Anuradha Jain CMA null, [facility] 01/06/2022 10:20:11 COVID-19, mRNA, LNP-S, PF, 30 mcg/0.3 mL dose 1 completed Telma Villar MA null, [facility] 07/07/2020 11:27:00 COVID-19, mRNA, LNP-S, PF, 30 mcg/0.3 mL dose 1 completed Telma Villar MA null, [facility] 07/07/2020 11:27:36 zoster recombinant 1 completed Yoon Green MA null, [facility] 03/30/2021 10:00:50 zoster recombinant 2 completed Nilmari, RMA Anderson null, [facility] 08/09/2021 11:58:12 COVID-19, mRNA, LNP-S, PF, 100 mcg/0.5mL dose or 50 mcg/0.25mL dose 1 completed Nilmari, RMA Anderson null, [facility] 08/09/2021 11:58:38 Influenza, split virus, quadrivalent, preservative 1 completed Gisell Lassiter. [address] [place] [address], [phone], [facility] 08/09/2021 12:32:57 COVID-19, mRNA, LNP-S, PF, 100 mcg/0.5mL dose or 50 mcg/0.25mL dose 2 completed Nilmari, RMA Anderson null, [facility] 02/03/2022 15:57:36 Influenza, high-dose, quadrivalent, PF 3 completed Nilmari, RMA Anderson null, [facility] 03/09/2023 08:27:43 COVID-19, mRNA, LNP-S, bivalent, PF, 50 mcg/0.5 mL or 25mcg/0.25 mL dose 2 completed Nilmari, RMA Anderson null, [facility] 03/09/2023 08:28:07 COVID-19, mRNA, LNP-S, PF, 50 mcg/0.5 mL 3 completed Nilmari, RMA Anderson null, [facility] 03/09/2023 08:28:24 Past Encounters Encounter ID Performer Location Encounter Start Date Encounter Closed Date Diagnosis/Indication Diagnosis SNOMED-CT Code Diagnosis ICD10 Code Diagnosis [facility] [id number] [facility] [address] [address] 03/16/2007 08:58:46 03/21/2007 11:16:05 [id number] [facility] [place] [address] [place] [place] [address] 07/09/2007 08:56:16 04/09/2008 02:02:29 [id number] [facility] [address] [place] [address] 09/04/2007 15:42:40 09/04/2007 15:42:47 [id number] [facility] [place] [address] [place] [address] [place] [address] 09/11/2007 10:45:51 04/09/2008 02:02:29 [id number] [facility] [address] [place] [address] 06/06/2008 09:13:40 06/09/2008 08:32:15 [id number] MICHAEL Ontiveros [facility] [address] [place] [address] [place] [address] 09/18/2008 07:59:52 09/23/2008 08:23:57 [id number] LAN [facility] [address] [place] [address] [place] [address] 10/08/2008 15:13:31 10/09/2008 08:16:00 [id number] LAN [facility] [place] [address] 04/15/2009 09:18:37 04/15/2009 15:26:06 [id number] MICHAEL Ontiveros [facility] [place] [address] 06/11/2009 08:46:44 06/11/2009 09:37:38 [id number] FP [facility] [place] [address] 12/09/2009 15:46:25 12/09/2009 17:14:34 [id number] FP [facility] [place] [address] 02/15/2010 16:10:54 02/16/2010 10:10:06 [id number] FP [facility] [place] [address] 04/08/2010 14:20:29 04/09/2010 09:00:24 [id number] FP [facility] [place] [address] 02/04/2011 15:36:00 02/04/2011 16:07:00 [id number] Radiology , [facility] [address] [place] [address] 06/09/2011 09:01:10 06/10/2011 12:05:[id number] [facility] OFFICE [address] [place] [address] [place] [address] 08/05/2011 10:25:01 08/05/2011 10:44:[id number] [facility] OFFICE [address] [place] [address] [place]arin [place] [address] 10/07/2011 10:23:33 10/07/2011 10:45:[id number] [facility]. KACY MONTENEGRO [address] [place] [address] 03/09/2012 11:03:40 03/09/2012 11:27:46 [id number] Khoa Siddiqui III, MD [address] [place] [address] 04/06/2012 10:19:23 04/06/2012 10:35:48 [id number] Khoa Siddiqui III, MD [address] [place] [address] 04/26/2012 10:53:54 04/26/2012 11:20:40 [id number] Jerrica Glaser LPN [address] [place] [address] 10/11/2012 10:23:49 10/11/2012 10:47:[id number] [facility]. KACY MONTENEGRO [address] [place] [address] 11/29/2012 09:01:06 11/29/2012 10:27:00 Influenza vaccine needed 1703632393 [id number] VIOLETA Terry, [address] [place] [address] 01/22/2013 08:54:13 01/22/2013 09:13:34 Benign essential hypertension 4037465 Blood pressure at goal. CONTINUE CURRENT MEDS Varicella vaccination 38278105 [id number] VIOLETA Lagunas, [facility], [address] [place] [address] 04/30/2013 10:35:26 04/30/2013 10:57:14 Adult health examination 968774866 see Risk Assessment and Lifestyle Change Counseling section above Counseling [id number] Essential hypertension 65728972 Primary ma lignant neoplasm of prostate 64127173 S/P surgery and IMRT [id number] Katina Win MA , [facility] [place] [address] [place] [address] [place] [address] 11/05/2013 07:56:44 11/05/2013 08:08:27 Mixed hyperlipidemia 819773727 Cholestero l is at goal Continue to work on diet and exercise as discussed Benign ess ential hypertension 4670867 Blood pressure at goal [id number] Maggi Post , [facility] [place] [address] [place] [address] [place] [address] 12/31/2013 09:30:22 01/01/2014 08:25:11 Pain in scrotum REAASSURE NO PATHOLOGY DETECTED. [id number] Khoa Siddiqui III, [facility], [facility] [address] [place] [address] 05/06/2014 10:29:00 05/06/2014 13:36:15 [id number] Mariana Jason , [facility] [place] [address] [place] [address] [place] [address] 05/07/2014 09:17:55 05/07/2014 09:46:49 Benign essential hypertension 3055280 Blood pressure at goal Adult heal th examination 877674064 see Risk Assessment and Lifestyle Change Counseling section above Counseling [id number] Neoplasm of prostate 562838149 PSA low on every 6 months hormone therapy [id number] Zara Lee MA , [facility] [place] [address] [place] [address] 12/16/2014 10:21:10 12/16/2014 11:00:53 Primary malignant neoplasm of prostate 06269321 followed by uro Benign ess ential hypertension 2535036 Mildly elev. Though ok at home 130/80. Just finished exercise today. Atopic dermatitis 46471207 dishydroti c eczema. trial high potency steroid Influenza vaccine needed 3608218715 106 Active or passive immunization 179975140 Lifestyle 070669905 [id number] Robin Lemus MD , [facility] [place] [address] [place] [address] [place] [address] 02/03/2015 08:20:24 02/03/2015 09:26:10 Atopic dermatitis 23338795 L20.9 partually responded to a low potency steroidal cream, will try high potency Papular eruption 0274767 01 R21 on his arms, upper chest suspect infecion (MRSA?) [id number] Kiara Cobos MD , [facility] [place] [address] [place] [address] [place] [address] 02/17/2015 13:50:45 02/17/2015 14:17:41 Atopic dermatitis 71664755 L20.9 much better on his all areas of eruption, cont clobetazol , counseled about this kind of dermatitis and preventati ve measures for the future [id number] Romana Brown , [facility] [place] [address] [place] [address] [place] [address] 05/15/2015 10:50:45 05/15/2015 11:29:49 Adult health examination 908639740 Z00.00 see Risk Assessment and Lifestyle Change Counseling section above Counseling 180890012 Z71 .9 Primary ma lignant neoplasm of prostate 98822518 C61 [id number] Chino Bishop MD , [facility] [place] [address] [place] [address] [place] [address] 05/20/2015 13:42:43 05/20/2015 14:01:07 Conjunctivitis 0271978 H10.9 Otitis media 92856911 H6 6.529 [id number] Chino Bishop MD , [facility] [place] [address] [place] [address] [place] [address] 05/27/2015 15:41:05 05/27/2015 16:19:16 Acute upper respiratory infection 89915520 J06.9 Educated patient that URI is a [...] resolve in 2-4 weeks. Eustachian tube disorder 70789400 H69.93 Impacted cerumen 4786301 6 H61.21 [id number] Belkis Mendez LPN , [facility] [place] [address] [place] [address] [place] [address] 11/11/2015 07:59:15 11/11/2015 08:41:09 Benign essential hypertension 2504172 I10 Blood pressure at goal Blood pressure Vertigo 407197061 R42 Cardiac arrhythmia 20419 7007 I49.9 [id number] Chino Bishop MD , [facility] [place] [address] [place] [address] 01/21/2016 13:52:10 01/21/2016 14:18:38 Active or passive immunization 898935585 Z23 Primary ma lignant neoplasm of prostate 63035118 C61 Benign ess ential hypertension 5892046 I10 Pre-surger y evaluation 092180418 Z01.115 [id number] Chino Bishop MD , [facility] [place] [address] [place] [address] [address] [place] [address] 05/18/2016 09:09:03 05/18/2016 09:39:51 Adult health examination 661713754 Z00.00 see Risk Assessment and Lifestyle Change Counseling section above Counseling 335262792 Z71 .9 Benign ess ential hypertension 6026062 I10 Blood pressure at goal Blood pressure NOT at goal. Primary ma lignant neoplasm of prostate 22533794 C61 [id number] Mily Brizuela, OD [facility], [facility] [address] [facility] [place] [address] 12/07/2016 08:54:22 12/07/2016 09:44:41 Astigmatism 36727882 H52.223 Presbyopia 85270041 H52. 4 Bilateral cataracts 9572 2003 H26.9 Hypermetropia 57372842 H 52.03 [id number] Chino Bishop MD , [facility] [place] [address] [place] [address] [address] [place] [address] 12/22/2016 09:04:24 12/22/2016 09:29:02 Active or passive immunization 000462611 Z23 Benign par oxysmal positional vertigo 108008661 H81.12 [id number] Chino Bishop MD , [facility] [place] [address] [place] [address] [place] [address] 01/04/2017 07:53:05 01/04/2017 08:16:30 Benign paroxysmal positional vertigo 306940741 H81.12 [id number] [facility], [address] [place] [address] 01/18/2017 16:49:12 01/18/2017 20:24:35 Benign paroxysmal positional vertigo 260239157 H81.11 [id number] Chitra Chapo Physical [facility], [address] [place] [address] 1 01/26/2017 10:45:33 01/28/2017 14:37:34 Benign paroxysmal positional vertigo 309087926 H81.11 [id number] Chino Bishop MD , [facility] [place] [address] [place] [address] 1 03/01/2017 15:23:05 03/01/2017 16:33:38 Tachycardia 5900650 R00.0 Benign ess ential hypertension 7008287 I10 Blood pressure at goal Blood pressure NOT at goal. Primary ma lignant neoplasm of prostate 45830923 C61 [id number] Chino Bishop MD , [facility] [place] [address] [place] [address] 1 03/06/2017 15:24:11 03/06/2017 15:56:14 Scalp laceration 980662823 S01.01XD Benign ess ential hypertension 4339942 I10 Blood pressure NOT at goal. Primary ma lignant neoplasm of prostate 61462747 C61 [id number] Chino Bishop MD , [facility] [place] [address] [place] [address] 1 04/12/2017 09:58:59 04/12/2017 10:49:58 Screening for malignant neoplasm of colon 607288978 Z12.11 Referral for a DIRECT booked colonoscop y. This patient is a healthy ASA Class 1 or 2 patient (only mild systemic disease), or a STABLE, well controlled insulin dependent diabetic. They do not have serious cardiac disease ie WA/angiopl asty within 1 year, symptomati c CHF; renal failure with CKD 4 or 5; take Coumadin, Plavix, Aggrenox, etc. Benign ess ential hypertension 0118987 I10 Blood pressure NOT at goal. [id number] Chino Bishop MD , [facility] [address] [place] [address] [address] [place] [address] 1 04/19/2017 11:49:17 04/19/2017 12:24:39 Benign essential hypertension 9933644 I10 Blood pressure NOT at goal. [id number] [facility], [facility] [address] [place] [address] 1 05/08/2017 10:26:03 05/08/2017 12:37:20 [id number] Chino Bishop MD , [facility] [address] [place] [address] [place] [address] 1 05/17/2017 10:16:16 05/17/2017 11:02:45 Benign essential hypertension 5300351 I10 Blood pressure NOT at goal. Dizziness 570617989 R42 [id number] Chino Bishop MD , [facility] [address] [place] [address] [address] [place] [address] 1 05/22/2017 13:31:43 05/22/2017 14:49:54 Adult health examination 849651867 Z00.00 see Risk Assessment and Lifestyle Change Counseling section above Counseling 528244826 Z71 .9 Depression screening 171 849858 Z13.89 depression screening tool administer ed, entered into emr, scored and discussed, time greater than 7.5 minutes Tachycardia 5146957 R00. 0 Abdominal mass 806718932 R19.00 [id number] Jerrica Glaser LPN , [facility] [address] [place] [address] [place] [address] 1 05/23/2017 14:35:39 05/23/2017 14:52:56 Tachycardia 3745237 R00.0 [id number] Chino Bishop MD , [facility] [address] [place] [address] [place] [address] 1 05/31/2017 16:07:33 05/31/2017 16:38:56 Benign essential hypertension 1695992 I10 Blood pressure NOT at goal. [id number] Chino Bishop MD , [facility] [address] [place] [address] [place] [address] 1 06/14/2017 16:19:58 06/14/2017 16:45:48 Pre-surgery evaluation 454874905 Z01.818 Benign ess ential hypertension 5564795 I10 Blood pressure NOT at goal. [id number] Chino Bishop MD , [facility] [address] [place] [address] 1 07/17/2017 13:22:24 07/20/2017 12:16:03 Benign essential hypertension 8469649 I10 Blood pressureat goal. Primary ma lignant neoplasm of prostate 85271074 C61 [id number] Chino Bishop MD , [facility] [address] [place] [address] 1 10/05/2017 10:41:42 10/05/2017 11:11:28 Active or passive immunization 411731534 Z23 Dizziness and giddiness 759647919 R42 [id number] Chino Bishop MD , [facility] [address] [place] [address] [address] [place] [address] 1 11/22/2017 09:53:26 11/22/2017 11:22:25 Benign essential hypertension 3883728 I10 Blood pressure NOT at goal. Primary ma lignant neoplasm of prostate 01538428 C61 [id number] Chino Bishop MD , [facility] [address] [place] [address] 1 02/28/2018 09:45:47 02/28/2018 10:22:37 Active or passive immunization 768167621 Z23 Benign ess ential hypertension 0385091 I10 Blood pressure NOT at goal. Primary ma lignant neoplasm of prostate 76556485 C61 [id number] Chino Bishop MD , [facility] [address] [place] [address] [address] [place] [address] 1 03/28/2018 10:11:27 03/28/2018 10:32:07 Benign essential hypertension 8055646 I10 Blood pressure NOT at goal. Ingrowing toenail 280532 009 L60.0 [id number] Brian Martínez DPM Podiatry, [facility] [address] [place] [address] 04/16/2018 14:19:50 04/16/2018 15:52:23 Ingrowing toenail 588323614 L60.0 [id number] Chino Bishop MD , [facility] [address] [place] [address] 1 05/30/2018 10:22:39 05/30/2018 11:04:13 Adult health examination 271048311 Z00.00 see Risk Assessment and Lifestyle Change Counseling section above Counseling 088558999 Z71 .9 Depression screening 171 512621 Z13.89 depression screening tool administer ed, entered into emr, scored and discussed, time greater than 7.5 minutes Benign ess ential hypertension 3284593 I10 Blood pressure NOT at goal. [id number] Mally Velasco D.O. , [facility] [address] [place] [address] 1 07/17/2018 11:40:37 07/17/2018 12:19:04 Screening for disorder 041292017 Z11.59 Right uppe r quadrant pain 866480286 R10.11 right abdominal pain and back pain- is beginning to improv on it's own.?if pulled muscle. will r/o GB dysfuction or kidney stone with abd u/sfairly benign exam, no s/s of shingles(d oes have resolving diffuse drug rash) [id number] Mally Velasco D.O. , [facility] [place] [address] [place] [address] 1 07/23/2018 11:37:09 07/23/2018 12:41:38 Diarrhea 59863702 R19.7 already following a fairly gluten free diet- has celiacprev CRP was 60- unclear if from rash or from GI process? Eruption c aused by drug 74948210 L27.0 ? if celiac. 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 Primary ma lignant neoplasm of prostate 26380261 C61 Psoriasis 8418881 L40.9 [id number] Chino Bihsop MD , [facility] [place] [address] [place] [address] 1 11/22/2018 10:49:21 11/22/2018 11:23:04 Benign essential hypertension 7097370 I10 Blood pressure NOT at goal. [id number] Blessing Deng LPN , [facility] [place] [address] [place] [address] 1 01/22/2019 14:26:55 01/22/2019 14:57:54 Active or passive immunization 538938455 Z23 [id number] Chino Bishop MD , [facility] [place] [address] [place] [address] 1 06/03/2019 13:45:05 06/03/2019 14:16:56 Adult health examination 687606219 Z00.00 see Risk Assessment and Lifestyle Change Counseling section above Counseling 364461161 Z71 .9 including cardiovasc ular risk reduction counseling Depression screening 171 212553 Z13.89 depression screening tool administer ed, entered into emr, scored and discussed, time greater than 7.5 minutes Screening for alcohol abuse 962052265 Z13.39 Essential hypertension 43521322 I10 [id number] Chino Bishop MD , [facility] [address] [place] [address] 1 12/09/2019 14:05:57 12/11/2019 15:06:02 Essential hypertension 21140309 I10 Lupus erythematosus 2009 01723 L93.0 [id number] Aydee Carvalho RN , [facility] [place] [address] [place] [address] 1 12/26/2019 09:05:10 01/01/2020 16:10:55 Active or passive immunization 250009169 Z23 [id number] Gisell Pearson MD , [facility] [place] [address] [place] [address] [place] [address] 1 07/07/2020 11:19:13 07/07/2020 12:22:25 Adult health examination 324372030 Z00.00 USPSTF guidelines reviewed and discussed with patient. colonoscop y 2018, redo 5 Y. to inquire from [facility] about Shingrix vaccine. Has health care proxy in place, to mail us a copy of it. Counseling 880395560 Z71 .9 including cardiovasc ular risk reduction counseling , LDl below 100, at 68, no statin or asa indicated. Depression screening 171 029120 Z13.31 depression screening tool administer ed, entered into emr, scored and discussed, time greater than 7.5 minutes, negative screen. Screening for alcohol abuse 356502188 Z13.39 negative screen. Advance di rective discussed with patient 741020162 Z71.[address], to send us copy. Essential hypertension 89302715 I10 untreated since BP went very low with HCTZ so taken off BP med. June 02 it was 100/62 at rheumatolo gy office. He will monitor his BP at home and send us his BP numbers. Lupus erythematosus 2008 78633 L93.0 on plaquenil, sees rhuematolo gist. Multiple a trial premature complexes 608676666 I49.1 denies palpitatio ns, very active, no cardiac sx. History of malignant neoplasm of prostate 333064997 Z85.46 He stopped Lupron injections and PSA remains untraceabl e. Follows up with urology on a regular basis. In remission currently. [id number] Belkis Mendez LPN , [facility] [address] [place] [address] [place] [address] 1 02/04/2021 14:31:23 02/04/2021 20:31:57 [id number] Belkis Mendez LPN , [facility] [address] [place] [address] [place] [address] 1 02/19/2021 09:41:21 02/19/2021 09:54:25 [id number] Alicia Lindsey RN , [facility] [address] [place] [address] [place] [address] 1 02/22/2021 13:56:18 02/23/2021 05:42:26 [id number] Fanta Perera LPN , [facility] [address] [place] [address] [place] [address] 1 03/02/2021 13:58:35 03/04/2021 07:18:01 [id number] Brian Martínez DPM Podiatry, [facility] [address] [place] [address] 1 06/14/2021 11:57:05 06/16/2021 12:54:29 Ingrowing toenail 550231108 L60.0 [id number] Gisell Lassiter . , [facility] [place] [address] [place] [address] 1 08/09/2021 11:48:24 08/09/2021 12:49:00 Adult health examination 329122167 Z00.00 USPSTF guidelines reviewed and discussed with patient. colonoscop y 2020, redo 5 Y.health care proxy form given to fill out.Vaccin ations UTD. Counseling 537219839 Z71 .9 including cardiovasc ular risk reduction counseling , LDL 70s without statin, no asa or statin indicated. Depression screening 171 946506 Z13.31 depression screening tool administer ed, entered into emr, scored and discussed, time greater than 7.5 minutes, negative screening. Screening for alcohol abuse 292010876 Z13.39 negative screen. Essential hypertension 87396136 I10 BP at target, when it goes up with lupus flare he takes extra losartan. Lupus erythematosus 2008 91756 L93.0 on plaquenil, sees rhuematolo gist. Multiple a trial premature complexes 085034139 I49.1 denies palpitatio ns, very active, no cardiac sx. History of malignant neoplasm of prostate 631062212 Z85.46 He stopped Lupron injections and PSA remains untraceabl e. No longer follows up with urology on a regular basis. In remission currently. Last PSA 02-03-21. needs yearly PSA. [id number] Robin Lemus MD , [facility] [place] [address] [place] [address] 1 11/02/2021 09:57:40 11/04/2021 08:40:10 Premature atrial contraction 448105143 I49.1 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 no med changes indicated [id number] JUNE BRANNON COTTRELL DNP , [facility] [place] [address] [place] [address] 1 11/05/2021 14:51:13 2021 12:39:42 Eruption 168292927 R21 rupture vesicles to b/l hands and [...] RPR testing today Benign ess ential hypertension 9168390 I10 BP not at goal [id number] Gisell Lassiter . 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 They seem to be drying up in response to topical steroid that he is using but he gets new ones. He is leaving for a [employer] cruise in 10 days. I am giving him an 8 day taper of prednisone hoping to stop this cycle of immune hyperactiv ity and new lesions. Call with any concerns. [id number] Robin Lemus MD , [facility] [place] [address] [place] [address] [place] [address] 12/17/2021 15:31:24 01/19/2022 09:11:23 COVID-19 575865012 U07.1 qualifies for paxlovid based on age 76 and lupus (even thogu is inactive)h e should take it , just based on the Dx of lupuscours e of covid, reviewedPo ss SE's discussed5 days isolation, 5 masked [id number] Anuradha Jain CMA , [facility] [place] [address] [place] [address] 1 01/06/2022 10:13:43 01/11/2022 14:16:05 Active or passive immunization 130460892 Z23 [id number] Gisell Lassiter . , [facility] [place] [address] [place] [address] 02/07/2022 10:37:07 02/07/2022 12:13:15 Essential hypertension 82698343 I10 BP not at target, will increase losartan to 100 mg daily. will get home BP numbers next week. Mild neuro cognitive disorder 591594879 G31.84 not affecting daily function and is improving, was related to lupus flare. Lupus erythematosus 2008 61400 L93.0 on plaquenil, sees rhuematolo gist. Multiple a trial premature complexes 260375110 I49.1 denies palpitatio ns, very active, no cardiac sx. History of malignant neoplasm of prostate 641139750 Z85.46 PSA remains untraceabl e. No longer follows up with urology on a regular basis. In remission currently. needs yearly PSA. [id number] Gisell Pearson MD , [facility] [place] [address] [place] [address] 10/10/2022 11:19:43 10/10/2022 14:00:21 Adult health examination 047383448 Z00.00 USPSTF guidelines reviewed and discussed with patient. colonoscop y 2020, redo 5 Y.health care proxy form given to fill out.Vaccin ations UTD.CV counseling done. Depression screening 171 138787 Z13.31 depression screening tool administer ed, negative Screening for alcohol abuse 144909664 Z13.39 Alcohol use screening tool administer ed, negative Screening for malignant neoplasm of prostate 031867811 Z12.5 PSA testing for ages 55-69 risks and benefits discussed {{patient declines testing te st ordered*}} . Mild neuro cognitive disorder 882987835 G31.84 not affecting daily function and is improving, was related to lupus flare. Benign ess ential hypertension 8450011 I10 has been at target, elevated today, he will check his bP at home daily, low salt diet, our staff with contact him in a couple of weeks to get BP records. Lupus erythematosus 2008 61317 L93.0 on plaquenil, sees rhuematolo gist. having some brain fog currently. Multiple a trial premature complexes 865684479 I49.1 denies palpitatio ns, very active, no cardiac sx. History of malignant neoplasm of prostate 120456311 Z85.46 PSA remains untraceabl e. No longer follows up with urology on a regular basis. In remission currently. needs yearly PSA. [id number] Gisell Pearson MD , [facility] [place] [address] [place] [address] [place] [address] 03/09/2023 10:54:54 03/09/2023 12:12:33 Mild neurocognitive disorder 285404938 G31.84 brain fog related to lupus flare and affects him being able to read a book for example. Benign ess ential hypertension 3798524 I10 has been at target, elevated today, he will check his bP at home daily, low salt diet, our staff with contact him in a couple of weeks to get BP records. Lupus erythematosus 2008 28959 L93.0 on plaquenil, sees rhuematolo gist. having more sx, wants to see another rheumatolo gist. states did better on MTX, also frustrated with back pain. Multiple a trial premature complexes 671277395 I49.1 denies palpitatio ns, very active, no cardiac sx. History of malignant neoplasm of prostate 362570225 Z85.46 PSA remains untraceabl e. No longer follows up with urology on a regular basis. In remission currently. needs yearly PSA. Abnormal defecation 1798 14002 R19.8 he has loose stools but pushing it out is difficult for him, he has tried various things, fiber, senna and it caused incontinen ce, will refer to pelvic floor therapy. [id number] Gisell MONTENEGRO, [facility] [place] [address] [place] [address] [place] [address] 10/12/2023 08:51:44 10/12/2023 13:01:47 Lupus erythematosus 561678695 L93.0 on plaquenil and injectable MTX .sees rheumatolo gist, Dr. Anne Ritter in [place]. They check labs frequently . Multiple a trial premature complexes 301031987 I49.1 denies palpitatio ns, very active, no cardiac sx. Benign ess ential hypertension 8422532 I10 at target below 130/80. continue same. History of malignant neoplasm of prostate 875099518 Z85.46 PSA remains untraceabl e. No longer follows up with urology on a regular basis. In remission currently. NEEDS YEARLY PSA. due January 2024. Mild neuro cognitive disorder 814307354 G31.84 brain fog related to lupus flare and improved with MTX. Adult heal th examination 469860698 Z00.00 USPSTF guidelines reviewed and discussed with patient. colonoscop y 2020, no further screening. health care proxy form inn place.Vacc inations UTD.PSA yearly with prostate ca hx. Depression screening 171 916691 Z13.31 depression screening tool administer ed, negative Screening for alcohol abuse 820956197 Z13.39 Alcohol use screening tool administer ed, negative [id number] Robin Lemus MD , [facility] [place] [address] [place] [address] 12/01/2023 10:49:49 12/11/2023 12:50:40 Acute sinusitis 71782543 J01.90 normal examdiagno sis by hx Lupus erythematosus 2008 29294 L93.0 already on pred for a flare (brain fog) [id number] Robin Lemus MD , [facility] [place] [address] [place] [address] 05/10/2024 16:21:34 05/20/2024 09:36:51 Genitocrural intertrigo 374603140 L30.4 usual rashtx discussed Lupus erythematosus 2008 92955 L93.0 already on pred for a flare (brain fog)hydrox ychloroqui neMTXpredn isonesaphn eio injections per [facility] rheumatolo gy DR Ritter or Edi ROSAS in past stable dx based on sunsensiti ve rash biopsied Mild neuro cognitive disorder 203575618 G31.84 Multiple a trial premature complexes 860261100 I49.1 History of malignant neoplasm of prostate 591105251 Z85.46 Benign ess ential hypertension 7666809 I10 [id number] FRANCISCO STOUT DNP , [facility] [place] [address] [place] [address] 06/14/2024 13:31:09 06/14/2024 15:51:41 Localized eruption of skin 292617936 R21 Patients presents for evaluation of rash consistent with: Lupus. DDx fungal rash, sunburn. Treated with: topical steroids. Follow up if rash is not improving or with other concerns. Consider use of PO steroids or more potent topical steroids I have contacted pt's rheumatolo gy practice ([facility]) and made them aware of patient's current signs and symptoms alongside the planned treatment. They plan on seeing him next week. Copy of today's encounter note will be faxed over. 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 Managed with methotrexa te 15 mg sub [...] ID Guarantor Name 03/09/2023 1 MEDICARE B-[place]: [facility] [employer] Dandy P Pueschel [id number] Dandy P Pueschel 03/09/2023 2 [facility] [id number] Dandy P Pueschel [id number] Dandy P Pueschel 10/12/2023 1 MEDICARE B-[place]: [facility] [employer] Dandy P Pueschel [id number] Dandy P Pueschel 10/12/2023 2 [facility] INDEMNITY [facility] [id number] Dandy P Pueschel [id number] Dandy P Pueschel 12/01/2023 1 MEDICARE B-[place]: [facility] [employer] Dandy P Pueschel [id number] Dandy P Pueschel 12/01/2023 2 [facility] INDEMNITY [facility] [id number] Dandy P Pueschel [id number] Dandy P Pueschel 05/10/2024 1 MEDICARE B-[place]: [employer] Dandy Rahmanchel [id number] Dandy Cintron Pueschel 05/10/2024 2 [facility] [id number] Dandy Cintron Pulashonchel [id number] Dandy Cintron Pueschel 06/14/2024 1 MEDICARE B-[place]: [facility] Dandy Cintron Pulashonchel [id number] [id number] Dandy Cintron Pueschel 06/14/2024 2 [facility] [id number] Dandy Cintron Pueschel [id number] Dandy Cintron Pulashonchel Notes Date Note Type Note Provider Name [...] things out through a constricted area . [facility] gave him senna but that caused fecal incontinence. Colonoscopy 9659493 and endoscopy was normal. Taking dicyclomine and hyoscyamine, some times both, hyoscyamine helps with cramps. Musculoskeletal; no myalgia, no joint pain, on plaquenil. Duloxetine was added by billing clinician. States has muscle aches, back and lower [...] it. States did better on MTX. Gisell Lassiter. [address] [place] [address], [place], [phone], [facility] 03/09/2023 11:49:52 4 text/html Risk Assessment and [...] In the past 12 months has the [employer], [employer] or [employer] threatened to shut off services?no How hard [...] plaquenil and MTX. Duloxetine was added by billing clinician. Gisell Lassiter. [address] [place] [address], [phone], [facility] 10/12/2023 09:32:44 5 text/html 78 year old [...] joint pain, arthralgias, or systemic symptoms.Followed by [facility] rheumatology. Reports his established rheum provider has left the practice and now he is waiting an appointment with a new provider FRANCISCO STOUT DNP [address] [place] [address], [phone], [facility] 06/14/2024 15:21:55
== END 2024-07-12 15:58 | disposition home or self-care (01) ==
LOC: HO.RHE 15:29
PROVIDERS: Visit Provider Student in an Organized Health Care Education/Training Program
DX: M62.838 Other muscle spasm (principal)
CPT/HCPCS: 99213

== ENCOUNTER → 2024-07-12 15:28 | Outpatient (BNVA) | payer MEDICARE, OTHER, SELFPAY | PROVIDERS: Visit Provider Student in an Organized Health Care Education/Training Program | DX: M32.9 Systemic lupus erythematosus, unspecified (principal); Z79.899 Other long term (current) drug therapy | CPT/HCPCS: 99212 ==

== ENCOUNTER 2024-10-08 12:51 | Outpatient (AMB) | payer MEDICARE, OTHER, SELFPAY ==
--- NOTE | 2024-10-08 12:58 | MHC.OFFVIS ---
Vital Signs 10/08/24 13:05 Height 5 ft 10 in Weight 203 lb 14.841 oz BMI 29.3 BP 124/80 Blood Pressure Location Rt brachial Position Sitting Pulse 85 Pulse Source Pulse Oximeter Pulse Oximetry (%) 98 Oxygen Delivery Method Room Air Intake Visit Reasons: follow up Intake Note: Patient presents for Lupus follow up. Allergies No Known Allergies Allergy (Verified 10/08/24 13:04) Medication List - Last Reconciled 10/08/24 by Nanette Bergman MD anifrolumab-fnia (Saphnelo) 300 mg IV Q4W folic acid 2 mg (2 x 1 mg) PO DAILY 90 days hydroxychloroquine 200 mg PO BID insulin syringe-needle U-100 (BD Insulin Syringe) use once weekly with methotrexate insulin syringe-needle U-100 Use once weekly with methotrexate leucovorin calcium 10 mg PO QWEEK 90 days losartan 100 mg PO DAILY methotrexate sodium (PF) 12.5 mg (0.5 mL) subcut QWEEK 30 days prednisone 5 mg PO DAILY HPI Comments Details: Patient is a 78-year-old male with hypertension, and systemic lupus erythematosus here today for follow up Interval History: Patient last seen 07/12/24 with me - Urgent visit - significant muscle spasms when walking - not responding to gabapentin or muscle relaxers - given prn prednisone Today, - The prednisone does help clear up the morning fogginess - He would sometimes have to take another dose in the afternoon (a total of 10mg per day) - Still has some pain in the muscle to the back of the thighs after long walks Rheumatologic History: dx 2018 skin biopsy showing cutaneous lupus, fatigue, arthralgias +CHARLEEN+++SSa +DsDNA HCQ approx 2019 effective for skin Stopped oral methotrexate due to GI upset after taking it X 9 months in 05/2020 SQ MTX 05/2023 Saphnelo infusions added 11/2023 Switched Mtx to leflunomide but this was not efficacious and so we restarted Mtx Initial history: This is a 77-year-old male who presents for evaluation of SLE. He stated that since he has been having episodes of rashes all over his body especially after sun exposure, fatigue, generalized pain and weakness. Eventually around 2018 he was evaluated by Dermatology and a skin biopsy confirmed discoid lupus erythematosus. He was started on hydroxychloroquine with significant improvement of his rashes. He was evaluated by Rheumatology and methotrexate was added in 2020, he was on it for about 9 months and it was discontinued due to GI upset. He continues on hydroxychloroquine 200 mg Twice daily. He states that he continues to have at least 1 or 2 days per week episodes of brain fog, generalized fatigue, pain in upper back, neck, shoulders, lower back. Whenever he does any work outside he gets a butterfly rash on his face. He denies any history of fevers. He states that his hands and feet are always cold. They do change color but he does not have to do anything about it to reverse it. Denies any history of DVT/PE. States that he has had GI symptoms for years and had significant workup by Gastroenterology. Including endoscopy and colonoscopy which were unremarkable per patient. He has intermittent heartburn. Occasionally takes omeprazole. Denies any dysphagia. He states that prednisone always does wonders for all his symptoms. States that his daughter was recently diagnosed with lupus and started on Plaquenil with dramatic improvement. He believes that his mother also had lupus as she also had photosensitivity and sun intolerance. Current Rheumatology Medication(s): Saphnelo 300mg IV every 4 weeks Methotrextae 12.5mg SC weekly Folic acid 2mg daily Leucovorin 10mg weekly HCQ 200mg bid Prednisone 5mg daily PFSH Medical History Hypertension Surgical History H/O abdominoplasty S/P hernia repair Hx of tonsillectomy History of surgery Family History Daughter Lupus (systemic lupus erythematosus) Other Family history of lupus erythematosus Social History Household Members: Spouse Alcohol intake: current Alcohol intake frequency: a few times a week Alcohol type: wine Patient Tobacco Use Status: Former Tobacco user Review of Systems Const Details: Review of Systems Constitutional: Denies fever, chills, weight loss ENT: Denies vision changes, eye pain or eye redness, dental caries, dry mouth GI: Denies nausea, vomiting, diarrhea, abdominal pain, change in BM Pulm: Denies SOB, MALONE, hemoptysis, wheezing Cards: Denies chest pain, palpitations Skin: Denies Raynaud's, rash, nail changes, photosensitivity, DIRECTORY OPERATOR: 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 Well appearing and in no apparent painful distress MSK Hands Right Hand: Able to make a fist. No swelling or tenderness to palpation of these joints. No deformities noted. Left Hand: Able to make a fist. No swelling or tenderness to palpation of these joints. No deformities noted. Wrists Right Wrist: Full ROM. 70 degrees of wrist flexion, 80 degrees of wrist extension. No swelling or TTP Left Wrist: Full ROM. 70 degrees of wrist flexion, 80 degrees of wrist extension. No swelling or TTP Elbows Right Elbow: Full ROM. No swelling or TTP. No TTP of the medial and lateral epicondyles Left Elbow: Full ROM. No swelling or TTP. No TTP of the medial and lateral epicondyles Shoulders Right shoulder: Full ROM. No swelling noted. No TTP of the AC joint, subacromial bursa or posterior shoulder Left shoulder: Full ROM. No swelling noted. No TTP of the AC joint, subacromial bursa or posterior shoulder Hips Right hip: Good ROM. No pain elicited with hip flexion/internal rotation/external rotation Left hip: Good ROM. No pain elicited with hip flexion/internal rotation/external rotation Hip bursa: No tenderness to palpation bilaterally Knees Right knee: Full ROM. No swelling noted. No TTP of the knee joint lie or pes anserine bursa Left knee: Full ROM. No swelling noted. No TTP of the knee joint lie or pes anserine bursa. Ankles Right ankle: Good ankle dorsiflexion and plantar flexion. No swelling. No TTP of the ankle joint Left ankle: Good ankle dorsiflexion and plantar flexion. No swelling. No TTP of the ankle joint Feet Right foot: Negative squeeze test Left foot: Negative squeeze test Tender points? No tenderness to palpation of the bilateral trapezius, supraspinatus, anterior costochondral junctions, bilateral suboccipital muscle insertions SKIN No rashes Vital Signs: Last Vital Signs Pulse 85 10/08/24 13:05 BP 124/80 10/08/24 13:05 Pulse Ox 98 10/08/24 13:05 Oxygen Delivery Method Room Air 10/08/24 13:05 BMI result Body Mass Index 29.3 Results Reviewed Results Reviewed: Laboratory Tests 06/17/24 09/30/24 15:00 [place] WBC 4.8 6.28 RBC 3.52 L 3.73 L Hgb 12.7 L 13.6 L Hct 36.9 L 39.9 L Plt Count 209 195 ESR 7 5 Sodium 138 Potassium 4.5 Chloride 104 Carbon Dioxide 27 BUN 24 H Creatinine 1.01 1.3 GFR 56.2 AST 22 14 ALT 21 25 Alkaline Phosphatase 46 C-Reactive Protein < 0.04 0.5 Total Protein 6.5 Laboratory Tests 06/17/24 09/30/24 15:00 [place] Double Strand DNA Ab <1 <1 Complement C3 151 133 Complement C4 17 17.3 Assessment & Plan Assessment & Plan (1) Lupus: Comment: dx 2018 skin biopsy showing cutaneous lupus, fatigue, arthralgias +CHARLEEN+++SSa +DsDNA HCQ approx 2019 effective for skin Stopped oral methotrexate due to GI upset after taking it X 9 months in 05/2020 SQ MTX 05/2023. Still complain about methotrexate flu and so was discontinued Code(s): M32.9 - Systemic lupus erythematosus, unspecified Category: Medical Plan: #Lupus Patient is a 78 y.o. male with lupus here today for follow up. Doing well overall No evidence of active lupus on exam Continues to complain of low back and posterior thigh pain Blood work normal with no evidence of active lupus Discussed with patient that doses higher than 5mg of steroids is associated with more adverse side effects and I advised against doubling up Recommending PT Plan - Continue saphnelo infusions 300mg every 4 weeks - Continue plaquenil 200mg bid - Continue topical tacrolimus - Methotrexate 12.5mg SC weekly - Folic acid 1mg daily - Leucovorin 10mg weekly - Tylenol 500 mg 2 tablets twice a day - Prednisone 5mg daily - RTC 4 months - Labs before visit: CBC, CMP, ESR, CRP, C3, C4, dsDNA, UA, UPC (2) Encounter for monitoring leflunomide therapy: Code(s): Z51.81 - Encounter for therapeutic drug level monitoring; Z79.69 - penitentiary (current) use of other immunomodulators and immunosuppressants Plan: #Long-term leflunomide Discussed with patient the benefits and risks of leflunomide for managing the rheumatic condition Benefits include: - Reduced pain, maintenance of remission and reduction of flares Risks include: - GI upset especially diarrhea, skin rash, cytopenias, hepatotoxicity, weight loss, neuropathy Leflunomide is highly teratogenic. ?Has a very long half-life. ?Needs cholestyramine washout if there is desire for Initiation: ?CBC, BMP, LFTs, hepatitis-B and C serologies every 2-4 weeks for 3 months Monitoring: ?CBC, BMP, LFTs, hepatitis B and C serologies (3) Encounter for monitoring of hydroxychloroquine therapy: Code(s): Z51.81 - Encounter for therapeutic drug level monitoring; Z79.899 - Other ocean transportation intermediary (current) drug therapy Plan: #Long-term Use of Hydroxychloroquine Discussed with patient the risks and benefits of hydroxychloroquine in managing the rheumatic condition Benefits include: - Reduced pain, reduce mortality, maintenance of remission and reduction of flares Risks include: - GI upset, skin hyperpigmentation, retinal toxicity (especially after more than 5 years of use), myopathy Advised yearly ophthalmology visits (4) ocean transportation intermediary (current) use of immunosuppressive biologic: Code(s): Z79.620 - ocean transportation intermediary (current) use of immunosuppressive biologic Plan: #Long-term use Anifrolumab Discussed with patient the risks and benefits of hydroxychloroquine in managing the rheumatic condition Benefits include: - Reduced pain, reduce mortality, maintenance of remission and reduction of flares Risks include: - Increased susceptibility to serious infections particularly viral infections like herpes zoster (shingles), respiratory tract infections and infusion related reactions (5) ocean transportation intermediary (current) use of systemic steroids: Code(s): Z79.52 - ocean transportation intermediary (current) use of systemic steroids Plan: #Long-term Use of Steroids Discussed with patient the risks and benefits of steroid for managing the rheumatic condition Benefits include: - Reduced pain, improved mobility, increased participation in activities, and decreased progression of disease Risks include: - GI upset, potential ultrasound worsening or formation (especially in patients > 65 years old), elevated blood pressure/worsening hypertension, elevated blood sugar/worsening diabetes control, worsening of bone density, elevated lipids/worsening triglycerides, cataract formation, weight gain Recommended using proton pump inhibitors (PPIs) for the duration of steroid use to reduce the risk of gastric ulcers and vitamin-D daily to reduce the risk of osteoporosis Labs checked: A1c, T spot, hepatitis-B and C serologies Pneumocystis jiroveci prophylaxis: Patient with risk factors including steroids greater than 50 mg for more than 30 days, age greater than 60 years, and lung involvement from underlying rheumatic disease requires prophylaxis and will be given so Plan I spent 30 minutes reviewing the record and labs, taking a history, examining the patient, discussing the treatment plan, ordering diagnostic work up and documenting in the medical record Orders: Orders PT Evaluation and Treatment Today S33.9XXA - Sprain of unspecified parts of lumbar spine and pelvis, initial encounter Medications: Refilled folic acid 2 mg (2 x 1 mg) PO DAILY 180 tabs 0RF 90 days M32.9 - Systemic lupus erythematosus, unspecified hydroxychloroquine 200 mg PO BID 180 tabs 1RF insulin syringe-needle U-100 Use once weekly with methotrexate 10 ea 1RF prednisone 5 mg PO DAILY 90 tabs 1RF M32.9 - Systemic lupus erythematosus, unspecified leucovorin calcium 10 mg PO QWEEK 13 tabs 1RF 90 days M32.9 - Systemic lupus erythematosus, unspecified methotrexate sodium (PF) 12.5 mg (0.5 mL) subcut QWEEK 2 mL 5RF 30 days M32.9 - Systemic lupus erythematosus, unspecified Discontinued insulin syringe-needle U-100 (BD Insulin Syringe) Discontinued Reason: Duplicate use once weekly with methotrexate 100 ea 0RF Coding Level of Care Code Est Pt Level 4 (23760) Complex EM visit Add On G2211 Diagnoses Lupus M32.9 Encounter for monitoring leflunomide therapy Z51.81; Z79.69 Encounter for monitoring of hydroxychloroquine therapy Z51.81; Z79.899 penitentiary (current) use of immunosuppressive biologic Z79.620 ocean transportation intermediary (current) use of systemic steroids Z79.52
[2024-10-08 13:05] VITALS: BP 124/80; PULSE 85; O2SAT 98; BMI 29.3
--- OUTSIDE RECORDS SUMMARY | 2024-10-08 13:53 | XMS_ITS | Encounter Summary ---
Author Organization [facility] Address [address] [facility] [address] [place] [id number] Phone Care Team Providers Care Braille Transcriber Name Role Phone Mally Velasco Primary Care Provider [phone] Encounter Details Date Type Department Care Team (Latest Contact Info) Description 05/18/2021 Transcribe Orders [address] [place] [address] Telma Cruz NP [address] [place] [id number] Diarrhea, unspecified type (Primary Dx) Social History Tobacco Use Types Packs/Day Years Used Date Smoking Tobacco: Former Cigarettes 1994 Smokeless Tobacco: Never Alcohol Use Standard Drinks/Week Comments Yes 0 (1 standard drink = 0.6 oz pure alcohol) occasionally 5-7/week; glass of wine Sex and Gender Information Value Date Recorded Sex Assigned at Male 03/23/2021 3:26 PM EST Legal Sex Male 10:08 PM EDT Gender Identity Male 03/23/2021 3:26 PM EST Sexual Orientation Not on file documented as of this encounter Plan of Treatment Not on file documented as of this encounter Results * C-Reactive Protein (05/18/2021 3:04 PM EST) C REACTIVE PROTEIN <3.0 0.0 - 4.0 mg/L [facility] Blood 05/18/2021 3:04 PM EST 05/18/2021 3:06 PM EST Telma Cruz [employer] DEVEL[employer] LAB BLOOD ORDERABLES Veronica l Result [address] [address] * (ABNORMAL) Comprehensive metabolic panel (05/18/2021 3:04 PM EST) SODIUM 134 133 - 146 mmol/L [facility] POTASSIUM 4.0 3.3 - 5.1 mmol/L [facility] CHLORIDE 97 96 - 108 mmol/L [facility] CO2 24 21 - 35 mmol/L [facility] BUN 25(H) 6 - 19 mg/dL [facility] CREATININE 1.00 0.5 - 1.5 mg/dL [facility] GLUCOSE 100(H) 70 - 99 mg/dL [facility] ALBUMIN 4.6 3.9 - 4.8 g/dL [facility] TOTAL PROTEIN 7.1 6.5 - 8.0 g/dL [facility] CALCIUM 9.6 8.4 - 10.3 mg/dL [facility] ALKALINE PHOSPHATASE 62 39 - 117 U/L [facility] TOTAL BILIRUBIN 0.3 0.0 - 1.2 mg/dL [facility] AST 34 0 - 37 U/L [facility] ALT 22 0 - 40 U/L [facility] GLOBULIN 2.5 1 - 4.8 g/dL [facility] EGFR 78 >59 mL/min/1.7 3m2 [facility] Comment:Estimated glomerular filtration rate calculated using the CKD-EPI refit equation. ANION GAP 17 10 - 20 mmol/L [facility] Blood 05/18/2021 3:04 PM EST 05/18/2021 3:06 PM EST Telma Cruz [employer] SOFTWARE DEVELOPER LAB BLOOD ORDERABLES Veronica l Result [address] [address] * (ABNORMAL) CBC (05/18/2021 3:04 PM EST) WBC 4.70 4.00 - 11.00 K/uL [facility] RBC 3.85(L) 3.90 - 5.69 M/uL [facility] HGB 13.6 12.4 - 17.3 g/dL [facility] HCT 38.3 37.0 - 51.0 % [facility] PLT 232 140 - 430 K/uL [facility] MCV 99.5(H) 78.0 - 97.0 fL [facility] MCH 35.3(H) 25.0 - 33.0 pg [facility] MCHC 35.5 32.0 - 36.0 g/dL [facility] RDW 12.5 11.0 - 15.0 % [facility] MPV 10.4 8.4 - 12.8 fl [facility] NRBC 0.00 0 /100 WBCs [facility] ABSOLUTE NRBC 0.00 0 K/uL [facility] Blood 05/18/2021 3:04 PM EST 05/18/2021 3:06 PM EST Telma Cruz [employer] SOFTWARE DEVELOPER LAB BLOOD ORDERABLES Veronica recio Result [facility] [address] [place] [address] documented in this encounter Visit Diagnoses Diagnosis Diarrhea, unspecified type- Primary documented in this encounter Care Teams Braille Transcriber Relationship Specialty Start Date End Date Mally Velasco DO [address] [place] [address] PCP - General Internal Medicine 05/18/21 documented as of this encounter Additional Source Comments The information contained in this document represents components of the legal health record. It is not the complete legal health record.[facility]
--- OUTSIDE RECORDS SUMMARY | 2024-10-08 13:54 | XMS_ITS | Data Portability ---
Author Organization [facility], [facility] Address [address] [place] [address] Care Team Providers Care City Controller Name Role Phone GEORGIANA LU Urologist KAT LIANG Jet Handler BRIAN MARTÍNEZ Food Safety Auditor [facility] Sales Correspondent [facility] Jet Handler [facility] PAIN MANAGEMENT Pain Management WEN LEMUS Primary Care Provider Assessment Encounter Date Assessment [...] Dr Lemus. ppijar Not available 06/14/2024 15:15:11 08/05/2024 08/05/2024 Ingrown toenail medial border left hallux jdinnall Not available 08/05/2024 16:18:21 10/07/2024 10/07/2024 Ingrown toenail medial border left hallux jdinnall Not available 10/07/2024 10:45:56 Plan of Treatment Reminders Order Date Submit Date Provider Last Modified By Organization Details Last Modified Time Details Appointments New Patient-1 5 2024 10:30A M Brian Martínez DPM Not available Not available Not available Lab None recorded. Referral podiatris t referral 2024 025 sudeep Martínez DPM, [address], [place], [address], 10/03/2024 14:44:07 Procedures None recorded. Surgeries None recorded. Imaging None recorded. Medication Orders cephalexi n 500 mg capsule 2024 025 [facility] #[id number], [address] [place], [address], 07/29/2024 05:01:33 triamcino lone acetonide 0.5 % topical ointment 2024 025 [facility] #[id number], [address] [place], [address], 09/26/2024 09:33:47 Patient TargetsNo targets recorded. Patient InstructionsNo instructions recorded. Reason for Referral Food Safety Auditor Referral for Ingr owing great toenail Referring Physician: Marcel Mathews, Family Medicine, Encounter Date: 09/26/2024 Results Created Date Observation Date Name Description Value Unit Range Abnormal Flag Note LastModifiedBy Organization Detail LastModifiedTime 10/01/1909/30/2024 CBC WBC 6.28 K/ L 4.23-9 .07 Not Available [address], [address], 09/30/2024 12:35:15 10/01/1909/30/2024 CBC RBC 3.73 M/ L 4.63-6 .08 low Not Available [address], [address], 09/30/2024 12:35:15 10/01/1909/30/2024 CBC HGB 13.6 g/dL 13.7-1 7.5 low Not Available [address], [address], 09/30/2024 12:35:15 10/01/19 25 09/30/2024 CBC HCT 39.9 % 40.1-5 1.0 low Not Available [address], [address], 09/30/2024 12:35:15 10/01/1909/30/2024 CBC MCV 107.0 fL 79.0-9 2.2 high Not Available [address], [address], 09/30/2024 12:35:15 10/01/1909/30/2024 CBC MCH 36.5 pg 25.7-3 2.2 high Not Available [address], [address], 09/30/2024 12:35:15 10/01/1909/30/2024 CBC MCHC 34.1 g/dL 32.3-3 6.5 Not Available [address], [address], 09/30/2024 12:35:15 10/01/1909/30/2024 CBC plt 195 K/ L 163-33 7 Not Available [address], [address], 09/30/2024 12:35:15 10/01/1909/30/2024 CBC MPV 10.7 fL 9.4-12 .4 Not Available [address], [address], 09/30/2024 12:35:15 10/01/1909/30/2024 CBC neut% 59.0 % 34.0-6 7.9 Not Available [address], [address], 09/30/2024 12:35:15 10/01/1909/30/2024 CBC neut# 3.70 1.78-5 .38 Not Available [address], [address], 09/30/2024 12:35:15 10/01/1909/30/2024 CBC lymph % 30.4 % 21.8-5 3.1 Not Available [address], [address], 09/30/2024 12:35:15 10/01/19 25 09/30/2024 CBC lymph # 1.91 K/ L 1.32-3 .57 Not Available [address], [address], 09/30/2024 12:35:15 10/01/19 25 09/30/2024 CBC mono% 7.3 % 5.3-12 .2 Not Available [address], [address], 09/30/2024 12:35:15 10/01/1909/30/2024 CBC mono# 0.46 0.30-0 .82 Not Available [address], [address], 09/30/2024 12:35:15 10/01/19 25 09/30/2024 CBC eo% 2.5 % 0.8-7. 0 Not Available [address], [address], 09/30/2024 12:35:15 10/01/1909/30/2024 CBC eo# 0.16 0.04-0 .54 Not Available [address], [address], 09/30/2024 12:35:15 10/01/19 25 09/30/2024 CBC baso% 0.5 % 0.2-1. 2 Not Available [address], [address], 09/30/2024 12:35:15 10/01/1909/30/2024 CBC baso# 0.03 0.00-0 .08 Not Available [address], [address], 09/30/2024 12:35:15 10/01/19 09/30/2024 CBC RDW-CV 13.4 % 11.6-1 4.4 Not Available [address], [address], 09/30/2024 12:35:15 10/01/19 25 09/30/2024 CBC Ig% 0.300 % 0.000- 1.500 Ig % >0.5 Indic ates possi ble Left Shift Not Available [address], [address], 09/30/2024 12:35:15 10/01/19 25 09/30/2024 CBC Ig# 0.020 0.000- 0.093 Not Available [address], [address], 09/30/2024 12:35:15 10/01/19 25 09/30/2024 CBC NRBC% 0.0 % 0.0-0. 2 Not Available [address], [address], 09/30/2024 12:35:15 10/01/1909/30/2024 CBC NRBC# 0.000 0.000- 0.012 Not Available [address], [address], 09/30/2024 12:35:15 10/01/1910/01/2024 URINA LYSIS color YELLOW yellow Not Available [address], [address], 10/01/2024 10:26:55 10/01/19 25 10/01/2024 URINA LYSIS clarity CLEAR clear Not Available [address], [address], 10/01/2024 10:26:55 10/01/19 25 10/01/2024 URINA LYSIS glucose NEGATI VE negati ve Not Available [address], [address], 10/01/2024 10:26:55 10/01/19 25 10/01/2024 URINA LYSIS bilirubin NEGATI VE negati ve Not Available [address], [address], 10/01/2024 10:26:55 10/01/19 25 10/01/2024 URINA LYSIS ketones NEGATI VE negati ve Not Available [address], [address], 10/01/2024 10:26:55 10/01/19 25 10/01/2024 URINA LYSIS specific gravity 1.015 1.001- 1.035 Not Available [address], [address], 10/01/2024 10:26:55 10/01/19 25 10/01/2024 URINA LYSIS pH 6.0 5.0-8. 0 Not Available [address], [address], 10/01/2024 10:26:55 10/01/19 25 10/01/2024 URINA LYSIS protein NEGATI VE negati ve Not Available [address], [address], 10/01/2024 10:26:55 10/01/19 25 10/01/2024 URINA LYSIS urobilinogen 0.2 E.U./D L <1.0 Not Available [address], [address], 10/01/2024 10:26:55 10/01/19 25 10/01/2024 URINA LYSIS nitrates NEGATI VE negati ve Not Available [address], [address], 10/01/2024 10:26:55 10/01/19 25 10/01/2024 URINA LYSIS blood NEGATI VE negati ve Not Available [address], [address], 10/01/2024 10:26:55 10/01/19 25 10/01/2024 URINA LYSIS leukocytes NEGATI VE negati ve Not Available [address], [address], 10/01/2024 10:26:55 10/01/19 25 10/01/2024 URINE , MICRO SCOPI C WBC NONE SEEN hpf 0-4/hp f Not Available [address], [address], 10/01/2024 10:42:40 10/01/19 25 10/01/2024 URINE , MICRO SCOPI C RBC NONE SEEN hpf 0-2/hp f Not Available [address], [address], 10/01/2024 10:42:40 10/01/19 25 10/01/2024 URINE , MICRO SCOPI C bacteria NONE SEEN none seen Not Available [address], [address], 10/01/2024 10:42:40 10/01/19 25 10/01/2024 URINE , MICRO SCOPI C yeast NONE SEEN none seen Not Available [address], [address], 10/01/2024 10:42:40 10/01/19 25 10/01/2024 URINE , MICRO SCOPI C squamous epithelial cells 1 hpf 0-5 Not Available [address], [address], 10/01/2024 10:42:40 10/01/19 25 10/01/2024 URINE , MICRO SCOPI C mucous NONE SEEN none seen Not Available [address], [address], 10/01/2024 10:42:40 10/01/19 25 10/01/2024 PROTE IN, TOTAL W/CRE AT, RANDO M URINE creatinine, random urine 103 mg/dL 20-320 normal Not Available [facility] [address], [place], [address], 10/01/2024 16:08:00 10/01/19 25 10/01/2024 PROTE IN, TOTAL W/CRE AT, RANDO M URINE protein/crea tinine ratio 78 mg/g_ creat 25-148 normal Not Available [facility] [address], [place], [address], 10/01/2024 16:08:00 10/01/19 25 10/01/2024 PROTE IN, TOTAL W/CRE AT, RANDO M URINE protein/crea tinine ratio 0.078 mg/mg _crea t 0.025- 0.148 normal Not Available [facility] [place] [facility] [address], [place], [address], 10/01/2024 16:08:00 10/01/19 25 10/01/2024 PROTE IN, TOTAL W/CRE AT, RANDO M URINE protein, total, random ur 8 mg/dL 5-25 normal Not Available [facility] [place] [facility] [address], [place], [address], 10/01/2024 16:08:00 Result Notes None recorded. Problems Name Problem SNOMED Code Status Onset Date Resolution Date Notes Provider Name and Address Organization Details Recorded Time Atopic dermatiti s 76639591 Completed 12/16/2014 MD Jean [place], [address], [facility] 12:43:41 Candidias is of skin and nails Completed 05/07/2014 MD Jean [place], [address], [facility] 12:43:41 Hyperplas ia of prostate 401235071 Completed 05/07/2014 MD Jean [place], [address], [facility] 12:43:41 Ingrowing nail 426874910 Completed 02/06/2013 MD [place], [address], [facility] 12:43:41 Diverticu losis of colon without diverticu litis 711804555 Completed 200612/16/2014 [place], [address], [facility] 12:43:41 Benign essential hypertens ion 6769132 Active 2007 [place], [address], [facility] 12:43:41 Mixed hyperlipi demia 617897829 Completed 200712/16/2014 [place], [address], [facility] 12:43:41 Anemia 622668199 Completed 200705/07/2014 [place], [address], [facility] 12:43:41 Benign prostatic hyperplas ia 302901611 Completed 200705/07/2014 [place], [address], [facility] 12:43:41 Psoriasis 4315800 Completed 201707/07/2020 G[place], [address], [facility] 12:04:13 Gluten sensitivi ty 790749491 Completed 201907/07/2020 [place], [address], [facility] 12:03:46 ECG: sinus arrhythmi a 163565684 Completed 201906/03/2019 Chino Bishop MD [address] [place], [place] [address], [address], [facility] 14:16:49 Multiple atrial premature complexes 757881542 Active 2019 Chino Bishop MD [address] [place], [place] [address], [address], [facility] 14:16:44 Lupus erythemat osus 702620687 Active 2019 Chino Bishop MD [address] [place], [place] [address], [address], [facility] 14:49:25 History of malignant neoplasm of prostate 865855398 Active 2020 Gisell brown MD [address] [place], [place] [address], [address], [facility] 12:08:09 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 Procedures Surgical History Date Name Laterality Status Provider Name and Address Organization Details Recorded Time 10/08/19 Toenail Avulsion completed Liu Aguilera DPM [address] [place] [address], [address], [facility] 10/07/2024 10:55:57 10/12/19 Medicare Wellness Visit completed LUCY [facility] 10/10/2023 08:12:29 10/12/19 Cardiovascular disease risk reduction counseling completed LUCY [facility] 10/10/2023 08:12:40 10/12/19 prevention-annual alcohol misuse screening completed LUCY [facility] 10/10/2023 08:12:41 10/11/19 Medicare Wellness Visit completed LUCY [facility] 10/06/2022 16:22:23 10/11/19 23 Cardiovascular disease risk reduction counseling completed CarleneLUCY [facility] 10/06/2022 16:22:54 10/11/19 23 prevention-annual alcohol misuse screening completed CarleneLUCY [facility] 10/06/2022 16:22:57 08/10/19 22 Medicare Wellness Visit completed Carlene LUC[facility] 08/09/2021 07:49:24 08/10/19 22 Alcohol use screening completed Carlene LUCY [facility] 08/09/2021 07:49:24 08/10/19 22 Cardiovascular disease risk reduction counseling completed Carlene LUCY [facility] 08/09/2021 07:49:24 02/26/20 21 colonoscopy completed Gisell Lassiter. [address] [place] [address], [address], [facility] 03/01/2021 12:57:18 07/08/19 21 Medicare Wellness Visit completed Telma Villar [place] [facility] 06/29/2020 16:05:10 07/08/19 21 prevention-cardiov ascular risk reduction counseling completed Telma Villar MA [facility] 06/29/2020 16:05:10 07/08/19 21 prevention-annual alcohol misuse screening completed Telma Villar [place] [facility] 06/29/2020 16:05:10 07/08/19 21 Advanced Care Planning completed Gis[place], [address], [facility] 07/07/2020 11:53:43 06/03/19 20 Medicare Wellness Visit completed Belkis Mendez LPN [facility] 06/03/2019 13:48:44 06/03/19 prevention-cardiov ascular risk reduction counseling completed Belkis Mendez LPN [facility] 06/03/2019 13:48:44 06/03/19 prevention-annual alcohol misuse screening completed Belkis Mendez LPN [facility] 06/03/2019 13:48:44 05/31/19 19 Medicare Wellness Visit completed Belkis Mendez LPN [facility] 05/30/2018 10:27:16 05/23/19 18 Medicare Wellness Visit completed Belkis Mendez LPN [facility] 05/22/2017 13:44:47 05/08/19 18 Oly - Colonoscopy completed Jeffrey Aldridge [address] [place] [address], [address], [facility] 05/08/2017 11:36:34 03/06/20 17 Suture/staple Removal completed Chino Bishop MD [address] [place] [address], [address], [facility] 03/06/2017 15:56:42 01/19/20 17 Physical Activity Counselling completed Chitra Cowan [address] [place] [address], [address], [facility] 01/18/2017 19:24:47 01/19/20 17 [address]: PT Eval Low Complexity completed Chitra Cowan [address] [place] [address], [address], [facility] 01/18/2017 19:24:47 12/08/19 17 Refraction completed Nadeem Blanchard [facility] 12/07/2016 09:10:56 05/19/19 17 Medicare Wellness Visit completed Belkis Mendez LPN [facility] 05/18/2016 09:12:11 05/15/19 16 Medicare Wellness Visit completed Belkis Mendez LPN [facility] 05/15/2015 11:06:32 05/07/19 15 Medicare Wellness Visit completed Mariana Jason [facility] 05/07/2014 09:24:19 05/06/19 15 Oly - Colonoscopy completed Jeffrey Aldridge [address] [place] [address], [address], [facility] 05/06/2014 13:09:21 04/30/19 14 Medicare Wellness Visit completed Katina Win [facility] 04/30/2013 10:43:22 04/26/19 13 Medicare Wellness Visit completed Wanda [facility] 04/26/2012 10:58:01 06/07/19 09 Toenail Avulsion completed Silvestre Ptael PA-C [address] [place], [address], [facility] 06/06/2008 10:06:19 Imaging Results None recorded. Procedure Notes None recorded. Medical Equipment None Reported. Allergies Allergen ID Allergen Name Allergen Category Reaction Reaction Severity Criticality Documentation Date Start Date Code Code System Note Provider Name and Address Organization Details Recorded Time 236450 amlodipin e medicatio n other moderate Not available 11/07/2018 18851 RxNorm Chino Bishop MD [address] [place], [address], [facility] 11:18:43 Medications Name Sig Start Date Stop Date Status Note LastModified by Organization Details LastModified Time losartan 50 mg tablet TAKE 1 TABLET BY MOUTH EVERY DAY 02/07 completed Not Available Not Available Not Available methocarb pilo 500 mg tablet TAKE 2 TABLETS BY MOUTH 3 TIMES A DAY FOR MUSCLE SPASMS. NO DRIVING OR ALCOHOL active Not Available Not Available No t [...] Not Available No t Available prednison e 5 mg tablet TAKE 1 TABLET ORALLY DAILY active Not Available Not Available No t [...] COAT TO AFFECTED AREA TWICE A DAY 09/26 completed Not Available Not Available Not Available acetamino phen 300 mg-codein e 30 mg tablet TAKE 1 TABLET BY MOUTH EVERY 6 HOURS NEEDED FOR PAIN WILL CAUSE DROWSINE SS 10/10 completed Not Available Not Available Not Available chlorthal idone 25 mg tablet TAKE 1 TABLET BY MOUTH EVERY DAY active Not Available Not Available No t Available leucovori n calcium 10 mg tablet TAKE 1 TABLET BY MOUTH ONCE WEEKLY active Not Available Not Available No t [...] tablet every 12 hours by oral route. 09/26 completed Not Available Not Available Not Available BD Tuberculi n Syringe 1 mL 27 x 1/2 USE ONCE WEEKLY WITH METHOTRE XATE 09/26 completed Not Available Not Available Not Available oxycodone -acetamin ophen 5 mg-325 mg tablet TAKE 1 TABLET EVERY 6 HOURS NEEDED FOR PAIN WILL CAUSE DROWSINE SS 09/26 completed Not Available Not Available Not Available amoxicill in 875 mg tablet TAKE [...] Not Available cephalexi n 500 mg capsule Take 1 capsule twice a day by oral route for 5 days. 07/29 completed Not Available Not Available Not Available [...] tablet TAKE 2 TABLETS BY MOUTH EVERY WEEK active Not Available Not Available [...] TAKE 1 TABLET BY MOUTH EVERY DAY 2024 active Not Available Not Available Not Avai lable atenolol 50 mg tablet Take 1 tablet [...] Available oxymetazo line 0.05 % nasal spray [place] 2 sprays twice a day by intranas [...] 1/2 USE ONCE WEEKLY WITH METHOTRE XATE 09/26 completed Not Available Not Available Not Available GaviLyte- G 236 gram-22.7 4 gram-6.74 [...] blood by Pulse oximetry Body temperature Systolic And Diastolic Systolic And Diastolic Provider Name and Address Organization Details Last Updated DateTime 5 174.63 cm 30.3 kg/m2 14273.8 4 g 86 /min 99 % 99 % 97.5 [degF] 130/88 mm[Hg] 158/98 mm[Hg] Kim Montano MA [facility] 13:40:29 Date Recorded Body height Provider Name an d Address Organization Details Last Updated DateTime 07/17/2024 174.63 cm LUCY [facility] 07/17/2024 15:29:23 Date Recorded Body mass index (BMI) Body weight Heart rate Oxygen saturation Oxygen saturation in Arterial blood by Pulse oximetry Systolic And Diastolic Provider Name and Address Organization Details Last Updated DateTime 30 kg/m2 01079.6 6 g 84 /min 98 % 98 % 124/82 mm[Hg] Lauren Nunez [facility] 15:34:33 Date Recorded Body height Body mass index (BMI) Body weight Oxygen saturation Oxygen saturation in Arterial blood by Pulse oximetry Heart rate Systolic And Diastolic Provider Name and Address Organization Details Last Updated DateTime 174.63 cm 30 kg/m2 75774.6 6 g 95 % 95 % 75 /min 140/80 mm[Hg] Brian recio MA [facility] 09:37:33 Date Recorded Body height Body mass index (BMI) Body weight Provider Name and Address Organization Details Last Updated DateTime 10/07/2024 174.63 cm 30 kg/m2 43874.66 g Miesha Solis LPN [facility] 10/07/2024 10:34:04 Social History Question Answer Notes LastModified by Organizat ion Details LastModified Time Tobacco Smoking Status Former Smoker quit '95 after 20 yrs 1ppd, cigar rarely; [facility] 09:35:35 Do You Have An Advance Directive? Yes Information not available 10/12/2023 Do You Wear A Helmet When Biking? No Information not available 02/03/2015 What Is Your Level Of Caffeine Consumption? Moderate 2 Cups Coffee Daily [email or web address] Information not available 08/09/2021 How Much Tobacco Do You Chew? None Information not available 12/16/2014 What Type Of Diet Are You Following? REGULAR Information not available 02/03/2015 Which Illicit Or Recreational Drugs Have You Used? None [email or web address] Information not available 08/09/2021 Education Post Graduate [email or web address] Information not available 10/12/2023 What Is The Highest Grade Or Level Of School You Have Completed Or The Highest Degree You Have Received? VT23876-3 [email or web address] Information not available 08/09/2021 Have There Been Any Changes To Your Family Or Social Situation? No Information not available 08/09/2021 When Did You Quit Smoking? 16+yearssinc [email or web address] te Information not available 12/16/2014 How Many Days In The Past Year Have You Had A Heavy Drinking Consumption (4+ Female, 5+ Male)? 1 07/07/20 JI [email or web address] Information not available 04/26/2012 Are There Any Guns Present In Your Home? No Information not available 08/09/2021 Do You Use Insect Repellent Routinely? Yes [email or web address] Information not available 08/09/2021 Live Alone Or With Others? With Others Information not available 12/16/2014 Patient Has Health Care Proxy Signed And In Chart Yes [email or web address] Information not available 10/11/2022 CCM Consent Discussion 05/30/2018 [email or web address] Information not available 05/30/2018 Marital Status Informatio n not available 05/07/2014 Mosquito Repellent Used Routinely Yes Information not available 02/03/2015 What Was The Date Of Your Most Recent Tobacco Screening? 09/26/2024 [email or web address] Information not available 09/26/2024 How Many Children Do You Have? 1 Daughter In [place] [email or web address] [facility] Information not available 08/09/2021 What Is Your Current Pack Years? 20-packyea rs Information not available 12/16/2014 What Is Your Relationship Status? Female Spouse [email or web address] Information not available 08/09/2021 Do You Use Your Seat Belt Or Car Seat Routinely? Yes [email or web address] Information not available 08/09/2021 Seat Belts Used Routinely Yes Information not available 02/03/2015 Are You Sexually Active? Yes Information not available 05/07/2014 Smoke Alarm In Home Yes Information not available 02/03/2015 Do You Have Smoke And Carbon Monoxide Detectors In Your Home? Yes [email or web address] Information not available 08/09/2021 Are You Passively Exposed To Smoke? No [email or web address] Information not available 08/09/2021 How Much Tobacco Do You Smoke? No [email or web address] Information not available 08/09/2021 General Stress Level Low Information not available 02/03/2015 Do You Use Sunscreen Routinely? Yes Information not available 02/03/2015 Sex: Male Functional Status Question Answer Note LastModified by Organizat ion Details LastModified Time Do you use any illicit or recreational drugs? No [email or web address] Information not available 08/09/2021 What is your level of alcohol consumption? Occasional A glass wine 3-4x/week. no hx abuse. [email or web address] Information not available 08/09/2021 Do you or have you ever used smokeless tobacco? Never used smokeless tobacco [email or web address] Information not available 08/09/2021 Are you currently employed? No Information not available 08/09/2021 What is your occupation? Other [email or web address] Information not available 09/23/2024 Do you or have you ever used e-cigarettes or vape? Never used electronic cigarettes [email or web address] Information not available 08/09/2021 What is your exercise level? Moderate treadmill, [...] virus, trivalent, preservative 1 completed Not Available [facility] 04/06/2019 02:18:30 pneumococcal polysaccharide PPV23 1 completed Not Available [facility] 04/06/2019 02:14:54 Influenza, split virus, trivalent, preservative 1 completed Not Available [facility] 04/06/2019 02:29:24 Tdap 8 completed Not Available [facility] 02/02/2011 05:21:55 Influenza, split virus, trivalent, PF 2 completed Not Available [facility] 04/06/2019 02:29:56 Influenza, split virus, trivalent, PF 3 completed Not Available [facility] 04/06/2019 02:26:42 Influenza, high-dose, trivalent, PF 5 completed Not Available [facility] 04/06/2019 02:34:15 Pneumococcal conjugate PCV 13 5 completed Not Available [facility] 04/06/2019 02:34:59 Influenza, high-dose, trivalent, PF 6 completed Not Available [facility] 04/06/2019 02:21:08 Influenza, high-dose, trivalent, PF 7 completed Not Available [facility] 04/06/2019 02:22:01 Hep A-Hep B 5 completed TODD Josue, [facility] 10/28/2014 10:57:12 Hep A-Hep B 5 completed TODD Josue, [facility] 10/28/2014 10:57:12 typhoid, unspecified formulation 5 completed TODD Josue, [facility] 10/28/2014 10:57:12 Td (adult), 2 Lf tetanus toxoid, preservative free, adsorbed 8 completed Not Available [facility] 04/06/2019 02:34:17 Influenza, high-dose, trivalent, PF 8 completed Not Available [facility] 04/06/2019 02:23:31 Influenza, high-dose, trivalent, PF 9 completed Not Available [facility] 04/06/2019 02:24:03 Influenza, high-dose, quadrivalent, PF 0 completed [facility] 09:08:25 Influenza, high-dose, quadrivalent, PF 2 completed Anuradha Jain CMA null, [facility] 01/06/2022 10:20:11 COVID-19, mRNA, LNP-S, PF, 30 mcg/0.3 mL dose 1 completed Telma Villar MA null, [facility] 07/07/2020 11:27:00 COVID-19, mRNA, LNP-S, PF, 30 mcg/0.3 mL dose 1 completed Telma Villar MA null, [facility] 07/07/2020 11:27:36 zoster recombinant 1 completed Yoon Green MA null, [facility] 03/30/2021 10:00:50 zoster recombinant 2 completed [facility]iel [facility] 08/09/2021 11:58:12 COVID-19, mRNA, LNP-S, PF, 100 mcg/0.5mL dose or 50 mcg/0.25mL dose 1 completed Nilmari RMA [facility] 08/09/2021 11:58:38 Influenza, split virus, quadrivalent, preservative 1 completed Giselldaysi Lassiter. [address] [place] [address], [id number], [facility] 08/09/2021 12:32:57 COVID-19, mRNA, LNP-S, PF, 100 mcg/0.5mL dose or 50 mcg/0.25mL dose 2 completed Nilmari, RMA Anderson null, [facility] 02/03/2022 15:57:36 Influenza, high-dose, quadrivalent, PF 3 completed Nilmari, RMA Anderson null, [facility] 03/09/2023 08:27:43 COVID-19, mRNA, LNP-S, bivalent, PF, 50 mcg/0.5 mL or 25mcg/0.25 mL dose 2 completed LUCY Concepcion, [facility] 03/09/2023 08:28:07 COVID-19, mRNA, LNP-S, PF, 50 mcg/0.5 mL 3 completed LUCY Concepcion, [facility] 03/09/2023 08:28:24 Past Encounters Encounter ID Performer Location Encounter Start Date Encounter Closed Date Diagnosis/Indication Diagnosis SNOMED-CT Code Diagnosis ICD10 Code Diagnosis Note [id number] ASP, FREDO OTOOLE MD [facility], [address] [place] [address] 03/16/2007 08:58:46 03/21/2007 11:16:05 [id number] Khoa Siddiqui III, MD , [facility], [address] [place] [address] 07/09/2007 08:56:16 04/09/2008 02:02:29 [id number] [facility] - [address] [place] [address] 09/04/2007 15:42:40 09/04/2007 15:42:47 [id number] Khoa Siddiqui III, MD , [facility], [address] [place] [address] 09/11/2007 10:45:51 04/09/2008 02:02:29 [id number] Silvestre Patel PA-C , [facility], [address] [place] [address] 06/06/2008 09:13:40 06/09/2008 08:32:15 [id number] Khoa Siddiqui III, MD , [address] [place] [address] 09/18/2008 07:59:52 09/23/2008 08:23:57 [id number] Khoa Siddiqui III, MD , [facility], [address] [place] [address] 10/08/2008 15:13:31 10/09/2008 08:16:00 [id number] Khoa Siddiqui III, MD , [facility], [address] [place] [address] 04/15/2009 09:18:37 04/15/2009 15:26:06 [id number] Khoa Siddiqui III, MD , [facility], OFFICE [address] [place] [address] 06/11/2009 08:46:44 06/11/2009 09:37:38 [id number] Wen Lemus MD , [facility], OFFICE [address] [place] [address] [address] [place] [address] 12/09/2009 15:46:25 12/09/2009 17:14:34 [id number] Wen Lemus MD , [facility], [address] [place] [address] 1 02/15/2010 16:10:54 02/16/2010 10:10:06 [id number] Khoa Siddiqui III, MD , [facility], OFFICE [address] [place] [address] [place] [address] 1 04/08/2010 14:20:29 04/09/2010 09:00:24 [id number] Khoa Siddiqui III, MD , [facility], OFFICE [address] [place] [address] [place] [address] 02/04/2011 15:36:00 02/04/2011 16:07:00 [id number] [facility] ULTRASOUND Technologi st Radiology , [facility] [address] [place] [address] 06/09/2011 09:01:10 06/10/2011 12:05:05 [id number] Khoa Siddiqui III, MD , [address] [place] [address] 08/05/2011 10:25:01 08/05/2011 10:44:05 [id number] Khoa Siddiqui III, MD , [address] [place] [address] 10/07/2011 10:23:33 10/07/2011 10:45:33 [id number] FP TREATMENT NURSE [facility], [facility], OFFICE [address] [place] [address] [place] [address] 03/09/2012 11:03:40 03/09/2012 11:27:46 [id number] Khoa Siddiqui III, MD , [facility], [address] [place] [address] 04/06/2012 10:19:23 04/06/2012 10:35:48 [id number] Khoa Siddiqui III, MD FP, [address] [place] [address] 04/26/2012 10:53:54 04/26/2012 11:20:40 [id number] Khoa Siddiqui III, MD , [facility], OFFICE [address] [place] [address] 10/11/2012 10:23:49 10/11/2012 10:47:08 [id number] Khoa Siddiqui III, MD , [facility], OFFICE [address] [place] [address] 1 11/29/2012 09:01:06 11/29/2012 10:27:00 Influenza vaccine needed [id number] 950 [id number] Khoa Siddiqui III, MD , [facility], OFFICE [address] [place] [address] 01/22/2013 08:54:13 01/22/2013 09:13:34 Benign essential hypertension 0457341 Blood pressure at goal. CONTINUE CURRENT MEDS Varicella vaccination 78308598 [id number] Khoa Siddiqui III, MD , [facility], OFFICE [address] [place] [address] 04/30/2013 10:35:26 04/30/2013 10:57:14 Adult health examination [id number] see Risk Assessment and Lifestyle Change Counseling section above Counseling [id number] Essential hypertension 54345508 Primary ma lignant neoplasm of prostate 83391952 S/P surgery and IMRT [id number] Khoa Siddiqui III, MD , [facility], OFFICE [address] [place] [address] 11/05/2013 07:56:44 11/05/2013 08:08:27 Mixed hyperlipidemia 870256335 Cholestero l is at goal Continue to work on diet and exercise as discussed Benign ess ential hypertension 0230069 Blood pressure at goal [id number] Khoa Siddiqui III, MD , [facility], OFFICE [address] [place] [address] 12/31/2013 09:30:22 01/01/2014 08:25:11 Pain in scrotum 90290067 REAASSURE NO PATHOLOGY DETECTED. [id number] Jeffrey Aldridge [facility], [facility] [address] [place] [address] 05/06/2014 10:29:00 05/06/2014 13:36:15 [id number] Khoa Siddiqui III, MD , [facility], OFFICE [address] [place] [address] 05/07/2014 09:17:55 05/07/2014 09:46:49 Benign essential hypertension 1380969 Blood pressure at goal Adult heal th examination 721920822 see Risk Assessment and Lifestyle Change Counseling section above Counseling [id number] Neoplasm of prostate 208884994 PSA low on every 6 months hormone therapy [id number] Silvestre Patel PA-C , [facility], OFFICE [address] [place] [address] 12/16/2014 10:21:10 12/16/2014 11:00:53 Primary malignant neoplasm of prostate 47836086 followed by uro Benign ess ential hypertension 3967551 Mildly elev. Though ok at home 130/80. Just finished exercise today. Atopic dermatitis 36202296 dishydroti c eczema. trial high potency steroid Influenza vaccine needed 2248385788 106 Active or passive immunization 050787315 Lifestyle 384785347 [id number] Kiara Cobos MD , [facility], OFFICE [address] [place] [address] 02/03/2015 08:20:24 02/03/2015 09:26:10 Atopic dermatitis 52435778 L20.9 partually responded to a low potency steroidal cream, will try high potency Papular eruption 5282089 01 R21 on his arms, upper chest suspect infecion (MRSA?) [id number] Kiara Cobos MD , [facility], OFFICE [address] [place] [address] 02/17/2015 13:50:45 02/17/2015 14:17:41 Atopic dermatitis 98254738 L20.9 much better on his all areas of eruption, cont clobetazol , counseled about this kind of dermatitis and preventati ve measures for the future [id number] Chino Bishop MD , [facility], OFFICE [address] [place] [address] 05/15/2015 10:50:45 05/15/2015 11:29:49 Adult health examination 215381115 Z00.00 see Risk Assessment and Lifestyle Change Counseling section above Counseling 148612971 Z71 .9 Primary ma lignant neoplasm of prostate 91818855 C61 [id number] Chino Bishop MD , [facility], OFFICE [address] [place] [address] 05/20/2015 13:42:43 05/20/2015 14:01:07 Conjunctivitis 2969066 H10.9 Otitis media 72520497 H6 6.867 [id number] Chino Bishop MD , [facility], OFFICE [address] [place] [address] 05/27/2015 15:41:05 05/27/2015 16:19:16 Acute upper respiratory infection 68981011 J06.9 Educated patient that URI is a [...] resolve in 2-4 weeks. Eustachian tube disorder 39099023 H69.93 Impacted cerumen 0033233 6 H61.21 [id number] Chino Bishop MD , [facility], OFFICE [address] [place] [address] 11/11/2015 07:59:15 11/11/2015 08:41:09 Benign essential hypertension 0999368 I10 Blood pressure at goal Blood pressure Vertigo 014756141 R42 Cardiac arrhythmia 08619 7007 I49.9 [id number] Chino Bishop MD , [facility], OFFICE [address] [place] [address] 01/21/2016 13:52:10 01/21/2016 14:18:38 Active or passive immunization 941662658 Z23 Primary ma lignant neoplasm of prostate 51334221 C61 Benign ess ential hypertension 7256536 I10 Pre-surger y evaluation 132300389 Z01.010 [id number] Chino Bishop MD , [facility], OFFICE [address] [place] [address] 05/18/2016 09:09:03 05/18/2016 09:39:51 Adult health examination 237697080 Z00.00 see Risk Assessment and Lifestyle Change Counseling section above Counseling 268639299 Z71 .9 Benign ess ential hypertension 9853487 I10 Blood pressure at goal Blood pressure NOT at goal. Primary ma lignant neoplasm of prostate 78432525 C61 [id number] Mily Brizuela, OD [facility], [facility] [address] [place] [address] 12/07/2016 08:54:22 12/07/2016 09:44:41 Astigmatism 62602207 H52.223 Presbyopia 79501415 H52. 4 Bilateral cataracts 9572 2003 H26.9 Hypermetropia 53631756 H 52.03 [id number] Chino Bishop MD , [facility], OFFICE [address] [place] [address] 12/22/2016 09:04:24 12/22/2016 09:29:02 Active or passive immunization 693123734 Z23 Benign par oxysmal positional vertigo 125493027 H81.12 [id number] Chino Bishop MD , [facility], OFFICE [address] [place] [address] 01/04/2017 07:53:05 01/04/2017 08:16:30 Benign paroxysmal positional vertigo 771525440 H81.12 [id number] [facility], [address] [place] [address] 01/18/2017 16:49:12 01/18/2017 20:24:35 Benign paroxysmal positional vertigo 119120135 H81.11 [id number] Chitra Cowan Physical [facility], [address] [place] [address] 01/26/2017 10:45:33 01/28/2017 14:37:34 Benign paroxysmal positional vertigo 196447089 H81.11 [id number] Chino Bishop MD , [facility], [address]ICE [address] [place] [address] 03/01/2017 15:23:05 03/01/2017 16:33:38 Tachycardia 2269365 R00.0 Benign ess ential hypertension 2333942 I10 Blood pressure at goal Blood pressure NOT at goal. Primary ma lignant neoplasm of prostate 47273020 C61 [id number] Chino Bishop MD , [facility], OFFICE [address] [place] [address] 03/06/2017 15:24:11 03/06/2017 15:56:14 Scalp laceration 590290257 S01.01XD Benign ess ential hypertension 7965380 I10 Blood pressure NOT at goal. Primary ma lignant neoplasm of prostate 22470599 C61 [id number] Chino Bishop MD , [facility], OFFICE [address] [place] [address] 04/12/2017 09:58:59 04/12/2017 10:49:58 Screening for malignant neoplasm of colon 107158431 Z12.11 Referral for a DIRECT booked colonoscop y. This patient is a healthy ASA Class 1 or 2 patient (only mild systemic disease), or a STABLE, well controlled insulin dependent diabetic. They do not have serious cardiac disease ie FL/angiopl asty within 1 year, symptomati c CHF; renal failure with CKD 4 or 5; take Coumadin, Plavix, Aggrenox, etc. Benign ess ential hypertension 8590609 I10 Blood pressure NOT at goal. [id number] Chino Bishop MD , [facility], OFFICE [address] [place] [address] 04/19/2017 11:49:17 04/19/2017 12:24:39 Benign essential hypertension 8001387 I10 Blood pressure NOT at goal. [id number] Jeffrey Oly [facility], [facility] [address] [place] [address] 05/08/2017 10:26:03 05/08/2017 12:37:20 [id number] Chino Bishop MD , [facility], OFFICE [address] [place] [address] 1 05/17/2017 10:16:16 05/17/2017 11:02:45 Benign essential hypertension 1586462 I10 Blood pressure NOT at goal. Dizziness 430265107 R42 [id number] Chino Bishop MD , [facility], OFFICE [address] [place] [address] 05/22/2017 13:31:43 05/22/2017 14:49:54 Adult health examination 705695455 Z00.00 see Risk Assessment and Lifestyle Change Counseling section above Counseling 540093195 Z71 .9 Depression screening 171 634415 Z13.89 depression screening tool administer ed, entered into emr, scored and discussed, time greater than 7.5 minutes Tachycardia 3860895 R00. 0 Abdominal mass 470647496 R19.00 [id number] Chino Bishop MD , [facility], OFFICE [address] [place] [address] 05/23/2017 14:35:39 05/23/2017 14:52:56 Tachycardia 6312874 R00.0 [id number] Chino Bishop MD , [facility], OFFICE [address] [place] [address] [place] [address] 1 05/31/2017 16:07:33 05/31/2017 16:38:56 Benign essential hypertension 6245523 I10 Blood pressure NOT at goal. [id number] Chino Bishop MD , [facility], OFFICE [address] [place] [address] [place] [address] 06/14/2017 16:19:58 06/14/2017 16:45:48 Pre-surgery evaluation 310086236 Z01.818 Benign ess ential hypertension 1329303 I10 Blood pressure NOT at goal. [id number] Chino Bishop MD , [facility], OFFICE [address] [place] [address] [place] [address] 07/17/2017 13:22:24 07/20/2017 12:16:03 Benign essential hypertension 2067127 I10 Blood pressureat goal. Primary ma lignant neoplasm of prostate 51499972 C61 [id number] Chino Bishop MD , [facility], OFFICE [address] [place] [address] [place] [address] 1 10/05/2017 10:41:42 10/05/2017 11:11:28 Active or passive immunization 671888597 Z23 Dizziness and giddiness 820443813 R42 [id number] Chino Bishop MD , [facility], OFFICE [address] [place] [address] [place] [address] 11/22/2017 09:53:26 11/22/2017 11:22:25 Benign essential hypertension 3974851 I10 Blood pressure NOT at goal. Primary ma lignant neoplasm of prostate 86092888 C61 [id number] Chino Bishop MD , [facility], OFFICE [address] [place] [address] [place] [address] 02/28/2018 09:45:47 02/28/2018 10:22:37 Active or passive immunization 325049399 Z23 Benign ess ential hypertension 3194569 I10 Blood pressure NOT at goal. Primary ma lignant neoplasm of prostate 10368558 C61 [id number] Chino Bishop MD , [facility], OFFICE [address] [place] [address] 03/28/2018 10:11:27 03/28/2018 10:32:07 Benign essential hypertension 3732888 I10 Blood pressure NOT at goal. Ingrowing toenail 092637 009 L60.0 [id number] Brian Martínez DPM Podiatry, [facility] [address] [facility] [place] [address] 04/16/2018 14:19:50 04/16/2018 15:52:23 Ingrowing toenail 319898465 L60.0 [id number] Chino Bishop MD , [facility], OFFICE [address] [place] [address] 05/30/2018 10:22:39 05/30/2018 11:04:13 Adult health examination 824831776 Z00.00 see Risk Assessment and Lifestyle Change Counseling section above Counseling 324974944 Z71 .9 Depression screening 171 945791 Z13.89 depression screening tool administer ed, entered into emr, scored and discussed, time greater than 7.5 minutes Benign ess ential hypertension 9767213 I10 Blood pressure NOT at goal. [id number] Mally Velasco D.O. , [facility], OFFICE [address] [place] [address] 07/17/2018 11:40:37 07/17/2018 12:19:04 Screening for disorder 251638848 Z11.59 Right uppe r quadrant pain 083534998 R10.11 right abdominal pain and back pain- is beginning to improv on it's own.?if pulled muscle. will r/o GB dysfuction or kidney stone with abd u/sfairly benign exam, no s/s of shingles(d oes have resolving diffuse drug rash) [id number] Mally Velasco D.O. , [facility], OFFICE [address] [place] [address] 07/23/2018 11:37:09 07/23/2018 12:41:38 Diarrhea 58105365 R19.7 already following a fairly gluten free diet- has celiacprev CRP was 60- unclear if from rash or from GI process? Eruption c aused by drug 73354262 L27.0 ? if celiac. 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 Primary ma lignant neoplasm of prostate 24341010 C61 Psoriasis 2093144 L40.9 [id number] Chino Bishop MD , [facility], OFFICE [address] [place] [address] 11/22/2018 10:49:21 11/22/2018 11:23:04 Benign essential hypertension 7927912 I10 Blood pressure NOT at goal. [id number] Chino Bishop MD , [facility], OFFICE [address] [place] [address] 01/22/2019 14:26:55 01/22/2019 14:57:54 Active or passive immunization 880027292 Z23 [id number] Chino Bishop MD , [facility], OFFICE [address] [place] [address] 06/03/2019 13:45:05 06/03/2019 14:16:56 Adult health examination 893266204 Z00.00 see Risk Assessment and Lifestyle Change Counseling section above Counseling 976875110 Z71 .9 including cardiovasc ular risk reduction counseling Depression screening 171 280696 Z13.89 depression screening tool administer ed, entered into emr, scored and discussed, time greater than 7.5 minutes Screening for alcohol abuse 568662418 Z13.39 Essential hypertension 12558228 I10 [id number] Chino Bishop MD , [facility], OFFICE [address] [place], [place] [address] 12/09/2019 14:05:57 12/11/2019 15:06:02 Essential hypertension 14452402 I10 Lupus erythematosus 2008 43901 L93.0 [id number] M[address] Vel[address] [facility], OFFICE [address] [place] [address] 12/26/2019 09:05:10 01/01/2020 16:10:55 Active or passive immunization 043242486 Z23 [id number] Gisell Lassiter . , [facility], OFFICE [address] [place] [address] 07/07/2020 11:19:13 07/07/2020 12:22:25 Adult health examination 457910330 Z00.00 USPSTF guidelines reviewed and discussed with patient. colonoscop y 2017, redo 5 Y. to inquire from [facility] about Shingrix vaccine. Has health care proxy in place, to mail us a copy of it. Counseling 711765952 Z71 .9 including cardiovasc ular risk reduction counseling , LDl below 100, at 68, no statin or asa indicated. Depression screening 171 351711 Z13.31 depression screening tool administer ed, entered into emr, scored and discussed, time greater than 7.5 minutes, negative screen. Screening for alcohol abuse 807645178 Z13.39 negative screen. Advance di rective discussed with patient 477793377 Z71.[address], to send us copy. Essential hypertension 99882824 I10 untreated since BP went very low with HCTZ so taken off BP med. June 02 it was 100/62 at rheumatolo gy office. He will monitor his BP at home and send us his BP numbers. Lupus erythematosus 2008 98436 L93.0 on plaquenil, sees rhuematolo gist. Multiple a trial premature complexes 315885798 I49.1 denies palpitatio ns, very active, no cardiac sx. History of malignant neoplasm of prostate 881669198 Z85.46 He stopped Lupron injections and PSA remains untraceabl e. Follows up with urology on a regular basis. In remission currently. [id number] Gisell Pearson MD , [facility], OFFICE [address] [place] [address] 02/04/2021 14:31:23 02/04/2021 20:31:57 [id number] Gisell Lassiter . MD [place], [facility], OFFICE [address] [place] [address] 02/19/2021 09:41:21 02/19/2021 09:54:25 [id number] Gisell Lassiter . MD [place], [facility], OFFICE [address] [place] [address] 1 02/22/2021 13:56:18 02/23/2021 05:42:26 [id number] Gisell Lassiter . , [facility], OFFICE [address] [place] [address] 1 03/02/2021 13:58:35 03/04/2021 07:18:01 [id number] Whitney Haddad MD Podiatry, [facility] [address] [place] [address] 1 06/14/2021 11:57:05 06/16/2021 12:54:29 Ingrowing toenail 670672876 L60.0 [id number] Gisell Lassiter . , [facility], OFFICE [address] [place] [address] 08/09/2021 11:48:24 08/09/2021 12:49:00 Adult health examination 211064670 Z00.00 USPSTF guidelines reviewed and discussed with patient. colonoscop y 2020, redo 5 Y.health care proxy form given to fill out.Vaccin ations UTD. Counseling 289160004 Z71 .9 including cardiovasc ular risk reduction counseling , LDL 70s without statin, no asa or statin indicated. Depression screening 171 910996 Z13.31 depression screening tool administer ed, entered into emr, scored and discussed, time greater than 7.5 minutes, negative screening. Screening for alcohol abuse 419340037 Z13.39 negative screen. Essential hypertension 49938014 I10 BP at target, when it goes up with lupus flare he takes extra losartan. Lupus erythematosus 2009 33526 L93.0 on plaquenil, sees rhuematolo gist. Multiple a trial premature complexes 983128992 I49.1 denies palpitatio ns, very active, no cardiac sx. History of malignant neoplasm of prostate 337324450 Z85.46 He stopped Lupron injections and PSA remains untraceabl e. No longer follows up with urology on a regular basis. In remission currently. Last PSA 02-03-21. needs yearly PSA. [id number] Wen Lemus MD , [facility], OFFICE [address] [place] [id number] 11/02/2021 09:57:40 11/04/2021 08:40:10 Premature atrial contraction [id number] I49.1 atrial bigeminy noted on ECG atSt. [...] from them . no med changes indicated [id number] JUNE BRANNON COTTRELL DNP , [facility] [place], OFFICE [address] [place] [id number] 11/05/2021 14:51:13 2021 12:39:42 Eruption [id number] R21 rupture vesicles to b/l hands and [...] RPR testing today Benign ess ential hypertension [id number] I10 BP not at goal [id number] Gisell Lassiter . 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 They seem to be drying up in response to topical steroid that he is using but he gets new ones. He is leaving for a cruise in 10 days. I am giving him an 8 day taper of prednisone hoping to stop this cycle of immune hyperactiv ity and new lesions. Call with any concerns. [id number] Wen Lemus MD , [facility] [place], [place]ICE [address] [place] [address] 12/17/2021 15:31:24 01/19/2022 09:11:23 COVID-19 921983202 U07.1 qualifies for paxlovid based on age 76 and lupus (even thogu is inactive)h e should take it , just based on the Dx of lupuscours e of covid, reviewedPo ss SE's discussed5 days isolation, 5 masked [id number] Mally Velasco D.O. , [facility] [place], [address]ICE [address] [place] [address] 01/06/2022 10:13:43 01/11/2022 14:16:05 Active or passive immunization [id number] Z23 [id number] Gisell Lassiter . , [facility] [place], [address]ICE [address] [place] [address] 02/07/2022 10:37:07 02/07/2022 12:13:15 Essential hypertension 53291269 I10 BP not at target, will increase losartan to 100 mg daily. will get home BP numbers next week. Mild neuro cognitive disorder 271436998 G31.84 not affecting daily function and is improving, was related to lupus flare. Lupus erythematosus 2009 14663 L93.0 on plaquenil, sees rhuematolo gist. Multiple a trial premature complexes 159250081 I49.1 denies palpitatio ns, very active, no cardiac sx. History of malignant neoplasm of prostate 889923681 Z85.46 PSA remains untraceabl e. No longer follows up with urology on a regular basis. In remission currently. needs yearly PSA. [id number] Gisell MONTENEGRO, [facility] [place], OFFICE [address] [place] [address] 10/10/2022 11:19:43 10/10/2022 14:00:21 Adult health examination 119550380 Z00.00 USPSTF guidelines reviewed and discussed with patient. colonoscop y 2020, redo 5 Y.health care proxy form given to fill out.Vaccin ations UTD.CV counseling done. Depression screening 171 392313 Z13.31 depression screening tool administer ed, negative Screening for alcohol abuse 788829187 Z13.39 Alcohol use screening tool administer ed, negative Screening for malignant neoplasm of prostate 294343078 Z12.5 PSA testing for ages 55-69 risks and benefits discussed test ordered. Mild neuro cognitive disorder 763443424 G31.84 not affecting daily function and is improving, was related to lupus flare. Benign ess ential hypertension 3894164 I10 has been at target, elevated today, he will check his bP at home daily, low salt diet, our staff with contact him in a couple of weeks to get BP records. Lupus erythematosus 2008 16942 L93.0 on plaquenil, sees rhuematolo gist. having some brain fog currently. Multiple a trial premature complexes 837863023 I49.1 denies palpitatio ns, very active, no cardiac sx. History of malignant neoplasm of prostate 867193767 Z85.46 PSA remains untraceabl e. No longer follows up with urology on a regular basis. In remission currently. needs yearly PSA. [id number] Gisell Pearson MD , [facility], OFFICE [address] [place] [address] 03/09/2023 10:54:54 03/09/2023 12:12:33 Mild neurocognitive disorder 738976230 G31.84 brain fog related to lupus flare and affects him being able to read a book for example. Benign ess ential hypertension 2941599 I10 has been at target, elevated today, he will check his bP at home daily, low salt diet, our staff with contact him in a couple of weeks to get BP records. Lupus erythematosus 2008 46490 L93.0 on plaquenil, sees rhuematolo gist. having more sx, wants to see another rheumatolo gist. states did better on MTX, also frustrated with back pain. Multiple a trial premature complexes 268551476 I49.1 denies palpitatio ns, very active, no cardiac sx. History of malignant neoplasm of prostate 096833568 Z85.46 PSA remains untraceabl e. No longer follows up with urology on a regular basis. In remission currently. needs yearly PSA. Abnormal defecation 1799 50163 R19.8 he has loose stools but pushing it out is difficult for him, he has tried various things, fiber, senna and it caused incontinen ce, will refer to pelvic floor therapy. [id number] Gisell Pearson MD , [facility], OFFICE [address] [place] [address] 10/12/2023 08:51:44 10/12/2023 13:01:47 Lupus erythematosus 240286213 L93.0 on plaquenil and injectable MTX .sees rheumatolo gist, Dr. Anne Ritter in [place]. They check labs frequently . Multiple a trial premature complexes 234266723 I49.1 denies palpitatio ns, very active, no cardiac sx. Benign ess ential hypertension 4621703 I10 at target below 130/80. continue same. History of malignant neoplasm of prostate 419032677 Z85.46 PSA remains untraceabl e. No longer follows up with urology on a regular basis. In remission currently. NEEDS YEARLY PSA. due January 2024. Mild neuro cognitive disorder 557293563 G31.84 brain fog related to lupus flare and improved with MTX. Adult heal th examination 303587878 Z00.00 USPSTF guidelines reviewed and discussed with patient. colonoscop y 2020, no further screening. health care proxy form [facility].Vacc inations UTD.PSA yearly with prostate ca hx. Depression screening 171 491530 Z13.31 depression screening tool administer ed, negative Screening for alcohol abuse 090074475 Z13.39 Alcohol use screening tool administer ed, negative [id number] Gisell Pearson MD , [facility] [place], OFFICE [address] [place] [address] 12/01/2023 10:49:49 12/11/2023 12:50:40 Acute sinusitis 38879116 J01.90 normal examdiagno sis by hx Lupus erythematosus 2008 88071 L93.0 already on pred for a flare (brain fog) [id number] MD LAN Gonzales, [facility] [place], OFFICE [address] [place] [address] 05/10/2024 16:21:34 05/20/2024 09:36:51 Genitocrural intertrigo 741703573 L30.4 usual rashtx discussed Lupus erythematosus 2008 88839 L93.0 already on pred for a flare (brain fog)hydrox ychloroqui neMTXpredn isonesaphn eio injections per [facility] rheumatolo gy DR Ritter or Edi ROSAS in past stable dx based on sunsensiti ve rash biopsied Mild neuro cognitive disorder 091477374 G31.84 Multiple a trial premature complexes 847918086 I49.1 History of malignant neoplasm of prostate 318633214 Z85.46 Benign ess ential hypertension 4494998 I10 [id number] Wen Lemus MD , [facility], OFFICE [address] [place] [address] 06/14/2024 13:31:09 06/14/2024 15:51:41 Localized eruption of skin 849628083 R21 Patients presents for evaluation of rash consistent with: Lupus. DDx fungal rash, sunburn. Treated with: topical steroids. Follow up if rash is not improving or with other concerns. Consider use of PO steroids or more potent topical steroids I have contacted pt's rheumatolo gy practice ([facility] rheumatolo gy) and made them aware of patient's current signs and symptoms alongside the planned treatment. They plan on seeing him next week. Copy of today's encounter note will be faxed over. 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 Managed with methotrexa te 15 mg sub cut weekly, hydroxychl oroquine 200 mg BID and Saphnelo infusions. Rash possibly connected to lupus dx, will treat with topical steroid as above. No increased fatigue, low-grade fever, worsening joint pain and or swelling at this time which is reassuring . Consider systemic steroids in setting of worsening s/s [id number] Bridget Sidhu MD , [facility] [place], [address]ICE [address] [place] [address] 07/17/2024 15:14:00 07/17/2024 16:20:23 Infection of toenail 5267725159 9627543 L60.0 5 days of erythema, tenderness Keflex for mild infectionP odiatrist referral for toenail removal Lupus erythematosus 2008 04889 L93.0 On methorexat e, hydroxychl oroquine, leflunamid e [id number] Liu Aguilera DPM Podiatry, [address] [place] [address] 08/05/2024 14:46:58 08/15/2024 13:32:46 Ingrowing toenail 080278436 L60.0 Verbal consent was obtained and slant back procedure was performed on left big toe without incident. Patient informed of signs of infection and possible need for partial nail avulsion procedure if this one does not provide relief. Given instructio ns for at home care. All questions have been answered. rtc prn. Pain of to e of left foot 7283809174 08333 M79.675 [id number] Marcel Mathews MD , [facility] [place], OFFICE [address] [place] [address] 09/26/2024 09:28:41 09/26/2024 13:10:20 Ingrowing great toenail 921624461 L60.0 89 male, returning from [place] where for 3 weeks he suffered with pain in his Right great toe. He had been seen a few months earlier for minor surgery but they did not extend into the cuticle region. He believes since [place] back and is painfully biting into his toe. Physical exam: Ingrown toenail, mildly inflamed surroundin g tissue. No increased warmth or drainage. Impression and plan: No sign of infection. Refer to podiatry for definitive excision. [id number] Liu Aguilera DPM Podiatry, [address] [place] [address] 10/07/2024 10:27:18 10/07/2024 11:00:35 Ingrowing toenail 994652287 L60.0 left great toe ingrown toenail medial nail border:-In formed consent obtained. Left hallux block was performed. Foot prepped and drapped in the usual aseptic manner. Involved medial nail border removed. Site was dressed with bacitracin and dsd and compressio n dressing. Pt given instructio ns and handout for at home care. RTC 1 wk.-to take OTC pain medication prn pain.I spent > 15 mins face to face with patient, more 50% spent in counseling and coordinati on of care. Pain of to e of left foot [id number] 45962 M79.675 Health Concerns Section Related Observation LastModified by Organization Detai ls LastModified Time None Recorded Concern Status LastModified by Organization Details LastModified Time None Recorded Advance Directives Directive Y: Payers Insurance Date Sequence Insurance Name Policy Number Policy Navas Covered Member ID Navas Member ID Guarantor Name 10/07/2024 1 MEDICARE B-[place]: [facility] [employer] Dandy Cintron Pueschel [id number] Dandy Cintron Pueschel 02/26/2024 2 MEDICARE B-[place]: [employer] Dandy Cintron Pueschel [id number] Dandy Cintron Pueschel 10/07/2024 2 [facility] INDEMNITY PLAN [facility] [id number] Dandy Cintron Pueschel [id number] Dandy Cintron Pueschel 02/26/2024 1 [facility] Dandy Crosseschel [id number] Dandy Cintron Pueschel 02/26/2024 1 [facility]: [facility] [id number] Dandy Cintron Pueschel [id number] Dandy Cintron Pueschel Notes Date Note Type [...] joint pain, arthralgias, or systemic symptoms.Followed by [facility] rheumatology. Reports his established rheum provider has left the practice and now he is waiting an appointment with a new provider FRANCISCO STOUT, F[place] [address] [place] [address], [phone] [facility] [place] 15:21:55 08/05/2024 text/html Patient presents for initial evaluation of feet c/o left big toe being ingrown. Patient stating toe is painful when walking in closed toe shoes. Seeking out intervention today as he is planning an upcoming trip to [place] soon. However, patient is currently experiencing stomach upset from lupus medication and is not able to tolerate sitting for an extended time. Liu Aguilera DPM [address] [place] [address], [phone], [facility] [place]05/2024 16:21:16 10/07/2024 text/html Patient presents for c/o left big toe being ingrown. Patient stating toe is painful when walking in closed toe shoes and previous cut out procedure did not provide long relief. Seeking out intervention today. Liu Aguliera DPM [address] [place] [address], [phone], [facility] [place]/07/2024 11:00:33
== END 2024-10-08 13:41 | disposition home or self-care (01) ==
LOC: HO.RHE 12:52
PROVIDERS: Visit Provider Student in an Organized Health Care Education/Training Program
DX: M32.9 Systemic lupus erythematosus, unspecified (principal); Z51.81 Encounter for therapeutic drug level monitoring; Z79.69 Long term (current) use of other immunomodulators and immunosuppressants; Z79.899 Other long term (current) drug therapy; Z79.620 Long term (current) use of immunosuppressive biologic; Z79.52 Long term (current) use of systemic steroids
CPT/HCPCS: 99214; G2211

== ENCOUNTER → 2024-10-08 12:51 | Outpatient (BNVA) | payer MEDICARE, OTHER, SELFPAY | PROVIDERS: Visit Provider Student in an Organized Health Care Education/Training Program | DX: Z51.81 Encounter for therapeutic drug level monitoring (principal); M32.9 Systemic lupus erythematosus, unspecified; Z79.52 Long term (current) use of systemic steroids; Z79.69 Long term (current) use of other immunomodulators and immunosuppressants; Z79.899 Other long term (current) drug therapy; Z79.620 Long term (current) use of immunosuppressive biologic | CPT/HCPCS: 99212 ==

== ENCOUNTER 2025-02-07 12:31 | Outpatient (AMB) | payer MEDICARE, OTHER, SELFPAY ==
[2025-02-07 12:37] VITALS: BP 142/80; PULSE 113; O2SAT 100; BMI 29.5
--- NOTE | 2025-02-07 12:37 | A.OFFVIS_ITS ---
Vital Signs 02/07/25 12:37 Height 5 ft 10 in Weight 205 lb 8 oz BMI 29.5 BP 142/80 H Blood Pressure Location Lt brachial Position Sitting Pulse 113 H Pulse Source Pulse Oximeter Pulse Oximetry (%) 100 Oxygen Delivery Method Room Air Intake Visit Reasons: follow up Intake Note: Patient presents for Lupus follow up and test results. 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 Accompanied by: Spouse Allergies No Known Allergies Allergy (Verified 02/07/25 12:41) Medication List - Last Reconciled 02/07/25 by Nanette Bergman MD anifrolumab-fnia (Saphnelo) 300 mg IV Q4W folic acid 2 mg (2 x 1 mg) PO DAILY 90 days hydroxychloroquine 200 mg PO BID insulin syringe-needle U-100 Use once weekly with methotrexate leucovorin calcium 10 mg PO QWEEK 90 days losartan 100 mg PO DAILY methotrexate sodium (PF) 12.5 MG (0.5 ML) SUBCUTANEOUSLY EVERY WEEK FOR 30 DAYS prednisone 5 mg PO DAILY HPI Comments Details: Patient is a 79-year-old male with hypertension, and systemic lupus erythematosus here today for follow up Interval History: Patient last seen 10/08/24 with me - On Saphnelo 300mg IV every 4 weeks, methotrexate 12.5mg weekly, folic acid 2mg daily, Leucovorin 10mg weekly, Hydroxychloroquine 200mg bid, prednisone 5mg daily - The prednisone does help clear up the morning fogginess - He would sometimes have to take another dose in the afternoon (a total of 10mg per day) - Still has some pain in the muscle to the back of the thighs after long walks Today - On Saphnelo 300mg IV every 4 weeks, methotrexate 12.5mg weekly, folic acid 2mg daily, Leucovorin 10mg weekly, Hydroxychloroquine 200mg bid, prednisone 5mg daily - Doing well overall, the mental fog is under control - Still complaining of overall stiffness related to his OA Rheumatologic History: dx 2018 skin biopsy showing cutaneous lupus, fatigue, arthralgias +CHARLEEN+++SSa +DsDNA HCQ approx 2019 effective for skin Stopped oral methotrexate due to GI upset after taking it X 9 months in 05/2020 SQ MTX 05/2023 Saphnelo infusions added 11/2023 Switched Mtx to leflunomide but this was not efficacious and so we restarted Mtx Initial history: This is a 77-year-old male who presents for evaluation of SLE. He stated that since he has been having episodes of rashes all over his body especially after sun exposure, fatigue, generalized pain and weakness. Eventually around 2018 he was evaluated by Dermatology and a skin biopsy confirmed discoid lupus erythematosus. He was started on hydroxychloroquine with significant improvement of his rashes. He was evaluated by Rheumatology and methotrexate was added in 2020, he was on it for about 9 months and it was discontinued due to GI upset. He continues on hydroxychloroquine 200 mg Twice daily. He states that he continues to have at least 1 or 2 days per week episodes of brain fog, generalized fatigue, pain in upper back, neck, shoulders, lower back. Whenever he does any work outside he gets a butterfly rash on his face. He denies any history of fevers. He states that his hands and feet are always cold. They do change color but he does not have to do anything about it to reverse it. Denies any history of DVT/PE. States that he has had GI symptoms for years and had significant workup by Gastroenterology. Including endoscopy and colonoscopy which were unremarkable per patient. He has intermittent heartburn. Occasionally takes omeprazole. Denies any dysphagia. He states that prednisone always does wonders for all his symptoms. States that his daughter was recently diagnosed with lupus and started on Plaquenil with dramatic improvement. He believes that his mother also had lupus as she also had photosensitivity and sun intolerance. Current Rheumatology Medication(s): Saphnelo 300mg IV every 4 weeks Methotrextae 12.5mg SC weekly Folic acid 2mg daily Leucovorin 10mg weekly HCQ 200mg bid Prednisone 5mg daily [facility] Medical History Hypertension Surgical History H/O abdominoplasty S/P hernia repair Hx of tonsillectomy History of surgery Family History Daughter Lupus (systemic lupus erythematosus) Other Family history of lupus erythematosus Social History Household Members: Spouse Alcohol intake: current Alcohol intake frequency: a few times a week Alcohol type: wine Patient Tobacco Use Status: Former Tobacco user Review of Systems Narrative Review of Systems Constitutional: Denies fever, chills, weight loss ENT: Denies vision changes, eye pain or eye redness, dental caries, dry mouth GI: Denies nausea, vomiting, diarrhea, abdominal pain, change in BM Pulm: Denies SOB, MALONE, hemoptysis, wheezing Cards: Denies chest pain, palpitations Skin: Denies Raynaud's, rash, nail changes, photosensitivity, 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 Well appearing and in no apparent painful distress MSK Hands * Right Hand: Able to make a fist. No swelling or tenderness to palpation of the MCPs, PIPs or DIPs. * Left Hand: Able to make a fist. No swelling or tenderness to palpation of the MCPs, PIPs or DIPs. * Herbedens nodes noted bilaterally Wrists * Right Wrist: Full ROM to flexion and extension. No swelling or TTP * Left Wrist: Full ROM to flexion and extension. No swelling or TTP Elbows * Right Elbow: Full ROM. No swelling or TTP. No TTP of the medial epicondyle. No TTP of the lateral epicondyle * Left Elbow: Full ROM. No swelling or TTP. No TTP of the medial epicondyle. No TTP of the lateral epicondyle Shoulders * Right shoulder: Full ROM. No swelling noted. No TTP of the AC joint. No TTP of the subacromial bursa. No TTP of the posterior shoulder * Left shoulder: Full ROM. No swelling noted. No TTP of the AC joint. No TTP of the subacromial bursa. No TTP of the posterior shoulder Knees * Right knee: Full ROM. No swelling noted. No TTP of the knee joint line. No TTP of pes anserine bursa * Left knee: Full ROM. No swelling noted. No TTP of the knee joint line. No TTP of pes anserine bursa. * Crepitations felt bilaterally Ankles * Right ankle: Good ankle dorsiflexion and plantar flexion. No swelling. No TTP of the ankle joint * Left ankle: Good ankle dorsiflexion and plantar flexion. No swelling. No TTP of the ankle joint Feet * Right foot: Negative squeeze test * Left foot: Negative squeeze test Tender points? * No tenderness to palpation of the bilateral trapezius, supraspinatus, anterior costochondral junctions, bilateral suboccipital muscle insertions SKIN No rashes Vital Signs: Last Vital Signs Pulse 113 H 02/07/25 12:37 BP 142/80 H 02/07/25 12:37 Pulse Ox 100 02/07/25 12:37 Oxygen Delivery Method Room Air 02/07/25 12:37 BMI result Body Mass Index 29.5 Results Reviewed Results Reviewed: Laboratory Tests 06/17/24 09/30/24 02/03/25 15:00 [facility] WBC 4.8 6.28 6.87 RBC 3.52 L 3.73 L 3.79 Hgb 12.7 L 13.6 L 13.4 Hct 36.9 L 39.9 L 40.2 Plt Count 209 195 208 ESR 7 5 4 Sodium 138 137 Potassium 4.5 4.6 Chloride 104 100 Carbon Dioxide 27 27 BUN 24 H 21 Creatinine 1.01 1.3 1.1 GFR 56.2 >60 AST 22 14 27 ALT 21 25 34 Alkaline Phosphatase 46 57 C-Reactive Protein < 0.04 0.5 <5.0 Total Protein 6.5 6.8 Laboratory Tests 06/17/24 09/30/24 02/03/25 15:00 [facility] Double Strand DNA Ab <1 <1 <1 Complement C3 151 133 150 Complement C4 17 17.3 18.7 Assessment & Plan Assessment & Plan (1) Lupus: Comment: dx 2018 skin biopsy showing cutaneous lupus, fatigue, arthralgias +CHARLEEN+++SSa +DsDNA HCQ approx 2019 effective for skin Stopped oral methotrexate due to GI upset after taking it X 9 months in 05/2020 SQ MTX 05/2023. Still complain about methotrexate flu and so was discontinued Code(s): M32.9 - Systemic lupus erythematosus, unspecified Category: Medical Plan: #Lupus Patient is a 78 y.o. male with lupus here today for follow up. Doing well overall No evidence of active lupus on exam Continues to complain of mental fog and joint pain with stiffness. Discussed with patient and that the mental fog associated with autoimmune disease is difficult to treat. In terms of severe fatigue we can do modafinil but that is something that reserved for severe cases. He is also complaining of some stiffness likely related to his osteoarthritis. Plan - Continue saphnelo infusions 300mg every 4 weeks - Continue plaquenil 200mg bid - Continue topical tacrolimus - Methotrexate 12.5mg SC weekly - Folic acid 1mg daily - Leucovorin 10mg weekly - Tylenol 500 mg 2 tablets twice a day - Prednisone 5mg daily - RTC 4 months - Labs before visit: CBC, CMP, ESR, CRP, C3, C4, dsDNA, UA, UPC (2) Encounter for monitoring of hydroxychloroquine therapy: Code(s): Z51.81 - Encounter for therapeutic drug level monitoring; Z79.899 - Other residential (current) drug therapy Plan: #Long-term Use of Hydroxychloroquine Discussed with patient the risks and benefits of hydroxychloroquine in managing the rheumatic condition Benefits include: - Reduced pain, reduce mortality, maintenance of remission and reduction of flares Risks include: - GI upset, skin hyperpigmentation, retinal toxicity (especially after more than 5 years of use), myopathy Advised yearly ophthalmology visits (3) joint terminal attack controller (current) use of immunosuppressive biologic: Code(s): Z79.620 - joint terminal attack controller (current) use of immunosuppressive biologic Plan: #Long-term use Anifrolumab Discussed with patient the risks and benefits of hydroxychloroquine in managing the rheumatic condition Benefits include: - Reduced pain, reduce mortality, maintenance of remission and reduction of flares Risks include: - Increased susceptibility to serious infections particularly viral infections like herpes zoster (shingles), respiratory tract infections and infusion related reactions (4) shelter (current) use of systemic steroids: Code(s): Z79.52 - shelter (current) use of systemic steroids Plan: #Long-term Use of Steroids Discussed with patient the risks and benefits of steroid for managing the rheumatic condition Benefits include: - Reduced pain, improved mobility, increased participation in activities, and decreased progression of disease Risks include: - GI upset, potential ultrasound worsening or formation (especially in patients > 65 years old), elevated blood pressure/worsening hypertension, elevated blood sugar/worsening diabetes control, worsening of bone density, elevated lipids/worsening triglycerides, cataract formation, weight gain Recommended using proton pump inhibitors (PPIs) for the duration of steroid use to reduce the risk of gastric ulcers and vitamin-D daily to reduce the risk of osteoporosis Labs checked: A1c, T spot, hepatitis-B and C serologies Pneumocystis jiroveci prophylaxis: Patient with risk factors including steroids greater than 50 mg for more than 30 days, age greater than 60 years, and lung involvement from underlying rheumatic disease requires prophylaxis and will be given so (5) Encounter for methotrexate monitoring: Code(s): Z51.81 - Encounter for therapeutic drug level monitoring; Z79.631 - shelter (current) use of antimetabolite agent Plan: #Long-term Current Use of Methotrexate Discussed with patient the benefits and risks of methotrexate for managing their rheumatic condition Benefits include reduced pain, reduced mortality, maintenance of remission and reduction of flares Risks include oral ulcers, photosensitivity, hepatotoxicity, hematologic toxicity, pneumonitis, flu-like symptoms (especially day after administration), nodulosis, lymphomas ? Limit alcohol and avoid Bactrim ? Monitoring: CBC, BMP, LFTs every 3-4 months and hepatitis serologies as needed ? Methotrexate is teratogenic. If planning need to discontinue 3 months prior to conception Plan I spent 30 minutes reviewing the record and labs, taking a history, examining the patient, discussing the treatment plan, ordering diagnostic work up and documenting in the medical record Medications: Refilled folic acid 2 mg (2 x 1 mg) PO DAILY 180 tabs 1RF 90 days M32.9 - Systemic lupus erythematosus, unspecified leucovorin calcium 10 mg PO QWEEK 13 tabs 1RF 90 days M32.9 - Systemic lupus erythematosus, unspecified methotrexate sodium (PF) 12.5 MG (0.5 ML) SUBCUTANEOUSLY EVERY WEEK FOR 30 DAYS #2 5RF M32.9 - Systemic lupus erythematosus, unspecified hydroxychloroquine 200 mg PO BID 180 tabs 1RF prednisone 5 mg PO DAILY 90 tabs 1RF M32.9 - Systemic lupus erythematosus, unspecified Coding Level of Care Code Est Pt Level 4 (45537) Complex visit Add On G2211 Diagnoses Lupus M32.9 Encounter for monitoring of hydroxychloroquine therapy Z51.81; Z79.899 shelter (current) use of immunosuppressive biologic Z79.620 shelter (current) use of systemic steroids Z79.52 Encounter for methotrexate monitoring Z51.81; Z79.631
--- OUTSIDE RECORDS SUMMARY | 2025-02-07 12:50 | XMS_ITS | Encounter Summary ---
Author Organization [facility] Address [address] [facility] [address] [place] [address] Phone Care Team Providers Care Policy Specialist Name Role Phone Soham Bishop MD Primary Care Provider [email or web address] Mally Velasco DO Primary Care Provider [phone] Encounter Details Date Type Department Care Team (Latest Contact Info) Description 12/21/2017 Transcribe Orders [address] [place] [address] Leeroy Murphy MD [address] [place] [address], [address] [place] [address] [email or web address] Malignant neoplasm of prostate (Primary Dx) Social History Tobacco Use Types Packs/Day Years Used Date Smoking Tobacco: Former Cigarettes 1 5 - 1994 Smokeless Tobacco: Never Alcohol Use Standard Drinks/Week Comments Yes 0 (1 standard drink = 0.6 oz pur e alcohol) occasionally 5-7/week Sex and Gender Information Value Date Recorded Sex Assigned at Male 03/23/2021 3:26 PM EST Legal Sex Male 10:08 PM EDT Gender Identity Male 03/23/2021 3:26 PM EST Sexual Orientation Not on file documented as of this encounter Plan of Treatment Not on file documented as of this encounter Results * PSA (screening) (12/21/2017 8:42 AM EDT) PSA <0.01 0 - 4.00 ng/mL [facility] Blood 12/21/2017 8:42 AM EDT 12/21/2017 8:48 AM EDT us Leeroy Murphy MD LAB BLOOD BKR ORDERABLES Final Result [facility] [address] [place] [address] documented in this encounter Visit Diagnoses Diagnosis Malignant neoplasm of prostate- Primary documented in this encounter Additional Health Concerns Infection Onset Date Last Indicated Resolved Time COVID-19 03/23/2021 03/23/2021 04/13/2021 1:22 AM EST documented as of this encounter Care Teams Policy Specialist Relationship Specialty Start Date End Date Soham Bishop MD [email or web address] PCP - General Family Medicine 02/21/17 05/17/21 Mally Velasco DO [address] [place] [id number] PCP - General Internal Medicine 05/18/21 documented as of this encounter Additional Source Comments The information contained in this document represents components of the legal health record. It is not the complete legal health record.[facility]
--- OUTSIDE RECORDS SUMMARY | 2025-02-07 12:50 | XMS_ITS | Encounter Summary ---
Author Organization [facility] Address [address] [facility] [address] [place] [address] Phone Care Team Providers Care Work And Family Life Consultant Name Role Phone Soham Bishop MD Primary Care Provider [email or web address] Mally Velasco DO Primary Care Provider [phone] Encounter Details Date Type Department Care Team (Late st Contact Info) Description 02/25/2021 Procedure Pass [facility] Endoscopy Admitting Dept Virtual Department [address] [place] [address] Social History Tobacco Use Types Packs/Day Years [...] on file documented as of this encounter Visit Diagnoses Not on filedocumented in this encounter Additional Health Concerns Infection Onset Date Last Indicated Resolved Time COVID-19 03/23/2021 03/23/2021 04/13/2021 1:22 AM EST documented as of this encounter Care Teams Work And Family Life Consultant Relationship Specialty Start Date End Date [email or web address] Bishop MD [email or web address] PCP - General Family Medicine 02/21/17 05/17/21 Mally Velasco DO [address] [place] [id number] PCP - General Internal Medicine 05/18/21 documented as of this encounter Additional Source Comments The information contained in this document represents components of the legal health record. It is not the complete legal health record.[facility]
--- OUTSIDE RECORDS SUMMARY | 2025-02-07 12:50 | XMS_ITS | Encounter Summary ---
Author Organization [facility] Address [address] [facility] [address] [place] [address] Phone Care Team Providers Care Overnight Caregiver Name Role Phone Soham Bishop MD Primary Care Provider [email or web address] Mally Velasco DO Primary Care Provider [phone] Encounter Details Date Type Department Care Team (Latest Contact Info) Description 09/14/2017 Transcribe Orders [address] [place] [address] Leeroy Murphy MD [address] [place] [address], [address] [place] [address] [email or web address] Malignant neoplasm of prostate (Primary Dx) [...] of this encounter Results * PSA (screening) (09/14/2017 2:29 PM EDT) PSA <0.01 0 - 4.00 ng/mL [facility] Blood 09/14/2017 2:29 PM EDT 09/14/2017 2:42 PM EDT Leeroy Murphy MD LAB BLOOD BKR ORDERABLES Final Result [facility] [address] [place] [address] documented in this encounter Visit Diagnoses Diagnosis Malignant neoplasm of prostate- Primary documented in this encounter Additional Health Concerns Infection Onset Date Last Indicated Resolved Time COVID-19 03/23/2021 03/23/2021 04/13/2021 1:22 AM EST documented as of this encounter Care Teams Overnight Caregiver Relationship Specialty Start Date End Date Soham Bishop MD [email or web address] PCP - General Family Medicine 02/21/17 05/17/21 Mally Velasco DO [address] [place] [id number] PCP - General Internal Medicine 05/18/21 documented as of this encounter Additional Source Comments The information contained in this document represents components of the legal health record. It is not the complete legal health record.[facility]
--- OUTSIDE RECORDS SUMMARY | 2025-02-07 12:50 | XMS_ITS | Encounter Summary ---
Author Organization [facility] Address [address] [facility] [address] [place] [address] Phone Care Team Providers Care Assurance Sourcing Manager Name Role Phone Soham Bishop MD Primary Care Provider [email or web address] Mally Velasco DO Primary Care Provider [phone] Encounter Details Date Type Department Care Team (Late st Contact Info) Description 05/12/2021 Procedure Pass [facility], [address] [address] Social History Tobacco Use Types Packs/Day Years [...] Diagnoses Not on filedocumented in this encounter Care Teams Assurance Sourcing Manager Relationship Specialty Start Date End Date Soham Bishop MD [email or web address] PCP - General Family Medicine 02/21/17 05/17/21 Mally Velasco DO [address] [place] [id number] (work) PCP - General Internal Medicine 05/18/21 documented as of this encounter Additional Source Comments The information contained in this document represents components of the legal health record. It is not the complete legal health record.[facility]
--- OUTSIDE RECORDS SUMMARY | 2025-02-07 12:50 | XMS_ITS | Encounter Summary ---
Author Organization [facility] Address [address] [facility] [address] [place] [address] Phone Care Team Providers Care Buyer Liaison Name Role Phone Soham Bishop MD Primary Care Provider [email or web address] Mally Velasco DO Primary Care Provider [phone] Encounter Details Date Type Department Care Team (Latest Contact Info) Description 04/02/2018 Transcribe Orders [address] [place] [address] Leeroy Murphy MD [address] [place] [address], [address] [place] [address] [email or web address] Prostate cancer (Primary Dx) Social History Tobacco Use Types [...] of this encounter Results * PSA (screening) (04/02/2018 11:36 AM EST) PSA <0.01 0 - 4.00 ng/mL [facility] Blood 04/02/2018 11:3 6 AM EST 04/02/2018 2:40 PM EST us Leeroy Murphy MD LAB BLOOD BKR ORDERABLES Final Result [facility] [address] [place] [address] documented in this encounter Visit Diagnoses Diagnosis Prostate cancer- Primary Malignant neoplasm of prostate documented in this encounter Additional Health Concerns Infection Onset Date Last Indicated Resolved Time COVID-19 03/23/2021 03/23/2021 04/13/2021 1:22 AM EST documented as of this encounter Care Teams Buyer Liaison Relationship Specialty Start Date End Date Soham Bishop MD [email or web address] PCP - General Family Medicine 02/21/17 05/17/21 Mally Velasco DO [address] [place] [address] PCP - General Internal Medicine 05/18/21 documented as of this encounter Additional Source Comments The information contained in this document represents components of the legal health record. It is not the complete legal health record.[facility]
--- OUTSIDE RECORDS SUMMARY | 2025-02-07 12:50 | XMS_ITS | Encounter Summary ---
Author Organization [facility] Address [address] [facility] [address] [place] [address] Phone Care Team Providers Care Energy Efficiency Finance Manager Name Role Phone Mally Velasco Primary Care Provider Encounter Details Date Type Department Care Team (Latest Contact Info) Description 05/18/2021 Transcribe Orders [address] [place] [address] Telma Cruz NP [address] [place] [id number] Diarrhea, unspecified type (Primary Dx) Social History [...] REACTIVE PROTEIN <3.0 0.0 - 4.0 mg/L [facility] Blood 05/18/2021 3:04 PM EST 05/18/2021 3:06 PM EST us Telma Cruz NP LAB BLOOD BKR ORDERABLES Final Result [address] [address] * (ABNORMAL) Comprehensive metabolic panel (05/18/2021 3:04 PM EST) SODIUM 134 133 - 146 mmol/L [facility] POTASSIUM 4.0 3.3 - 5.1 mmol/L [facility] CHLORIDE 97 96 - 108 mmol/L [facility] CO2 24 21 - 35 mmol/L [facility] BUN 25(H) 6 - 19 mg/dL [facility] CREATININE 1.00 0.5 - 1.5 mg/dL [facility] GLUCOSE 100(H) 70 - 99 mg/dL [facility] ALBUMIN 4.6 3.9 - 4.8 g/dL [facility] TOTAL PROTEIN 7.1 6.5 - 8.0 g/dL [facility] CALCIUM 9.6 8.4 - 10.3 mg/dL [facility] ALKALINE PHOSPHATASE 62 39 - 117 U/L [facility] TOTAL BILIRUBIN 0.3 0.0 - 1.2 mg/dL [facility] AST 34 0 - 37 U/L [facility] ALT 22 0 - 40 U/L [facility] GLOBULIN 2.5 1 - 4.8 g/dL [facility] EGFR 78 >59 mL/min/1.7 3m2 [facility] Comment:Estimated glomerular filtration rate calculated using the CKD-EPI refit equation. ANION GAP 17 10 - 20 mmol/L [facility] Blood 05/18/2021 3:04 PM EST 05/18/2021 3:06 PM EST us Telma Cruz NP LAB BLOOD BKR ORDERABLES Final Result [address] [address] * (ABNORMAL) CBC (05/18/2021 3:04 PM EST) WBC 4.70 4.00 - 11.00 K/uL [facility] RBC 3.85(L) 3.90 - 5.69 M/uL [facility] HGB 13.6 12.4 - 17.3 g/dL [facility] HCT 38.3 37.0 - 51.0 % [facility] PLT 232 140 - 430 K/uL [facility] MCV 99.5(H) 78.0 - 97.0 fL [facility] MCH 35.3(H) 25.0 - 33.0 pg [facility] MCHC 35.5 32.0 - 36.0 g/dL [facility] RDW 12.5 11.0 - 15.0 % [facility] MPV 10.4 8.4 - 12.8 fl [facility] NRBC 0.00 0 /100 WBCs [facility] ABSOLUTE NRBC 0.00 0 K/uL [facility] Blood 05/18/2021 3:04 PM EST 05/18/2021 3:06 PM EST us Telma Cruz GLASSINE MACHINE TENDER LAB BLOOD BKR ORDERABLES Final Result Performing Organization Address City/State/[facility] Co de Phone Number [facility] [address] [place] [address] documented in this encounter Visit Diagnoses Diagnosis Diarrhea, unspecified type- Primary documented in this encounter Care Teams Energy Efficiency Finance Manager Relationship Specialty Start Date End Date Mally Velasco DO [address] [place] [id number] PCP - General Internal Medicine 05/18/21 documented as of this encounter Additional Source Comments The information contained in this document represents components of the legal health record. It is not the complete legal health record.[facility]
--- OUTSIDE RECORDS SUMMARY | 2025-02-07 12:50 | XMS_ITS | Encounter Summary ---
Author Organization [facility] Address [address] [place] [address] Phone Care Team Providers Care Family Law Paralegal Name Role Phone Soham Bishop MD Primary Care Provider [email or web address] Primary Care Provider [phone] Encounter Details Date Type Department Care Team (Late st Contact Info) Description 02/03/2021 Transcribe Orders [address] [place] [address] Soham Bishop MD [email or web address] Social History Tobacco Use Types Packs/Day Years [...] documented as of this encounter Care Teams Family Law Paralegal Relationship Specialty Start Date End Date Soham Bishop MD [email or web address] PCP - General Family Medicine 02/21/17 05/17/21 Mally Velasco DO [address] [place] [id number] PCP - General Internal Medicine 05/18/21 documented as of this encounter Additional Source Comments The information contained in this document represents components of the legal health record. It is not the complete legal health record.[facility]
--- OUTSIDE RECORDS SUMMARY | 2025-02-07 12:50 | XMS_ITS | Encounter Summary ---
Author Organization [facility] Address [address] [facility] [address] [place] [address] Phone Care Team Providers Care Blanket Maker Name Role Phone Soham Bishop MD Primary Care Provider [email or web address] Mally Velasco DO Primary Care Provider Encounter Details Date Type Department Care Team (Latest Contact Info) Description 07/28/2020 Transcribe Orders [address] [place] [address] Leeroy Murphy MD [address] [place] [address], [address] [place] [address] [email or web address] Malignant neoplasm of prostate (Primary Dx) [...] of this encounter Results * PSA (screening) (07/28/2020 10:19 AM EDT) PSA <0.05 0 - 4.00 ng/mL [facility] Blood 07/28/2020 10:1 9 AM EDT 07/28/2020 10:20 AM EDT us Leeroy Murphy MD LAB BLOOD BKR ORDERABLES Final Result [facility] [address] [place] [address] documented in this encounter Visit Diagnoses Diagnosis Malignant neoplasm of prostate- Primary documented in this encounter Additional Health Concerns Infection Onset Date Last Indicated Resolved Time COVID-19 03/23/2021 03/23/2021 04/13/2021 1:22 AM EST documented as of this encounter Care Teams Blanket Maker Relationship Specialty Start Date End Date Soham Bishop MD [email or web address] PCP - General Family Medicine 02/21/17 05/17/21 Mally Velasco DO [address] [place] [phone] PCP - General Internal Medicine 05/18/21 documented as of this encounter Additional Source Comments The information contained in this document represents components of the legal health record. It is not the complete legal health record.[facility]
--- OUTSIDE RECORDS SUMMARY | 2025-02-07 12:51 | XMS_ITS | Encounter Summary ---
Author Organization [facility] Address [address] [place] [address] Phone Care Team Providers Care Installer Apprentice Name Role Phone Soham Bishop MD Primary Care Provider [email or web address] Mally Velasco DO Primary Care Provider [phone] Encounter Details Date Type Department Care Team (Late st Contact Info) Description 03/23/2021 Procedure Pass [facility], Ct Scan - [address] [address] Social History Tobacco Use Types Packs/Day Years [...] on file documented as of this encounter Functional Status * Calculated C-SSRS Risk Score (Lifetime/Recent) Answer Date of Assessment Author No Risk Indicated 03/23/2021 3:25 PM Osman Leahy CNP * [place] Suicide Severity Rating Scale (Screener/Recent Self-Report) Question Answer Date of Assessment Author 1. Wish to be (Past 1 Month) No 03/23/2021 3:25 PM Osman Leahy CNP 2. Non-Specific Active Suicidal Thoughts (Past 1 Month) No 03/23/2021 3:25 PM EST Canon Katerinkalpesh Olvera, MULE SPINNER 6. Suicidal Behavior (Lifetime) No 03/23/2021 3:25 PM EST Canon Katerinkalpesh Olvera, MULE SPINNER documented as of this encounter Plan of Treatment Not on file documented as of this encounter Visit Diagnoses Not on filedocumented in this encounter Additional Health Concerns Infection Onset Date Last Indicated Resolved Time COVID-19 03/23/2021 03/23/2021 04/13/2021 1:22 AM EST documented as of this encounter Care Teams Installer Apprentice Relationship Specialty Start Date End Date Soham Bishop MD [email or web address] PCP - General Family Medicine 02/21/17 05/17/21 Mally Velasco DO [address] [place] [id number] PCP - General Internal Medicine 05/18/21 documented as of this encounter Additional Source Comments The information contained in this document represents components of the legal health record. It is not the complete legal health record.[facility]
--- OUTSIDE RECORDS SUMMARY | 2025-02-07 12:51 | XMS_ITS | Clinical Summary ---
Author Organization [facility] Address [address] [place] [address] Phone Care Team Providers Care Bleach Analyst Name Role Phone RodMally Allie DAY Primary Care Provider [phone] Allergies No known active allergies Medications multivitamin-min erals-lutein (MULTIVITAMIN 50 PLUS) Tab Take 1 tablet by mouth every other day. Active losartan (COZAAR) 100 MG tablet Take 100 mg by mouth daily. 2 Active dicyclomine (BENTYL) 20 mg tablet TAKE 1 TABLET BY MOUTH EVERY DAY NEEDED FOR LOWER ABDOMINAL CRAMPS 2 Active DULoxetine (CYMBALTA) 20 MG capsuleIndicatio ns:Myalgia TAKE 1 CAPSULE BY MOUTH EVERY DAY 90 capsule 3 3 Active acetaminophen (TYLENOL) 500 MG tablet Take 1,000 mg by mouth 3 (three) times a day. Active SENNA 8.6 mg tablet TAKE 1 OR 2 TABLETS BY MOUTH AT BEDTIME 3 Active hydroxychloroqui ne (PLAQUENIL) 200 mg tabletIndication s:Other forms of systemic lupus erythematosus, unspecified organ involvement status Take 1 tablet (200 mg total) by mouth 2 (two) times a day. 180 tablet 3 3 Active Active Problems Problem Noted Date Diagnosed Date Neck pain 09/02/2022 Assessment & Plan (09/22/2022 2:48 PM EDT): Proper posture and neck support during the day and nighttime. Avoid prolonged neck bending or extension. Use warm packs versus warm shower prior to gentle, regular ROM, and muscle strengthening exercises. He may benefit from topical cream such as Arnica, Voltaren, Biofreeze versus medicated patches such as Salonpas or IcyHot patch applied to-3 times daily and if needed at bedtime. Call if symptoms do not improve or progress. Gastroesophageal reflux disease without esophagi tis 02/16/2022 Assessment & Plan (09/02/2022 11:16 AM EDT): Avoid late, large, spicy meals. Keep headboard elevated at 45 angle for nighttime. Assessment & Plan (05/05/2022 2:16 PM EST): Avoid late, large, spicy meals. Keep headboard elevated at 45 angle for nighttime. Assessment & Plan (02/16/2022 11:00 AM EST): Avoid late, large, spicy meals. Keep headboard elevated at 45 angle for nighttime. Chronic midline low back pain without sciatica 0 10/18/2021 Assessment & Plan (01/23/2023 9:34 AM EST): Joint protection, energy conservation. Gentle, regular exercise routine after warm pack or warm shower. Avoid falls, injuries, overuse, heavy lifting, repeated bending, pulling, pushing, sudden turns. Keep body weight in ideal range for his height. He may benefit from topical cream such as Arnica, Biofreeze, Aspercreme versus medicated patches such as salonpas, icy hot patch 2-3 times daily and if necessary at bedtime x 3 weeks. Additional benefit may be achieved from warm pool exercise program such as at local [facility] versus [employer] in [place] versus [employer] in [place] or private health club. Assessment & Plan (09/22/2022 2:46 PM EDT): Joint protection, energy conservation. Gentle, regular exercise routine after warm pack or warm shower. Avoid falls, injuries, overuse, heavy lifting, repeated bending, pulling, pushing, sudden turns. Keep body weight in ideal range for his height. He may benefit from topical cream such as Arnica, Biofreeze, Aspercreme versus medicated patches such as salonpas, icy hot patch 2-3 times daily and if necessary at bedtime x 3 weeks. Additional benefit may be achieved from warm pool exercise program such as at [facility] versus [facility] versus [employer] in [place] [employer] [facility]. Assessment & Plan (05/05/2022 2:28 PM EST): Joint protection, energy conservation. Gentle, regular exercise routine after warm pack or warm shower. Avoid falls, injuries, overuse, heavy lifting, repeated bending, pulling, pushing, sudden turns. Keep body weight in ideal range for his height. He may benefit from topical cream such as Arnica, Biofreeze, Aspercreme versus medicated patches such as salonpas, icy hot patch 2-3 times daily and if necessary at bedtime x 3 weeks. Additional benefit may be achieved from warm [employer] exercise program such as at [facility] versus [facility] versus [employer] in [place] or [facility]. Assessment & Plan (03/15/2022 8:51 PM EST): Joint protection, energy conservation. Gentle, regular exercise routine. Avoid falls, injuries, overuse. Keep body weight in ideal range for his height. He may benefit from topical cream such as Arnica, Biofreeze, Aspercreme versus medicated patches such as salonpas, icy hot patch 2-3 times daily and if necessary at bedtime x 3 weeks. Additional benefit may be achieved from warm pool exercise program such as at [facility] versus [facility] versus [employer] in [facility]. Assessment & Plan (10/18/2021 11:40 AM EDT): Joint protection, energy conservation. Gentle, regular exercise routine. Avoid falls, injuries, overuse. Keep body weight in ideal range for his height. He may benefit from topical cream such as Arnica, Biofreeze, Aspercreme versus medicated patches such as salonpas, icy hot patch 2-3 times daily and if necessary at bedtime x 3 weeks. Ischial bursitis 10/18/2021 Assessment & Plan (11/06/2021 10:47 PM EDT): Use warm pack versus warm shower prior to stretching and muscle strengthening exercises. Consider gentle massage versus therapeutic ultrasound, TENS unit or acupuncture. Proper posture, shoe support. Small bowel obstruction 03/23/2021 Assessment & Plan (03/24/2021 1:16 PM EST): . Manage conservatively with IV fluids, n.p.o., IV pain medications and IV antiemetics. Surgery saw him today COVID-19 03/23/2021 Assessment & Plan (03/24/2021 4:06 PM EST): Has been boosted and vaccinated. Mild flulike symptoms. Hypoxic to 87 on room air since hospitalized Discussed with patient remdesivir Decadron. He agrees Long-term use of Plaquenil 11/26/2020 Assessment & Plan (01/23/2023 9:35 AM EST): Take exactly as prescribed. Follow with chief design drafter at least every 12 months. Assessment & Plan (09/02/2022 11:16 AM EDT): Take exactly as prescribed. Follow with chief design drafter at least every 12 months. Assessment & Plan (05/05/2022 2:16 PM EST): Take exactly as prescribed. Follow with chief design drafter at least every 12 months. Assessment & Plan (03/15/2022 8:56 PM EST): Take exactly as prescribed. Follow with chief design drafter at least every 12 months. Assessment & Plan (10/18/2021 11:41 AM EDT): Take exactly as prescribed. Follow with chief design drafter at least every 12 months. Get baseline EKG to check for prolonged QT interval. Assessment & Plan (06/16/2021 4:32 PM EDT): Take exactly as prescribed. Follow with chief design drafter at least every 12 months. Get baseline EKG to check for prolonged QT interval. Assessment & Plan (03/04/2021 11:33 AM EST): Take exactly as prescribed. Follow with chief design drafter at least every 12 months. Get baseline EKG to check for prolonged QT interval. Assessment & Plan (12/01/2020 9:18 PM EDT): Take exactly as prescribed. Follow with chief design drafter at least every 12 months. Get baseline EKG to check for prolonged QT interval. Myalgia 11/26/2020 Assessment & Plan (06/16/2021 4:32 PM EDT): Well-balanced nutritionally diet-rich in vitamins, electrolytes, micro and ultra elements. Proper hydration. Gentle, regular exercise routine. Assessment & Plan (03/04/2021 11:35 AM EST): Well-balanced nutritionally diet-rich in vitamins, electrolytes, micro and ultra elements. Proper hydration. Gentle, regular exercise routine. Assessment & Plan (12/01/2020 9:16 PM EDT): Well-balanced nutritionally diet-rich in vitamins, electrolytes, micro and ultra elements. Proper hydration. Gentle, regular exercise routine. Other forms of systemic lupus erythematosus 03/20 Assessment & Plan (01/23/2023 9:47 AM EST): Stable clinically so carefully continue Plaquenil 200 mg twice daily as prescribed. Continue daily sun protection all year round. Avoid sick contacts, falls, injuries, overuse. Continue gentle, regular exercise routine. Get surveillance labs today -standing orders in [place]. It may be helpful to get labs at the time of perceived disease flare . I previously reviewed with him risk of possible liver damage with daily Tylenol intake of 3900 mg and encouraged him to limit its use to 3000 mg daily in favor of topical products and other nonpharmacologic measures such as warm packs alternating with ice packs, regular meditation/relaxation and mindfulness approach. He discontinued use of Tylenol in favor off topical products and other nonpharmacologic measures. Call with questions or problems in the interim. Assessment & Plan (09/22/2022 2:45 PM EDT): Carefully continue Plaquenil 200 mg twice daily as prescribed. Continue daily sun protection all year round. Avoid sick contacts, falls, injuries, overuse. Continue gentle, regular exercise routine. Get surveillance labs prior to next visit in 5 months-standing orders in [facility]. It may be helpful to get labs at the time of perceived disease flare . I reviewed with him risk of possible liver damage with daily Tylenol intake of 3900 mg and encouraged him to limit its use to 3000 mg daily in favor of topical products and other nonpharmacologic measures such as warm packs alternating with ice packs, regular meditation/relaxation and mindfulness approach. He discontinued use of Tylenol in favor off topical products and other nonpharmacologic measures. Call with questions or problems in the interim. Assessment & Plan (05/05/2022 2:28 PM EST): Carefully continue Plaquenil 200 mg twice daily as prescribed. Continue daily sun protection all year round. Avoid sick contacts, falls, injuries, overuse. Continue gentle, regular exercise routine. Get surveillance labs prior to next visit in 4 months-standing orders in [facility]. I reviewed with him risk of possible liver damage with daily Tylenol intake of 3900 mg and encouraged him to limit its use to 3000 mg daily in favor of topical products and other nonpharmacologic measures such as warm packs alternating with ice packs, regular meditation/relaxation and mindfulness approach. He discontinued use of Tylenol in favor off topical products and other nonpharmacologic measures. Call with questions or problems in the interim. Assessment & Plan (02/16/2022 11:00 AM EST): Carefully continue Plaquenil 200 mg twice daily as prescribed. Continue daily sun protection all year round. Avoid sick contacts, falls, injuries, overuse. Continue gentle, regular exercise routine. Get surveillance labs prior to next visit in 3 months. I reviewed with him risk of possible liver damage with daily Tylenol intake of 3900 mg and encouraged him to limit its use to 3000 mg daily in favor of topical products and other nonpharmacologic measures such as warm packs alternating with ice packs, regular meditation/relaxation and mindfulness approach. Call with questions or problems in the interim. Assessment & Plan (10/18/2021 11:40 AM EDT): Carefully continue Plaquenil 200 mg twice daily as prescribed. Continue daily sun protection all year round. Avoid sick contacts, falls, injuries, overuse. Continue gentle, regular exercise routine. Get surveillance labs prior to next visit in 3 months. I reviewed with him risk of possible liver damage with daily Tylenol intake of 3900 mg and encouraged him to limit its use to 3000 mg daily in favor of topical products and other nonpharmacologic measures such as warm packs alternating with ice packs, regular meditation/relaxation and mindfulness approach. Call with questions or problems in the interim. Assessment & Plan (06/16/2021 4:31 PM EDT): Carefully continue Plaquenil 200 mg twice daily as prescribed. Continue daily sun protection all year round. Avoid sick contacts, falls, injuries, overuse. Continue gentle, regular exercise routine. Get surveillance labs prior to next visit in 3 months. I reviewed with him risk of possible liver damage with daily Tylenol intake of 3900 mg and encouraged him to limit its use to 3000 mg daily in favor of topical products and other nonpharmacologic measures such as warm packs alternating with ice packs, regular meditation/relaxation and mindfulness approach. Call with questions or problems in the interim. Assessment & Plan (03/21/2021 2:16 PM EST): Carefully continue Plaquenil 200 mg twice daily as prescribed. Continue daily sun protection all year round. Avoid sick contacts, falls, injuries, overuse. Continue gentle, regular exercise routine. Get surveillance labs prior to next visit in 3 months. I reviewed with him risk of possible liver damage with daily Tylenol intake of 3900 mg and encouraged him to limit its use to 3000 mg daily in favor of topical products and other nonpharmacologic measures such as warm packs alternating with ice packs, regular meditation/relaxation and mindfulness approach. Call with questions or problems in the interim. Assessment & Plan (12/01/2020 9:15 PM EDT): Carefully continue Plaquenil 200 mg twice daily as prescribed. Continue daily sun protection all year round. Avoid sick contacts, falls, injuries, overuse. Continue gentle, regular exercise routine. Get surveillance labs today and prior to next visit in 3 months. Call with questions or problems in the interim. Get yearly influenza vaccination by mid December 2020. Assessment & Plan (05/26/2020 9:24 AM EST): Patient will discontinue Methotrexate medication due to GI upset. He will continue Plaquenil 200 Take one pill PO BID. Would consider additional medication if SLE symptoms increase. He will continue hydrocortisone cream as needed for any new skin rash. 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 Essential hypertension 06/01/2017 Assessment & Plan (03/24/2021 1:16 PM EST): Hold HCTZ Postoperative seroma of subc utaneous tissue after non-dermatologic procedure 06/01/2017 Resolved Problems Problem Noted Date Diagnosed Date Resolved Date NSAID long-term use 05/05/2022 01/24/20 23 Assessment & Plan (09/02/2022 11:17 AM EDT): Take the lowest dose, with least frequency, for shortest time. Remember to take it always with food. Favor topical over oral preparations. Assessment & Plan (05/05/2022 2:20 PM EST): Take the lowest dose, with least frequency, for shortest time. Remember to take it always with food. Favor topical over oral preparations. Mild mental slowing 03/04/2021 10/19/19 22 Assessment & Plan (03/21/2021 2:13 PM EST): Keep track of his noted mental slowing instances and seek formal evaluation if progressive. Painful defecation 11/26/2020 2 Assessment & Plan (06/16/2021 4:32 PM EDT): Get gastroenterology assessment and colonoscopy to evaluate for underlying pathology of slow and painful defecation x 2 years. Assessment & Plan (03/04/2021 11:36 AM EST): Get gastroenterology assessment and colonoscopy to evaluate for underlying pathology of slow and painful defecation x 2 years. Assessment & Plan (12/01/2020 9:17 PM EDT): Get gastroenterology assessment and colonoscopy to evaluate for underlying pathology of slow and painful defecation x 2 years. Immunizations Immunization Administration Dates Next Due COVID-19 (Pre-01/09) Moderna Vaccine, mRNA, PF 0 10/18/2021 Hep A-Hep B 10/01/2014,09/03/2014 Influenza Quadrivalent Adjuvanted Preservative F ree IM 01/12/2021 Pneumococcal conjugate PCV13 12/16/2014 Pneumococcal polysaccharide PPSV23 02/04/2011 Td (adult),2 Lf Tetanus Toxoid, PF, Adsorbed Tdap 09/11/2007 Typhoid, unspecified formulation 09/03/2014 Zoster live 01/22/2013 Zoster recombinant 04/30/2021,03/05/2021 Family History Medical History Relation Comments Heart disease Father Cancer Mother Relation Status Comments Father Mother Social History Tobacco Use Types Packs/Day Years Used Date Smoking Tobacco: Former Cigarettes 1 975 - 1994 Smokeless Tobacco: Never Tobacco Cessation:Counseling Given: Not Answered Alcohol Use Standard Drinks/Week Comments Yes 0 (1 standard drink = 0.6 oz pure alcohol) occasionally 5-7/week; glass of wine Education Answer Date Recorded Are you interested in more education? Not on orquidea e 07/15/2022 Are you concerned about learning? Not on file 07/15/2022 No 07/15/2022 No 07/15/2022 Digital Access Answer Date Recorded No 08/15/2022 No 08/15/2022 Reliable internet access at home? Not on file 08/15/2022 Device with a working camera? Not on file Sex and Gender Information Value Date Recorded Sex Assigned at Male 03/23/2021 3:26 PM EST Legal Sex Male 10:08 PM EDT Gender Identity Male 03/23/2021 3:26 PM EST Sexual Orientation Not on file Last Filed Vital Signs Vital Sign Reading Time Taken Comments Blood Pressure 138/82 01/23/2023 9:22 AM EST Pulse 44 01/23/2023 9:22 AM EST Temperature 36.6 C (97.9 F) 10/04/2021 3:26 PM EDT Respiratory Rate 16 10/04/2021 3:26 PM EDT Oxygen Saturation 98% 01/23/2023 9:22 AM EST Inhaled Oxygen Concentration - - Weight 93 kg (205 lb) 01/23/2023 9:22 AM EST Height 180.3 cm (5' 11 ) 01/23/2023 9:22 AM EST Body Mass Index 28.59 01/23/2023 9:22 AM EST Plan of Treatment Health Maintenance Due Date Last Done Comments LIPID PANEL 1945 DEPRESSION SCREENING 1957 SMOKING Hx and SMOKELESS TOBACCO SCREENING 1958 HEPATITIS C SCREENING 11/16/1963 RSV VACCINE (1 - 1-dose 75+ series) 2020 BLOOD PRESSURE 07/24/2023 01/23/2023 CREATININE LEVEL 01/24/2024 01/23/2023, , 02/16/2022, Additional history exists POTASSIUM LEVEL 01/24/2024 01/23/2023, 04/20, 02/16/2022, Additional history exists INFLUENZA VACCINE (#1) 2024 , 01/06/2022, 01/12/2021, Additional history exists COVID-19 VACCINE (2024- season) 2024 03/09/2022, 10/18/2021, 01/12/2021, Additional history exists Adult Td,Tdap Booster 10/06/2027 10/05/2017, 008 HEPATITIS A VACCINES Aged Out 10/01/2014, 09/04/19 15 No longer eligible based on patient's age to complete this topic PNEUMOCOCCAL VACCINES (50+ years) Completed 12/16/2014, 02/04/2011 ZOSTER VACCINES Completed 04/30/2021, 02/17, 01/22/2013 HIB VACCINES Aged Out No longer eligi ble based on patient's age to complete this topic MENINGOCOCCAL VACCINES (ACWY) Aged Out No longer eligible based on patient's age to complete this topic MENINGOCOCCAL VACCINES (B) Aged Out N o longer eligible based on patient's age to complete this topic Medical Devices Not on file Procedures Procedure Name Priority Date/Time Associated Diagnosis Comments COMPREHENSIVE METABOLIC PANEL (CMP) Routine 01/23/2023 9:51 AM EST Other forms of systemic lupus erythematosus, unspecified organ involvement status Long-term use of Plaquenil NSAID long-term use from Last 3 Months or Most Recently Relevant to Health Maintenance Results * (ABNORMAL) Comprehensive metabolic panel (01/23/2023 9:51 AM EST) SODIUM 141 133 - 146 mmol/L [facility] POTASSIUM 4.9 3.3 - 5.1 mmol/L [facility] CHLORIDE 101 96 - 108 mmol/L [facility] CO2 25 21 - 35 mmol/L [facility] BUN 21(H) 6 - 19 mg/dL [facility] CREATININE 1.20 0.5 - 1.5 mg/dL [facility] GLUCOSE 103(H) 70 - 99 mg/dL [facility] ALBUMIN 4.6 3.9 - 4.8 g/dL [facility] TOTAL PROTEIN 7.2 6.5 - 8.0 g/dL [facility] CALCIUM 10.0 8.4 - 10.3 mg/dL [facility] ALKALINE PHOSPHATASE 49 39 - 117 U/L [facility] TOTAL BILIRUBIN 0.4 0.0 - 1.2 mg/dL [facility] AST 23 0 - 37 U/L [facility] ALT 15 0 - 40 U/L [facility] GLOBULIN 2.6 1 - 4.8 g/dL [facility] EGFR 62 >59 mL/min/1.7 3m2 [facility] Comment:Estimated glomerular filtration rate calculated using the CKD-EPI refit equation. ANION GAP 20 10 - 20 mmol/L [facility] Blood 01/23/2023 9:51 AM EST 01/23/2023 9:53 AM EST us Chelsea Laughlin MD LAB BLOOD BKR ORDERABLES Final Result [address] [id number] from Last 3 Months or Most Recently Relevant to Health Maintenance Insurance MEDICARE PART A & B [employer] MEDICARE SUPPLEMENT MEDICARE PART A & B [employer] MEDICARE SUPPLEMENT MEDICARE PART A & B [facility] MEDICARE SUPPLEMENT MEDICARE PART A & [facility]IC[facility] SUPPLEMENT [facility] PART A & [facility] EXTENSION MEDICARE SUPPLEMENT MEDICARE PART A & B [facility] [employer] MEDICARE SUPPLEMENT MEDICARE PART A & B [facility] [employer] MEDICARE SUPPLEMENT MEDICARE PART A & B [employer] MEDICARE SUPPLEMENT MEDICARE PART A & B [employer] MEDICARE SUPPLEMENT VIOLE[place] STEPHENSON [phone] Advance Directives For more information, please contact: [phone] (9AM - 5PM [place], Monday-Monday) * Full Code (Latest Code Status on File) Date Activated Date Inactivated Comments 03/23/2021 11:44 PM Question Answer Comments Code Status Confirmed With: Patient * Full Code (Presumed) Date Activated Date Inactivated Comments 06/27/2017 12:48 PM 06/27/2017 10:35 PM Care Teams Bleach Analyst Relationship Specialty Start Date End Date Mally Velasco DO [address] [place] [id number] PCP - General Internal Medicine 05/18/21 Additional Source Comments The information contained in this document represents components of the legal health record. It is not the complete legal health record.[facility]
--- OUTSIDE RECORDS SUMMARY | 2025-02-07 12:51 | XMS_ITS | Encounter Summary ---
Author Organization [facility] Address [address] [place] [phone] Phone Care Team Providers Care Recreation Leader Name Role Phone Soham Bishop MD Primary Care Provider sis [email or web address] Mally Velasco DO Primary Care Provider [phone] Encounter Details Date Type Department Care Team (Late st Contact Info) Description 06/27/2017 Procedure Pass OR Admitting Dept - Virtual Department [address] [place] [id number] Social History Tobacco Use Types Packs/Day Years [...] documented as of this encounter Care Teams Recreation Leader Relationship Specialty Start Date End Date Soham Bishop MD [email or web address] PCP - General Family Medicine 02/21/17 05/17/21 Mally Velasco DO [address] [place] [id number] PCP - General Internal Medicine 05/18/21 documented as of this encounter Additional Source Comments The information contained in this document represents components of the legal health record. It is not the complete legal health record.[facility]
--- OUTSIDE RECORDS SUMMARY | 2025-02-07 12:51 | XMS_ITS | Encounter Summary ---
Author Organization [facility] Address [address] [facility] [address] [place] [address] Phone Care Team Providers Care Rn Team Leader Name Role Phone Soham Bishop MD Primary Care Provider [email or web address] Mally Velasco DO Primary Care Provider [phone] Encounter Details Date Type Department Care Team (Latest Contact Info) Description 01/29/2019 Transcribe Orders [address] [place] [address] Leeroy Murphy MD [address] [place] [address], [address] [place] [address] [email or web address] Personal history of malignant neoplasm of prostate (Primary Dx) Social History [...] of this encounter Results * PSA (screening) (01/29/2019 3:21 PM EST) PSA <0.05 0 - 4.00 ng/mL [facility] Blood 01/29/2019 3:21 PM EST 01/29/2019 3:23 PM EST us Leeroy Murphy MD LAB BLOOD BKR ORDERABLES Final Result [address] [address] documented in this encounter Visit Diagnoses Diagnosis Personal history of malignant neoplasm of prostate- Primary documented in this encounter Additional Health Concerns Infection Onset Date Last Indicated Resolved Time COVID-19 03/23/2021 03/23/2021 04/13/2021 1:22 AM EST documented as of this encounter Care Teams Rn Team Leader Relationship Specialty Start Date End Date oSham Bishop MD [email or web address] PCP - General Family Medicine 02/21/17 05/17/21 Mally Velasco DO [address] [place] [address] PCP - General Internal Medicine 05/18/21 documented as of this encounter Additional Source Comments The information contained in this document represents components of the legal health record. It is not the complete legal health record.[facility]
--- OUTSIDE RECORDS SUMMARY | 2025-02-07 12:51 | XMS_ITS | Encounter Summary ---
Author Organization [facility] Address [address] [facility] [address] [place] [address] Phone Care Team Providers Care Machinist Supervisor Outside Name Role Phone Soham Bishop MD Primary Care Provider sis [email or web address] Mally Velasco DO Primary Care Provider [phone] Encounter Details Date Type Department Care Team (Late st Contact Info) Description 02/21/2017 Procedure Pass [facility], Ct Scan - [address] [address] Social History Tobacco Use Types Packs/Day Years Used Date Smoking Tobacco: Never Smokeless Tobacco: Never Alcohol Use Standard Drinks/Week Comments Yes 0 (1 standard drink = 0.6 oz pur e alcohol) occasionally Sex and Gender Information Value Date Recorded [...] documented as of this encounter Care Teams Machinist Supervisor Outside Relationship Specialty Start Date End Date Soham Bishop MD [email or web address] PCP - General Family Medicine 02/21/17 05/17/21 Mally Velasco DO [address] [place] [address] PCP - General Internal Medicine 05/18/21 documented as of this encounter Additional Source Comments The information contained in this document represents components of the legal health record. It is not the complete legal health record.[facility]
--- OUTSIDE RECORDS SUMMARY | 2025-02-07 12:51 | XMS_ITS | Encounter Summary ---
Author Organization [facility] Address [address] [facility] [address] [place] [address] Phone Care Team Providers Care Case Resource Manager Name Role Phone Soham Bishop MD Primary Care Provider [email or web address] Mally Velasco DO Primary Care Provider [phone] Encounter Details Date Type Department Care Team (Late st Contact Info) Description 02/21/2017 Procedure Pass [facility], Ct Scan - [address] [address] Social History Tobacco Use Types Packs/Day Years [...] documented as of this encounter Care Teams Case Resource Manager Relationship Specialty Start Date End Date Soham Bishop MD [email or web address] PCP - General Family Medicine 02/21/17 05/17/21 Mally Velasco DO [address] [place] [address] PCP - General Internal Medicine 05/18/21 documented as of this encounter Additional Source Comments The information contained in this document represents components of the legal health record. It is not the complete legal health record.[facility]
--- OUTSIDE RECORDS SUMMARY | 2025-02-07 12:51 | XMS_ITS | Encounter Summary ---
Author Organization [facility] Address [address] [facility] [address] [place] [address] Phone Care Team Providers Care Legal Administrative Secretary Name Role Phone Soham Bishop MD Primary Care Provider [email or web address] Mally Velasco DO Primary Care Provider Encounter Details Date Type Department Care Team (Latest Contact Info) Description 02/03/2021 Transcribe Orders [address] [place] [address] Toyin Cruz PA [address] [address] [email or web address] Malignant neoplasm of prostate (Primary Dx); Screening for prostate cancer Social History Tobacco Use Types Packs/Day Years [...] of this encounter Results * PSA (screening) (02/03/2021 11:05 AM EST) PSA <0.05 0 - 4.00 ng/mL [facility] Blood 02/03/2021 11:0 5 AM EST 02/03/2021 11:12 AM EST us Toyin ZIMMERMAN LAB BLOOD BKR ORDERABLES Final R esult [facility] [address] [place] [address] documented in this encounter Visit Diagnoses Diagnosis Malignant neoplasm of prostate- Primary Screening for prostate cancer Special screening for malignant neoplasm of prostate documented in this encounter Additional Health Concerns Infection Onset Date Last Indicated Resolved Time COVID-19 03/23/2021 03/23/2021 04/13/2021 1:22 AM EST documented as of this encounter Care Teams Legal Administrative Secretary Relationship Specialty Start Date End Date Soham Bishop MD [email or web address] PCP - General Family Medicine 02/21/17 05/17/21 Mally Velasco DO [address] [place] [address] PCP - General Internal Medicine 05/18/21 documented as of this encounter Additional Source Comments The information contained in this document represents components of the legal health record. It is not the complete legal health record.[facility]
--- OUTSIDE RECORDS SUMMARY | 2025-02-07 12:51 | XMS_ITS | Encounter Summary ---
Author Organization [facility] Address [address] [employer] [facility] [address] [place] [address] Phone Care Team Providers Care Casino Gaming Worker Name Role Phone Soham Bishop MD Primary Care Provider sis [email or web address] Mally Velasco DO Primary Care Provider Encounter Details Date Type Department Care Team (Latest Contact Info) Description 02/03/2021 Transcribe Orders [address] [place] [address] Kaur Talamantes PA-C [address] [facility], [address] [place] [address] [email or web address] Pain of upper abdomen (Primary Dx); Diarrhea, unspecified type; Constipation, unspecified constipation type Social History Tobacco Use Types Packs/Day Years [...] documented as of this encounter Results * Pancreatic Elastase, Stool (02/08/2021 1:50 PM EST) Pancreatic Elastase, Feces 427 >200 (Normal) mcg/g [facility] Stool (Stool) 02/08/2021 1:5 0 PM EST 02/08/2021 2:13 PM EST us Kaur Talamantes PA-C BODY FLUIDS AND STOOLS ORDERABL ES Final Result Performing Organization Address [facility]/ZIP Co de Phone Number [facility] LAB MED/[facility] [address] [address] [place] [address] * Stool fat/fiber exam (02/08/2021 1:50 PM EST) Pathologist [facility] FATTY ACID NORMAL NORMAL [facility] Neutral Fat, stool NORMAL NORMAL [facility] Stool (Stool) 02/08/2021 1:5 0 PM EST 02/08/2021 2:13 PM EST us Kaur Talamantes PA-C BODY FLUIDS AND STOOLS ORDERABL ES Final Result Performing Organization Address [facility] Co de Phone Number [address] [address] * Ova and parasites, stool (02/08/2021 1:50 PM EST) Special Requests None 02/08/2021 1:50 PM EST [facility] DIRECT EXAM No parasites found by Trichrome Stain 02/15/2021 12:24 PM EST [facility] DIRECT EXAM NO PARASITES FOUND BY DIRECT OR CONCENTRATION METHODS 02/15/2021 12:24 PM EST [facility] Stool (Stool) 02/08/2021 1:5 0 PM EST 02/08/2021 2:13 PM EST Comment:STOOL us Kaur Talamantes PA-C LAB BODY FLUIDS AND STOOL ORDER DAVE Final Result Performing Organization Address [facility]/ZIP Co de Phone Number [address] [address] * Giardia antigen screen (02/08/2021 1:50 PM EST) ST GIARDIA ANTIGEN Negative Negative [facility] DPT OF LAB MED AND PAT+ Comment: (NOTE) ADDITIONAL INFORMATION Test Performed by Enzyme Immunoassay. Stool (Stool) 02/08/2021 1:5 0 PM EST 02/08/2021 2:13 PM EST Kaur Talamantes PA-C LAB BODY FLUIDS AND STOOL ORDER DAVE Final Result Performing Organization Address City[facility]/ZIP Co de Phone Number [facility] DPT OF LAB MED AND PAT+ [address] [place] [address] * Fecal leukocyte examination (02/08/2021 1:50 PM EST) Pathologist [facility] Special Requests None 02/08/2021 1:50 PM EST [facility] GRAM STAIN No WBC seen on smear. 02/09/2021 7:25 AM EST [facility] Stool (Stool) 02/08/2021 1:5 0 PM EST 02/08/2021 2:13 PM EST Comment:STOOL Kaur Talamantes PA-C LAB BODY FLUIDS AND STOOL ORDER DAVE Final Result Performing Organization Address [facility]/ZIP Co de Phone Number [facility] [address] [place] [address] * Stool culture (02/08/2021 1:50 PM EST) Special Requests None 02/08/2021 1:50 PM EST [facility] Stool Culture NO SALMONELLA, SHIGELLA OR CAMPYLOBACTER ISOLATED 02/11/2021 8:55 AM [facility] Stool (Stool) 02/08/2021 1:5 0 PM EST 02/08/2021 2:13 PM EST Comment:STOOL Kaur Talamantes PA-C LAB MICROBIOLOGY CULTURE ORDERA BLES Final Result [address] [address] * Ova and parasites, stool (02/05/2021 1:50 PM EST) Special Requests None 02/08/2021 1:50 PM EST [facility] DIRECT EXAM No parasites found by Trichrome Stain 02/15/2021 12:19 PM EST [facility] DIRECT EXAM NO PARASITES FOUND BY DIRECT OR CONCENTRATION METHODS 02/15/2021 12:19 PM EST [facility] Stool (Stool) 02/05/2021 1:5 0 PM EST 02/08/2021 2:12 PM EST Comment:STOOL us Kaur Talamantes PA-C LAB BODY FLUIDS AND STOOL ORDER DAVE Final Result Performing Organization Address [facility] Co de Phone Number [address] [address] * Ova and parasites, stool (02/04/2021 1:49 PM EST) Special Requests None 02/08/2021 1:50 PM EST [facility] DIRECT EXAM No parasites found by Trichrome Stain 02/15/2021 12:19 PM EST [facility] DIRECT EXAM NO PARASITES FOUND BY DIRECT OR CONCENTRATION METHODS 02/15/2021 12:19 PM EST [facility] Stool (Stool) 02/04/2021 1:4 9 PM EST 02/08/2021 2:12 PM EST Comment:STOOL us Kaur Talamantes PA-C LAB BODY FLUIDS AND STOOL ORDER DAVE Final Result [address] [address] * TSH (02/03/2021 11:05 AM EST) TSH 1.83 0.27 - 4.20 uIU/mL [facility] Blood 02/03/2021 11:0 5 AM EST 02/03/2021 11:12 AM EST us Kaur Talamantes PA-C LAB BLOOD BKR ORDERABLES Final Result Performing Organization Address [facility]/ZIP Co de Phone Number [address] [address] * Immunoglobulin A (02/03/2021 11:05 AM EST) IgA 171 70 - 400 mg/dL [facility] Blood 02/03/2021 11:0 5 AM EST 02/03/2021 11:12 AM EST us Kaur Talamantes PA-C LAB BLOOD BKR ORDERABLES Final Result Performing Organization Address [facility] de Phone Number [address] [address] * Lipase (02/03/2021 11:05 AM EST) LIPASE 50 16 - 63 U/L [facility] Blood 02/03/2021 11:0 5 AM EST 02/03/2021 11:12 AM EST us Kaur Talamantes PA-C LAB BLOOD BKR ORDERABLES Final Result Performing Organization Address [facility] Co de Phone Number [address] [address] * C-Reactive Protein (02/03/2021 11:05 AM EST) C REACTIVE PROTEIN <3.0 0.0 - 4.0 mg/L [facility] Blood 02/03/2021 11:0 5 AM EST 02/03/2021 11:12 AM EST us Kaur Talamantes PA-C LAB BLOOD BKR ORDERABLES Final Result Performing Organization Address [facility]/ZIP Co de Phone Number [address] [address] * Comprehensive metabolic panel (02/03/2021 11:05 AM EST) SODIUM 136 133 - 146 mmol/L [facility] POTASSIUM 5.0 3.3 - 5.1 mmol/L [facility] CHLORIDE 100 96 - 108 mmol/L [facility] CO2 26 21 - 35 mmol/L [facility] BUN 16 6 - 19 mg/dL [facility] CREATININE 0.80 0.5 - 1.5 mg/dL [facility] GLUCOSE 93 70 - 99 mg/dL [facility] ALBUMIN 4.5 3.9 - 4.8 g/dL [facility] TOTAL PROTEIN 7.1 6.5 - 8.0 g/dL [facility] CALCIUM 9.8 8.4 - 10.3 mg/dL [facility] ALKALINE PHOSPHATASE 54 39 - 117 U/L [facility] TOTAL BILIRUBIN 0.3 0.0 - 1.2 mg/dL [facility] AST 18 0 - 37 U/L [facility] ALT 8 0 - 40 U/L [facility] GLOBULIN 2.6 1 - 4.8 g/dL [facility] EGFR 87 >59 mL/min/1.7 3m2 [facility] Comment:Estimated glomerular filtration rate calculated using the CKD-EPI equation. ANION GAP 15 10 - 20 mmol/L [facility] Blood 02/03/2021 11:0 5 AM EST 02/03/2021 11:12 AM EST Kaur Talamantes PA-C LAB BLOOD BKR ORDERABLES Final Result Performing Organization Address City/State/[facility] Co de Phone Number [address] [address] * (ABNORMAL) CBC (02/03/2021 11:05 AM EST) WBC 4.41 4.00 - 11.00 K/uL [facility] RBC 3.74(L) 3.90 - 5.69 M/uL [facility] HGB 13.1 12.4 - 17.3 g/dL [facility] HCT 37.5 37.0 - 51.0 % [facility] PLT 197 140 - 430 K/uL [facility] MCV 100.3(H) 78.0 - 97.0 fL [facility] MCH 35.0(H) 25.0 - 33.0 pg [facility] MCHC 34.9 32.0 - 36.0 g/dL [facility] RDW 12.4 11.0 - 15.0 % [facility] MPV 10.6 8.4 - 12.8 fl [facility] NRBC 0.00 0 /100 WBCs [facility] ABSOLUTE NRBC 0.00 0 K/uL [facility] Blood 02/03/2021 11:0 5 AM EST 02/03/2021 11:12 AM EST us Kaur Talamantes PA-C LAB BLOOD BKR ORDERABLES Final Result Performing Organization Address City[facility]/ZIP Co de Phone Number [address] [address] * Tissue transglutaminase IgA (02/03/2021 11:05 AM EST) TTG IGA ANTIBODY <1.2 <4.0 (Negative) U/mL [facility] Blood 02/03/2021 11:0 5 AM EST 02/03/2021 11:12 AM EST Kaur Talamantes PA-C LAB BLOOD BKR ORDERABLES Final Result [facility] [address] [place] [address] documented in this encounter Visit Diagnoses Diagnosis Pain of upper abdomen- Primary Diarrhea, unspecified type Constipation, unspecified constipation type documented in this encounter Additional Health Concerns Infection Onset Date Last Indicated Resolved Time COVID-19 03/23/2021 03/23/2021 04/13/2021 1:22 AM EST documented as of this encounter Care Teams Casino Gaming Worker Relationship Specialty Start Date End Date Soham Bishop MD [email or web address] PCP - General Family Medicine 02/21/17 05/17/21 Mally Velasco DO [address] [place] [address] PCP - General Internal Medicine 05/18/21 documented as of this encounter Additional Source Comments The information contained in this document represents components of the legal health record. It is not the complete legal health record.[facility]
--- OUTSIDE RECORDS SUMMARY | 2025-02-07 12:51 | XMS_ITS | Encounter Summary ---
Author Organization [facility] Address [address] [facility] [address] [place] [address] Phone Care Team Providers Care Shrink Pit Operator Name Role Phone Soham Bishop MD Primary Care Provider sis [email or web address] Mally Velasco DO Primary Care Provider [phone] Reason for Referral * MRI/CAT Scan - Closed Specialty Diagnoses / Procedures Referred By Ismael frazier Referred To Contact Radiology Diagnoses Colon spasm Procedures MRI Enterography Abdomen/Pelvis MRI PELVIS (GI/) Telma Cruz NP Phone: tel: fax: Referral ID Status Reason Start Date Expiration Date Visits Re quested Visits Authorized [id number] Closed 05/12/2021 05/12/2022 1 1 Encounter Details Date Type Department Care Team (Latest Contact Info) Description 05/12/2021 Transcribe Orders Virtual Department [address] [place] [address] Telma Cruz NP [address] [place] [address] Colon spasm (Primary Dx) Social History Tobacco Use Types Packs/Day Years Used Date Smoking Tobacco: Former Cigarettes 1 1994 Smokeless Tobacco: Never Alcohol Use Standard [...] documented as of this encounter Results * MRI ENTEROGRAPHY ABDOMEN AND PELVIS WITH AND WITHOUT CONTRAST (05/28/2021 4:19 PM EST) Anatomical Region Laterality Modality Pelvis Magnetic Resonan ce 05/28/2021 4:45 PM EST Impressions 05/28/2021 5:02 PM EST 1.No acute intestinal tract findings. 2.Additional findings as above. Narrative 05/28/2021 5:02 PM EST COMPARISON: CT abdomen pelvis 03/23/2021. TECHNIQUE: Exam performed on a 1.5 Randa high-field MRI scanner. The following sequences were obtained through the abdomen and pelvis: Axial T2, T2 fat suppression, 3-D T1 fat suppression, T2 FIESTA fat suppression, coronal T2, T2 fat suppression, as well as 3-D T1 fat suppression. These sequences were followed by post-gadolinium coronal 3-D T1 fat suppression dynamic at twenty and forty seconds post-injection and delayed 3-D axial T1 fat suppression. MRI ENTEROGRAPHY FINDINGS: Lung bases/heart: Heart is normal in size. No pericardial or pleural effusions. Spleen: Normal. Liver: Normal. Gallbladder/biliary tree: Normal. Pancreas: Stable mild atrophy. Adrenal glands: Normal. Vasculature: Mild diffuse atherosclerosis. No AAA or acute finding. Genitourinary: Left kidney is normal. There is a stable 3.6 cm thinly septated right upper renal pole cortical cyst without enhancement/Bosniak 2. Prostatectomy. Bladder is normal. Gastrointestinal tract: Stable moderate sigmoid colon diverticulosis and wall thickening. No abnormal enhancement, distention or masses. Peritoneum/retroperitoneum: Stable borderline enlarged distal left external iliac lymph node measuring 1.2 cm in short axis. No upper abdominal lymphadenopathy, ascites or fluid collections. Musculoskeletal: No destructive or suspicious bone lesions. Procedure Note Adrian Menon MD - 03/11/2022 COMPARISON: CT abdomen pelvis 03/23/2021. TECHNIQUE: Exam performed on a 1.5 Randa high-field MRI scanner. Thefollowing sequences were obtained through the abdomen and pelvis: AxialT2, T2 fat suppression, 3-D T1 fat suppression, T2 FIESTA fat suppression,coronal T2, T2 fat suppression, as well as 3-D T1 fat suppression. Thesesequences were followed by post-gadolinium coronal 3-D T1 fat suppressiondynamic at twenty and forty seconds post-injection and delayed 3-D axialT1 fat suppression. MRI ENTEROGRAPHY FINDINGS: Lung bases/heart: Heart is normal in size. No pericardial or pleuraleffusions. Spleen: Normal. Liver: Normal. Gallbladder/biliary tree: Normal. Pancreas: Stable mild atrophy. Adrenal glands: Normal. Vasculature: Mild diffuse atherosclerosis. No AAA or acute finding. Genitourinary: Left kidney is normal. There is a stable 3.6 cm thinlyseptated right upper renal pole cortical cyst without enhancement/Bosniak2. Prostatectomy. Bladder is normal. Gastrointestinal tract: Stable moderate sigmoid colon diverticulosis andwall thickening. No abnormal enhancement, distention or masses. Peritoneum/retroperitoneum: Stable borderline enlarged distal leftexternal iliac lymph node measuring 1.2 cm in short axis. No upperabdominal lymphadenopathy, ascites or fluid collections. Musculoskeletal: No destructive or suspicious bone lesions. IMPRESSION: 1.No acute intestinal tract findings. 2.Additional findings as above. Telma Cruz PSYCHOLOGIST PERSONNEL IMG MR ABDOMEN Final Res ult documented in this encounter Visit Diagnoses Diagnosis Colon spasm- Primary Irritable bowel syndrome Colon spasm Irritable bowel syndrome documented in this encounter Care Teams Shrink Pit Operator Relationship Specialty Start Date End Date Soham Bishop MD [email or web address] PCP - General Family Medicine 02/21/17 05/17/21 Mally Velasco DO [address] [place] [address] PCP - General Internal Medicine 05/18/21 documented as of this encounter Additional Source Comments The information contained in this document represents components of the legal health record. It is not the complete legal health record.[facility]
== END 2025-02-07 13:10 | disposition home or self-care (01) ==
LOC: HO.RHES 12:32
PROVIDERS: Visit Provider Student in an Organized Health Care Education/Training Program
DX: M32.9 Systemic lupus erythematosus, unspecified (principal); Z51.81 Encounter for therapeutic drug level monitoring; Z79.899 Other long term (current) drug therapy; Z79.620 Long term (current) use of immunosuppressive biologic; Z79.52 Long term (current) use of systemic steroids; Z79.631 Long term (current) use of antimetabolite agent
CPT/HCPCS: 99214; G2211

== ENCOUNTER → 2025-02-07 12:31 | Outpatient (BNVA) | payer MEDICARE, OTHER, SELFPAY | PROVIDERS: Visit Provider Student in an Organized Health Care Education/Training Program | DX: M32.9 Systemic lupus erythematosus, unspecified (principal); Z96.20 Presence of otological and audiological implant, unspecified; Z79.52 Long term (current) use of systemic steroids; Z79.899 Other long term (current) drug therapy | CPT/HCPCS: 99212 ==